=== PATIENT | male | born 1950 | race Caucasian/White ===

== ENCOUNTER 2018-01-16 05:58 | Day surgery (SDC) | payer SELFPAY ==
[2018-01-16] VITALS (8 sets, daily range): BP systolic 108–140; BP diastolic 67–85; PULSE 80–93; RESP 15–18; TEMP 36.4–36.8; O2SAT 94–98; BMI 21.4
--- NOTE | 2018-01-16 07:10 | RAD_ITS ---
STUDY: X-RAY - RIGHT ANKLE REASON FOR EXAM: Male, 67 years old. ORIF TECHNIQUE: 2 C-arm view(s) of the ankle. COMPARISON: None. FINDINGS: 2 C-arm films of the right ankle were performed after open reduction internal fixation of fractures in the distal fibula and tibia. Alignment at the fracture sites is anatomic. No hardware complication. RAD/Ankle min 3 Views IMPRESSION: Status post ORIF of distal tibia and fibular fractures. Alignment at the fracture sites is anatomic, follow-up recommended to assure osseous union Electronically Signed: Narciso Mike MD at 10:17 EDT , Service support ,
[2018-01-16] MEDS: Cefazolin 2 GM in 0.9% Normal Saline 100 ML IV (07:15)
--- NOTE | 2018-01-16 09:19 | PCM.DC.ORTHO ---
Discharge Diet: No Restrictions Discharge Activity: Use Walker, Use Crutches Weight Bearing Status: No weight bearing Keep extremity elevated above heart level: Right Leg Call your doctor if your incision/area has: Continuous Slow Oozing, Sudden Increased Bleeding, Increased Pain/ Swelling, Increased Redness, Foul Smelling Discharge Call your doctor if you observe: Fever of 101 or Higher, Coldness, Increased Pain, Numbness or Tingling, Change in Color Cleanse incision/area with: Keep Dressing Clean & Dry Allergies/Adverse Reactions: Allergies aspirin Allergy (Verified 01/15/18 12:05) Unknown Please Follow Up With: Farzad Goel, DO When: as scheduled
--- NOTE | 2018-01-16 09:21 | PCM.OPRPT ---
Report of Operation Date of Procedure: 01/16/18 Pre-Operative Diagnosis: Distal tibia fracture with intra-articular extension right, fibular shaft fracture right Post-Operative Diagnosis: Same with rupture of posterior tibialis tendon right Surgery/Procedure Performed:: Open reduction with internal fixation of distal tibia, open reduction with internal fixation of fibular shaft right. Primary repair of posterior tibialis tendon package handler: Olivier Harvey Type of Anesthesia:: General Anesthesiologist: Luís Lira Estimated Blood Loss (mL): 25 Fluids Replaced: See anesthesia report Description of Procedure: Surgical indications: Utilize a 67-year-old male who sustained a severe ankle injury last week. He has elected to undergo the above procedure. Please see history and physical Implants: Synthes one third tubular plate on the fibula and Synthes medial periarticular distal tibial plate Procedure description: Rosalba was greeted in the preoperative area. His right lower extremity was marked with surgical marker. Perioperative antibiotics were administered. Patient was then taken to the operating room Suite 1. After adequate anesthesia was obtained and airway secured well-padded tourniquet was placed on patient's right lower extremity. The leg was then prepped draped in usual sterile fashion. Surgical timeout was performed surgery was commenced. Assistance Esmarch was used to examine the limb the tourniquet was inflated to 250 mmHg. Standard lateral approach to the fibular shaft was then carried out. Incision was made with a 15 blade. Superior peroneal nerve was identified and protected throughout the procedure. Patient had a transverse type fracture of the fibular shaft. I was able to reduce this and this is held in anatomic fashion as a one third tubular plate was applied to the lateral aspect of the fibula. The distal screw was then placed bicortically followed by a compression screw proximally in order to compress the fracture site to promote some healing. Biplanar fluoroscopic imaging was used to confirm the reduction and the plate placement. Total of 6 screws were placed in this fibular plate. Once this was achieved the tibia was then approached. The medial incision was then created greater saphenous vein was identified and protected. I then dissected down to the distal tibia and subperiosteal dissection was then carried at the fracture site. Patient had incarcerated tendon within the fracture site. This was removed and was identified that this is the posterior tibialis tendon. He had completely ruptured this at the fracture site. Once as able to remove that I was unable to reduce the fracture. This is held in reduced fashion point of reduction forceps. There is slight amount of valgus at the ankle mortise which is a trial to correct. I estimate this to be approximately 3? after several times to improve this valgus alignment without success I did decide that this would be acceptable and proceed with the fixation. First screw was placed distally with a bicortical cancellus screw in order to reduce the plate to the bone followed by 4 distal locking screws. Once this was secured to the bone distally I was unable to manipulate the reduction slightly more order to achieve anatomic alignment and reduction as well as to attempt to improve the alignment. Again the alignment would not improve greater than 3? of valgus to the floor I did proceed with fixing the plate to the bone proximally with bicortical 3.5 millimeter screws. Biplanar fluoroscopic imaging was utilized throughout the procedure to ensure appropriate placement of the plate as well as the screws as well as to monitor the reduction. Final imaging was obtained. Attention was then turned to the ruptured posterior tibialis tendon. This is very close to the musculotendinous junction. I had a substantial stump distally the proximal stump was not quite as garcia as this was very close to the musculotendinous junction. Used to #2 fiber wires and performed a Krak?w type stitch both the proximal and distal portion with the #2 FiberWire and these were then approximated. I then oversewed this with #1 Vicryl on a tapered needle. Once this was complete the wounds were irrigated and closed in layers. Surgical tressa were used in the skin because of the tenuous nature of his skin. He did have a fracture blister noted posterior medial. If the patient ends up developing a symptomatic flatfoot he may require reconstructive surgery later to perform a FDL transfer to the posterior tibialis. Postoperative: Patient will maintain strict nonweightbearing for approximately 6 weeks. He may be removed out of the postop dressing at 2 weeks however he will require a cam walking boot and treat this essentially as a cast for an additional 4 weeks. Will attempt weightbearing at approximately 6 weeks he may initiate some gentle active range of motion at 4 weeks aggressive resistance exercises at 6-8 weeks Physician assistant portfolio manager was integral in all portions of this procedure. They assisted with positioning the patient, draping the extremity, holding retractors, closing the wound, and applying the dressing. This was all done under my direct supervision. The physician assistant portfolio manager was essential for a successful, efficient surgery. - Admit VTE Documentation VTE Present on Admission: Yes VTE Mechan Device Prophylaxis: SCD's, Thigh High LAN Hose VTE Pharm Prophylaxis ordered?: No Reason prophylaxis not ordered:: Adverse Reaction to Drug
--- NOTE | 2018-01-16 09:31 | OP.PCM_ITS ---
Report of Operation Date of Procedure: 01/16/18 Pre-Operative Diagnosis: Distal tibia fracture with intra-articular extension right, fibular shaft fracture right Post-Operative Diagnosis: Same with rupture of posterior tibialis tendon right Surgery/Procedure Performed:: Open reduction with internal fixation of distal tibia, open reduction with internal fixation of fibular shaft right. Primary repair of posterior tibialis tendon senior data analyst: Olivier Harvey Type of Anesthesia:: General Anesthesiologist: Luís Lira Estimated Blood Loss (mL): 25 Fluids Replaced: See anesthesia report Description of Procedure: Surgical indications: Utilize a 67-year-old male who sustained a severe ankle injury last week. He has elected to undergo the above procedure. Please see history and physical Implants: Synthes one third tubular plate on the fibula and Synthes medial periarticular distal tibial plate Procedure description: Rosalba was greeted in the preoperative area. His right lower extremity was marked with surgical marker. Perioperative antibiotics were administered. Patient was then taken to the operating room Suite 1. After adequate anesthesia was obtained and airway secured well-padded tourniquet was placed on patient's right lower extremity. The leg was then prepped draped in usual sterile fashion. Surgical timeout was performed surgery was commenced. Assistance Esmarch was used to examine the limb the tourniquet was inflated to 250 mmHg. Standard lateral approach to the fibular shaft was then carried out. Incision was made with a 15 blade. Superior peroneal nerve was identified and protected throughout the procedure. Patient had a transverse type fracture of the fibular shaft. I was able to reduce this and this is held in anatomic fashion as a one third tubular plate was applied to the lateral aspect of the fibula. The distal screw was then placed bicortically followed by a compression screw proximally in order to compress the fracture site to promote some healing. Biplanar fluoroscopic imaging was used to confirm the reduction and the plate placement. Total of 6 screws were placed in this fibular plate. Once this was achieved the tibia was then approached. The medial incision was then created greater saphenous vein was identified and protected. I then dissected down to the distal tibia and subperiosteal dissection was then carried at the fracture site. Patient had incarcerated tendon within the fracture site. This was removed and was identified that this is the posterior tibialis tendon. He had completely ruptured this at the fracture site. Once as able to remove that I was unable to reduce the fracture. This is held in reduced fashion point of reduction forceps. There is slight amount of valgus at the ankle mortise which is a trial to correct. I estimate this to be approximately 3? after several times to improve this valgus alignment without success I did decide that this would be acceptable and proceed with the fixation. First screw was placed distally with a bicortical cancellus screw in order to reduce the plate to the bone followed by 4 distal locking screws. Once this was secured to the bone distally I was unable to manipulate the reduction slightly more order to achieve anatomic alignment and reduction as well as to attempt to improve the alignment. Again the alignment would not improve greater than 3? of valgus to the floor I did proceed with fixing the plate to the bone proximally with bicortical 3.5 millimeter screws. Biplanar fluoroscopic imaging was utilized throughout the procedure to ensure appropriate placement of the plate as well as the screws as well as to monitor the reduction. Final imaging was obtained. Attention was then turned to the ruptured posterior tibialis tendon. This is very close to the musculotendinous junction. I had a substantial stump distally the proximal stump was not quite as garcia as this was very close to the musculotendinous junction. Used to #2 fiber wires and performed a Krak?w type stitch both the proximal and distal portion with the #2 FiberWire and these were then approximated. I then oversewed this with #1 Vicryl on a tapered needle. Once this was complete the wounds were irrigated and closed in layers. Surgical tressa were used in the skin because of the tenuous nature of his skin. He did have a fracture blister noted posterior medial. If the patient ends up developing a symptomatic flatfoot he may require reconstructive surgery later to perform a FDL transfer to the posterior tibialis. Postoperative: Patient will maintain strict nonweightbearing for approximately 6 weeks. He may be removed out of the postop dressing at 2 weeks however he will require a cam walking boot and treat this essentially as a cast for an additional 4 weeks. Will attempt weightbearing at approximately 6 weeks he may initiate some gentle active range of motion at 4 weeks aggressive resistance exercises at 6-8 weeks Physician bar assistant was integral in all portions of this procedure. They assisted with positioning the patient, draping the extremity, holding retractors , closing the wound, and applying the dressing. This was all done under my direct supervision. The physician bar assistant was essential for a successful, efficient surgery. - Admit VTE Documentation VTE Present on Admission: Yes VTE Mechan Device Prophylaxis: SCD's, Thigh High LAN Hose VTE Pharm Prophylaxis ordered?: No Reason prophylaxis not ordered:: Adverse Reaction to Drug
--- NOTE | 2018-01-16 10:32 | NURSING ---
morphine 4 mg iv given at 1022 per pacu orders, pt now resting comfortably.
[2018-01-16] MEDS: oxyCODONE 5 MG Tablet PO (12:42)
== END 2018-01-16 13:10 | disposition home or self-care (01) ==
LOC: SDC 06:14 → AC 06:35
PROVIDERS: Family Provider Family Medicine; PCP Family Medicine; Visit Provider Orthopaedic Surgery
PROC: (CPT 27758; principal; 2018-01-16 06:55)
DX: S82.221A Displaced transverse fracture of shaft of right tibia, initial encounter for closed fracture (principal); S82.421A Displaced transverse fracture of shaft of right fibula, initial encounter for closed fracture; S86.111A Strain of other muscle(s) and tendon(s) of posterior muscle group at lower leg level, right leg, initial encounter; W18.31XA Fall on same level due to stepping on an object, initial encounter; Y93.89 Activity, other specified; Y92.9 Unspecified place or not applicable; Y99.9 Unspecified external cause status; M19.90 Unspecified osteoarthritis, unspecified site; Z85.46 Personal history of malignant neoplasm of prostate
CPT/HCPCS: 01480; 27758; 64445; 73610; 76000; C1713; J7120; J2405

== ENCOUNTER 2019-07-24 19:00 | Emergency (ER) | payer SELFPAY ==
[2019-07-24 19:01] VITALS: BP 153/88; PULSE 93; RESP 18; TEMP 36.6; O2SAT 97; BMI 22.3
--- NOTE | 2019-07-24 19:10 | ED.VIS.GEN ---
History of Present Illness Chief Complaint: Complaint Informant: Patient Onset: Yesterday Context: Gradual Onset Timing: Continuous Current Severity: Moderate Maximum Severity: Moderate Narrative: The patient is a 68-year-old male who presents to the emergency department with acute urinary retention. The patient had surgery done yesterday at [facility]. He had a permanent stent placed in his kidney. He also had testicles removed. He states he urinated fine after the surgery. Today, he has been unable to urinate. He describes abdominal tenderness and fullness. He denies any fevers or chills. He states he is otherwise been in his normal state of health. He is not on anticoagulants. Prior similar symptoms: No Recent Illness/Hospitalization: Yes Past Medical History - Allergies and Home Meds Allergies/Adverse Reactions: Allergies aspirin Allergy (Verified 07/24/19 19:29) Unknown Primary Care Physician: Ryan Sandoval MD [Primary Care Provider] - Prior records reviewed: Yes Past Medical History: None Surgical History: - - Bilateral orchiectomy and renal stent placement Smoking Status: Never smoker Review of Systems General: Denies: Chills, Fever, Sweats Eyes: Denies: Visual changes - bilaterally, Diplopia ENT: Denies: Rhinorrhea, Sore throat Cardiovascular: Denies: Chest pain, Palpitations Respiratory: Denies: Dyspnea, Cough, Dyspnea on exertion Gastrointestinal: Denies: Abdominal pain, Nausea, Vomiting, Diarrhea, Melena, Hematochezia Genitourinary: Reports: Dysuria. Denies: Hematuria, Frequency Musculoskeletal: Denies: Back pain, Extremity Pain Skin: Denies: Rash, Wounds Neurological: Denies: Headache, Weakness, Numbness Physical Exam Vital Signs/Narrative: Vital Signs Temp Pulse Resp BP Pulse Ox 07/24/19 19:01 97.8 F 93 18 153/88 H 97 Inital Vital Signs reviewed: Yes General: Well nourished, Well developed, No Acute Distress Head: Normocephalic, Atraumatic Eyes: Perrl, EOMI ENT: Moist mucous membranes, No rhinorrhea Neck: Supple, Nontender Cardiovascular: Regular rate, Regular rhythm, No murmurs Respiratory: No distress, CTA bilaterally, Chest nontender Abdomen: Soft, Nondistended, Normal bowel sounds, Tender. Negative for: Guarding, Rebound tenderness Back: Nontender, Normal Inspection Extremities: Nontender, No edema Skin: Normal color, No rash Neurological: Alert, Oriented x3, Cranial nerves II-XII grossly intact, Normal Strength, Normal Sensation Psychological: Normal affect, Normal Mood Diagnostic/Tx/Re-eval - Medical Decision Making The patient presents with acute urinary retention. I was able to review his operative note from [facility]. He had stent placed in his right ureter due to hydronephrosis and questionable mass. There was no procedure done on the bladder or prostate itself. 18 Upper Sorbian Hagen was placed and the patient had 1200 cc of urine out. He had market improvement and is resting comfortably. At this point, I do feel that his urinary retention is likely secondary to his recent procedure. There is no gross blood. He said no evidence of infection. The patient will be discharged with a catheter in place to follow-up with his urologist as scheduled. He is comfortable with this plan of care. Impression 1. Acute urinary retention ED Disposition - Plan for ED Patient: Instructions: URINARY RETENTION, Male Referrals: Ryan Sandoval MD [Primary Care Provider] -
[2019-07-24 20:14] VITALS: PULSE 77; RESP 16
== END 2019-07-24 20:14 | disposition home or self-care (01) ==
PROVIDERS: Emergency Provider Emergency Medicine; Family Provider Family Medicine; PCP Family Medicine
DX: R33.9 Retention of urine, unspecified (principal); Z96.0 Presence of urogenital implants
CPT/HCPCS: 51702; 99283

== ENCOUNTER 2019-07-26 05:54 | Emergency (ER) | payer OTHER, SELFPAY ==
[2019-07-26 05:55] VITALS: BP 155/85; PULSE 75; RESP 18; TEMP 36.5; O2SAT 98; BMI 25.9
--- NOTE | 2019-07-26 05:56 | CT_ITS ---
STUDY: CT ABDOMEN AND PELVIS WITH CONTRAST REASON FOR EXAM: Male, 68 years old. ABD PAIN, N/V/D, RICE PLACED THIS WEEK, HX PROSTATE CANCER RADIATION DOSAGE (If Supplied By Facility): CTDIvol = ( 7.75 ) mGy, DLP = ( 631.82 ) mGycm TECHNIQUE: Transaxial images were obtained from the dome of the diaphragm to the symphysis pubis without oral contrast. Oral and amp;amp;amp;amp;amp; IV Gastrografin and amp;amp;amp;amp;amp; 100mL Isovue-300 was administered. Sagittal and coronal images were reconstructed. Individualized dose optimization techniques were used for this CT. COMPARISON: None. FINDINGS: The visualized lung bases are unremarkable. The visualized portions of the heart are within normal limits. Normal liver. There is a large stone there is dilatation of CBD at 7 mm at the neck of the gallbladder Normal spleen. Normal pancreas. Normal bilateral adrenal glands. There is moderate right hydronephrosis and mild perinephric edema. There is a pigtail catheter with the proximal end at the proximal ureter (coronal image #53 series 601). The distal end is at the bladder. There is a Rice catheter within the bladder. There is mild atrophy of the left kidney Normal visualized stomach. Normal small intestine. There is moderate distention of the cecum. There is mild amount of retained stool within the colon. There is no dilatation of the small bowel The appendix is visualized and appears normal. There is diffuse atherosclerotic calcification of the abdominal aorta, without a demonstrated aneurysm. Normal inferior vena cava. Normal retroperitoneum. Normal urinary bladder. Normal abdominal wall. There are diffuse degenerative changes of the visualized lumbar spine. There is mixed sclerotic and lytic pattern of L5 and pelvis bones. CT/Abdomen/Pelvis WITH Contrast IMPRESSION: Malpositioned right renal stent. Moderate right hydronephrosis. Cholelithiasis with dilated CBD at 7 mm. Mixed osseous pattern of the pelvis. Leading differential considerations include metastatic and Paget''s disease. Electronically Signed: Samer Salhab, MD at 8:16 EST Tel , Service support ,
--- NOTE | 2019-07-26 05:57 | ED.DCSUM_ITS ---
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 The patient had procedure done at [facility] 4 days ago. He had bilateral orchiectomy along with placement of a right indwelling renal stent for abnor malities around the ureter causing hydronephrosis. The patient was seen here 24 hours after the procedure because he had acute urinary retention. He had a Hagen placed and had significant improvement of his symptoms. He states that he still having urine out of his Hagen without issue. Tonight, rather suddenly, he had cramping abdominal pain nausea, vomiting, diarrhea. He is unsure if he had fever. He denies chest pain or dyspnea. He denies any recent sick contacts. Prior similar symptoms: No Recent Illness/Hospitalization: Yes Past Medical History - Allergies and Home Meds Allergies/Adverse Reactions: Allergies aspirin Allergy (Verified 07/26/19 05:57) Unknown Primary Care Physician: Ryan Sandoval MD [Primary Care Provider] - Prior records reviewed: Yes Past Medical History: - - Prostate Surgical History: - - Bilateral orchiectomy and renal stent placement Smoking Status: Never smoker Review of Systems General: Denies: Chills, Fever, Sweats Eyes: Denies: Visual changes - bilaterally, Diplopia ENT: Denies: Rhinorrhea, Sore throat Cardiovascular: Denies: Chest pain, Palpitations Respiratory: Denies: Dyspnea, Cough, Dyspnea on exertion Gastrointestinal: Reports: Abdominal pain, Nausea, Vomiting, Diarrhea Genitourinary: Denies: Dysuria, Hematuria, Frequency Musculoskeletal: Denies: Back pain, Extremity Pain Skin: Denies: Rash, Wounds Neurological: Denies: Headache, Weakness, Numbness Physical Exam Vital Signs/Narrative: Vital Signs Temp Pulse Resp BP Pulse Ox 07/26/19 05:55 97.7 F L 75 18 155/85 H 98 Inital Vital Signs reviewed: Yes General: Well nourished, Well developed, No Acute Distress Head: Normocephalic, Atraumatic Eyes: Perrl, EOMI ENT: Moist mucous membranes, No rhinorrhea Neck: Supple, Nontender Cardiovascular: Regular rate, Regular rhythm, No murmurs Respiratory: No distress, CTA bilaterally, Chest nontender Abdomen: Soft, Nondistended, Normal bowel sounds, Tender. Negative for: Guarding, Rebound tenderness Back: Nontender, Normal Inspection Extremities: Nontender, No edema Skin: Normal color, No rash Neurological: Alert, Oriented x3, Cranial nerves II-XII grossly intact, Normal Strength, Normal Sensation Psychological: Normal affect, Normal Mood Diagnostic/Tx/Re-eval - Medical Decision Making The patient presents with abdominal pain in his right lower quadrant associated with nausea, vomiting, diarrhea. He is also had recent surgical procedure. IV was established. The patient was given antiemetics and analgesics with some improvement. Screening labs do show leukocytosis. Plan will be for the patient to undergo CT imaging with oral and IV contrast especially given his recent procedure. He will be reevaluated by the oncoming physician and final disposition will be made pending completion of results. Impression 1. Acute abdominal pain with nausea, vomiting, diarrhea ED Disposition - Plan for ED Patient: Referrals: Ryan Sandoval MD [Primary Care Provider] -
[2019-07-26] MEDS: Morphine 4 MG/ML Syringe IV (06:03)
[2019-07-26] MEDS: 0.9% Normal Saline 1,000 ML 1000 ML IV (06:03)
[2019-07-26] MEDS: Ondansetron 4 MG/2 ML Vial IV (06:03)
[2019-07-26 06:11] LABS: Absolute Lymphocyte Count 2.26 X10^3/uL (0.83-4.51); Absolute Neutrophil Count 14.4 X10^3/uL (2.0-7.7); Basophil# 0.04 X10^3/uL; Basophil% 0.2 % (0-1); Eosinophil# 0.06 X10^3/uL; Eosinophils% 0.3 % (0-5); Hematocrit 38.8 % (40-54); Hemoglobin 13.1 g/dL (13.0-16.5); Lymphocyte # 2.26 X10^3/ul (4.0); Lymphocyte % 12.6 % (19-41); Mean Corp Hgb Conc 33.8 g/dL (32-36); Mean Corpuscular Hgb 32.9 pg (27.0-32.0); Mean Corpuscular Volume 97.5 fL (80-94); Mean Platelet Vol. 8.9 fl (6.2-12.0); Monocyte# 1.09 X10^3/uL; Monocyte% 6.1 % (0-10); NRBC Flagged by Analyzer 0 % (0-5); Neutrophil # 14.39 X10^3/uL (2.7-7.7); POSITIVE MORPHOLOGY YES; Platelet Count 252 K/mm3 (150-450); RBC Distribution Width CV 19.3 % (11.6-14.6); Red Blood Count 3.98 M/mm3 (4.6-6.2)
[2019-07-26 06:22] LABS: Differential Indicated SCAN CRITERIA MET
[2019-07-26 06:29] LABS: Color, Urine Straw (Yellow); Glucose, Dipstick Normal (Normal); Ketone-Dipstick Negative (Negative); Leukocyte Esterase-Dipstick 500 /ul (Negative); Mucous, Urine 0 SEEN /hpf (<or=2+); Nitrite-Dipstick Negative (Negative); Occult Blood-Urine 250 /ul (Negative); Protein-Dipstick 30 mg/dl (Negative); Specific Gravity, Urine 1.015 (1.002-1.030); Urine Bilirubin Dipstick Negative (Negative); Urine Clarity Cloudy (Clear); Urine Urobilinogen Normal (Normal)
[2019-07-26 06:37] LABS: Bacteria RARE /hpf (None Seen); Red Blood Cells-Urine 10-25 SEEN /hpf (0-5)
[2019-07-26 06:37] LABS: ALB/GLOB Ratio 0.8 RATIO (0.9-2.4); AST(SGOT) 16 U/L (15-37); Alanine Aminotransfer ALT/SGPT 24 U/L (16-61); Albumin, Serum 3.4 g/dL (3.2-5.0); Alkaline Phosphatase 311 U/L (45-117); Anion Gap 10 (5-15); BUN 26 mg/dL (7-18); BUN/Creat Ratio 21.1 RATIO (10-20); Calcium,Total 9.5 mg/dL (8.5-10.1); Chloride 101 mmol/L (98-107); Creatinine, Serum 1.23 mg/dL (0.70-1.30); EST Glomerular Filtration Rate 62 mL/min (>60); Est Glom Filt Rate - Afr Amer 75 mL/min (>60); Globulin 4.4 g/dL (2.2-4.2); Glucose 102 mg/dL (74-106); Potassium 3.1 mmol/L (3.5-5.1); Protein, Total 7.8 g/dL (6.4-8.2); Sodium Level 138 mmol/L (136-145)
[2019-07-26 06:38] LABS: Squamous Epithelial Cells - UA 0-5 SEEN /hpf (0-5); White Blood Cells 50-100 SEEN /hpf (0-5)
[2019-07-26 06:43] LABS: Differential Comment SCANNED
[2019-07-26 07:02] LABS: Lactic Acid 3.1 mmol/L (0.4-1.9)
[2019-07-26] MEDS: 0.9% Normal Saline 1,000 ML 999 ML IV (08:11)
[2019-07-26 08:22] VITALS: BP 104/62; PULSE 74; RESP 15; TEMP 36.6; O2SAT 95
[2019-07-26 08:38] LABS: Lipase 290 U/L (73-393)
--- NOTE | 2019-07-26 08:43 | EKG12_ITS ---
Test Reason : ABD PAIN Blood Pressure : / mmHG Vent. Rate : 070 BPM Atrial Rate : 070 BPM P-R Int : 146 ms QRS Dur : 088 ms QT Int : 428 ms P-R-T Axes : 059 066 065 degrees QTc Int : 462 ms Normal sinus rhythm Normal ECG Confirmed by MG VARGAS, MELINA ([id number]), television news video editor BRANDON BRICENO ([id number]) on 07/27/2019 10:35:13 AM Referred By: MAGDALENA Confirmed By:RC HOLLIDAY MD
[2019-07-26 09:02] VITALS: BP 116/67; PULSE 73; RESP 17; TEMP 36.4; O2SAT 96
[2019-07-26 10:03] VITALS: BP 106/71; PULSE 72; RESP 17; TEMP 36.4; O2SAT 96
[2019-07-26 10:07] LABS: Reflex Lactate? Y
[2019-07-26 10:13] VITALS: BP 107/69; PULSE 71; RESP 16; TEMP 36.4; O2SAT 96
[2019-07-26 10:46] LABS: Lactic Acid 1.8 mmol/L (0.4-1.9)
== END 2019-07-26 10:44 | disposition short-term general hospital (02) ==
PROVIDERS: Emergency Medicine; Emergency Provider Emergency Medicine; Family Provider Family Medicine; PCP Family Medicine
DX: A41.9 Sepsis, unspecified organism (principal); R82.81 Pyuria; R65.20 Severe sepsis without septic shock; T83.122A Displacement of indwelling ureteral stent, initial encounter; N13.30 Unspecified hydronephrosis; K80.20 Calculus of gallbladder without cholecystitis without obstruction; E87.6 Hypokalemia; M84.859 Other disorders of continuity of bone, unspecified pelvic region and thigh; R79.89 Other specified abnormal findings of blood chemistry
CPT/HCPCS: 36415; 74177; 80053; 81001; 83605; 83690; 85025; 87040; 87086; 93005; 96361; 96365; 96374; 96375; 99285; J7030; Q9967; A4216; J2405

== ENCOUNTER → 2019-09-24 12:46 | Outpatient (CLI) | payer SELFPAY ==
--- NOTE | 2019-09-24 12:52 | VDLE_ITS ---
Reason For Study: SWELLING/PAIN Procedure LEFT Exam performed in department. GSV is normal. A preliminary report was called and/or faxed CFV is compressible, spontaneous, phasic, to DR LAN. competent, and demonstrates normal augmentation. FV is compressible, spontaneous, phasic, competent and demonstrates normal augmentation. POP V is compressible, spontaneous, phasic, competent and demonstrates normal augmentation. T/P Trunk is compressible. PTV is compressible. LT PerV is compressible. Interpretation Summary Deep veins of the left lower extremity are patent and compressible segmentally. There is no evidence of left lower extremity deep vein thrombosis. Valvular competence appears intact within the proximal deep venous system on the left . The left great saphenous vein appears patent and compressible segmentally. Ordering Physician: Ynes Lan Referring Physician: REHAN MCGRAW Performed By: Macie Fontenot, MICHELLE, RVT
== END ==
PROVIDERS: PCP Family Medicine; Referring Provider Internal Medicine Hematology & Oncology; Visit Provider Internal Medicine Hematology & Oncology
DX: M79.89 Other specified soft tissue disorders (principal); M79.605 Pain in left leg; C61 Malignant neoplasm of prostate; C79.51 Secondary malignant neoplasm of bone
CPT/HCPCS: 93971

== ENCOUNTER 2019-12-27 08:34 | Emergency (ER) | payer OTHER, SELFPAY ==
[2019-12-27 08:37] VITALS: BP 119/71; PULSE 86; RESP 17; TEMP 36.6; O2SAT 99; BMI 24.3
--- NOTE | 2019-12-27 08:53 | SUR.HOLD ---
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
--- NOTE | 2019-12-27 08:54 | ED.RN ---
PT HAD STENT PLACED YESTERDAY FROM KIDNEY TO BLADDER. PT DID NOT CALL SURGEON I DO NOT FEEL LIKE GOING TO [place].
--- NOTE | 2019-12-27 09:06 | ED.VISSUMM ---
- ER Visit Summary Date of Service: 12/27/19 Chief Complaint: [Urinary retention] History of Present Illness: The patient is a 69 M [presents to the emergency department with inability to void urine since around 2 AM. Patient states that yesterday he had his right ureteral stent changed out by urologist at [facility]. Patient states that he had some growth in the ureter near the bladder but did not test positive for cancer. Patient states the first time he had the stent placed he had a similar issue that required Hagen catheter placement afterwards. He denies any fever. He denies dysuria. He describes some lower abdominal discomfort. Patient has history of prostate cancer.] Physical Examination: [HEENT-PERRLA, EOMI. Cranial nerves II through XII grossly intact. TMs clear. Mucous membranes moist. No adenopathy. Cardiovascular-regular rate and rhythm without murmur or ectopy Lungs-clear to auscultation, chest wall stable without crepitus or subcu emphysema Abdomen-normoactive bowel sounds, soft. Patient has some mild suprapubic fullness. No rebound, rigidity, or peritoneal signs. Extremities-intact ?4, normal range of motion, normal pulses, atraumatic] Test Results: [Urinalysis obtained showed 500 leukocyte esterase, grade 100 WBCs, 25-50 RBCs and +2 bacteria.] Emergency Department Course and Treatment: [Hagen catheter placed and patient had immediately over 700 cc of urine. Patient had good relief of symptoms with that. Patient was given Bactrim 1 p.o.] Treatment Plan: [Patient will have a urine culture sent. Patient to follow-up with his urologist within next 3 to 5 days. Patient given a prescription for Bactrim.] Disposition: [Discharged home in stable condition. Patient advised to return if worsening pain, fever, vomiting, or condition should worsen anyway.] Impression: [Urinary retention UTI] This note was generated with [employer] dictation software. It may contain incorrect words, spelling, and punctuation that were not noted in review of the chart prior to signing ED Disposition - Plan for ED Patient: Referrals: Ryan Sandoval MD [Primary Care Provider] -
[2019-12-27 09:36] LABS: Mucous, Urine 0 SEEN /hpf (<or=2+); Squamous Epithelial Cells - UA 0 SEEN /hpf (0-5)
[2019-12-27 09:56] LABS: Color, Urine Straw (Yellow); Glucose, Dipstick Normal (Normal); Ketone-Dipstick Negative (Negative); Leukocyte Esterase-Dipstick 500 /ul (Negative); Nitrite-Dipstick Negative (Negative); Occult Blood-Urine 250 /ul (Negative); Protein-Dipstick 100 mg/dl (Negative); Urine Bilirubin Dipstick Negative (Negative); Urine Clarity Cloudy (Clear); Urine Urobilinogen Normal (Normal)
[2019-12-27 10:04] LABS: Red Blood Cells-Urine 25-50 SEEN /hpf (0-5); White Blood Cells >100 SEEN /hpf (0-5)
[2019-12-27 10:05] LABS: Bacteria 2+ /hpf (None Seen)
--- NOTE | 2019-12-27 10:13 | ED.DEP ---
ED Disposition - Plan for ED Patient: Instructions: ED CYSTITIS Male Adult, ED Urinary Retention Male Prescriptions: Smz/Tmp Ds [Bactrim Ds] 1 tab PO BID #14 tab Prescription Printed Referrals: Ryan Sandoval MD [Primary Care Provider] - Additional Instructions: see your urologist in 3-5 days
[2019-12-27] MEDS: Smz/Tmp Ds Tablet 1 TABLET PO (10:25)
[2019-12-27 11:30] VITALS: BP 123/76; PULSE 89; RESP 16; O2SAT 99
== END 2019-12-27 11:32 | disposition home or self-care (01) ==
PROVIDERS: Emergency Provider Emergency Medicine; PCP Family Medicine
DX: N39.0 Urinary tract infection, site not specified (principal); Z85.46 Personal history of malignant neoplasm of prostate
CPT/HCPCS: 81001; 87077; 87086; 87088; 87186; 99283

== ENCOUNTER 2020-10-07 09:31 | Observation (INO) | payer OTHER, SELFPAY ==
[2020-10-07] VITALS (11 sets, daily range): BP systolic 94–113; BP diastolic 54–74; PULSE 68–92; RESP 12–24; TEMP 35.5–37.1; O2SAT 97–100; BMI 25.5; BMI 25.7; BMI 25.8
--- NOTE | 2020-10-07 09:44 | EKG12_ITS ---
Test Reason : CP ADMISSION Blood Pressure : / mmHG Vent. Rate : 070 BPM Atrial Rate : 070 BPM P-R Int : 144 ms QRS Dur : 088 ms QT Int : 434 ms P-R-T Axes : 046 052 054 degrees QTc Int : 468 ms Normal sinus rhythm Normal ECG Confirmed by ADELE VARGAS, HARDEEP ([id number]), digital editor RON SOMMERS ([id number]) on 10/09/2020 11:13:14 AM Referred By: MANDY Confirmed By:HARDEEP ANGULO MD
--- NOTE | 2020-10-07 09:49 | ED.DCSUM_ITS ---
History of Present Illness Chief Complaint: Palpitations Informant: Patient Onset: Hours - 3 Activity at onset: Rest Timing: Continuous - for about 2-2.5 hrs Quality: - - discomfort Location: Substernal - w/ radiation to both UE Current Severity: Gone Maximum Severity: Moderate Worsened By: Nothing Relieved By: Nothing Associated Symptoms: Nausea, Dyspnea - a little, Lightheadedness, Palpitations - racing. Negative for: Vomiting, Diaphoresis, Cough, Fever Narrative: Patient states he suddenly started feeling weak and lightheaded, nauseated, with racing palpitations and chest discomfort. It went on for a little over 2 hours or so. EMS was called, put him on some oxygen, now that he is here in the emergency department he feels better. No known history of heart disease. No recent long travel or immobilization/hospitalization/surgery. Has not had Covid and has had no contact with anyone that he knows of with Covid. No recent illness and was feeling fine prior to this starting. 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 Denies: Chills, Fever, Sweats Eyes: Denies: Visual changes - bilaterally, Diplopia ENT: Denies: Bilateral ear pain, Rhinorrhea, Sore throat Cardiovascular: Reports: Chest pain, Palpitations, Heart racing Respiratory: Reports: Dyspnea. Denies: Cough, Dyspnea on exertion Gastrointestinal: Reports: Nausea - Gone. Denies: Abdominal pain, Vomiting, Diarrhea, Melena, Hematochezia Genitourinary: Denies: Dysuria, Hematuria, Frequency Musculoskeletal: Reports: Back pain - Intermittently, none now. Denies: Swelling, Extremity Pain Skin: Denies: Rash, Wounds Neurological: Reports: Numbness - Both hands, resolved now. Denies: Headache, Weakness Physical Exam Vital Signs/Narrative: Vital Signs Temp Pulse Resp BP Pulse Ox 10/07/20 09:44 99 10/07/20 09:42 96.9 F L 79 23 H 97/70 99 10/07/20 09:32 95.9 F L 81 24 H 104/74 100 Inital Vital Signs reviewed: Yes General: Well nourished, Well developed, No Acute Distress Head: Normocephalic, Atraumatic Eyes: Perrl, EOMI ENT: Moist mucous membranes, No rhinorrhea Neck: Supple, Nontender Cardiovascular: Regular rate, Regular rhythm, No murmurs Respiratory: No distress, CTA bilaterally, Chest nontender Abdomen: Soft, Nontender, Nondistended, Normal bowel sounds. Negative for: Pulsatile mass Back: Nontender, Normal Inspection. Negative for: CVA tenderness Extremities: Nontender, No edema. Negative for: Calf Tenderness Skin: Normal color, No rash, No Trauma Neurological: Alert, Oriented x3, Cranial nerves II-XII grossly intact, Normal Strength, Normal Sensation Psychological: Normal affect, Normal Mood Diagnostic/Tx/Re-eval Impressions Chest X-Ray 10/07/20 09:50 IMPRESSION: Emphysema without pneumonia or atelectasis. Electronically Signed: Lenny Curran MD at 10:22 EST Tel , Service support , 10/07/20 09:50 Chest 1 View (Portable) [RAD] Stat Laboratory Results 10/07/20 10/07/20 10/07/20 08:52 08:52 08:52 WBC 10.8 RBC 3.83 L Hgb 12.3 L Hct 37.7 L MCV 98.4 H MCH 32.1 H MCHC 32.6 RDW Std Deviation 53.1 H RDW Coeff of Santiago 14.7 H Plt Count 402 MPV 9.7 Immature Gran % (Auto) 0.600 Neut % (Auto) 76.2 H Lymph % (Auto) 13.5 L [place] % (Auto) 5.2 Eos % (Auto) 4.0 Baso % (Auto) 0.5 Absolute Neuts (auto) 8.3 H Absolute Lymphs (auto) 1.46 Nucleated RBC % 0 APTT Cancelled Sodium 138 Potassium 4.4 Chloride 107 Carbon Dioxide 22.0 Anion Gap 9 BUN 24 H Creatinine 1.41 H Estim Creat Clear Calc 41.40 Est GFR (MDRD) Af Amer 64 Est GFR (MDRD) Non-Af 53 L BUN/Creatinine Ratio 17.0 Glucose 131 H Calcium 9.3 Troponin I 0.015 10/07/20 10:30 WBC RBC Hgb Hct MCV MCH MCHC RDW Std Deviation RDW Coeff of [place] Plt Count MPV Immature Gran % (Auto) Neut % (Auto) Lymph % (Auto) [place] % (Auto) Eos % (Auto) Baso % (Auto) Absolute Neuts (auto) Absolute Lymphs (auto) Nucleated RBC % APTT 29.0 Sodium Potassium Chloride Carbon Dioxide Anion Gap BUN Creatinine Estim Creat Clear Calc Est GFR (MDRD) Af Amer Est GFR (MDRD) Non-Af BUN/Creatinine Ratio Glucose Calcium Troponin I - Rhythm Strip Rhythm Strip: Sinus Rhythm Rate: 76 Ectopy: None - EKG Initial EKG Interpretation: Sinus Rhythm, No Acute Injury Pattern - Normal EKG Treatment: Aspirin Repeat Eval: Pain Free MICHELLE Risk: Age >/= 65 Score: 1 - Medical Decision Making Heart score is 2, 0, 2, 0, 0 equals 4. Given the patient's history and the fact that he has never had this happen before, I am concerned that he could have had unstable angina and/or a tachydysrhythmia. He had no recurrence while in emergency department, and remained chest pain-free. He cannot remember when he last had a stress test. Patient will be admitted for further evaluation and treatment. ED Disposition - Plan for ED Patient: Disposition: Acute Care Hospital [facility] Diagnosis: Chest pain, Palpitations, Near syncope Referrals: Ryan Sandoval MD [Primary Care Provider] -
--- NOTE | 2020-10-07 09:50 | RAD_ITS ---
STUDY: X-RAY CHEST REASON FOR EXAM: Male, 70 years old. chest pain TECHNIQUE: Single AP portable view of the chest. COMPARISON: None. FINDINGS: There is hyperinflation of the lungs consistent with chronic obstructive lung disease (COPD). There is no demonstrated pleural abnormality. Normal size heart. Normal mediastinum and berny. Normal visualized pulmonary arteries. Normal visualized aortic arch and descending thoracic aorta. Normal visualized thoracic spine. Normal visualized ribs, clavicles, and shoulders. There is no demonstrated abnormality of the visualized soft tissue structures of the upper abdomen. RAD/Chest 1 View (Portable) IMPRESSION: Emphysema without pneumonia or atelectasis. Electronically Signed: Lenny Curran MD at 10:22 EST Tel , Service support ,
[2020-10-07 09:58] LABS: Absolute Lymphocyte Count 1.46 X10^3/uL (0.83-4.51); Absolute Neutrophil Count 8.3 X10^3/uL (2.0-7.7); Basophil# 0.05 X10^3/uL; Basophil% 0.5 % (0-1); Eosinophil# 0.43 X10^3/uL; Hematocrit 37.7 % (40-54); Hemoglobin 12.3 g/dL (13.0-16.5); Lymphocyte # 1.46 X10^3/ul (4.0); Lymphocyte % 13.5 % (19-41); Mean Corp Hgb Conc 32.6 g/dL (32-36); Mean Corpuscular Hgb 32.1 pg (27.0-32.0); Mean Corpuscular Volume 98.4 fL (80-94); Mean Platelet Vol. 9.7 fl (6.2-12.0); Monocyte# 0.56 X10^3/uL; Monocyte% 5.2 % (0-10); NRBC Flagged by Analyzer 0 % (0-5); Neutrophil # 8.25 X10^3/uL (2.7-7.7); Neutrophil % 76.2 % (47-70); Platelet Count 402 K/mm3 (150-450); RBC Distribution Width CV 14.7 % (11.6-14.6); RBC Distribution Width SD 53.1 fl (35.1-43.9); Red Blood Count 3.83 M/mm3 (4.6-6.2); White Blood Count 10.8 K/mm3 (4.4-11.0)
[2020-10-07 10:13] LABS: Anion Gap 9 (5-15); BUN 24 mg/dL (7-18); Calcium,Total 9.3 mg/dL (8.5-10.1); Chloride 107 mmol/L (98-107); Creatinine, Serum 1.41 mg/dL (0.70-1.30); EST Glomerular Filtration Rate 53 mL/min (>60); Est Glom Filt Rate - Afr Amer 64 mL/min (>60); Glucose 131 mg/dL (74-106); Potassium 4.4 mmol/L (3.5-5.1); Sodium Level 138 mmol/L (136-145)
--- NOTE | 2020-10-07 10:16 | NURSING ---
PER LAB, BLUE TOP HEMOLIZED. WILL REPRINT LABELS
[2020-10-07] MEDS: 0.9% Normal Saline 1,000 ML 150 ML IV (10:20)
--- NOTE | 2020-10-07 11:26 | NURSING ---
DR GALVAN FOR DR SANTO
--- NOTE | 2020-10-07 12:11 | ECHOCS_ITS ---
Reason For Study: Chest Pain Procedure This was a 2D Doppler, Color Flow transthoracic echocardiogram. The study was technically difficult. Contrast injection was performed. Exam performed portable in patient room. Left Ventricle Normal LV size. Left ventricular systolic function is normal. The estimated ejection fraction is 60 %. No evidence for diastolic dysfunction. No regional wall motion abnormalities noted. Right Ventricle Normal RV size. Normal systolic function. Atria Normal left atrium. Normal right atrium. No doppler evidence for ASD. Mitral Valve There is no mitral annular calcification. Normal mitral valve. Trivial mitral valve insufficiency. Tricuspid Valve Normal tricuspid valve. Mild to moderate (1-2+) tricuspid valve insufficiency. Right ventricular systolic pressure estimated to be 28 mmHg. Aortic Valve Trisinus/trileaflet aortic valve. Mild focal aortic valve calcification. Mild aortic stenosis. Pulmonic Valve The pulmonic valve is not well visualized. Trivial pulmonic valve insufficiency. Great Vessels The aortic root is not well visualized. Pericardium/Pleural No pericardial effusion. Medication Diluted definity 2ml given slow IV push to enhance endocardial definition. MMode/2D Measurements & Calculations LVIDd: 4.5 cm IVSd: 0.88 cm LVOT diam: 2.3 cm LVIDs: 2.8 cm LVPWd: 0.85 cm RVDd: 3.5 cm FS: 37.2 % LVOT area: 4.0 cm2 ACS: 0.79 cm LAV(MOD-bp): 59.9 ml Aortic Valve Planimetry: 1.7 cm2 LA dimension: 4.0 cm LAV(MOD-bp) Indexed: 34.7 ml/m2 LAV(MOD-sp2): 55.9 ml LAV(MOD-sp4): 61.2 ml LA A4 area: 19.7 cm2 RA A4 area: 18.1 cm2 Time Measurements MV dec time: 0.21 sec Doppler Measurements & Calculations MV E max nick: 92.2 cm/sec Lat Peak E' Nick: 10.7 cm/sec Med Peak E' Nick: 9.6 cm/sec MV A max nick: 61.5 cm/sec E/E' lat: 8.6 E/E' med: 9.6 MV E/A: 1.5 MV V2 max: 97.6 cm/sec MV P1/2t max nick: 97.6 cm/sec Ao V2 max: 169.9 cm/sec MV max P.8 mmHg MV P1/2t: 82.8 msec Ao max P.6 mmHg MV V2 mean: 54.2 cm/sec MV dec slope: 345.1 cm/sec2 Ao V2 mean: 117.2 cm/sec MV mean P.4 mmHg Ao mean P.3 mmHg MV V2 VTI: 23.1 cm MVA(P1/2t): 2.7 cm2 Ao V2 VTI: 38.7 cm MVA(VTI): 3.2 cm2 SUKHWINDER(I,D): 1.9 cm2 SUKHWINDER(V,D): 1.9 cm2 LV V1 max: 80.4 cm/sec SV(LVOT): 73.9 ml PA V2 max: 64.5 cm/sec LV V1 max P.6 mmHg LV V1 mean P.5 mmHg LV V1 mean: 57.5 cm/sec LV V1 VTI: 18.4 cm TR max nick: 248.4 cm/sec TR max P.7 mmHg Interpretation Summary The study was technically difficult. Contrast injection was performed. Left ventricular systolic function is normal. The estimated ejection fraction is 60 %. Trivial mitral valve insufficiency. Mild to moderate (1-2+) tricuspid valve insufficiency. Mild aortic stenosis. Trivial pulmonic valve insufficiency. Right ventricular systolic pressure estimated to be 28 mmHg. No evidence for diastolic dysfunction. Ordering Physician: Hans Garibay Referring Physician: Ryan Sandoval Performed By: Sudhir Kuo RCS
[2020-10-07] MEDS: 0.9% Normal Saline 1,000 ML 75 ML IV (13:54)
--- NOTE | 2020-10-07 14:34 | EKG12_ITS ---
Test Reason : SOB Blood Pressure : / mmHG Vent. Rate : 076 BPM Atrial Rate : 076 BPM P-R Int : 140 ms QRS Dur : 086 ms QT Int : 408 ms P-R-T Axes : 051 057 052 degrees QTc Int : 459 ms Normal sinus rhythm Normal ECG Confirmed by HUNTER VARGAS, BERNARDO ([id number]), brands editor RON SOMMERS ([id number]) on 10/15/2020 10:16:39 AM Referred By: GAL Confirmed By:BERNARDO HARRISON MD
--- NOTE | 2020-10-07 14:38 | PCM.HP.STD ---
History of Present Illness Date of Admission: 10/07/20 Chief Complaint: Unspecified chest pain/ACS rule out Patient is a 70-year-old male who states he suddenly started feeling weak and lightheaded, nauseated, with racing palpitations and chest discomfort. Patient reports the chest pain radiated down his left arm. It went on for a little over 2 hours or so. Patient proceeded to call 911, was transported to the ED via squad. Patient has a pertinent past medical history of prostate cancer. Currently being managed on Enzalutamide for prostate cancer. Patient denies any shortness of breath, cough, fever, weight loss or vomiting. Patient states he has not had Covid or contact with anyone with the same. Past Medical History Past Medical History (Chronic Problems): Chronic Problems (Last Updated 10/07/20 @ 14:44 by Aelx CORCORAN) Prostate cancer metastatic to bone (Chronic) Medical History: Medical History (Last Updated 10/07/20 @ 14:44 by Alex CORCORAN) Prostate cancer C61 Allergies No Known Allergies Allergy (Verified 10/07/20 09:40) Home Medications: Ambulatory Orders Medication Instructions Recorded Fluoxetine [Prozac] 20 mg PO DAILY 07/24/19 Ferrous Sulfate 325 mg PO DAILY 12/27/19 Enzalutamide [Xtandi] 120 mg PO DAILY 10/07/20 Surgical History: TURP, - - Bilateral orchiectomy and renal stent placement Lives: With Family Smoking Status: Never smoker Review of Systems Constitutional: Denies: Chills, Fever, Weight Change HEENT: Denies: Head Aches, Sinus Congestion, Sinus Drainage Cardiovascular: Denies: Chest Pain, Palpitations Respiratory: Denies: Cough, Shortness of breath at rest, Sputum production Gastrointestinal: Denies: Abdominal Pain, Nausea, Vomiting Genitourinary: Denies: Dysuria Musculoskeletal: Denies: Joint Pain, Joint Tenderness Skin: Denies: Rash, Wounds Neurological: Denies: Numbness, Tingling, Focal weakness Psychiatric: Denies: Anxiety, Depression, Homicidal Ideations, Suicidal Ideations Hematologic/ Lymphatic: Denies: Easy Bruising, Easy Bleeding VTE Information - Inpt Only VTE Present on Admission: No Patient Problems: Active and Suspected Problems (Last Updated 10/07/20 @ 14:44 by Alex P Vieira PA) Chest pain (Acute) Palpitations (Acute) Near syncope (Acute) Subjective: 70-year-old male comfortably resting in bed, alert and oriented x3. No apparent distress, Objective: Clinical Impression(s) from Imaging Studies Chest X-Ray 10/07/20 09:50 IMPRESSION: Emphysema without pneumonia or atelectasis. Electronically Signed: Lenny Curran MD at 10:22 EST Tel , Service support , - Physical Exam Vitals/I&O's: Vital Signs Temp Pulse Resp BP Pulse Ox 98.4 F 77 16 94/56 L 97 10/07/20 13:00 10/07/20 13:00 10/07/20 13:00 10/07/20 13:00 10/07/20 13:00 Oxygen Delivery Method Room Air Weight: 151 lb Body Mass Index (BMI) 25.7 General: Alert, Oriented x3, Cooperative HEENT: Atraumatic, PERRLA, EOMI, Normocephalic Neck: Supple, No JVD, Negative Carotid Bruits Lungs: Clear to auscultation, Normal air movement Cardiovascular: Regular rate, No murmurs Abdomen: Bowel Sounds Present, Soft, Non Tender Extremities: No edema, Capillary Refill Less than 3 Seconds Skin: No rashes, No breakdown Musculoskeletal: No Tenderness to Palpation of Joints or Extremities Neurological: Cranial nerves II-XII grossly intact Psych/Mental Status: Normal Affect, Appropriate Laboratory Results 10/07/20 08:52: WBC 10.8, RBC 3.83 L, Hgb 12.3 L, Hct 37.7 L, MCV 98.4 H, MCH 32.1 H, MCHC 32.6, RDW Std Deviation 53.1 H, RDW Coeff of Santiago 14.7 H, Plt Count 402, MPV 9.7, Immature Gran % (Auto) 0.600, Neut % (Auto) 76.2 H, Lymph % (Auto) 13.5 L, [place] % (Auto) 5.2, Eos % (Auto) 4.0, Baso % (Auto) 0.5, Absolute Neuts (auto) 8.3 H, Absolute Lymphs (auto) 1.46, Nucleated RBC % 0 10/07/20 08:52: Sodium 138, Potassium 4.4, Chloride 107, Carbon Dioxide 22.0, Anion Gap 9, BUN 24 H, Creatinine 1.41 H, Estim Creat Clear Calc 41.40, Est GFR (MDRD) Af Amer 64, Est GFR (MDRD) Non-Af 53 L, BUN/Creatinine Ratio 17.0, Glucose 131 H, Calcium 9.3, Troponin I 0.015 10/07/20 08:52: APTT Cancelled 10/07/20 10:30: APTT 29.0 10/07/20 13:35: Troponin I 1.240 H* Current Medications Acetaminophen (Acetaminophen 325 Mg Tablet) 650 mg PO Q6H PRN PRN PRN Reason: Pain Score 1-10/Temp > 100.7 F Fluoxetine HCl (Fluoxetine 20 Mg Capsule) 20 mg PO DAILY [facility] Heparin Sodium (Porcine) (Heparin Injection (Vial) 5,000 Unit/Ml Vial) 5,000 unit SC Q12 GIOVANY Sodium Chloride () 1,000 mls @ 75 mls/hr IV .[id number] GIOVANY Last Admin: 10/07/20 13:54 Dose: 75 mls/hr Documented by: Non-Formulary Medication (Enzalutamide) 120 mg PO DAILY GIOVANY Ondansetron HCl (Ondansetron 4 Mg/2 Ml Vial) 4 mg IV Q8H PRN PRN PRN Reason: NAUSEA/VOMITING Sodium Chloride (0.9% Saline Lock 10 Ml Syringe) 10 - 40 ml IV UD PRN PRN Reason: SALINE FLUSH Assessment/Plan All Active Problems (Last Updated 10/07/20 @ 14:44 by Alex CORCORAN) Chest pain (Acute) Palpitations (Acute) Near syncope (Acute) Patient is a 70-year-old male who was admitted to the hospital with a chief complaint of weakness, lightheadedness, nausea and chest pain with radiation to the left arm. Patient was transported to the ED via squad, EKG from EMS was indeterminate. EKG in the ED revealed normal sinus rhythm. Heart score was 4 in the ED. Patient is currently pain-free, reports no other symptoms. Elevated troponins detected. Contacting cardiology for cardiac catheterization. 1) NSTEMI Assessment - Troponins elevated; 1.24 ng/dL - EKG; NSR w/ R&R - Telemetry; Unremarkable. - V/S stable Plan - Echocardiogram ordered - Contacting cardiology for cardiac catheterization VTE Prophylaxis; Heparin SC Patient seen by Alex Vieira PA-C, under the supervision of Dr. Garibay.
--- NOTE | 2020-10-07 17:42 | PCM.CONS.C ---
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 He states that he experienced chest discomfort which was chest tightness and discomfort that radiated into both upper extremities. He was somewhat nauseated but had no emesis. He does not recall any acute shortness of breath or dyspnea. He states he may have felt some palpitations and felt somewhat dizzy or lightheaded as if he may lose consciousness but did not. He presented to the hospital for further evaluation. His initial cardiac enzyme was negative, however, on repeat study his troponin I level was positive. He had an ECG that demonstrated sinus rhythm which upon repeat study demonstrated no new acute changes. He was brought into the hospital for further evaluation and care. He states at the moment he feels as if he is resting comfortably. He has denied any similar symptoms up until this day. He has denied any orthopnea or PND or worsening peripheral pitting edema. He does not recall any syncopal events in the past. He does have a history of prostate carcinoma with metastatic disease to the lymph nodes in the bone. He is being treated by [facility] hematology oncology. [] Past Medical History Allergies/Adverse Reactions: Allergies No Known Allergies Allergy (Verified 10/07/20 09:40) Home Medications: Ambulatory Orders Medication Instructions Recorded Fluoxetine [Prozac] 20 mg PO DAILY 07/24/19 Ferrous Sulfate 325 mg PO DAILY 12/27/19 Enzalutamide [Xtandi] 120 mg PO DAILY 10/07/20 Past Medical History (Chronic Problems): Chronic Problems (Last Updated 10/07/20 @ 14:44 by Alex CORCORAN) Prostate cancer metastatic to bone (Chronic) Surgical History: TURP, - - Bilateral orchiectomy and renal stent placement Lives: With Family Smoking Status: Never smoker Review of Systems - Review of Systems General: Denies: Fever, Night Sweats, Fatigue Cardiovascular: Reports: Chest Discomfort, Palpitations, Near Syncope. Denies: Shortness of Breath, Orthopnea, PND, Peripheral Edema, Lightheadedness, Dizziness, Syncope Respiratory: Denies: Cough, Sputum Production, Hemoptysis Gastrointestinal: Reports: Nausea. Denies: Hematemesis, Hematochezia, Melena Genitourinary: Denies: Dysuria, Hematuria Skin: Denies: Rash Subjectve: This is a 70-year-old white male who appears to be resting comfortably at the moment in no acute distress. Objective: Vital Signs Temp Pulse Resp BP Pulse Ox 98.4 F 87 16 94/56 L 97 10/07/20 13:00 10/07/20 15:43 10/07/20 13:00 10/07/20 13:00 10/07/20 13:00 Oxygen Delivery Method Room Air Weight: 151 lb Body Mass Index (BMI) 25.7 General: Awake, Alert, Oriented x 3, Cooperative, No Acute Distress HEENT: Atraumatic, Normocephalic, PERRL, EOMI, Sclera Non Icteric Neck: Supple, Good ROM, No JVD Lungs: Clear to auscultation Cardiovascular: Regular Rhythm, Normal S1, Normal S2 Vascular: No Carotid Bruits Abdomen: Bowel Sounds Present, Soft Extremities: No edema Neurological: No Focal Motor or Sensory Deficit Psych/Mental Status: Appropriate 10/07/20 08:52: WBC 10.8, RBC 3.83 L, Hgb 12.3 L, Hct 37.7 L, MCV 98.4 H, MCH 32.1 H, MCHC 32.6, Plt Count 402, MPV 9.7, Immature Gran % (Auto) 0.600, Neut % (Auto) 76.2 H, Lymph % (Auto) 13.5 L, Dawes % (Auto) 5.2, Eos % (Auto) 4.0, Baso % (Auto) 0.5, Absolute Neuts (auto) 8.3 H, Nucleated RBC % 0 10/07/20 08:52: Sodium 138, Potassium 4.4, Chloride 107, Carbon Dioxide 22.0, Anion Gap 9, BUN 24 H, Creatinine 1.41 H, Est GFR (MDRD) Af Amer 64, Est GFR (MDRD) Non-Af 53 L, BUN/Creatinine Ratio 17.0, Glucose 131 H, Calcium 9.3, Troponin I 0.015 10/07/20 08:52: APTT Cancelled 10/07/20 10:30: APTT 29.0 10/07/20 13:35: Troponin I 1.240 H* 10/07/20 15:35: Troponin I 2.980 H* Rhythm: Sinus rhythm EKG: This rhythm; no acute ECG changes CXR: IMPRESSION: Emphysema without pneumonia or atelectasis. Electronically Signed: Lenny Curran MD at 10:22 EST Assessment/Plan 1. Acute non-STEMI The patient appears to have experienced an acute non-STEMI. He is being followed. This includes his cardiac enzymes and his cardiac rhythm and his ECG. He has been asked to have an echocardiogram to evaluate his left ventricular wall motion and systolic function. In the interim he is continuing medical therapy with addition of aspirin, antiplatelets, anticoagulants, beta-blockers as tolerated, etc. He has been recommended for further evaluation with diagnostic cardiac catheterization. The procedure and risks of been discussed with him and he was agreeable to this approach. 2. Palpitations He states during this event he experienced palpitations. Thus far his rhythm has been sinus. He will continue to be monitored. 3. Near syncope He states he was somewhat lightheaded and felt as if he may lose consciousness but did not. He will continue his evaluation as noted. 4. Prostate carcinoma metastatic disease He does have a history of prostate carcinoma with metastatic disease to the lymph nodes in the bone. He continues to be followed by [facility] hematology oncology. Of note the patient states that he does believe he has a history of hyperlipidemia. He states he has been intolerant to lipid-lowering medications. Comment: The patient's case has been discussed and reviewed with Dr. Garibay. This note was generated using a voice recognition system and there may be incorrect words, spelling or punctuation that were not noted when reviewing the office note prior to saving. Procedure Criteria Procedure Type: Elective COVID Risk Discussion: The surgeon/proceduralist and patient have discussed in detail the risk of exposure to and/or potential harm posed by the COVID-19 virus with having a surgery/procedure at this time versus the risk of delaying the surgery/procedure. It is not possible to know either the risk of delaying the surgery or procedure or chance of getting an infection with perfect accuracy, but a joint decision was made between the patient and the surgeon/proceduralist to proceed at this time with the scheduled surgery/procedure as indicated on the consent form.
[2020-10-07] MEDS: Clopidogrel Bisulfate 300 MG Tablet PO (17:53)
[2020-10-07] MEDS: 0.9% Normal Saline 1,000 ML 100 ML IV (17:53)
[2020-10-07] MEDS: Heparin Injection (Vial) 5,000 UNIT/ML VIAL 5000 UNIT SC (21:14)
[2020-10-07] MEDS: Metoprolol Tartrate 25 MG Tablet 12.5 MG PO (21:14)
[2020-10-08] VITALS (17 sets, daily range): BP systolic 91–127; BP diastolic 52–76; PULSE 47–101; RESP 15–18; TEMP 36.4–37.1; O2SAT 94–100
[2020-10-08] MEDS: 0.9% Normal Saline 1,000 ML 100 ML IV (04:26)
--- NOTE | 2020-10-08 05:55 | EKG12_ITS ---
Test Reason : AM EKG Blood Pressure : / mmHG Vent. Rate : 070 BPM Atrial Rate : 070 BPM P-R Int : 148 ms QRS Dur : 082 ms QT Int : 448 ms P-R-T Axes : 067 067 063 degrees QTc Int : 483 ms Normal sinus rhythm Nonspecific ST abnormality Prolonged QT Abnormal ECG When compared with ECG of 07-OCT-2020 13:43, No significant change was found Confirmed by HUNTER VARGAS, BERNARDO ([id number]), legal editor RON SOMMERS ([id number]) on 10/15/2020 10:21:07 AM Referred By: MANDY Confirmed By:BERNARDO HARRISON MD
[2020-10-08] MEDS: Metoprolol Tartrate 25 MG Tablet 12.5 MG PO (06:32)
[2020-10-08] MEDS: Aspirin 81 MG TAB.CHEW PO (06:32)
[2020-10-08 06:41] LABS: Anion Gap 7 (5-15); BUN 20 mg/dL (7-18); BUN/Creat Ratio 23.7 RATIO (10-20); Calcium,Total 8.5 mg/dL (8.5-10.1); Chloride 112 mmol/L (98-107); Creatinine, Serum 0.84 mg/dL (0.70-1.30); EST Glomerular Filtration Rate 96 mL/min (>60); Est Glom Filt Rate - Afr Amer 116 mL/min (>60); Glucose 94 mg/dL (74-106); Potassium 3.9 mmol/L (3.5-5.1); Sodium Level 142 mmol/L (136-145)
--- NOTE | 2020-10-08 08:17 | CT_ITS ---
STUDY: CTA CHEST REASON FOR EXAM: Male, 70 years old. elevated troponin, r/o PE RADIATION DOSAGE (If Supplied By Facility): CTDIvol = ( 6.57 ) mGy, DLP = ( 424.51 ) mGycm TECHNIQUE: The examination was performed with the intravenous administration of IV 75mL Isovue-370. Post-processing of the angiographic images was performed, with multiplanar reformation and 3D reconstruction. Individualized dose optimization techniques were used for this CT. COMPARISON: None. FINDINGS: Normal enhancement of the main pulmonary artery and right and left pulmonary arteries. Normal enhancement of the bilateral peripheral pulmonary arteries. There is no demonstrated pulmonary embolism. Normal thoracic aorta and visualized great vessels. There is no demonstrated aortic dissection. Normal heart and pericardium. Normal mediastinum. Normal hilar regions. Normal visualized trachea and bronchi. The lungs are well expanded. Mild bilateral apical scarring. Some dependent bibasilar atelectasis. 6 mm of the spiculated noncalcified nodule right upper lobe the lungs on image 29 and follow-up CT is recommended in 6 months document stability. Normal pleura. Normal chest wall structures. Normal osseous structures. Densely calcified gallstone in the dependent portion the gallbladder. Moderate left renal atrophy likely from chronic renal artery stenosis. CT/CTA Chest W/WO Contrast IMPRESSION: [No CT evidence of pulmonary embolism. 6 mm noncalcified right upper lobe nodule and follow-up CT is recommended in 6 months document stability. Electronically Signed: Lenny Curran MD at 10:20 EST Tel , Service support ,
--- NOTE | 2020-10-08 10:07 | PN.CARD_ITS ---
Subjectve: The patient underwent cardiac catheterization earlier this day. He appeared to tolerate the procedure well with no adverse events. Objective: Vital Signs Temp Pulse Resp BP Pulse Ox 97.5 F L 56 L 15 112/63 98 10/08/20 09:58 10/08/20 09:58 10/08/20 09:58 10/08/20 09:58 10/08/20 09:58 Oxygen Delivery Method Room Air Weight: 151 lb Body Mass Index (BMI) 25.7 Intake and Output for Last 24 Hours 10/06/20 10/07/20 10/08/20 23:59 23:59 23:59 Intake Total 1298 / 1538 1240 / 1240 Balance 1298 / 1538 1240 / 1240 General: Awake, Alert, Oriented x 3, Cooperative, No Acute Distress HEENT: Atraumatic, Normocephalic, PERRL, EOMI, Sclera Non Icteric Neck: Supple, Good ROM, No JVD Lungs: Clear to auscultation Cardiovascular: Regular Rhythm, Normal S1, Normal S2 Vascular: Normal Radial Pulses Abdomen: Bowel Sounds Present, Soft Extremities: No edema Lymphatic: No Lymph Node Enlargement Neurological: No Focal Motor or Sensory Deficit Psych/Mental Status: Appropriate 10/07/20 08:52: Sodium 138, Potassium 4.4, Chloride 107, Carbon Dioxide 22.0, Anion Gap 9, BUN 24 H, Creatinine 1.41 H, Est GFR (MDRD) Af Amer 64, Est GFR (MDRD) Non-Af 53 L, BUN/Creatinine Ratio 17.0, Glucose 131 H, Calcium 9.3, Troponin I 0.015 10/07/20 10:30: APTT 29.0 10/07/20 13:35: Troponin I 1.240 H* 10/07/20 15:35: Troponin I 2.980 H* 10/08/20 06:04: Sodium 142, Potassium 3.9, Chloride 112 H, Carbon Dioxide 23.0, Anion Gap 7, BUN 20 H, Creatinine 0.84, Est GFR (MDRD) Af Amer 116, Est GFR (MDRD) Non-Af 96, BUN/Creatinine Ratio 23.7 H, Glucose 94, Calcium 8.5 Rhythm: Sinus rhythm EKG: Sinus rhythm; subtle nonspecific ST segment change ECHO: Interpretation Summary The study was technically difficult. Contrast injection was performed. Left ventricular systolic function is normal. The estimated ejection fraction is 60 %. Trivial mitral valve insufficiency. Mild to moderate (1-2+) tricuspid valve insufficiency. Mild aortic stenosis. Trivial pulmonic valve insufficiency. Right ventricular systolic pressure estimated to be 28 mmHg. No evidence for diastolic dysfunction. Cardiac Cath: Medical Necessity - Tobacco Use Smoking Status: Never smoker Assessment/Plan 1. Acute non-STEMI The patient appears to have experienced an acute non-STEMI. The patient has undergone further evaluation with diagnostic cardiac catheterization. He did not appear to have any angiographically significant appearing CAD to explain his symptoms and/or his cardiac enzyme findings. Thus this raises concern that his non-STEMI may be a type II event secondary to other etiologies. Other etiologies may include concerns of thromboembolic disease based upon his underlying diagnosis of carcinoma. Also there is a question as to whether the EMS documented any type of tacky dysrhythmia that may have occurred to lead to this type of event. At the moment he will continue medical therapy as deemed appropriate. He will also undergo chest CT scan to evaluate for any thromboembolic disease warranting further evaluation and care. 2. Palpitations He states during this event he experienced palpitations. Thus far his rhythm has been sinus. He will continue to be monitored. Based upon the information obtained by the [facility] staff it appears he was evaluated in the past at an outside hospital for an underlying SVT requiring medical therapy with IV adenosine. This does raise concern as to whether or not he had a recurrent similar type event that may have led to a type II event if there is no other etiology to explain his current event. He may need to continue medical management with rate control therapy as tolerated going forward and potentially further evaluation for any obvious cardiac dysrhythmias with ambulatory cardiac rhythm monitoring if there is no such dysrhythmia noted/documented during his hospital stay. 3. Near syncope He states he was somewhat lightheaded and felt as if he may lose consciousness but did not. He will continue his evaluation as noted. 4. Prostate carcinoma metastatic disease He does have a history of prostate carcinoma with metastatic disease to the lymph nodes in the bone. He continues to be followed by [facility] hematology oncology. Of note the patient states that he does believe he has a history of hyperlipidemia. He states he has been intolerant to lipid-lowering medications. Comment: The patient's case has been discussed and reviewed with Dr. Garibay. This note was generated using a voice recognition system and there may be incorrect words, spelling or punctuation that were not noted when reviewing the office note prior to saving.
[2020-10-08] MEDS: FLUoxetine 20 MG Capsule PO (10:37)
--- NOTE | 2020-10-08 11:02 | CL.D_ITS ---
Patient Name: ROCKY PATEL Study Date: 10/08/2020 Performing: Romaine Raines MD Ht: 64 inches 163 cm : 1950 Wt: 150.1 lbs 68 kg Age: 70 Gender: male BSA: 1.73 PROCEDURE(S) PERFORMED SR30-JVB/COR/LV CLINICAL PROFILE AND INDICATIONS Indications: ACS <= 24 hrs, Suspected CAD Heart Failure: None Stress/Imaging Stress/Image Study Performed: No Angina Classification Anginal Classification w/in 2 Weeks: CCS III CAD Presentations: Non-STEMI. CONCLUSIONS Elevated Left Ventricular End Diastolic Pressure Normal LV size, wall motion,and systolic function LVEF: by LV gram 60 % [place] Multivessel CAD (mild luminal irregularities) RECOMMENDATIONS Risk factor modification Medical therapy DESCRIPTION OF PROCEDURE The patient arrived to the procedure lab. The risks and benefits of the procedure as well as a full d escription of our services here and current unavailability of surgical backup were fully explained to the patient and/or their significant other prior to the catheterization. The Timeout was completed, verifying the correct patient and procedure. The patient's procedural site was prepped and draped in the usual fashion. Local anesthetic was given subcutaneously to right radial region with Lidocaine 2% . Using a modified Seldinger technique, arterial access was obtained via the right radial artery, a 6 Fr sheath was inserted. Left Coronary Artery selective angiography was performed in multiple views u sing a 5 Fr. 4.0 Wall catheter. Right Coronary Artery selective angiography was then performed in mu ltiple views using a 5 Fr. 4.0 Wall catheter. Left Ventriculography was performed in SHIPMAN projection using a 5 Fr. Pigtail catheter. LV to AO pullback pressures were then recorded.The arterial sheath was pulled and a TR Band was applied for hemostasis CORONARY ANGIOGRAPHY DOMINANCE: Right Dominant LEFT HEART ASSESSMENT Left Ventricular Ejection Fraction: by LV Gram 60 % Normal LV wall motion Elevated Left Ventricular End Diastolic Pressure LVEDP: 19 mmHg LEFT MAIN: Angiographically normal LEFT ANTERIOR DESCENDING ARTERY: PROX LAD: Mild calcification, Mild luminal irregularities CIRCUMFLEX ARTERY: PROX CIRC: Mild calcification, Mild luminal irregularities RIGHT CORONARY ARTERY: Mild luminal irregularities AORTIC ROOT: Angiographically normal COMPLICATIONS No Complications PROCEDURE MEDICATIONS Fentanyl 50 mcg IV Versed 1 mg IV Oxygen: 2 L/min via nasal cannula Heparin diluted in 23cc Heparinized saline. Patient given 6cc IA of this solution. 10/08/2020 07:25:3 0 Plavix 75 mg PO 10/08/2020 07:10:36 Verapamil 2.5mg, Ntg 100mcgs, 2000 units of Heparin diluted in 23cc Heparinized saline. Patient give n 6cc IA of this solution. 10/08/2020 07:25:30 IV Bolus: .9 NaCl 250 ml total 10/08/2020 07:28:58 SUMMARY OF HEMODYNAMIC DATA Time AIR REST ECG 07:07:35 AO 94/43 (60) SA 07:29:32 AO 100/57 (77) 07:34:57 LV 119/-10, 20 07:39:48 LV 123/-9, 19 07:39:54 LV 108/-3, 21 07:40:38 LV 104/-3, 19 07:40:44 LVp 112/-5, 19 07:40:50 AOp 109/56 (78) 07:40:55 Signed By Romaine Raines MD On 10/08/2020 11:01:27 Romaine Raines MD
--- NOTE | 2020-10-08 11:42 | DCINST_ITS ---
- Discharge Diagnoses Current Active Problems: Current Active and Chronic Problems (Last Updated 10/07/20 @ 14:44 by Alex CORCORAN) Prostate cancer metastatic to bone (Chronic) Chest pain (Acute) Palpitations (Acute) Near syncope (Acute) NSTEMI (non-ST elevated myocardial infarction) (Acute) You will use the following diet at home:: No restrictions Your food should be the consistency of: Regular Your liquids should be the consistency of: Regular/Thin Discharge Activity: Return to Normal Activity Weight Bearing Status: Weight bearing as tolerated Allergies/Adverse Reactions: Allergies No Known Allergies Allergy (Verified 10/07/20 09:40) Medications to take at Discharge Fluoxetine [Prozac] 20 mg PO DAILY 07/24/19 Ferrous Sulfate 325 mg PO DAILY 12/27/19 Enzalutamide [Xtandi] 120 mg PO DAILY 10/07/20 Aspirin [Aspirin, Baby] 81 mg PO DAILY@0800 tab.chew 10/08/20 Atorvastatin Calcium [Lipitor] 20 mg PO DAILY #30 tab 10/08/20 Metoprolol Tartrate [Lopressor (beta aggie)] 12.5 mg PO BID #60 tab 10/08/20 The following prescriptions were given: Atorvastatin Calcium [Lipitor] 20 mg PO DAILY #30 tab Transmission Status: Pending to [facility] Metoprolol Tartrate [Lopressor (beta aggie)] 12.5 mg PO BID #60 tab Transmission Status: Pending to [facility] Primary Care Physician: Ryan Sandoval MD [Primary Care Provider] - Test Results: Test results from this visit will be discussed in further detail at your follow- up appointment, if applicable. Please Follow Up With: Marissa Holly MD When: 2 WEEKS Please Follow Up With: Romaine Raines MD When: IN ONE MONTH
--- NOTE | 2020-10-08 12:04 | PHA.DC.MC ---
Pharmacy Service has performed discharge medication reconciliation and counseling for this patient. 1. ASPIRIN 81MG PO DAILY 2. ATORVASTATIN 20MG PO DAILY 3. METOPROLOL TARTRATE 12.5MG PO BID The patient's discharge medication list was reviewed for discrepancies and discrepancies were resolved. Home Medications Fluoxetine [Prozac] 20 mg PO DAILY 07/24/19 Ferrous Sulfate 325 mg PO DAILY 12/27/19 Enzalutamide [Xtandi] 120 mg PO DAILY 10/07/20 Aspirin [Aspirin, Baby] 81 mg PO DAILY@0800 tab.chew 10/08/20 Atorvastatin Calcium [Lipitor] 20 mg PO DAILY #30 tab 10/08/20 Metoprolol Tartrate [Lopressor (beta aggie)] 12.5 mg PO BID #60 tab 10/08/20 The patient was counseled on the following discharge medications and changes in medications for homegoing were reviewed. The Reason for Use, instructions for use, and potential side effects were reviewed for all new medications. The patient's questions regarding all of their medications were answered. The patient was able to verbally demonstrate an understanding of their discharge medications.
--- NOTE | 2020-10-08 12:33 | DS.PCM_ITS ---
Discharge Date and Diagnosis - Problem List Patient Problems: Active and Suspected Problems (Last Updated 10/07/20 @ 14:44 by Alex CORCORAN) Chest pain (Acute) Palpitations (Acute) Near syncope (Acute) NSTEMI (non-ST elevated myocardial infarction) (Acute) Date of Admission: 10/07/20 Date of Discharge: 10/08/20 - Primary Discharge Diagnosis Acute Problems: Active Problems (Last Updated 10/07/20 @ 14:44 by Alex CORCORAN) Chest pain (Acute) Palpitations (Acute) Near syncope (Acute) NSTEMI (non-ST elevated myocardial infarction) (Acute) - Secondary Discharge Diagnosis Chronic Problems: Chronic Problems (Last Updated 10/07/20 @ 14:44 by Alex CORCORAN) Prostate cancer metastatic to bone (Chronic) Hospital Course and Treatment Imaging Results: Clinical Impression(s) from Imaging Studies Chest X-Ray 10/07/20 09:50 IMPRESSION: Emphysema without pneumonia or atelectasis. Electronically Signed: Lenny Curran MD at 10:22 EST Tel , Service support , Chest CTA 10/08/20 08:17 IMPRESSION: [No CT evidence of pulmonary embolism. 6 mm noncalcified right upper lobe nodule and follow-up CT is recommended in 6 months document stability. Electronically Signed: Lenny Curran MD at 10:20 EST Tel , Service support , See below for assessment and plan from Dr. Raines's progress note 1. Acute non-STEMI The patient appears to have experienced an acute non-STEMI. The patient has undergone further evaluation with diagnostic cardiac catheterization. He did not appear to have any angiographically significant appearing CAD to explain his symptoms and/or his cardiac enzyme findings. Thus this raises concern that his non-STEMI may be a type II event secondary to other etiologies. Other etiologies may include concerns of thromboembolic disease based upon his underlying diagnosis of carcinoma. Also there is a question as to whether the EMS documented any type of tacky dysrhythmia that may have o ccurred to lead to this type of event. At the moment he will continue medical therapy as deemed appropriate. He will also undergo chest CT scan to evaluate for any thromboembolic disease warranting further evaluation and care. 2. Palpitations He states during this event he experienced palpitations. Thus far his rhythm has been sinus. He will continue to be monitored. Based upon the information obtained by the [facility] staff it appears he was evaluated in the past at an outside hospital for an underlying SVT requiring medical therapy with IV adenosine. This does raise concern as to whether or not he had a recurrent similar type event that may have led to a type II event if there is no other etiology to explain his current event. He may need to continue medical management with rate control therapy as tolerated going forward and potentially further evaluation for any obvious cardiac dysrhythmias with ambulatory cardiac rhythm monitoring if there is no such dysrhythmia noted/documented during his hospital stay. 3. Near syncope He states he was somewhat lightheaded and felt as if he may lose consciousness but did not. He will continue his evaluation as noted. 4. Prostate carcinoma metastatic disease He does have a history of prostate carcinoma with metastatic disease to the lymph nodes in the bone. He continues to be followed by [facility] hematology oncology. Of note the patient states that he does believe he has a history of hyperlipidemia. He states he has been intolerant to lipid-lowering medications. Comment: The patient's case has been discussed and reviewed with Dr. Garibay. Procedures: Cardiac catheterization Summary of Care Provided: Patient is a 70-year-old male who was admitted to the hospital with a chief complaint of weakness, lightheadedness, nausea and chest pain with radiation to the left arm. Patient was transported to the ED via squad, EKG from EMS was indeterminate. EKG in the ED revealed normal sinus rhythm. Heart score was 4 in the ED. Patient is currently pain-free, reports no other symptoms. Elevated troponins detected. Patient was seen and evaluated by Dr. Shad Dye from cardiology. Cardiac catheterization was done and was unremarkable. Medical therapy deemed appropriate per cardiology. 1) NSTEMI Assessment - Cardiac catheterization: Unremarkable - Troponins elevated; 1.24 and 2.98 ng/mL - EKG; NSR w/ R&R - Telemetry; Unremarkable. - V/S stable Plan - Patient initiated on aspirin, lipitor and lopressor at discharge - Follow-up with primary care provider within the next 2 weeks VTE Prophylaxis; Heparin SC Patient seen by Alex Vieira PA-C, under the supervision of Dr. Garibay. Patient Problems: Active and Suspected Problems (Last Updated 10/07/20 @ 14:44 by Alex CORCORAN) Chest pain (Acute) Palpitations (Acute) Near syncope (Acute) NSTEMI (non-ST elevated myocardial infarction) (Acute) Subjective: Patient is a 70 male who is resting comfortably in bed, is alert and oriented x3. Patient currently has no complaints, reports resolution of symptoms prior to admission. Objective: Clinical Impression(s) from Imaging Studies Chest X-Ray 10/07/20 09:50 IMPRESSION: Emphysema without pneumonia or atelectasis. Electronically Signed: Lenny Curran MD at 10:22 EST Tel , Service support , Chest CTA 10/08/20 08:17 IMPRESSION: [No CT evidence of pulmonary embolism. 6 mm noncalcified right upper lobe nodule and follow-up CT is recommended in 6 months document stability. Electronically Signed: Lenny Curran MD at 10:20 EST Tel , Service support , - Physical Exam Vitals/I&O's: Vital Signs Temp Pulse Resp BP Pulse Ox 97.5 F L 67 18 114/69 100 10/08/20 09:58 10/08/20 10:30 10/08/20 10:30 10/08/20 10:30 10/08/20 10:30 Oxygen Delivery Method Room Air Weight: 151 lb Body Mass Index (BMI) 25.7 Intake and Output for Last 24 Hours 10/06/20 10/07/20 10/08/20 23:59 23:59 23:59 Intake Total 1298 / 1538 1530 / 1530 Balance 1298 / 1538 1530 / 1530 General: Alert, Oriented x3, Cooperative HEENT: Atraumatic, PERRLA, EOMI, Normocephalic Neck: Supple, No JVD, Negative Carotid Bruits Lungs: Clear to auscultation, Normal air movement Cardiovascular: Regular rate Abdomen: Bowel Sounds Present, Soft, Non Tender Extremities: No edema, Capillary Refill Less than 3 Seconds Skin: No rashes, No breakdown Musculoskeletal: No Tenderness to Palpation of Joints or Extremities Neurological: Cranial nerves II-XII grossly intact Psych/Mental Status: Normal Affect, Appropriate Laboratory Results 10/07/20 13:35: Troponin I 1.240 H* 10/07/20 15:35: Troponin I 2.980 H* 10/08/20 06:04: Sodium 142, Potassium 3.9, Chloride 112 H, Carbon Dioxide 23.0, Anion Gap 7, BUN 20 H, Creatinine 0.84, Estim Creat Clear Calc 69.50, Est GFR (MDRD) Af Amer 116, Est GFR (MDRD) Non-Af 96, BUN/Creatinine Ratio 23.7 H, Glucose 94, Calcium 8.5 Current Medications Acetaminophen (Acetaminophen 325 Mg Tablet) 650 mg PO Q6H PRN PRN PRN Reason: Pain Score 1-10/Temp > 100.7 F Aspirin (Aspirin 81 Mg Tab.Chew) 81 mg PO DAILY@0800 [facility] Last Admin: 10/08/20 06:32 Dose: 81 mg Documented by: Fluoxetine HCl (Fluoxetine 20 Mg Capsule) 20 mg PO DAILY [facility] Last Admin: 10/08/20 10:37 Dose: 20 mg Documented by: Heparin Sodium (Porcine) (Heparin Injection (Vial) 5,000 Unit/Ml Vial) 5,000 unit SC Q12 [facility] Last Admin: 10/08/20 11:03 Dose: Not Given Documented by: Sodium Chloride () 1,000 mls @ 100 mls/hr IV .Q10H [facility] Last Admin: 10/08/20 04:26 Dose: 100 mls/hr Documented by: Sodium Chloride () 1,000 mls @ 15 mls/hr IV .Q48H [facility] Last Admin: 10/08/20 11:03 Dose: Not Given Documented by: Metoprolol Tartrate (Metoprolol Tartrate 25 Mg Tablet) 12.5 mg PO BID [facility] Last Admin: 10/08/20 06:32 Dose: 12.5 mg Documented by: Non-Formulary Medication (Enzalutamide) 120 mg PO DAILY [facility] Ondansetron HCl (Ondansetron 4 Mg/2 Ml Vial) 4 mg IV Q8H PRN PRN PRN Reason: NAUSEA/VOMITING Sodium Chloride (0.9% Saline Lock 10 Ml Syringe) 10 - 40 ml IV UD PRN PRN Reason: SALINE FLUSH Discharge Diet: No Restrictions Discharge Activity: Return to Normal Activity Weight Bearing Status: Weight bearing as tolerated Home Medications: Medications to take at Discharge Fluoxetine [Prozac] 20 mg PO DAILY 07/24/19 Ferrous Sulfate 325 mg PO DAILY 12/27/19 Enzalutamide [Xtandi] 120 mg PO DAILY 10/07/20 Aspirin [Aspirin, Baby] 81 mg PO DAILY@0800 tab.chew 10/08/20 Atorvastatin Calcium [Lipitor] 20 mg PO DAILY #30 tab 10/08/20 Metoprolol Tartrate [Lopressor (beta aggie)] 12.5 mg PO BID #60 tab 10/08/20 Following Prescriptions Were Given to Patient: Atorvastatin Calcium [Lipitor] 20 mg PO DAILY #30 tab Transmission Status: Received by [facility] Metoprolol Tartrate [Lopressor (beta aggie)] 12.5 mg PO BID #60 tab Transmission Status: Received by [facility] Primary Care Physician: Ryan Sandoval MD [Primary Care Provider] - Please Follow Up With: Marissa Holly MD When: 2 WEEKS Please Follow Up With: Romaine Raines MD When: IN ONE MONTH Medical Necessity - Tobacco Use Smoking Status: Never smoker Meaningful Use Info Meaningful Use Diagnoses (Choose all that apply): None applicable
== END 2020-10-08 11:49 | disposition home or self-care (01) ==
LOC: ED 11:18 → PCU 12:01
PROVIDERS: Admitting Provider Internal Medicine; Emergency Provider Emergency Medicine; PCP Family Medicine; Visit Provider Internal Medicine
DX: I21.4 Non-ST elevation (NSTEMI) myocardial infarction (principal); R55 Syncope and collapse; C79.51 Secondary malignant neoplasm of bone; C61 Malignant neoplasm of prostate; F32.9 Major depressive disorder, single episode, unspecified; E78.5 Hyperlipidemia, unspecified; I25.10 Atherosclerotic heart disease of native coronary artery without angina pectoris; I08.3 Combined rheumatic disorders of mitral, aortic and tricuspid valves; R00.2 Palpitations; R91.1 Solitary pulmonary nodule; Z79.899 Other long term (current) drug therapy
CPT/HCPCS: 36415; 71045; 71275; 80048; 84484; 85025; 85730; 93005; 93306; 93458; 96360; 96361; 96372; 99152; 99153; 99218; 99285; J7030; Q9957; Q9967; A4216; C1769; C1894; C8929; G0378

== ENCOUNTER 2021-06-03 12:58 | Emergency (ER) | payer OTHER, SELFPAY ==
[2021-06-03 12:59] VITALS: BP 153/87; PULSE 69; RESP 18; TEMP 36.1; O2SAT 99; BMI 27.1
--- NOTE | 2021-06-03 13:19 | CT_ITS ---
STUDY: CT ABDOMEN AND PELVIS WITH CONTRAST REASON FOR EXAM: Male, 70 years old. RLQ pain. History of prostate cancer. RADIATION DOSAGE (If Supplied By Facility): CTDIvol = ( 7.05 ) mGy, DLP = ( 553.32 ) mGycm TECHNIQUE: Transaxial images were obtained from the dome of the diaphragm to the symphysis pubis without oral contrast. IV 100mL Isovue-370 was administered. Sagittal and coronal images were reconstructed. Individualized dose optimization techniques were used for this CT. COMPARISON: Comparison is made with prior examination dated 07/26/2019. FINDINGS: Minimal degree of bibasilar atelectasis. Coronary artery calcification. Normal liver. There is a solitary gallstone. This measures 2.1 cm. This is in the region of the neck of the gallbladder Normal spleen. Normal pancreas. Normal bilateral adrenal glands. There is a moderate degree of right hydronephrosis and right hydroureter. A right-sided double-J stent catheter is seen with the proximal tip in the right renal pelvis and the distal tip in the right side of the bladder. 2 mm calculi is in the upper pole calyx of the left kidney. There is mild to moderate degree of atrophy of the left kidney. Normal visualized stomach. Normal small intestine. There are multiple colonic diverticula consistent with diverticulosis. The appendix is visualized and appears normal. There is diffuse atherosclerotic calcification of the abdominal aorta and its major visceral branches, without a demonstrated aneurysm. Normal inferior vena cava. Normal retroperitoneum. Diffuse bladder wall thickening although the bladder is not completely distended at this time. Normal abdominal wall. There is evidence of bony metastasis involving the L5 vertebrae as well as the pelvic bones and both acetabular regions. There is involvement of the sacrum. CT/Abdomen/Pelvis W IV Cont ONLY IMPRESSION: Solitary gallstone in the neck of the gallbladder. Right hydronephrosis with a right double-J stent catheter. Nonobstructive bilateral intrarenal calculi. Left renal atrophy. Skeletal metastasis. Electronically Signed: Zane Gordon MD at 14:40 EDT , Service support ,
[2021-06-03] MEDS: 0.9% Normal Saline 1,000 ML 999 ML IV (13:45)
[2021-06-03 13:50] LABS: Absolute Lymphocyte Count 0.83 X10^3/uL (0.83-4.51); Absolute Neutrophil Count 6.4 X10^3/uL (2.0-7.7); Basophil# 0.03 X10^3/uL; Basophil% 0.4 % (0-1); Eosinophils% 2.5 % (0-5); Hematocrit 35.3 % (40-54); Hemoglobin 11.6 g/dL (13.0-16.5); Lymphocyte # 0.83 X10^3/ul (0.83-4.51); Lymphocyte % 10.3 % (19-41); Mean Corp Hgb Conc 32.9 g/dL (32-36); Mean Corpuscular Hgb 31.6 pg (27.0-32.0); Mean Corpuscular Volume 96.2 fL (80-94); Mean Platelet Vol. 8.8 fl (6.2-12.0); Monocyte% 6.2 % (0-10); NRBC Flagged by Analyzer 0 % (0-5); Neutrophil # 6.44 X10^3/uL (2.7-7.7); Neutrophil % 80.1 % (47-70); Platelet Count 407 K/mm3 (150-450); RBC Distribution Width CV 14.1 % (11.6-14.6); RBC Distribution Width SD 50.1 fl (35.1-43.9); Red Blood Count 3.67 M/mm3 (4.6-6.2)
--- NOTE | 2021-06-03 13:50 | ED.RN ---
rn to bedside to medicaton patient. patient states he no longer has any pain or nausea at this time.
[2021-06-03 13:58] LABS: Anion Gap 8 (5-15); BUN 19 mg/dL (7-18); BUN/Creat Ratio 18.1 RATIO (10-20); Calcium,Total 9.4 mg/dL (8.5-10.1); Chloride 106 mmol/L (98-107); Creatinine, Serum 1.05 mg/dL (0.70-1.30); EST Glomerular Filtration Rate 74 mL/min (>60); Est Glom Filt Rate - Afr Amer 90 mL/min (>60); Glucose 118 mg/dL (74-106); Potassium 4.3 mmol/L (3.5-5.1); Sodium Level 135 mmol/L (136-145)
[2021-06-03 14:01] LABS: Mucous, Urine 0 SEEN /hpf (<or=2+); Squamous Epithelial Cells - UA 0 SEEN /hpf (0-5)
[2021-06-03 14:18] LABS: Color, Urine Yellow (Yellow); Glucose, Dipstick Normal (Normal); Ketone-Dipstick 50 mg/dl (Negative); Leukocyte Esterase-Dipstick 500 /ul (Negative); Nitrite-Dipstick Negative (Negative); Occult Blood-Urine 250 /ul (Negative); Protein-Dipstick 100 mg/dl (Negative); Specific Gravity, Urine 1.025 (1.002-1.030); Urine Bilirubin Dipstick Negative (Negative); Urine Clarity Cloudy (Clear); Urine Urobilinogen Normal (Normal)
[2021-06-03 14:25] LABS: Bacteria 3+ /hpf (None Seen); Red Blood Cells-Urine 5-10 SEEN /hpf (0-5); White Blood Cells 10-25 SEEN /hpf (0-5)
--- NOTE | 2021-06-03 15:40 | ED.RN ---
Addendum entered by Angelina Slade RN 06/03/21 15:42: dr leslie notified that IV was discontinued. Dr Leslie states antibiotic will be changed to oral. Original Note: rn at bedside to administer iv rocephin. rn noticed that patient's IV was puffy. RN asked patient if he is having pain, patient denies current pain. Pt states when he returned from CT and the tech intitate IV fluid bolus he had discomfort. IV removed at this time with catheter intact.
--- NOTE | 2021-06-03 15:44 | EX.ED.GUMALE ---
HPI History of Present Illness Chief Complaint: Male Pain/Injury Narrative Narrative: Patient is a 10-year-old male with past medical history of metastatic prostate cancer who has had to have his testicles and prostate removed and has had to have stents into his right kidney changed every 6 months or so. He states today he was working out in his workshop not doing any strenuous when he had sudden onset right lower abdominal/inguinal pain. He states that the pain was very sharp in nature and came on suddenly with no trauma but that is also began to slowly dissipate with any type of treatment. He states with his complex past medical history he presents for evaluation [facility] Medical History Prostate cancer Home Medications fluoxetine 20 mg PO DAILY 07/24/19 [History Last Taken Unknown] enzalutamide 120 mg PO DAILY 10/07/20 [History Last Taken Unknown] cephalexin 500 mg PO TID 7 Days #21 cap 06/03/21 [Rx Last Taken Unknown] Allergy/AdvReac Type Severity Reaction Status Date / Time No Known Allergies Allergy Verified 06/03/21 12:59 Surgical History History of left heart catheterization (LHC) (~10/07/20) Social History (Updated 03/10/18 @ 15:33 by Shlomo CORCORAN, PA) Smoking Status: Never smoker ROS ROS ED Constitutional Constitutional ED: Denies chills or fever(s) ENT ENT ED: Denies sore throat Cardiovascular Cardiovascular: Denies chest pain Respiratory/Chest Respiratory/Chest: Denies cough or dyspnea Gastrointestinal Gastrointestinal: Reports abdominal pain; Denies diarrhea, nausea or vomiting Genitourinary Genitourinary ED: Denies dysuria Musculoskeletal Musculoskeletal: Denies back pain or myalgias Integumentary Denies rash Neurologic Neurologic: Denies headache(s) Hematologic/Lymphatic Hematologic/Lymphatic: Denies easy bleeding or easy bruising EXAM Physical Exam Const Vital Signs: 06/03/21 12:59 Temperature 97.0 F L Temperature Source Oral Pulse Rate 69 Respiratory Rate 18 Blood Pressure 153/87 H Blood Pressure Mean 109 Pulse Ox 99 Oxygen Delivery Method Room Air Positive well nourished and well developed General Appearance ED: well developed Eyes PERRL and EOMs intact bilaterally Neck supple Resp normal respiratory effort and clear to auscultation bilaterally Cardio regular rate and regular rhythm GI non-distended GI Narrative: Patient has pain with palpation in the right lower quadrant/inguinal region of the abdomen without voluntary guarding or rigidity. No pulsatile mass. No obvious hernia palpated. Auscultation: normoactive bowel sounds Palpation: soft Narrative: Normal circumcised male without blood or discharge from the urethral meatus. No testicles are present consistent with his report of testicle removal from previous cancer. No surrounding secondary soft tissue changes to suggest Leena's gangrene Back/Spine Back/Spine Narrative: Mild right CVA pain Extremity normal to inspection Neuro oriented x3 and CN's II-XII intact bilaterally Sensorium / Orientation: alert Psych mental status grossly normal Skin no rashes or lesions noted Rashes: no rashes MDM MDM MDM Narrative Medical decision making narrative: Patient presented to the ER afebrile with spontaneously resolving pain. With his sudden onset of pain sharp in nature as well as mild right flank pain there is concern he has a kidney stone. However as the pain is also in the right lower quadrant he could have a atypical presentation for acute appendicitis so I elected to perform basic labs and a CT scan. His testicles have been removed previously and therefore there is no concern for torsion. Patient's labs revealed changes consistent with urinary tract infection but otherwise no acute kidney injury uroseptic changes. CT scan showed normal appendix but did document right-sided hydroureter and hydronephrosis but no obvious stone or signs of obstruction to his stent. On reevaluation he reports his pain is now gone. Therefore this time he is not uroseptic he does not have acute kidney injury his pain is spontaneously improved and therefore do not feel there is need for admission or emergent transfer and he can follow-up with his urologist to discuss need for stent replacement based on the swelling found on today's CT scan Lab Data Attestation: I reviewed the patient's lab results. Labs: Laboratory Results - last 24 hr 06/03/21 06/03/21 06/03/21 13:40 13:40 13:50 WBC 8.0 RBC 3.67 L Hgb 11.6 L Hct 35.3 L MCV 96.2 H MCH 31.6 MCHC 32.9 RDW Std Deviation 50.1 H RDW Coeff of [place] 14.1 Plt Count 407 MPV 8.8 Immature Gran % (Auto) 0.500 Neut % (Auto) 80.1 H Lymph % (Auto) 10.3 L [place] % (Auto) 6.2 Eos % (Auto) 2.5 Baso % (Auto) 0.4 Absolute Neuts (auto) 6.4 Absolute Lymphs (auto) 0.83 Nucleated RBC % 0 Sodium 135 L Potassium 4.3 Chloride 106 Carbon Dioxide 21.0 Anion Gap 8 BUN 19 H Creatinine 1.05 Estim Creat Clear Calc 55.60 Est GFR (MDRD) Af Amer 90 Est GFR (MDRD) Non-Af 74 BUN/Creatinine Ratio 18.1 Glucose 118 H Calcium 9.4 Urine Color Yellow Urine Clarity Cloudy Urine pH 7.0 Ur Specific [employer] 1.025 Urine Protein 100 H Urine Glucose (UA) Normal Urine Ketones 50 H Urine Occult Blood 250 H Urine Nitrite Negative Urine Bilirubin Negative Urine Urobilinogen Normal Ur Leukocyte Esterase 500 H Urine RBC 5-10 SEEN Urine WBC 10-25 SEEN Ur Squamous Epith Cells 0 SEEN Urine Bacteria 3+ Urine Mucus 0 SEEN Radiography Diagnostic Testing: Clinical Impression(s) from Imaging Studies Abdomen/Pelvis CT 06/03/21 13:19 IMPRESSION: Solitary gallstone in the neck of the gallbladder. Right hydronephrosis with a right double-J stent catheter. Nonobstructive bilateral intrarenal calculi. Left renal atrophy. Skeletal metastasis. Electronically Signed: Zane Gordon MD at 14:40 EDT , Service support , Discharge Plan Triage Chief Complaint: Male Pain/Injury ED Provider: Davin Leslie Dx/Rx/DC Orders Clinical Impression: Hydronephrosis, UTI (urinary tract infection) Instructions: Urinary Tract Infections in Men, Understanding Hydronephrosis Prescriptions: New cephalexin 500 mg capsule 500 mg PO TID 7 Days Qty: 21 RF: 0 No Action fluoxetine 20 MG capsule 20 mg PO DAILY RF: 0 enzalutamide 40 MG capsule 120 mg PO DAILY RF: 0 Primary Care Provider: Care Physician,No Primary Referrals: Krystian Babb [Other] - 1 Week Care Physician,No Primary [Primary Care Provider] - Disposition Disposition: Home, Self Care
[2021-06-03 16:03] VITALS: BP 139/95; PULSE 77; RESP 14; O2SAT 99
[2021-06-03] MEDS: Cephalexin 250 MG Capsule 500 MG PO (16:04)
== END 2021-06-03 16:09 | disposition home or self-care (01) ==
PROVIDERS: Emergency Provider Emergency Medicine
DX: N13.30 Unspecified hydronephrosis (principal); N39.0 Urinary tract infection, site not specified; Z85.46 Personal history of malignant neoplasm of prostate; Z90.79 Acquired absence of other genital organ(s)
CPT/HCPCS: 74177; 80048; 81001; 85025; 87086; 87088; 96360; 96361; 99284; J7030; Q9967; A4216; J2405

== ENCOUNTER 2021-07-20 09:18 | Emergency (ER) | payer OTHER, SELFPAY ==
[2021-07-20 09:19] VITALS: BP 109/83; PULSE 79; RESP 18; TEMP 36.6; O2SAT 100; BMI 26.6
--- NOTE | 2021-07-20 09:39 | EKG12_ITS ---
Test Reason : Blood Pressure : / mmHG Vent. Rate : 079 BPM Atrial Rate : 079 BPM P-R Int : 148 ms QRS Dur : 084 ms QT Int : 388 ms P-R-T Axes : 051 057 063 degrees QTc Int : 444 ms Normal sinus rhythm Normal ECG Confirmed by ADELE VARGAS, HARDEEP ([id number]), science editor RON SOMMERS ([id number]) on 07/22/2021 9:38:44 AM Referred By: GLORIA Confirmed By:HARDEEP ANGULO MD
--- NOTE | 2021-07-20 09:47 | ED.VIS.DYS ---
HPI History of Present Illness Chief Complaint: Shortness of Breath Narrative Narrative: Patient presenting for evaluation secondary to shortness of breath. Patient has a underlying history of coronary artery disease, metastatic prostate cancer. Patient reports that 5 days ago he underwent ureteral stenting up at the [facility] secondary to obstruction of his ureter due to his cancer. He reports that he has been off of his cancer treatment since about . Patient states that recently has been dealing with some shortness of breath. He states that it feels like a tightness in his chest but typically alleviates when he goes outside and get some fresh air. Patient states that that sensation did not alleviate today. He reports that intermittently it causes him some chest heaviness and a feeling as if he may pass out. Patient denies any recent fevers chills cough nausea vomiting or diarrhea. Patient states that he is doing quite well with his ureteral stent, not having a significant amount of pain or hematuria. Review of systems otherwise negative. [facility] Medical History Prostate cancer Home Medications fluoxetine 20 mg PO DAILY 07/24/19 [History Last Taken Unknown] enzalutamide 120 mg PO DAILY 10/07/20 [History Last Taken Unknown] cephalexin 500 mg PO TID 7 Days #21 cap 06/03/21 [Rx Last Taken Unknown] Allergy/AdvReac Type Severity Reaction Status Date / Time No Known Allergies Allergy Verified 07/20/21 09:21 Surgical History History of left heart catheterization (LHC) (~10/07/20) Social History Smoking Status: Never smoker ROS ROS ED Constitutional Constitutional ED: Denies chills or fever(s) ENT ENT ED: Denies rhinorrhea Cardiovascular Cardiovascular: Reports chest pain and other Details: Lightheadedness Respiratory/Chest Respiratory/Chest: Reports dyspnea Gastrointestinal Gastrointestinal: Denies abdominal pain, diarrhea, nausea or vomiting Genitourinary Genitourinary ED: Denies dysuria or hematuria Musculoskeletal Musculoskeletal: Denies back pain Integumentary Denies rash Neurologic Neurologic: Denies paresthesias or weakness Psychiatric Psychiatric: Denies depression Endocrine Endocrinology: Denies fatigue Allergic/Immunologic Allergic/Immunologic ED: Denies urticaria EXAM Physical Exam Const Vital Signs: 07/20/21 09:19 07/20/21 10:21 Temperature 97.9 F 97.9 F Temperature Source Temporal Temporal Pulse Rate 79 90 Respiratory Rate 18 18 Respiratory Effort Normal Non-Labored Respiratory Depth Normal Respiratory Pattern Normal Blood Pressure 109/83 H 109/83 H Blood Pressure Mean 91 91 Pulse Ox 100 100 Oxygen Delivery Method Room Air Positive well nourished and well developed General Appearance ED: well developed and NAD HEENT Reports moist mucous membranes Negative for trauma or tenderness Eyes EOMs intact bilaterally General Eye ED: Negative for pale conjunctiva or scleral icterus Neck no lymphadenopathy, supple and no JVD Chest Wall inspection of chest normal Resp clear to auscultation bilaterally Resp Narrative: Patient has clear lung sounds with no accessory muscle use but is tachypneic and seems to get winded with very minimal exertion Cardio regular rate, regular rhythm, no murmurs and peripheral pulses 2+ throughout Cardio Narrative: 2+ radial pulses bilaterally symmetric GI normal to inspection, nondistended, normoactive bowel sounds, non-tender and no masses Palpation: soft Back/Spine normal to inspection Extremity normal to inspection General Extremety ED: Negative for tenderness Neuro oriented x3 and no sensory deficits noted Sensorium / Orientation: alert Motor Exam: strength 5/5 throughout Psych mental status grossly normal Skin no rashes or lesions noted MDM MDM MDM Narrative Medical decision making narrative: Patient presented for evaluation secondary to shortness of breath. Patient has an underlying history of a recent urologic procedure within the last week, as well as a history of prostate cancer. He is not at low risk for pulmonary embolism, work-up was obtained. EKG was noted to be within normal limits. CBC demonstrates no leukocytosis or anemia. D-dimer was pathologically elevated at 1.7. Chemistry was unremarkable, liver panel unremarkable, high-sensitivity troponin was 6. Chest x-ray by my personal review as well as radiology is unremarkable. CT angiogram of the chest was performed which shows a 5 mm nodule in the right upper lobe which the patient was informed about, but no other evidence of acute pathology or pulmonary embolism. Patient at this point has a negative cardiac work-up, negative pulmonary work-up, has subjective dyspnea with normal oxygen saturations. I do believe the patient requires admission or further observation. He was given reassurance. Patient was instructed to follow-up primary care. Patient was discharged in stable condition. Lab Data Labs: Laboratory Results - last 24 hr 07/20/21 07/20/21 07/20/21 09:55 09:55 09:55 WBC 7.0 RBC 4.13 L Hgb 12.9 L Hct 39.5 L MCV 95.6 H MCH 31.2 MCHC 32.7 RDW Std Deviation 48.5 H RDW Coeff of Santiago 13.7 Plt Count 376 MPV 8.9 Immature Gran % (Auto) 0.400 Neut % (Auto) 73.5 H Lymph % (Auto) 14.8 L [place] % (Auto) 6.0 Eos % (Auto) 4.9 Baso % (Auto) 0.4 Absolute Neuts (auto) 5.1 Absolute Lymphs (auto) 1.03 Nucleated RBC % 0 D-Dimer Quant (PE/DVT) 1.75 H* Sodium 136 Potassium 4.2 Chloride 107 Carbon Dioxide 21.0 Anion Gap 8 BUN 17 Creatinine 1.13 Estim Creat Clear Calc 51.66 Est GFR (MDRD) Af Amer 83 Est GFR (MDRD) Non-Af 68 BUN/Creatinine Ratio 15.0 Glucose 122 H Calcium 9.1 Total Bilirubin 0.30 AST 13 L ALT 16 Alkaline Phosphatase 80 Troponin I High Sens 6 Total Protein 8.1 Albumin 2.9 L Globulin 5.2 H Albumin/Globulin Ratio 0.6 L Radiography Diagnostic Testing: Clinical Impression(s) from Imaging Studies Chest X-Ray 07/20/21 10:17 IMPRESSION: The lungs are clear. Healed right rib fractures. Electronically Signed: Zane Gordon MD at 10:45 EST , Service support , Chest CTA 07/20/21 10:22 IMPRESSION: Hyperinflation. Stable 5.1 mm slightly irregular nodule in the posterior aspect of the right upper lobe as described. A follow-up examination in one year is recommended. Electronically Signed: Zane Gordon MD at 11:23 EST , Service support , EKG Initial EKG: Attestation: I personally reviewed and interpreted this EKG as follows: (Sinus rhythm [address] segments normal T waves normal [place] and QTC intervals no evidence acute ischemia or arrhythmia) Discharge Plan Triage Chief Complaint: Shortness of Breath ED Provider: Geo Gutierrez Dx/Rx/DC Orders Clinical Impression: Shortness of breath, Incidental lung nodule, > 3mm and < 8mm Instructions: ED Dyspnea, ED Pulmonary Nodule, Solitary Prescriptions: No Action fluoxetine 20 MG capsule 20 mg PO DAILY RF: 0 enzalutamide 40 MG capsule 120 mg PO DAILY RF: 0 cephalexin 500 mg capsule 500 mg PO TID 7 Days Qty: 21 RF: 0 Primary Care Provider: Care Physician,No Primary Referrals: Kenya Billy MD [STAFF PHYSICIAN] - 1 Week Care Physician,No Primary [Primary Care Provider] - Disposition Disposition: Home, Self Care
[2021-07-20 10:00] LABS: Absolute Lymphocyte Count 1.03 X10^3/uL (0.83-4.51); Absolute Neutrophil Count 5.1 X10^3/uL (2.0-7.7); Basophil# 0.03 X10^3/uL; Basophil% 0.4 % (0-1); Eosinophil# 0.34 X10^3/uL; Eosinophils% 4.9 % (0-5); Hematocrit 39.5 % (40-54); Hemoglobin 12.9 g/dL (13.0-16.5); Lymphocyte # 1.03 X10^3/ul (0.83-4.51); Lymphocyte % 14.8 % (19-41); Mean Corp Hgb Conc 32.7 g/dL (32-36); Mean Corpuscular Hgb 31.2 pg (27.0-32.0); Mean Corpuscular Volume 95.6 fL (80-94); Mean Platelet Vol. 8.9 fl (6.2-12.0); Monocyte# 0.42 X10^3/uL; NRBC Flagged by Analyzer 0 % (0-5); Neutrophil # 5.12 X10^3/uL (2.7-7.7); Neutrophil % 73.5 % (47-70); Platelet Count 376 K/mm3 (150-450); RBC Distribution Width CV 13.7 % (11.6-14.6); RBC Distribution Width SD 48.5 fl (35.1-43.9); Red Blood Count 4.13 M/mm3 (4.6-6.2)
[2021-07-20 10:17] LABS: D-Dimer Quantitative (DVT/PE) 1.75 FEU/ug/m (0.27-0.49)
--- NOTE | 2021-07-20 10:17 | RAD_ITS ---
STUDY: X-RAY CHEST REASON FOR EXAM: Male, 70 years old. SOB TECHNIQUE: Single AP portable view of the chest. COMPARISON: Comparison is made with prior study dated 10/07/2020. FINDINGS: EKG electrodes are seen. There is mild elevation of the right hemidiaphragm. The lungs are clear. There is no demonstrated pleural abnormality. Normal size heart. Normal mediastinum and berny. Normal visualized pulmonary arteries. Normal visualized aortic arch and descending thoracic aorta. Normal visualized thoracic spine. Healed right rib fractures. Degenerative changes of both shoulder joints. There is no demonstrated abnormality of the visualized soft tissue structures of the upper abdomen. RAD/Chest 1 View (Portable) IMPRESSION: The lungs are clear. Healed right rib fractures. Electronically Signed: Zane Gordon MD at 10:45 EST , Service support ,
[2021-07-20 10:21] VITALS: BP 109/83; PULSE 90; RESP 18; TEMP 36.6; O2SAT 100; O2SAT 98
--- NOTE | 2021-07-20 10:22 | CT_ITS ---
STUDY: CTA CHEST REASON FOR EXAM: Male, 70 years old. Shortness of breath. Palpitations. RADIATION DOSAGE (If Supplied By Facility): CTDIvol = ( 5.69 ) mGy, DLP = ( 182.61 ) mGycm TECHNIQUE: The examination was performed with the intravenous administration of IV 100mL Isovue-370. Post-processing of the angiographic images was performed, with multiplanar reformation and 3D reconstruction. Individualized dose optimization techniques were used for this CT. COMPARISON: Comparison is made with prior study of 10/08/2020 and prior chest radiograph done earlier in the day.. FINDINGS: Normal enhancement of the main pulmonary artery and right and left pulmonary arteries. Normal enhancement of the bilateral peripheral pulmonary arteries. There is no demonstrated pulmonary embolism. Normal thoracic aorta and visualized great vessels. There is no demonstrated aortic dissection. There are calcifications of the coronary arteries. Normal mediastinum. Normal hilar regions. Normal visualized trachea and bronchi. Hyperinflation. Stable 5.1 mm slightly irregular nodule in the posterior aspect of the right upper lobe as seen on axial image #200. Normal pleura. Normal chest wall structures. There are degenerative changes of thoracic spine. Increased kyphosis. Healed right rib fractures. Normal visualized upper abdomen. CT/CTA Chest W/WO Contrast IMPRESSION: Hyperinflation. Stable 5.1 mm slightly irregular nodule in the posterior aspect of the right upper lobe as described. A follow-up examination in one year is recommended. Electronically Signed: Zane Gordon MD at 11:23 EST , Service support ,
[2021-07-20 10:23] LABS: ALB/GLOB Ratio 0.6 RATIO (0.9-2.4); AST(SGOT) 13 U/L (15-37); Alanine Aminotransfer ALT/SGPT 16 U/L (16-61); Albumin, Serum 2.9 g/dL (3.2-5.0); Alkaline Phosphatase 80 U/L (45-117); Anion Gap 8 (5-15); BUN 17 mg/dL (7-18); Calcium,Total 9.1 mg/dL (8.5-10.1); Chloride 107 mmol/L (98-107); Creatinine, Serum 1.13 mg/dL (0.70-1.30); EST Glomerular Filtration Rate 68 mL/min (>60); Est Glom Filt Rate - Afr Amer 83 mL/min (>60); Estimated Creatinine Clearance 51.66 ml/min; Globulin 5.2 g/dL (2.2-4.2); Glucose 122 mg/dL (74-106); Potassium 4.2 mmol/L (3.5-5.1); Protein, Total 8.1 g/dL (6.4-8.2); Sodium Level 136 mmol/L (136-145); Troponin-I HS 6 pg/mL (3.0-78.0)
[2021-07-20 12:21] VITALS: PULSE 88; RESP 17; O2SAT 99
== END 2021-07-20 12:22 | disposition home or self-care (01) ==
PROVIDERS: Emergency Provider Emergency Medicine
DX: R06.02 Shortness of breath (principal); R91.1 Solitary pulmonary nodule; I25.10 Atherosclerotic heart disease of native coronary artery without angina pectoris; C61 Malignant neoplasm of prostate; Z79.899 Other long term (current) drug therapy
CPT/HCPCS: 71045; 71275; 80053; 84484; 85025; 85379; 87426; 93005; 99284; Q9967; A4216

== ENCOUNTER 2022-05-21 08:22 | Inpatient (IN) | payer OTHER, SELFPAY ==
[2022-05-21] VITALS (20 sets, daily range): BP systolic 85–118; BP diastolic 38–70; PULSE 73–96; RESP 16–28; TEMP 36.6–37.7; O2SAT 88–95; BMI 24.0; BMI 23.8
--- NOTE | 2022-05-21 08:33 | EKG12_ITS ---
Test Reason : CP Blood Pressure : / mmHG Vent. Rate : 086 BPM Atrial Rate : 086 BPM P-R Int : 148 ms QRS Dur : 086 ms QT Int : 380 ms P-R-T Axes : 049 024 037 degrees QTc Int : 454 ms Sinus rhythm with Premature atrial complexes with Aberrant conduction Nonspecific ST abnormality Abnormal ECG Confirmed by ADELE VARGAS, HARDEEP ([id number]), design editor RON SOMMERS ([id number]) on 05/25/2022 9:33:03 AM Referred By: RAGHU Confirmed By:HARDEEP ANGULO MD
--- NOTE | 2022-05-21 08:38 | EKG12_ITS ---
Test Reason : SVT Blood Pressure : / mmHG Vent. Rate : 164 BPM Atrial Rate : 166 BPM P-R Int : 000 ms QRS Dur : 100 ms QT Int : 282 ms P-R-T Axes : 000 081 247 degrees QTc Int : [address] depression, consider subendocardial injury Nonspecific T wave abnormality Abnormal ECG When compared with ECG of 21-MAY-2022 08:33, MANUAL COMPARISON REQUIRED, DATA IS UNCONFIRMED Confirmed by HUNTER VARGAS, BERNARDO ([id number]), primer expeditor and drier RON SOMMERS ([id number]) on 05/24/2022 2:17:21 PM Referred By: MARILYN DOWNING Confirmed By:BERNAROD HARRISON MD
--- NOTE | 2022-05-21 10:27 | EDS_ITS ---
HPI History of Present Illness Chief Complaint: Chest Pain Narrative Narrative: Patient presenting with multiple complaints. He is a poor informant as well. He states that he came down with a fever on Tuesday evening overnight to Tuesday. His states they do not have a thermometer he just felt warm. He has had some intermittent nausea and vomiting as well but has held down some food and fluids. His fever has not come back. He states he does not have much of a cough to speak of. He states that maybe he has had some chest pain. He points to his right lower abdomen and right upper abdomen when he says this. He then states maybe I get some on the right side of my chest at times. He states that he does have a ureteral stent which is chronically placed from a urologist at [facility] and he is scheduled to be seen in June to have the stent changed. He does not have any urinary complaints. He does state that he had a UTI before. He also does relate that he had a headache yesterday but is now gone. Patient does report that he is having trouble getting around because he feels generally weak. He has not fallen. [facility] Medical History Prostate cancer Home Medications fluoxetine 20 mg capsule 20 mg PO DAILY mental health 07/24/19 [History Last Taken 05/20/22] Allergy/AdvReac Type Severity Reaction Status Date / Time No Known Allergies Allergy Verified 05/21/22 08:23 Surgical History History of left heart catheterization (LHC) (~10/07/20) Social History Smoking Status: Never smoker ROS ROS ED Constitutional Constitutional ED: Reports fever(s); Denies weight loss Eyes Eyes: Denies change in vision ENT ENT ED: Denies rhinorrhea or sore throat Cardiovascular Cardiovascular: Reports chest pain; Denies palpitations Respiratory/Chest Respiratory/Chest: Denies cough or dyspnea Gastrointestinal Gastrointestinal: Reports abdominal pain, nausea and vomiting Genitourinary Genitourinary ED: Denies dysuria or hematuria Musculoskeletal Musculoskeletal: Denies arthralgias Integumentary Denies abscess or Abrasions Neurologic Neurologic: Reports headache(s); Denies paresthesias or weakness Psychiatric Psychiatric: Denies anxiety or depression EXAM Physical Exam Const Vital Signs: 05/21/22 08:24 05/21/22 08:29 05/21/22 08:38 Temperature 98.6 F Temperature Source Temporal Pulse Rate 96 Respiratory Rate 17 Respiratory Effort Respiratory Pattern Blood Pressure 105/38 L Blood Pressure Mean 60 Pulse Ox 91 95 Oxygen Delivery Method Room Air Room Air Room Air 05/21/22 09:23 05/21/22 08:29 05/21/22 09:29 Temperature 98.6 F 99.5 F H Temperature Source Temporal Oral Pulse Rate 88 88 89 Respiratory Rate 28 H 28 H 25 H Respiratory Effort Respiratory Pattern Blood Pressure 108/51 L 108/51 L 106/70 Blood Pressure Mean 70 70 82 Pulse Ox 94 94 95 Oxygen Delivery Method Room Air Room Air Room Air 05/21/22 09:45 05/21/22 10:00 05/21/22 11:00 Temperature 99.5 F H 99.5 F H Temperature Source Oral Oral Pulse Rate 88 90 Respiratory Rate 22 H 22 H Respiratory Effort Normal Non-Labored Respiratory Pattern Tachypnea Blood Pressure 108/68 114/64 Blood Pressure Mean 81 80 Pulse Ox 95 95 Oxygen Delivery Method Room Air Room Air 05/21/22 11:00 05/21/22 12:00 Temperature 99.5 F H Temperature Source Oral Pulse Rate 92 90 Respiratory Rate 20 H 22 H Respiratory Effort Respiratory Pattern Blood Pressure 118/58 L 118/58 L Blood Pressure Mean 78 78 Pulse Ox 95 95 Oxygen Delivery Method Room Air Positive well nourished General Appearance ED: NAD HEENT Reports dry mucous membranes Negative for trauma Mouth ED: Yes dry mucous membranes Mouth: dry mucous membranes Eyes PERRL and EOMs intact bilaterally General Eye ED: Negative for pale conjunctiva or scleral icterus Resp normal respiratory effort and clear to auscultation bilaterally Cardio regular rate and regular rhythm GI Palpation: tender RLQ Back/Spine no CVA tenderness Neuro oriented x3 and CN's II-XII intact bilaterally Sensorium / Orientation: alert Motor Exam: strength 5/5 throughout Skin no rashes or lesions noted MDM MDM MDM Narrative Medical decision making narrative: Patient seen and evaluated for multiple complaints. Initially he stated he had a fever a couple of days ago which is now resolved and now he has episodic nausea and vomiting. He also had a headache which resolved as well. When asked about his chest pain he points to his lower abdomen and states that it radiates up into his right side of his chest at times. He states he is not coughing and not short of breath. He does not have any current chest pain. When I asked him how severe his pain was he stated it was an 8 of 10 and then left for about 5 seconds. I did medicate him with morphine and Zofran. Given a liter of IV fluids. I will check lab work as well. EKG on my interpretation shows sinus rhythm at 86 bpm without sign of ischemic change or dysrhythmia. Chest x-ray on my interpretation shows a right upper lobe pneumonia. Radiologist interprets this and agree. CBC shows a leukocytosis of 26.8. Hemoglobin 10.2 and on 04/07/2022 it was 10.4 so there is no significant change. Platelets 400. Creatinine slightly elevated at 1.47 on 04/07/2022 his creatinine was normal at 0.88. High-sensitivity troponin is 6. BNP within normal limits. D-dimer was elevated at 2.70. Patient did require another dose of morphine for pain. I am awaiting his urinalysis and this is just been sent. CTA chest/abdomen/pelvis did return which did not show evidence of PE or dissection. It does show right upper lobe pneumonia. The patient does not feel strong enough to go home and he has an elevated white blood cell count as well as right upper lobe pneumonia. In addition to this it appears he has a UTI. I will start Rocephin and azithromycin and speak with hospitalist for admission. Impression: 1. Right-sided chest pain 2. Abdominal pain 3. UTI 4. Pneumonia right upper lobe 5. Leukocytosis 6. Generalized weakness Lab Data Attestation: I reviewed the patient's lab results. Labs: Laboratory Results - last 24 hr 05/21/22 05/21/22 05/21/22 10:40 10:40 10:40 WBC 26.8 H RBC 3.57 L Hgb 10.2 L Hct 31.7 L MCV 88.8 MCH 28.6 MCHC 32.2 RDW Std Deviation 53.1 H RDW Coeff of Santiago 16.1 H Plt Count 400 MPV 8.9 Neut % (Auto) Not Reportable Absolute Neuts (auto) 25.5 H Absolute Lymphs (auto) 1.07 Total Counted 100 Neutrophils % (Manual) 91 H Band Neutrophils % 4 Lymphocytes % (Manual) 4 L Monocytes % (Manual) 1 Metamyelocytes % 4 H Diff Path Review May foll Platelet Estimate ADEQUATE Target Cells RARE D-Dimer Quant (PE/DVT) 2.70 H* Sodium 132 L Potassium 3.7 Chloride 100 Carbon Dioxide 22.0 Anion Gap 10 BUN 27 H Creatinine 1.47 H Estim Creat Clear Calc 39.15 Est GFR (MDRD) Af Amer 61 Est GFR (MDRD) Non-Af 50 L BUN/Creatinine Ratio 18.4 Glucose 127 H Calcium 9.2 Troponin I High Sens 6 B-Natriuretic Peptide Urine Color Urine Clarity Urine pH Ur Specific [place] Urine Protein Urine Glucose (UA) Urine Ketones Urine Occult Blood Urine Nitrite Urine Bilirubin Urine Urobilinogen Ur Leukocyte Esterase 05/21/22 05/21/22 05/21/22 10:40 12:55 13:30 WBC RBC Hgb Hct MCV MCH MCHC RDW Std Deviation RDW Coeff of [place] Plt Count MPV Neut % (Auto) Absolute Neuts (auto) Absolute Lymphs (auto) Total Counted Neutrophils % (Manual) Band Neutrophils % Lymphocytes % (Manual) Monocytes % (Manual) Metamyelocytes % Diff Path Review Platelet Estimate Target Cells D-Dimer Quant (PE/DVT) Sodium Potassium Chloride Carbon Dioxide Anion Gap BUN Creatinine Estim Creat Clear Calc Est GFR (MDRD) Af Amer Est GFR (MDRD) Non-Af BUN/Creatinine Ratio Glucose Calcium Troponin I High Sens 5 B-Natriuretic Peptide 84.8 Urine Color Yellow Urine Clarity Cloudy Urine pH 9.0 Ur Specific [place] 1.015 Urine Protein 100 H Urine Glucose (UA) Normal Urine Ketones 5 H Urine Occult Blood 250 H Urine Nitrite Positive H Urine Bilirubin Negative Urine Urobilinogen Normal Ur Leukocyte Esterase 500 H Radiography Diagnostic Testing: Clinical Impression(s) from Imaging Studies Chest X-Ray 05/21/22 10:57 IMPRESSION: Right upper lobe pneumonia without effusion. Follow-up recommended to assure resolution Electronically Signed: Narciso Mike MD at 11:08 EDT , Chest/Abdomen/Pelvis CTA 05/21/22 11:17 IMPRESSION: No embolism seen. No aneurysm or dissection. Atherosclerosis. Right upper lobe pneumonia. Right hydronephrosis with stent in position. Sclerotic osseous abnormalities with metastatic disease versus Paget''s disease. Electronically Signed: Xavier Glass MD at 13:06 EDT , Discharge Plan Triage Chief Complaint: Chest Pain ED Provider: Mitch Farias Dx/Rx/DC Orders Prescriptions: No Action fluoxetine 20 MG capsule 20 mg PO DAILY Primary Care Provider: Care Physician,No Primary Referrals: Care Physician,No Primary [Primary Care Provider] -
[2022-05-21] MEDS: 0.9% Normal Saline 1,000 ML 999 ML IV (10:40)
[2022-05-21] MEDS: Ondansetron 4 MG/2 ML Vial IV (10:41)
[2022-05-21] MEDS: Morphine 4 MG/ML Syringe IV ×2 (10:41→12:18)
[2022-05-21 10:51] LABS: Hematocrit 31.7 % (40-54); Hemoglobin 10.2 g/dL (13.0-16.5); Mean Corp Hgb Conc 32.2 g/dL (32-36); Mean Corpuscular Hgb 28.6 pg (27.0-32.0); Mean Corpuscular Volume 88.8 fL (80-94); Mean Platelet Vol. 8.9 fl (6.2-12.0); POSITIVE DIFFERENTIAL YES; POSITIVE MORPHOLOGY YES; Platelet Count 400 K/mm3 (150-450); RBC Distribution Width CV 16.1 % (11.6-14.6); RBC Distribution Width SD 53.1 fl (35.1-43.9); Red Blood Count 3.57 M/mm3 (4.6-6.2); White Blood Count 26.8 K/mm3 (4.4-11.0)
--- NOTE | 2022-05-21 10:57 | RAD_ITS ---
STUDY: X-RAY CHEST REASON FOR EXAM: Male, 71 years old. Chest pain and fever TECHNIQUE: Single AP portable view of the chest. COMPARISON: 07/20/2021 FINDINGS: EKG leads overlie the chest Lungs are expanded, left lung is clear, there is a right upper lobe infiltrate with air bronchograms but no demonstrated effusion. Follow-up recommended to assure complete resolution. Right upper lobe infiltrates can be due to aspiration. Normal size heart. Normal mediastinum and berny. Normal visualized pulmonary arteries. Normal visualized aortic arch and descending thoracic aorta. There are diffuse degenerative changes of the visualized thoracic spine. There is degenerative osteoarthritis of the bilateral shoulders. There is no demonstrated abnormality of the visualized soft tissue structures of the upper abdomen. RAD/Chest 1 View (Portable) IMPRESSION: Right upper lobe pneumonia without effusion. Follow-up recommended to assure resolution Electronically Signed: Narciso Mike MD at 11:08 EDT ,
[2022-05-21 11:01] LABS: Differential Indicated MANUAL DIFF
[2022-05-21 11:07] LABS: Anion Gap 10 (5-15); BUN 27 mg/dL (7-18); BUN/Creat Ratio 18.4 RATIO (10-20); Calcium,Total 9.2 mg/dL (8.5-10.1); Chloride 100 mmol/L (98-107); Creatinine, Serum 1.47 mg/dL (0.70-1.30); EST Glomerular Filtration Rate 50 mL/min (>60); Est Glom Filt Rate - Afr Amer 61 mL/min (>60); Estimated Creatinine Clearance 39.15 ml/min; Glucose 127 mg/dL (74-106); Potassium 3.7 mmol/L (3.5-5.1); Sodium Level 132 mmol/L (136-145); Troponin-I HS (w/2H Reflex) 6 pg/mL (3.0-78.0)
[2022-05-21 11:16] LABS: BNP,B-Type NATRIURETIC PEPTIDE 84.8 pg/mL (0-100); Lymphocyte 4 % (19-41); Monocyte 1 % (0-10); Neutrophil-Band 4 % (0-5); Neutrophil-Segmented 91 % (47-70); Total Cells Counted 100 (MANUAL DIFF)
--- NOTE | 2022-05-21 11:16 | CM.ED ---
Addendum entered by Rebeca Matthews 05/21/22 11:47: EMILIA called and spoke to Minda regarding patient. She will come and see patient. Rebeca JOHNSON Original Note: EMILIA Note SW met with patient and his . Patient said that his doctor in [place] retired and thus has no MD. EMILIA provided patient with list of [facility]. No other issues or needs reported. EMILIA remains available if needs arise. EMILIA called and left voice mail for Elliott Diego inquiring about if she could see patient. Rebeca JOHNSON
--- NOTE | 2022-05-21 11:17 | CT_ITS ---
STUDY: CTA CHEST AND CTA ABDOMEN/PELVIS WITH CONTRAST REASON FOR EXAM: Male, 71 years old. Chest and abdominal pain RADIATION DOSAGE (If Supplied By Facility): CTDIvol = ( 9.24 ) mGy, DLP = ( 843.67 ) mGycm TECHNIQUE: The examination was performed with the intravenous administration of IV 100mL Isovue-370. Post-processing of the angiographic images was performed, with multiplanar reformation and 3D reconstruction. Individualized dose optimization techniques were used for this CT. COMPARISON: July 20, 2021 and June 03, 2021 FINDINGS: CTA Chest Normal enhancement of the main pulmonary artery and right and left pulmonary arteries. Normal enhancement of the bilateral peripheral pulmonary arteries. There is no demonstrated pulmonary embolism. There is atherosclerotic calcification of the aortic arch with tortuosity. There is no demonstrated aortic dissection. There are calcifications of the coronary arteries. Normal mediastinum. Normal hilar regions. Normal visualized trachea and bronchi. The lungs are well expanded. There is dense right upper lobe airspace consolidation. There is lower lobe atelectasis. There is small right pleural effusion. Normal chest wall structures. There are degenerative changes of thoracic spine. Degenerative changes of the shoulders. There is sclerosis of right anterior rib Normal visualized upper abdomen. CT Abdomen T Pelvis There is no atelectasis. There is small right pleural effusion. The visualized portions of the heart are within normal limits. Normal liver. There is a solitary gallstone. Normal spleen. Normal pancreas. Normal bilateral adrenal glands. There is moderate right hydronephrosis. There is stent extending from the renal pelvis to urinary bladder. Normal left kidney. Normal visualized stomach. Normal small intestine. Normal colon. There is non-visualization of the appendix. There is diffuse atherosclerotic calcification of the abdominal aorta, without a demonstrated aneurysm. Normal inferior vena cava. Normal retroperitoneum. Normal urinary bladder. There is no free fluid in the abdomen or pelvis. Normal abdominal wall. There heterogeneous sclerotic regions throughout the osseous structures of the pelvis and L5. CT/CTA Chst, Abd, Pel W and/or WO IMPRESSION: No embolism seen. No aneurysm or dissection. Atherosclerosis. Right upper lobe pneumonia. Right hydronephrosis with stent in position. Sclerotic osseous abnormalities with metastatic disease versus Paget''s disease. Electronically Signed: Xavier Glass MD at 13:06 EDT ,
[2022-05-21 11:19] LABS: Platelet Estimate ADEQUATE (ADEQ); Target Cells RARE
[2022-05-21 11:21] LABS: Metamyelocyte 4 % (0-1)
[2022-05-21 11:23] LABS: Absolute Lymphocyte Count 1.07 X10^3/uL (0.83-4.51); Absolute Neutrophil Count 25.5 X10^3/uL (2.0-7.7); Lymphocyte # 1.07 X10^3/ul (0.83-4.51); Neutrophil # 25.46 X10^3/uL (2.7-7.7)
[2022-05-21 12:44] LABS: Reflex Troponin-HS? (from REC) Y
[2022-05-21 13:20] LABS: Troponin-I HS 5 pg/mL (3.0-78.0)
[2022-05-21 13:36] LABS: Mucous, Urine 0 SEEN /hpf (<or=2+)
[2022-05-21 13:43] LABS: Color, Urine Yellow (Yellow); Glucose, Dipstick Normal (Normal); Ketone-Dipstick 5 mg/dl (Negative); Leukocyte Esterase-Dipstick 500 /ul (Negative); Nitrite-Dipstick Positive (Negative); Occult Blood-Urine 250 /ul (Negative); Protein-Dipstick 100 mg/dl (Negative); Specific Gravity, Urine 1.015 (1.002-1.030); Urine Bilirubin Dipstick Negative (Negative); Urine Clarity Cloudy (Clear); Urine Urobilinogen Normal (Normal)
--- NOTE | 2022-05-21 13:52 | PCM.HP.STD ---
HPI - General General Date of Admission: 05/21/22 Date of Service: 05/21/22 Chief Complaint: Shortness of breath even on mild exertion for 2 to 3 days, right-sided chest pain and fever HPI Narrative ROCKY PATEL, is a 71 M who came to ED with his with fever, right-sided chest pain and shortness of breath. The patient is not a good historian and does not give history in chronological symptomatic manner. He had a fever started 3 days ago on Tuesday evening and Tuesday. His did not measure temperature but she felt warm. Mild occasional cough today. Patient is chronically short of breath but got worse on mild exertion for last 2 to 3 days. Patient has right-sided chest pain worse on coughing. Mild headache. Patient has chronic right-sided abdominal pain probably due to ureteric stent. Patient has history of prostate cancer since 2017, being managed by [facility] neurologist Dr. Tinoco who exchange his stent every 3 to 4 months, schedule next in June 2021. Patient has intermittent burning micturition but denies for last 2 to 3 days. No acute change in urinary tract symptoms including frequency urgency, wakes up 1-2 times at night. History of recurrent UTI in the past. Patient denies any loss of weight recently but his said actually gained weight. In ED, sinus rhythm with PAC at 86 bpm. QTc normal. Chest x-ray individually reviewed and shows right upper lobe pneumonia. Patient also had CTA chest abdomen pelvis which did not show evidence of PE or dissection but right upper lobe consolidation, small right pleural effusion, moderate right hydronephrosis and ureteric stent extending from renal pelvis to bladder. Patient also has diffuse sclerotic changes of pelvis L5 thoracic spine and shoulder. Suspicion of metastatic disease or Paget's disease. Lab work reviewed and discussed in detail in assessment plan [facility] Medical History Prostate cancer Home Medications fluoxetine 20 mg capsule 20 mg PO DAILY mental health 07/24/19 [History Last Taken 05/20/22] Allergy/AdvReac Type Severity Reaction Status Date / Time No Known Allergies Allergy Verified 05/21/22 08:23 Surgical History History of left heart catheterization (LHC) (~10/07/20) Social History Smoking Status: Never smoker ROS ROS Narrative Constitutional: Reports fatigue and weakness. Fever HEENT: Mild headache. Reports systems reviewed and no addt'l complaints, except as documented Respiratory/Chest: As described in HPI Gastrointestinal: Denies coffee ground emesis, hematemesis or vomiting Genitourinary: As described in HPI Musculoskeletal: Mild joint pain and limited range of motion Neurologic: Denies seizure-like activity. No focal stroke symptoms. skin: No ulcer. No rash Endocrinology: Reports systems reviewed and no addt'l complaints, except as documented Hematologic/Lymphatic: Reports systems reviewed and no addt'l complaints, except as documented Rest 14 ROS are negative except as mentioned in HPI Vital Signs Vital Signs Vital Signs: 05/21/22 08:24 05/21/22 08:29 05/21/22 08:38 Temperature 98.6 F Temperature Source Temporal Pulse Rate 96 Respiratory Rate 17 Respiratory Effort Respiratory Pattern Blood Pressure 105/38 L Blood Pressure Mean 60 Pulse Ox 91 95 Oxygen Delivery Method Room Air Room Air Room Air 05/21/22 09:23 05/21/22 08:29 05/21/22 09:29 Temperature 98.6 F 99.5 F H Temperature Source Temporal Oral Pulse Rate 88 88 89 Respiratory Rate 28 H 28 H 25 H Respiratory Effort Respiratory Pattern Blood Pressure 108/51 L 108/51 L 106/70 Blood Pressure Mean 70 70 82 Pulse Ox 94 94 95 Oxygen Delivery Method Room Air Room Air Room Air 05/21/22 09:45 05/21/22 10:00 05/21/22 11:00 Temperature 99.5 F H 99.5 F H Temperature Source Oral Oral Pulse Rate 88 90 Respiratory Rate 22 H 22 H Respiratory Effort Normal Non-Labored Respiratory Pattern Tachypnea Blood Pressure 108/68 114/64 Blood Pressure Mean 81 80 Pulse Ox 95 95 Oxygen Delivery Method Room Air Room Air 05/21/22 11:00 05/21/22 12:00 Temperature 99.5 F H Temperature Source Oral Pulse Rate 92 90 Respiratory Rate 20 H 22 H Respiratory Effort Respiratory Pattern Blood Pressure 118/58 L 118/58 L Blood Pressure Mean 78 78 Pulse Ox 95 95 Oxygen Delivery Method Room Air Weight Weight: 140 lb Body Mass Index (BMI) 24.0 Physical Exam Narrative Physical exam General: Alert, Oriented x3, Cooperative HEENT: No tenderness over head and neck region. Atraumatic, PERRLA, EOMI, Normocephalic Oral: Oral mucosa dry. No Gingival or Mucosal Lesions/ Ulcerations Neck: Supple, No JVD, Negative Carotid Bruits Lungs: Air entry diminished in bilateral lung bases. No crepitation/rhonchi/wheezing Cardiovascular: Regular rate, Regular Rhythm, Normal S1, Normal S2, No murmurs Abdomen: Bowel Sounds Present, Soft, Non Tender, Non-Distended : No renal angle tenderness. No suprapubic tenderness. Extremities: No edema, Capillary Refill Less than 3 Seconds Skin: No rashes, No breakdown Musculoskeletal: No Tenderness to Palpation of Joints or Extremities. Muscle strength 4/5 at major joints of lower extremities Neurological: Cranial nerves II-XII grossly intact, DTR 2+/4. No focal weakness/neurological deficit Psych/Mental Status: Flat affect. Results Lab / Micro Data Result Diagrams: 05/21/22 10:40 05/21/22 10:40 Labs: Laboratory Results - last 24 hr 05/21/22 10:40: WBC 26.8 H, RBC 3.57 L, Hgb 10.2 L, Hct 31.7 L, MCV 88.8, MCH 28.6, MCHC 32.2, RDW Std Deviation 53.1 H, RDW Coeff of [place] 16.1 H, Plt Count 400, MPV 8.9, Neut % (Auto) Not Reportable, Absolute Neuts (auto) 25.5 H, Absolute Lymphs (auto) 1.07, Total Counted 100, Neutrophils % (Manual) 91 H, Band Neutrophils % 4, Lymphocytes % (Manual) 4 L, Monocytes % (Manual) 1, Metamyelocytes % 4 H, Diff Path Review November, Platelet Estimate ADEQUATE, Target Cells RARE 05/21/22 10:40: Sodium 132 L, Potassium 3.7, Chloride 100, Carbon Dioxide 22.0, Anion Gap 10, BUN 27 H, Creatinine 1.47 H, Estim Creat Clear Calc 39.15, Est GFR (MDRD) Af Amer 61, Est GFR (MDRD) Non-Af 50 L, BUN/Creatinine Ratio 18.4, Glucose 127 H, Calcium 9.2, Troponin I High Sens 6 05/21/22 10:40: D-Dimer Quant (PE/DVT) 2.70 H* 05/21/22 10:40: B-Natriuretic Peptide 84.8 05/21/22 12:55: Troponin I High Sens 5 05/21/22 13:30: Urine Color Yellow, Urine Clarity Cloudy, Urine pH 9.0, Ur Specific [place] 1.015, Urine Protein 100 H, Urine Glucose (UA) Normal, Urine Ketones 5 H, Urine Occult Blood 250 H, Urine Nitrite Positive H, Urine Bilirubin Negative, Urine Urobilinogen Normal, Ur Leukocyte Esterase 500 H Micro: Microbiology 05/21/22 09:54 Nasal Secretion SARS-CoV-2 Antigen (Rapid) - Final Radiology Impression Chest X-Ray 05/21/22 10:57 IMPRESSION: Right upper lobe pneumonia without effusion. Follow-up recommended to assure resolution Electronically Signed: Narciso Mike MD at 11:08 EDT , Chest/Abdomen/Pelvis CTA 05/21/22 11:17 IMPRESSION: No embolism seen. No aneurysm or dissection. Atherosclerosis. Right upper lobe pneumonia. Right hydronephrosis with stent in position. Sclerotic osseous abnormalities with metastatic disease versus Paget''s disease. Electronically Signed: Xavier Glass MD at 13:06 EDT , Assessment & Plan Assessment/Plan (1) Right upper lobe pneumonia: PLAN: Plan This is 71-year-old gentleman is being admitted for right upper lobe pneumonia 1. Right upper lobe pneumonia, lobar consolidation: Patient has leukocytosis 26,000 with neutrophil 91%, lymphocyte 4%, metamyelocytes 4% bands 4%. Platelet count 400,000. Lactic acid normal. Total bilirubin, PT/INR and PTT normal. Patient is being admitted in PCU for monitoring. Patient complain of right-sided chest pain. 2 serial troponins are negative. ACS ruled out. On IV ceftriaxone and Zithromax. IV fluid normal saline 1 L bolus given in ED, continue 125 mill per hour. Patient is mildly tachypneic, saturating 92% on room air. BiPAP as needed ordered for hypoxia/respiratory distress. Lactate ordered. Patient blood pressure within normal range, getting low normal. Sepsis work-up ordered. Pneumonia work-up ordered including influenza rapid antigen, sputum culture and blood cultures are ordered. Rapid antigen negative. 2. Prostate cancer with history of right hydronephrosis status post ureteric stent possible metastatic disease to lymph nodes and bone: Patient follows in [facility] urologist, DR Tinoco. CT abdomen shows right hydronephrosis with a stent. Patient lumbar spine and thoracic spine also shows sclerotic changes with concern for possible metastatic disease or patient states. Follow-up with neurologist/oncologist. 3. History of nonischemic: Patient was last admitted in September 2020 for non-STEMI. At that time cardiac cath did not show angiographically significant coronary artery disease. Seems type II event. Patient has sinus rhythm with supraventricular complexes. Probably history of SVT. 4. Acute kidney injury: Patient BUN/creatinine is high at 27/1.47. Last BUN/creatinine 17/1.13 from July 2021. Serum magnesium normal. Phosphorus low 2.0. Phosphorus is getting replaced. Recheck phosphorus tomorrow AM. UA shows positive nitrite, LE 500, protein 100, microscopic analysis pending. Patient is on IV ceftriaxone. Urine culture ordered. VT prophylaxis, high risk: Lovenox 40 mg subcu daily. Living will/advanced directive/end of life care: Patient does not have living will or advanced directive. His is next of kin. After discussion of benefits/risks procedures involved with full code, DNR CC arrest and DNR CC with patient and his near the bedside, they are not decided not want to pursue full code until further definitive decision is made. At present, patient and his want artificial life support including intubation, tube feed, ventilator and/chest compression, central venous catheter, vasopressor and DC shock if needed Total time spent in [id number] encounter in discussion of advanced directive 16 minutes. Microbiology Past 72 Hours 05/21/22 13:30 Urine, Clean Catch Legionella Antigen - Final 05/21/22 13:30 Urine, Clean Catch Streptococcus pneumoniae Antigen (M - Final 05/21/22 15:50 Mucosa - Nose Influenza Types A,B Direct FA (DENAE) - Final 05/21/22 09:54 Nasal Secretion SARS-CoV-2 Antigen (Rapid) - Final Laboratory Results 05/21/22 10:40: WBC 26.8 H, RBC 3.57 L, Hgb 10.2 L, Hct 31.7 L, MCV 88.8, MCH 28.6, MCHC 32.2, RDW Std Deviation 53.1 H, RDW Coeff of [place] 16.1 H, Plt Count 400, MPV 8.9, Neut % (Auto) Not Reportable, Absolute Neuts (auto) 25.5 H, Absolute Lymphs (auto) 1.07, Total Counted 100, Neutrophils % (Manual) 91 H, Band Neutrophils % 4, Lymphocytes % (Manual) 4 L, Monocytes % (Manual) 1, Metamyelocytes % 4 H, Diff Path Review November, Platelet Estimate ADEQUATE, Target Cells RARE 05/21/22 10:40: Sodium 132 L, Potassium 3.7, Chloride 100, Carbon Dioxide 22.0, Anion Gap 10, BUN 27 H, Creatinine 1.47 H, Estim Creat Clear Calc 39.15, Est GFR (MDRD) Af Amer 61, Est GFR (MDRD) Non-Af 50 L, BUN/Creatinine Ratio 18.4, Glucose 127 H, Calcium 9.2, Troponin I High Sens 6 05/21/22 10:40: D-Dimer Quant (PE/DVT) 2.70 H* 05/21/22 10:40: B-Natriuretic Peptide 84.8 05/21/22 10:40: Phosphorus 2.0 L, Magnesium 2.4 05/21/22 12:55: Troponin I High Sens 5 05/21/22 13:30: Urine Color Yellow, Urine Clarity Cloudy, Urine pH 9.0, Ur Specific [place] 1.015, Urine Protein 100 H, Urine Glucose (UA) Normal, Urine Ketones 5 H, Urine Occult Blood 250 H, Urine Nitrite Positive H, Urine Bilirubin Negative, Urine Urobilinogen Normal, Ur Leukocyte Esterase 500 H, Urine RBC 25-50 SEEN, Urine WBC 25-50 SEEN, Ur Squamous Epith Cells 0-5 SEEN, Triple Phos Crystals 1+, Urine Bacteria 2+, Urine Mucus 0 SEEN 05/21/22 15:20: Lactic Acid 1.4 05/21/22 15:20: PT 16.1 H, INR 1.3, APTT 35.9 05/21/22 15:20: Total Bilirubin 0.60, Direct Bilirubin 0.21, AST 13 L, ALT 19, Alkaline Phosphatase 73, Lactate Dehydrogenase 104, Total Protein 7.2, Albumin 2.2 L, Globulin 5.0 H 05/21/22 15:20: MRSA (PCR) Negative Clinical Impression(s) from Imaging Studies Chest X-Ray 05/21/22 10:57 IMPRESSION: Right upper lobe pneumonia without effusion. Follow-up recommended to assure resolution Chest/Abdomen/Pelvis CTA 05/21/22 11:17 IMPRESSION: No embolism seen. No aneurysm or dissection. Atherosclerosis. Right upper lobe pneumonia. Right hydronephrosis with stent in position. Sclerotic osseous abnormalities with metastatic disease versus Paget''s disease. Sepsis Attestation Sepsis Alert: Yes Sepsis Attestation: Sepsis Ruled Out Date exam was performed: 05/21/22 Time exam was performed: : Supportive Findings: Patient does not have sepsis as blood pressure is in normal range. No hypotension. Lactic acid normal range. Patient does not have evidence of sepsis related organ dysfunction Charges/Coding Visit Charges Inpatient E&M: 36840 Init Hosp L3 Procedures Hospitalists Procedures: 15402 Advncd Care Plan 30 Min
[2022-05-21] MEDS: Ceftriaxone 1 GM/50 ML BAG IV (14:04)
[2022-05-21 14:25] LABS: Magnesium 2.4 mg/dL (1.6-2.6)
[2022-05-21 14:55] LABS: Bacteria 2+ /hpf (None Seen); Red Blood Cells-Urine 25-50 SEEN /hpf (0-5); Squamous Epithelial Cells - UA 0-5 SEEN /hpf (0-5); Triple Phosphate Crystals Ur 1+ /hpf (<or=1+); White Blood Cells 25-50 SEEN /hpf (0-5)
[2022-05-21] MEDS: 0.9% Normal Saline 1,000 ML 125 ML IV ×2 (15:32→21:03)
[2022-05-21 15:51] LABS: Partial Thromboplast Time 35.9 Seconds (24.1-36.2)
[2022-05-21 15:54] LABS: AST(SGOT) 13 U/L (15-37); Alanine Aminotransfer ALT/SGPT 19 U/L (16-61); Albumin, Serum 2.2 g/dL (3.2-5.0); Alkaline Phosphatase 73 U/L (45-117); Bilirubin, Direct 0.21 mg/dL (0.00-0.30); LDH 104 U/L (87-241); Protein, Total 7.2 g/dL (6.4-8.2)
[2022-05-21 16:00] LABS: International Normalized Ratio 1.3; Prothrombin Time (Protime)PT. 16.1 SECONDS (11.7-14.9)
[2022-05-21 16:14] LABS: Lactic Acid 1.4 mmol/L (0.4-1.9)
[2022-05-21] MEDS: guaiFENesin 1,200 MG Tablet 1200 MG PO ×2 (16:33→20:26)
[2022-05-21] MEDS: Enoxaparin 40 MG/0.4 ML Syringe SC (16:33)
[2022-05-21] MEDS: Ensure Plus High Protein 120 ML LIQUID PO ×2 (16:34→20:26)
[2022-05-21 18:28] LABS: M R Staph aureus DNA By PCR Negative (Negative); Probe Check PASS; Specimen Processing Control PASS
[2022-05-21] MEDS: Acetaminophen 325 MG Tablet 650 MG PO (20:26)
[2022-05-22] VITALS (58 sets, daily range): BP systolic 76–134; BP diastolic 34–73; PULSE 25–164; RESP 16–30; TEMP 35.9–37.2; O2SAT 93–100
--- NOTE | 2022-05-22 00:45 | PCM.PN.BLA ---
Sepsis Attestation Sepsis Alert: Yes Sepsis Attestation: Agree w/Sepsis Date exam was performed: 05/22/22 Time exam was performed: 01:05 Possible Source of Sepsis: Pulmonary Sepsis Organ Dysfunction Criteria Present: SBP < 90 mmHg or MAP < 65 mmHg Fluid Resuscitation Fluid resuscitation indicated?: Yes Fluid Resuscitation ordered: 30 ml/kg fluid bolus ordered Sepsis Note Date exam was performed: 05/22/22 Time exam was performed: 01:05 Response to fluids: Non Fluid responsive hypotension and Vasopressors started
--- NOTE | 2022-05-22 01:16 | NURSING ---
Pt wants family to be notified during day time about icu transfer.
[2022-05-22] MEDS: 0.9% Saline Lock 10 ML Syringe IV ×2 (02:15→07:46)
--- NOTE | 2022-05-22 02:38 | PCM.RX.CS ---
Consult Pharmacy has been consulted to manage selected antiobiotic: Vancomycin Type of Consult: New start Suspected Infection: Pneumonia Labs: Sodium 132 mmol/L (136-145) L 05/21/22 10:40 Potassium 3.7 mmol/L (3.5-5.1) 05/21/22 10:40 Chloride 100 mmol/L (98-107) 05/21/22 10:40 Carbon Dioxide 22.0 mmol/L (21.0-32.0) 05/21/22 10:40 Anion Gap 10 (5-15) 05/21/22 10:40 BUN 27 mg/dL (7-18) H 05/21/22 10:40 Creatinine 1.47 mg/dL (0.70-1.30) H 05/21/22 10:40 Est GFR (MDRD) Af Amer 61 mL/min (>60) 05/21/22 10:40 Est GFR (MDRD) Non-Af 50 mL/min (>60) L 05/21/22 10:40 BUN/Creatinine Ratio 18.4 RATIO (10-20) 05/21/22 10:40 Glucose 127 mg/dL (74-106) H 05/21/22 10:40 Microbiology: Microbiology 05/21/22 13:30 Urine, Clean Catch Legionella Antigen - Final 05/21/22 13:30 Urine, Clean Catch Streptococcus pneumoniae Antigen (M - Final 05/21/22 15:50 Mucosa - Nose Influenza Types A,B Direct FA (DENAE) - Final 05/21/22 09:54 Nasal Secretion SARS-CoV-2 Antigen (Rapid) - Final Goal Trough: 15-20 mcg/mL Pharmacy Plan for Drug Dosing: Pharmacy Service will continue to monitor and adjust dosing as required. Medications Vancomycin HCl 1,500 mg/ (Sodium Chloride) 530 mls @ 250 mls/hr IV X1 ONE Stop: 05/22/22 03:17 Last Admin: 05/22/22 01:53 Dose: 250 mls/hr Vancomycin HCl () 500 mg in 100 mls @ 100 mls/hr IV Q12H GIOVANY Follow-Up Labs: Trough Vancomycin Labs to be done on [date and time ordered]: 05/23 @ 1330
[2022-05-22 04:45] LABS: Absolute Lymphocyte Count 1.46 X10^3/uL (0.83-4.51); Basophil# 0.06 X10^3/uL; Basophil% 0.2 % (0-1); Differential Indicated SCAN CRITERIA MET; Eosinophil# 0.05 X10^3/uL; Eosinophils% 0.2 % (0-5); Hematocrit 27.9 % (40-54); Hemoglobin 8.7 g/dL (13.0-16.5); Lymphocyte # 1.46 X10^3/ul (0.83-4.51); Lymphocyte % 5.9 % (19-41); Mean Corp Hgb Conc 31.2 g/dL (32-36); Mean Corpuscular Hgb 28.5 pg (27.0-32.0); Mean Corpuscular Volume 91.5 fL (80-94); Mean Platelet Vol. 8.8 fl (6.2-12.0); Monocyte# 1.01 X10^3/uL; Monocyte% 4.1 % (0-10); NRBC Flagged by Analyzer 0 % (0-5); Neutrophil % 88.8 % (47-70); POSITIVE DIFFERENTIAL YES; Platelet Count 381 K/mm3 (150-450); RBC Distribution Width CV 16.5 % (11.6-14.6); RBC Distribution Width SD 55.7 fl (35.1-43.9); Red Blood Count 3.05 M/mm3 (4.6-6.2); White Blood Count 24.8 K/mm3 (4.4-11.0)
[2022-05-22 05:07] LABS: Phosphorus 2.7 mg/dL (2.5-4.9)
[2022-05-22 05:16] LABS: Anisocytosis 1+
[2022-05-22 05:28] LABS: Anion Gap 9 (5-15); BUN 21 mg/dL (7-18); BUN/Creat Ratio 20.4 RATIO (10-20); Calcium,Total 7.9 mg/dL (8.5-10.1); Chloride 116 mmol/L (98-107); Creatinine, Serum 1.03 mg/dL (0.70-1.30); EST Glomerular Filtration Rate 76 mL/min (>60); Est Glom Filt Rate - Afr Amer 92 mL/min (>60); Estimated Creatinine Clearance 55.88 ml/min; Glucose 132 mg/dL (74-106); Potassium 3.8 mmol/L (3.5-5.1); Sodium Level 144 mmol/L (136-145)
[2022-05-22] MEDS: Adenosine 6 MG/2 ML Syringe IV (07:10)
--- NOTE | 2022-05-22 07:11 | NURSING ---
0700- Patient's monitor started alarming and I went into room to assess patient. Monitor showed patient was in SVT sustaining 160s. Vagal maneuvers were performed and unsuccessful. EKG was obtained and showed SVT. 0705- patient still in SVT sustaining 160s. Dr. Fuentes was called to bedside to assess. 0710- Dr. Fuentes is at bedside and orders Adenosine 6mg IVP. Adenosine is administered. Patient tolerated well and is now in NSR with HR in the 70s. All other vital signs are WNL.
--- NOTE | 2022-05-22 07:27 | CON.PCM.CC_ITS ---
Assessment & Plan Assessment/Plan (1) Right upper lobe pneumonia: (2) Septic shock: PLAN: Plan RECOMMENDATIONS: 1. Continue Levophed to maintain a mean arterial pressure at or above 65 mmHg. 2. Continue empiric broad-spectrum antimicrobials. 3. Obtain urology consultation. 4. Continue appropriate DVT prophylaxis. 5. Wean supplemental oxygen to maintain saturations at or above 90%. 6. Encourage incentive spirometer use and mobilize patient as tolerated. IMPRESSIONS: 1. Septic shock The patient presented to the hospital with sepsis due to probable aspiration pneumonia complicated cystitis with acute sepsis related organ dysfunction as evidenced by fluid refractory hypotension, requiring the initiation of vasopressor support. Plan to continue empiric broad-spectrum antimicrobials, pending finalized culture results. Continue Levophed to maintain a mean arterial pressure at or above 65 mmHg. Given the hydronephrosis noted on CT imaging, will place consultation to urology. 2. Acute kidney injury Likely prerenal in etiology and related to #1. Anticipate improvement in renal function with stabilization of hemodynamics. Continue supportive care as noted above. No current indication for renal replacement therapy. 3. History of prostate CA The patient apparently has frequent stent exchanges through his primary urologist at [facility]. Given the hydronephrosis noted on CT imaging at presentation along with his diagnosis of septic shock, will obtain urology consultation today. TIME: 34 minutes of critical care time, independent of procedures, was spent addressing the patient's septic shock, upper lobe pneumonia, complicated c ystitis, acute kidney injury, review of all data and collaboration with the care team. HPI Consult Data Date of Consult: 05/23/22 HPI Narrative Reason for Consultation: Septic shock HPI Narrative: The patient is a 71-year-old male, with a history as outlined below, who presented to the emergency department on May 21 with shortness of breath, malaise, fatigue, chest discomfort and fever. The patient has a history of pr ostate cancer which is managed by urology at [facility]. The patient apparently undergoes routine stent replacement every 3 to 4 months. He is apparently scheduled to undergo stent replacement in June. The patient has also been experiencing intermittent nausea and vomiting over the days leading up to his hospitalization. On presentation to the emergency department, the patient was noted to have a low-grade fever with tenuous hemodynamics. He was also documented to be tachypneic, but maintaining appropriate oxygen saturations on room air. Initial laboratory evaluation revealed an elevated white blood cell count to 27,000. Coagulation profile demonstrated a D-dimer of 2.7. Chemistry profile was notable for a sodium of 132 and creatinine of 1.47. Lactate was within normal limits at 1.4. Urine analysis was positive for nitrites, leukocyte esterase and 2+ urine bacteria. A CT chest/abdomen/pelvis was obtained which demonstrated no evidence of pulmonary embolism. Right upper lobe airspace disease was noted. Moderate right hydronephrosis was noted. The patient initially received some supplemental IV fluid hydration and was started on empiric antimicrobials. Although the patient was initially admitted to the progressive care unit, he subsequently developed fluid refractory hypotension, which ultimately required the initiation of vasopressor support. The patient was then transferred to the medical intensive care unit for further management. Following my initial evaluation of the patient this morning, I was notified by the nursing staff that the patient had developed SVT with heart rates in the 160s and 170's. I reevaluated the patient at the bedside. 6 mg of adenosine was provided. This led to resolution of the patient's SVT. [facility] Medical History Prostate cancer Home Medications fluoxetine 20 mg capsule 20 mg PO DAILY mental health 07/24/19 [History Last Taken 05/20/22] Allergy/AdvReac Type Severity Reaction Status Date / Time No Known Allergies Allergy Verified 05/21/22 08:23 Surgical History History of left heart catheterization (LHC) (~10/07/20) Social History Smoking Status: Never smoker ROS ROS Narrative 10 systems reviewed with pertinent positives as noted in the HPI above. Physical Exam Const alert General Appearance: cooperative and ill appearing HEENT normocephalic and head/scalp atraumatic Eyes PERRL, EOMs intact bilaterally and conjunctivae normal Neck supple General: trachea midline Chest inspection of chest normal Resp Auscultation: diminished lung sounds; Negative for rales, rhonchi or wheezes Cardio S1 normal heart sound and S2 normal heart sound Rate: tachycardic GI normal to inspection, nondistended, normoactive bowel sounds Extremity Extremity Narrative: Left hand is swollen. No discernible lower extremity edema. General Extremity: Negative for clubbing Skin no rashes or lesions noted Neuro CN's II-XII intact bilaterally and no focal motor deficits Psych Mood & Affect: flat affect Lab / Micro Data Result Diagrams: 05/23/22 05:35 05/22/22 04:25 Labs: Laboratory Results - last 24 hr 05/21/22 10:40: WBC 26.8 H, RBC 3.57 L, Hgb 10.2 L, Hct 31.7 L, MCV 88.8, MCH 28.6, MCHC 32.2, RDW Std Deviation 53.1 H, RDW Coeff of [place] 16.1 H, Plt Count 400, MPV 8.9, Neut % (Auto) Not Reportable, Absolute Neuts (auto) 25.5 H, Absolute Lymphs (auto) 1.07, Total Counted 100, Neutrophils % (Manual) 91 H, Band Neutrophils % 4, Lymphocytes % (Manual) 4 L, Monocytes % (Manual) 1, Metamyelocytes % 4 H, Diff Path Review May foll, Platelet Estimate ADEQUATE, Target Cells RARE 05/21/22 10:40: Sodium 132 L, Potassium 3.7, Chloride 100, Carbon Dioxide 22.0, Anion Gap 10, BUN 27 H, Creatinine 1.47 H, Estim Creat Clear Calc 39.15, Est GFR (MDRD) Af Amer 61, Est GFR (MDRD) Non-Af 50 L, BUN/Creatinine Ratio 18.4, Glucose 127 H, Calcium 9.2, Troponin I High Sens 6 05/21/22 10:40: D-Dimer Quant (PE/DVT) 2.70 H* 05/21/22 10:40: B-Natriuretic Peptide 84.8 05/21/22 10:40: Phosphorus 2.0 L, Magnesium 2.4 05/21/22 12:55: Troponin I High Sens 5 05/21/22 13:30: Urine Color Yellow, Urine Clarity Cloudy, Urine pH 9.0, Ur Specific [place] 1.015, Urine Protein 100 H, Urine Glucose (UA) Normal, Urine Ketones 5 H, Urine Occult Blood 250 H, Urine Nitrite Positive H, Urine Bilirubin Negative, Urine Urobilinogen Normal, Ur Leukocyte Esterase 500 H, Urine RBC 25- 50 SEEN, Urine WBC 25-50 SEEN, Ur Squamous Epith Cells 0-5 SEEN, Triple Phos Crystals 1+, Urine Bacteria 2+, Urine Mucus 0 SEEN 05/21/22 15:20: Lactic Acid 1.4 05/21/22 15:20: PT 16.1 H, INR 1.3, APTT 35.9 05/21/22 15:20: Total Bilirubin 0.60, Direct Bilirubin 0.21, AST 13 L, ALT 19, Alkaline Phosphatase 73, Lactate Dehydrogenase 104, Total Protein 7.2, Albumin 2.2 L, Globulin 5.0 H 05/21/22 15:20: MRSA (PCR) Negative 05/22/22 04:25: WBC 24.8 H, RBC 3.05 L, Hgb 8.7 L, Hct 27.9 L, MCV 91.5, MCH 28.5, MCHC 31.2 L, RDW Std Deviation 55.7 H, RDW Coeff of [place] 16.5 H, Plt Count 381, MPV 8.8, Immature Gran % (Auto) 0.800, Neut % (Auto) 88.8 H, Lymph % (Auto) 5.9 L, [place] % (Auto) 4.1, Eos % (Auto) 0.2, Baso % (Auto) 0.2, Absolute Neuts ( auto) 22.0 H, Absolute Lymphs (auto) 1.46, Nucleated RBC % 0, Anisocytosis 1+ 05/22/22 04:25: Sodium 144, Potassium 3.8, Chloride 116 H, Carbon Dioxide 19.0 L , Anion Gap 9, BUN 21 H, Creatinine 1.03, Estim Creat Clear Calc 55.88, Est GFR (MDRD) Af Amer 92, Est GFR (MDRD) Non-Af 76, BUN/Creatinine Ratio 20.4 H, Glucose 132 H, Calcium 7.9 L 05/22/22 04:25: Phosphorus 2.7 Micro: Microbiology 05/21/22 13:30 Urine, Clean Catch Legionella Antigen - Final 05/21/22 13:30 Urine, Clean Catch Streptococcus pneumoniae Antigen (M - Final 05/21/22 15:50 Mucosa - Nose Influenza Types A,B Direct FA (DENAE) - Final 05/21/22 09:54 Nasal Secretion SARS-CoV-2 Antigen (Rapid) - Final Radiology Impression Chest X-Ray 05/21/22 10:57 IMPRESSION: Right upper lobe pneumonia without effusion. Follow-up recommended to assure resolution Electronically Signed: Narciso Mike MD at 11:08 EDT , Chest/Abdomen/Pelvis CTA 05/21/22 11:17 IMPRESSION: No embolism seen. No aneurysm or dissection. Atherosclerosis. Right upper lobe pneumonia. Right hydronephrosis with stent in position. Sclerotic osseous abnormalities with metastatic disease versus Paget''s disease. Electronically Signed: Xavier Glass MD at 13:06 EDT , Charges/Coding Procedures Hospitalists Procedures: 46306 Critial Care 1st Hr
[2022-05-22] MEDS: Ensure Plus High Protein 120 ML LIQUID PO ×4 (09:46→21:01)
[2022-05-22] MEDS: guaiFENesin 1,200 MG Tablet 1200 MG PO ×2 (09:47→21:01)
[2022-05-22] MEDS: Enoxaparin 40 MG/0.4 ML Syringe SC (09:47)
--- NOTE | 2022-05-22 10:31 | PCM.CONS.U ---
HPI Consult Data Date of Consult: 05/22/22 HPI Narrative Reason for Consultation: Right hydro nephrosis chronic stent HPI Narrative: ROCKY PATEL, is a 71 M who presents to [facility] with pneumonia he has sepsis from pneumonia, his blood pressure has been low, he is clinically stable resting in a chair in the ICU, does not look toxic but blood pressures have been low. He does have a history of prostate cancer and follows with urologist up in [place] and has a chronic right stent that is changed about every 6 months. I reviewed the CAT scan stents in good position he does have some hydronephrosis which is chronic. He states that he is due to have the stent changed. He has an appointment with his urologist coming up soon. At this point there is no urgency to change his stent and also the fact that his blood pressure is fairly low I do not think there will be safe to take with surgery for elective stent changes not necessary at this point. Given questions concerns please let me know otherwise call me with questions. ON LICENSE OF [facility] Medical History Prostate cancer Home Medications fluoxetine 20 mg capsule 20 mg PO DAILY mental health 07/24/19 [History Last Taken 05/20/22] Allergy/AdvReac Type Severity Reaction Status Date / Time No Known Allergies Allergy Verified 05/21/22 08:23 Surgical History History of left heart catheterization (LHC) (~10/07/20) Social History Smoking Status: Never smoker Lab / Micro Data Result Diagrams: 05/22/22 04:25 05/22/22 04:25 Labs: Laboratory Results - last 24 hr 05/21/22 10:40: WBC 26.8 H, RBC 3.57 L, Hgb 10.2 L, Hct 31.7 L, MCV 88.8, MCH 28.6, MCHC 32.2, RDW Std Deviation 53.1 H, RDW Coeff of Santiago 16.1 H, Plt Count 400, MPV 8.9, Neut % (Auto) Not Reportable, Absolute Neuts (auto) 25.5 H, Absolute Lymphs (auto) 1.07, Total Counted 100, Neutrophils % (Manual) 91 H, Band Neutrophils % 4, Lymphocytes % (Manual) 4 L, Monocytes % (Manual) 1, Metamyelocytes % 4 H, Diff Path Review May foll, Platelet Estimate ADEQUATE, Target Cells RARE 05/21/22 10:40: Sodium 132 L, Potassium 3.7, Chloride 100, Carbon Dioxide 22.0, Anion Gap 10, BUN 27 H, Creatinine 1.47 H, Estim Creat Clear Calc 39.15, Est GFR (MDRD) Af Amer 61, Est GFR (MDRD) Non-Af 50 L, BUN/Creatinine Ratio 18.4, Glucose 127 H, Calcium 9.2, Troponin I High Sens 6 05/21/22 10:40: D-Dimer Quant (PE/DVT) 2.70 H* 05/21/22 10:40: B-Natriuretic Peptide 84.8 05/21/22 10:40: Phosphorus 2.0 L, Magnesium 2.4 05/21/22 12:55: Troponin I High Sens 5 05/21/22 13:30: Urine Color Yellow, Urine Clarity Cloudy, Urine pH 9.0, Ur Specific [place] 1.015, Urine Protein 100 H, Urine Glucose (UA) Normal, Urine Ketones 5 H, Urine Occult Blood 250 H, Urine Nitrite Positive H, Urine Bilirubin Negative, Urine Urobilinogen Normal, Ur Leukocyte Esterase 500 H, Urine RBC 25-50 SEEN, Urine WBC 25-50 SEEN, Ur Squamous Epith Cells 0-5 SEEN, Triple Phos Crystals 1+, Urine Bacteria 2+, Urine Mucus 0 SEEN 05/21/22 15:20: Lactic Acid 1.4 05/21/22 15:20: PT 16.1 H, INR 1.3, APTT 35.9 05/21/22 15:20: Total Bilirubin 0.60, Direct Bilirubin 0.21, AST 13 L, ALT 19, Alkaline Phosphatase 73, Lactate Dehydrogenase 104, Total Protein 7.2, Albumin 2.2 L, Globulin 5.0 H 05/21/22 15:20: MRSA (PCR) Negative 05/22/22 04:25: WBC 24.8 H, RBC 3.05 L, Hgb 8.7 L, Hct 27.9 L, MCV 91.5, MCH 28.5, MCHC 31.2 L, RDW Std Deviation 55.7 H, RDW Coeff of Santiago 16.5 H, Plt Count 381, MPV 8.8, Immature Gran % (Auto) 0.800, Neut % (Auto) 88.8 H, Lymph % (Auto) 5.9 L, [place] % (Auto) 4.1, Eos % (Auto) 0.2, Baso % (Auto) 0.2, Absolute Neuts (auto) 22.0 H, Absolute Lymphs (auto) 1.46, Nucleated RBC % 0, Anisocytosis 1+ 05/22/22 04:25: Sodium 144, Potassium 3.8, Chloride 116 H, Carbon Dioxide 19.0 L, Anion Gap 9, BUN 21 H, Creatinine 1.03, Estim Creat Clear Calc 55.88, Est GFR (MDRD) Af Amer 92, Est GFR (MDRD) Non-Af 76, BUN/Creatinine Ratio 20.4 H, Glucose 132 H, Calcium 7.9 L 05/22/22 04:25: Phosphorus 2.7 Micro: Microbiology 05/21/22 13:30 Urine, Clean Catch Urine Culture - Preliminary Culture exhibits no growth. 05/21/22 13:30 Urine, Clean Catch Legionella Antigen - Final 05/21/22 13:30 Urine, Clean Catch Streptococcus pneumoniae Antigen (M - Final 05/21/22 15:50 Mucosa - Nose Influenza Types A,B Direct FA (DNEAE) - Final 05/21/22 09:54 Nasal Secretion SARS-CoV-2 Antigen (Rapid) - Final Radiology Impression Chest X-Ray 05/21/22 10:57 IMPRESSION: Right upper lobe pneumonia without effusion. Follow-up recommended to assure resolution Electronically Signed: Narciso Mike MD at 11:08 EDT , Chest/Abdomen/Pelvis CTA 05/21/22 11:17 IMPRESSION: No embolism seen. No aneurysm or dissection. Atherosclerosis. Right upper lobe pneumonia. Right hydronephrosis with stent in position. Sclerotic osseous abnormalities with metastatic disease versus Paget''s disease. Electronically Signed: Xavier Glass MD at 13:06 EDT ,
--- NOTE | 2022-05-22 12:00 | CASEMGMT ---
GAEL CALIXTO assessment: Face to Face with patient for initial transition planning/care coordination assessment. GAEL CALIXTO introduced self and role at [facility], pt voices understanding and consents to assessment. Pt is sitting up in chair in no distress on room air. Pt is A/Ox4 and answers questions appropriately. Pt's /daughter are at bedside during assessment. Care providers, pharmacy,?and demographics verified. ? Presentation: Pt c/o right chest pain, SOB, and weakness x3 days Admitting dx: RUL pna PCP: Pt provided PCP list in ED Specialists: michaela Ellison; JOSETTE Babb Preferred Pharmacy: [facility] Insurance: AA Prescription Benefit:?Self pay Living Will/HPOA: Pt does not have LW/HPOA and declines AD info. LNOK: Tawnya Ibrahim, Living Arrangements: Pt lives with on main level of 2 story home and states no concerns at home. Pt is mostly independent with ADL's but helps, if needed. Transportation: states they sometimes have trouble finding transportation. DME/HHC: Pt has a cane at home and states no need for any further DME. Pt states no hx of HHC or SNF. Pt states no concerns with going home at time of discharge. Pt states works still when he is able. Pt does not smoke cigarettes or drink ETOH. Pt voices no further concerns/needs. CM to follow for any further discharge planning/needs. Advised pt/family to ask for CM if any further questions/concerns/needs arise, voices understanding. Pt goal: Home ? Plan[place] GAEL CALIXTO
[2022-05-22] MEDS: Vancomycin IV 500 MG/100 ML BAG 100 MG IV (13:03)
--- NOTE | 2022-05-22 13:31 | PN.HOSP_ITS ---
Subjective Subjective Patient states he is feeling better and asks if he can go home. He remains on Levophed at 4 mcg/min. Max dose was 10 so he has been weaned and improving. Is now on room air. Objective Data Objective Data Vital Signs: Vital Signs Temp Pulse Resp BP Pulse Ox O2 Del Method O2 Flow Rate 97.9 F 69 18 111/73 98 Room Air 2 05/22/22 12:00 05/22/22 13:00 05/22/22 13:00 05/22/22 13:00 05/22/22 13:00 05/22/22 13:00 05/22/22 07:15 Oxygen Flow Rate (L/min) 2 Oxygen Delivery Method Room Air Weight: 63.9 kg Body Mass Index (BMI) 23.8 Intake & Output: Intake and Output for Last 24 Hours 05/20/22 05/21/22 05/22/22 23:59 23:59 23:59 Intake Total 2234.58 / 2234.58 3093.50 / 3093.50 Output Total 500 / 500 1375 / 1375 Balance 1734.58 / 1734.58 1718.50 / 1718.50 Lab / Micro Data Result Diagrams: 05/22/22 04:25 05/22/22 04:25 Labs: Laboratory Results - last 24 hr 05/21/22 10:40: Phosphorus 2.0 L, Magnesium 2.4 05/21/22 13:30: Urine Color Yellow, Urine Clarity Cloudy, Urine pH 9.0, Ur Specific [place] 1.015, Urine Protein 100 H, Urine Glucose (UA) Normal, Urine Ketones 5 H, Urine Occult Blood 250 H, Urine Nitrite Positive H, Urine Bilirubin Negative, Urine Urobilinogen Normal, Ur Leukocyte Esterase 500 H, Urine RBC 25- 50 SEEN, Urine WBC 25-50 SEEN, Ur Squamous Epith Cells 0-5 SEEN, Triple Phos Crystals 1+, Urine Bacteria 2+, Urine Mucus 0 SEEN 05/21/22 15:20: Lactic Acid 1.4 05/21/22 15:20: PT 16.1 H, INR 1.3, APTT 35.9 05/21/22 15:20: Total Bilirubin 0.60, Direct Bilirubin 0.21, AST 13 L, ALT 19, Alkaline Phosphatase 73, Lactate Dehydrogenase 104, Total Protein 7.2, Albumin 2.2 L, Globulin 5.0 H 05/21/22 15:20: MRSA (PCR) Negative 05/22/22 04:25: WBC 24.8 H, RBC 3.05 L, Hgb 8.7 L, Hct 27.9 L, MCV 91.5, MCH 28.5, MCHC 31.2 L, RDW Std Deviation 55.7 H, RDW Coeff of Santiago 16.5 H, Plt Count 381, MPV 8.8, Immature Gran % (Auto) 0.800, Neut % (Auto) 88.8 H, Lymph % (Auto) 5.9 L, [place] % (Auto) 4.1, Eos % (Auto) 0.2, Baso % (Auto) 0.2, Absolute Neuts (auto) 22.0 H, Absolute Lymphs (auto) 1.46, Nucleated RBC % 0, Anisocytosis 1+ 05/22/22 04:25: Sodium 144, Potassium 3.8, Chloride 116 H, Carbon Dioxide 19.0 L , Anion Gap 9, BUN 21 H, Creatinine 1.03, Estim Creat Clear Calc 55.88, Est GFR (MDRD) Af Amer 92, Est GFR (MDRD) Non-Af 76, BUN/Creatinine Ratio 20.4 H, Glucose 132 H, Calcium 7.9 L 05/22/22 04:25: Phosphorus 2.7 Micro: Microbiology 05/21/22 13:30 Urine, Clean Catch Urine Culture - Preliminary Culture exhibits no growth. 05/21/22 13:30 Urine, Clean Catch Legionella Antigen - Final 05/21/22 13:30 Urine, Clean Catch Streptococcus pneumoniae Antigen (M - Final 05/21/22 15:50 Mucosa - Nose Influenza Types A,B Direct FA (DENAE) - Final 05/21/22 09:54 Nasal Secretion SARS-CoV-2 Antigen (Rapid) - Final Physical Exam Const alert, oriented x3 and well nourished Constitutional Narrative: Older [place] white male sitting up in bed, talking on the phone with his , appears comfortable and nontoxic HEENT head/scalp atraumatic, moist oral mucous membranes and oropharynx normal HEENT Narrative: Dentition is poor, Mallampati is 2, no thrush Head and Scalp: normocephalic Resp normal respiratory effort, no retractions and no use of accessory muscles Resp Narrative: Diminished breath sounds right upper lobe with few crackles Auscultation: crackles; Negative for rhonchi or wheezes Cardio regular rate, regular rhythm, S1 normal heart sound, S2 normal heart sound, no murmurs, no rub, no gallops and no clicks GI normal to inspection, nondistended, normoactive bowel sounds, soft to palpation and non-tender Extremity no clubbing, cyanosis or edema Extremity Narrative: 2+ pedal pulses Neuro oriented x3, moves all extremities and no focal motor deficits Speech: speech normal Psych affect normal Psych Narrative: Very pleasant and appropriately interactive Assessment & Plan Assessment/Plan (1) Septic shock: (2) Right upper lobe pneumonia: (3) Prostate cancer metastatic to bone: (4) JACKIE (acute kidney injury): (5) Hydronephrosis: (6) Leukocytosis: (7) Anemia: PLAN: Plan Septic shock secondary to suspected aspiration pneumonia -Patient had to be transferred to ICU overnight and placed on Levophed -Remains on Levophed however weaned from 10 mcg/min to 4 mcg/min -Continue to wean as able -Maintain patient on broad-spectrum antibiotics -COVID and flu are negative -Strep pneumo and Legionella antigens are negative -Urine culture is negative -Blood and sputum cultures are pending -unfortunately sputum culture has not yet been able to be collected -CTA of the chest shows a large right upper lobe infiltrate Hydronephrosis -Patient was evaluated by urology -Per documentation CT scan demonstrates good position of stents -It is that most of his hydronephrosis is chronic -No urgent urological intervention required -Urology recommends outpatient follow-up with his baseline urologist after discharge JACKIE -Resolving -Likely related to sepsis and hypotension -Continue to monitor -Avoid nephrotoxins Leukocytosis -Secondary to the above -Slowly trending down -Continue to monitor -Maintain broad-spectrum antibiotics Anemia -Was normal on admission however dropped with IV fluids -Suspect somewhat dilutional however baseline is not all that well-known -Continue to monitor -No signs of acute bleeding Metastatic prostate cancer -Diagnosed in 2018 -Follows at [facility] -Known mets to bone -Recommend outpatient follow-up after discharge Depression -Continue home fluoxetine DVT prophylaxis -Continue enoxaparin 40 mg daily CODE STATUS -Full code Charges/Coding Visit Charges Inpatient E&M: 07503 Subs Hosp L2
[2022-05-23] VITALS (52 sets, daily range): BP systolic 70–123; BP diastolic 40–67; PULSE 59–89; RESP 13–29; TEMP 36.2–36.7; O2SAT 91–100
[2022-05-23] MEDS: Vancomycin IV 500 MG/100 ML BAG 100 MG IV (02:04)
[2022-05-23] MEDS: 0.9% Saline Lock 10 ML Syringe IV ×2 (05:38→08:02)
[2022-05-23 05:47] LABS: Absolute Lymphocyte Count 0.92 X10^3/uL (0.83-4.51); Absolute Neutrophil Count 7.5 X10^3/uL (2.0-7.7); Basophil# 0.02 X10^3/uL; Basophil% 0.2 % (0-1); Eosinophils% 2.2 % (0-5); Hematocrit 26.1 % (40-54); Hemoglobin 8.4 g/dL (13.0-16.5); Lymphocyte # 0.92 X10^3/ul (0.83-4.51); Lymphocyte % 9.9 % (19-41); Mean Corp Hgb Conc 32.2 g/dL (32-36); Mean Corpuscular Hgb 29.1 pg (27.0-32.0); Mean Corpuscular Volume 90.3 fL (80-94); Mean Platelet Vol. 8.7 fl (6.2-12.0); Monocyte# 0.59 X10^3/uL; Monocyte% 6.4 % (0-10); NRBC Flagged by Analyzer 0 % (0-5); Neutrophil # 7.45 X10^3/uL (2.7-7.7); Neutrophil % 80.4 % (47-70); Platelet Count 356 K/mm3 (150-450); RBC Distribution Width CV 16.6 % (11.6-14.6); Red Blood Count 2.89 M/mm3 (4.6-6.2); White Blood Count 9.3 K/mm3 (4.4-11.0)
--- NOTE | 2022-05-23 05:49 | PCM.PN.INT ---
Assessment & Plan Assessment/Plan (1) Right upper lobe pneumonia: (2) Septic shock: PLAN: Plan RECOMMENDATIONS: 1. Continue Levophed to maintain a mean arterial pressure at or above 65 mmHg. 2. Start scheduled midodrine as ordered. 3. Continue empiric broad-spectrum antimicrobials. 4. Continue appropriate DVT prophylaxis. 5. Encourage incentive spirometer use and mobilize patient as tolerated. IMPRESSIONS: 1. Septic shock The patient presented to the hospital with sepsis due to probable aspiration pneumonia with acute sepsis related organ dysfunction as evidenced by fluid refractory hypotension, requiring the initiation of vasopressor support. Plan to continue empiric broad-spectrum antimicrobials, pending finalized culture results. Continue Levophed to maintain a mean arterial pressure at or above 65 mmHg. Given the hydronephrosis noted on CT imaging, urology evaluated the patient and did not feel that he required any intervention at this time. Will plan to start scheduled midodrine today to assist in weaning from vasopressor support. 2. Acute kidney injury Resolved. Likely prerenal in etiology and related to #1. Continue supportive care as noted above. No current indication for renal replacement therapy. 3. History of prostate CA The patient apparently has frequent stent exchanges through his primary urologist at [facility]. Given the hydronephrosis noted on CT imaging at presentation along with his diagnosis of septic shock, urology was consulted to evaluate the patient. No intervention is required at this time from their perspective. TIME: 31 minutes of critical care time, independent of procedures, was spent addressing the patient's septic shock, upper lobe pneumonia, acute kidney injury, review of all data and collaboration with the care team. Subjective Subjective The patient was seen and examined at the bedside this morning. Events from the last 24 hours have been reviewed. The patient is currently afebrile and maintaining appropriate oxygen saturations on room air. He remains on low-dose Levophed at 1 mcg/min to maintain hemodynamic stability. The patient is documented to be overall net +3.7 L for the hospitalization. The patient's leukocytosis has improved. Objective Data Objective Data The patient's most recent lab work, culture data and imaging studies have all been personally reviewed. Blood, urine and sputum cultures are pending. Vital Signs: Vital Signs Temp Pulse Resp BP Pulse Ox O2 Del Method O2 Flow Rate 98 F 66 22 H 95/57 L 94 Room Air 2 05/23/22 03:00 05/23/22 03:33 05/23/22 03:00 05/23/22 03:00 05/23/22 03:00 05/23/22 03:35 05/22/22 07:15 Oxygen Flow Rate (L/min) 2 Oxygen Delivery Method Room Air Weight: 140 lb 3.424 oz Body Mass Index (BMI) 23.8 Intake & Output: Intake and Output for Last 24 Hours 05/21/22 05/22/22 05/23/22 23:59 23:59 23:59 Intake Total 2234.58 / 2234.58 3881.60 / 3885.40 163.32 / 163.32 Output Total 500 / 500 2075 / 2075 Balance 1734.58 / 1734.58 1806.60 / 1810.40 163.32 / 163.32 Lab / Micro Data Attestation: I reviewed the patient's lab results. Result Diagrams: 05/23/22 05:35 05/23/22 05:35 Labs: Laboratory Results - last 24 hr 05/23/22 05:35: WBC 9.3, RBC 2.89 L, Hgb 8.4 L, Hct 26.1 L, MCV 90.3, MCH 29.1, MCHC 32.2, RDW Std Deviation 55.0 H, RDW Coeff of Santiago 16.6 H, Plt Count 356, MPV 8.7, Immature Gran % (Auto) 0.900, Neut % (Auto) 80.4 H, Lymph % (Auto) 9.9 L, [place] % (Auto) 6.4, Eos % (Auto) 2.2, Baso % (Auto) 0.2, Absolute Neuts (auto) 7.5, Absolute Lymphs (auto) 0.92, Nucleated RBC % 0 Micro: Microbiology 05/21/22 13:30 Urine, Clean Catch Urine Culture - Preliminary Culture exhibits no growth. 05/21/22 13:30 Urine, Clean Catch Legionella Antigen - Final 05/21/22 13:30 Urine, Clean Catch Streptococcus pneumoniae Antigen (M - Final 05/21/22 15:50 Mucosa - Nose Influenza Types A,B Direct FA (DENAE) - Final 05/21/22 09:54 Nasal Secretion SARS-CoV-2 Antigen (Rapid) - Final Physical Exam Const alert and no apparent distress General Appearance: cooperative and ill appearing HEENT normocephalic and head/scalp atraumatic Eyes PERRL, EOMs intact bilaterally and conjunctivae normal Neck supple General: trachea midline Chest inspection of chest normal Resp Auscultation: diminished lung sounds; Negative for rales, rhonchi or wheezes Cardio regular rate, regular rhythm, S1 normal heart sound and S2 normal heart sound GI normal to inspection, nondistended, normoactive bowel sounds Extremity Extremity Narrative: Left hand is swollen. No discernible lower extremity edema. General Extremity: Negative for clubbing Skin no rashes or lesions noted Neuro CN's II-XII intact bilaterally and no focal motor deficits Psych cooperative and affect normal Charges/Coding Procedures Hospitalists Procedures: 56297 Critial Care 1st Hr
[2022-05-23 06:03] LABS: Anion Gap 7 (5-15); BUN 16 mg/dL (7-18); BUN/Creat Ratio 17.1 RATIO (10-20); Calcium,Total 8.4 mg/dL (8.5-10.1); Chloride 114 mmol/L (98-107); Creatinine, Serum 0.94 mg/dL (0.70-1.30); EST Glomerular Filtration Rate 85 mL/min (>60); Est Glom Filt Rate - Afr Amer 102 mL/min (>60); Estimated Creatinine Clearance 61.23 ml/min; Glucose 103 mg/dL (74-106); Potassium 3.5 mmol/L (3.5-5.1); Sodium Level 141 mmol/L (136-145)
[2022-05-23] MEDS: Potassium Chloride Oral Tablet 20 MEQ PO (08:02)
[2022-05-23] MEDS: Midodrine HCl 5 MG Tablet 10 MG PO ×3 (08:02→16:55)
[2022-05-23] MEDS: Enoxaparin 40 MG/0.4 ML Syringe SC (09:43)
[2022-05-23] MEDS: guaiFENesin 1,200 MG Tablet 1200 MG PO ×2 (09:44→21:24)
[2022-05-23] MEDS: Ensure Plus High Protein 120 ML LIQUID PO ×4 (09:44→21:24)
--- NOTE | 2022-05-23 11:37 | PCM.PN.HOSP ---
Subjective Subjective Patient states he is feeling okay and ready to go home. Still remains on Levophed at 1 nurys. We did attempt to turn it off however he became hypotensive again. Midodrine initiated. No issues overnight. Patient remains on room air. Objective Data Objective Data Vital Signs: Vital Signs Temp Pulse Resp BP Pulse Ox O2 Del Method O2 Flow Rate 97.6 F L 73 21 H 88/55 L 100 Room Air 2 05/23/22 10:00 05/23/22 11:07 05/23/22 11:00 05/23/22 11:15 05/23/22 11:00 05/23/22 11:00 05/22/22 07:15 Oxygen Flow Rate (L/min) 2 Oxygen Delivery Method Room Air Weight: 63.6 kg Body Mass Index (BMI) 23.8 Intake & Output: Intake and Output for Last 24 Hours 05/21/22 05/22/22 05/23/22 23:59 23:59 23:59 Intake Total 2234.58 / 2234.58 3881.60 / 3885.40 601.65 / 601.65 Output Total 500 / 500 2075 / 2075 450 / 450 Balance 1734.58 / 1734.58 1806.60 / 1810.40 151.65 / 151.65 Lab / Micro Data Result Diagrams: 05/23/22 05:35 05/23/22 05:35 Labs: Laboratory Results - last 24 hr 05/23/22 05:35: WBC 9.3, RBC 2.89 L, Hgb 8.4 L, Hct 26.1 L, MCV 90.3, MCH 29.1, MCHC 32.2, RDW Std Deviation 55.0 H, RDW Coeff of [place] 16.6 H, Plt Count 356, MPV 8.7, Immature Gran % (Auto) 0.900, Neut % (Auto) 80.4 H, Lymph % (Auto) 9.9 L, [place] % (Auto) 6.4, Eos % (Auto) 2.2, Baso % (Auto) 0.2, Absolute Neuts (auto) 7.5, Absolute Lymphs (auto) 0.92, Nucleated RBC % 0 05/23/22 05:35: Sodium 141, Potassium 3.5, Chloride 114 H, Carbon Dioxide 20.0 L, Anion Gap 7, BUN 16, Creatinine 0.94, Estim Creat Clear Calc 61.23, Est GFR (MDRD) Af Amer 102, Est GFR (MDRD) Non-Af 85, BUN/Creatinine Ratio 17.1, Glucose 103, Calcium 8.4 L 05/23/22 08:00: Cortisol 18.30 Micro: Microbiology 05/21/22 15:20 Blood Culture (Wb) - Anticubital Left Blood Culture - Preliminary No growth in 48 hours. 05/22/22 14:30 Sputum, Expectorated/Coughed Respiratory Culture - Preliminary Appears to be normal respiratory toi. Further studies to follow. 05/21/22 13:30 Urine, Clean Catch Urine Culture - Preliminary Gram positive clarence 05/21/22 13:30 Urine, Clean Catch Legionella Antigen - Final 05/21/22 13:30 Urine, Clean Catch Streptococcus pneumoniae Antigen (M - Final 05/21/22 15:50 Mucosa - Nose Influenza Types A,B Direct FA (NURYS) - Final 05/21/22 09:54 Nasal Secretion SARS-CoV-2 Antigen (Rapid) - Final Physical Exam Const alert, oriented x3, no apparent distress and well nourished Constitutional Narrative: Older [place] white male sitting up in bed, appears comfortable, nursing at bedside, nontoxic HEENT head/scalp atraumatic, moist oral mucous membranes and oropharynx normal HEENT Narrative: Dentition is poor, Mallampati is 2, no thrush Head and Scalp: normocephalic Resp normal respiratory effort, no retractions and no use of accessory muscles Resp Narrative: Diminished breath sounds right upper lobe with few crackles--> improved however with less crackling than yesterday Auscultation: crackles; Negative for rhonchi or wheezes Cardio regular rate, regular rhythm, S1 normal heart sound, S2 normal heart sound, no murmurs, no rub, no gallops and no clicks GI normal to inspection, nondistended, normoactive bowel sounds, soft to palpation and non-tender Extremity no clubbing, cyanosis or edema Extremity Narrative: 2+ pedal pulses Neuro oriented x3, moves all extremities and no focal motor deficits Speech: speech normal Psych affect normal Psych Narrative: Very pleasant and appropriately interactive Assessment & Plan Assessment/Plan (1) Septic shock: (2) Right upper lobe pneumonia: (3) Prostate cancer metastatic to bone: (4) JACKIE (acute kidney injury): (5) Hydronephrosis: (6) Leukocytosis: (7) Anemia: PLAN: Plan Septic shock secondary to suspected aspiration pneumonia -Patient had to be transferred to ICU overnight and placed on Levophed -Remains on Levophed however weaned from 10 mcg/min to 1 mcg/min -Continue to wean as able -Midodrine added -Maintain patient on broad-spectrum antibiotics -COVID and flu are negative -Strep pneumo and Legionella antigens are negative -Urine culture is negative -Blood cultures negative at 48 hours -Sputum culture is consistent with normal respiratory toi -Will discontinue vancomycin in switch Zosyn to Unasyn for aspiration coverage day 2 of 7 for antibiotics -CTA of the chest shows a large right upper lobe infiltrate -Encourage I-S/add Acapella Hydronephrosis -Patient was evaluated by urology on 05/22/2022 -Per documentation CT scan demonstrates good position of stents -It is that most of his hydronephrosis is chronic -No urgent urological intervention required -Urology recommends outpatient follow-up with his baseline urologist after discharge JACKIE -Resolved -A.m. serum creatinine is 0.94 Leukocytosis -Resolved -White count from 26.8-20 4.8-9.3 Anemia -Was normal on admission however dropped with IV fluids -Stable at 8.4 -Normocytic -Would recommend outpatient follow-up for baseline CBC after his acute issues have resolved -Continue to monitor -No signs of acute bleeding Metastatic prostate cancer -Diagnosed in 2018 -Follows at [facility] -Known mets to bone -Recommend outpatient follow-up after discharge Depression -Continue home fluoxetine DVT prophylaxis -Continue enoxaparin 40 mg daily CODE STATUS -Full code Charges/Coding Visit Charges Inpatient E&M: 91580 Subs Hosp L2
[2022-05-24] VITALS (18 sets, daily range): BP systolic 86–130; BP diastolic 50–67; PULSE 63–87; RESP 13–30; TEMP 36.4–37.2; O2SAT 90–99
[2022-05-24 04:25] LABS: Anion Gap 8 (5-15); BUN 19 mg/dL (7-18); BUN/Creat Ratio 20.5 RATIO (10-20); Calcium,Total 8.5 mg/dL (8.5-10.1); Chloride 111 mmol/L (98-107); Creatinine, Serum 0.93 mg/dL (0.70-1.30); EST Glomerular Filtration Rate 85 mL/min (>60); Est Glom Filt Rate - Afr Amer 103 mL/min (>60); Estimated Creatinine Clearance 61.89 ml/min; Glucose 104 mg/dL (74-106); Sodium Level 139 mmol/L (136-145)
--- NOTE | 2022-05-24 09:50 | PCM.PN.INT ---
Assessment & Plan Assessment/Plan (1) Right upper lobe pneumonia: (2) Septic shock: PLAN: Plan RECOMMENDATIONS: 1. Ok to resume fluoxetine 2. Continue midodrine as ordered. 3. Complete 5 days of abx 4. Continue appropriate DVT prophylaxis. 5. Encourage incentive spirometer use and mobilize patient as tolerated. 6. Ok to leave the ICU later today IMPRESSIONS: 1. Septic shock The patient presented to the hospital with sepsis due to probable aspiration pneumonia with acute sepsis related organ dysfunction as evidenced by fluid refractory hypotension, requiring the initiation of vasopressor support. Patient has responded well to midodrine therapy. Given the hydronephrosis noted on CT imaging, urology evaluated the patient and did not feel that he required any intervention at this time. This will need to be addressed as an outpatient. Continue midodrine. Likely okay to wean over the next week 2. Acute kidney injury Resolved. Likely prerenal in etiology and related to #1. Continue supportive care as noted above. No current indication for renal replacement therapy. 3. History of prostate CA The patient apparently has frequent stent exchanges through his primary urologist at [facility]. Given the hydronephrosis noted on CT imaging at presentation along with his diagnosis of septic shock, urology was consulted to evaluate the patient. No intervention is required at this time from their perspective. Likely chronic hydronephrosis. Subjective Subjective Patient did well overnight. No acute issues have been reported. Patient was placed on midodrine yesterday and had no hypotension overnight. Patient has been tolerating room air. Patient subjectively feels improved compared to yesterday. Patient was able to get to the chair without complications. Objective Data Objective Data Vital Signs: Vital Signs Temp Pulse Resp BP Pulse Ox O2 Del Method O2 Flow Rate 36.7 C 82 24 H 108/62 91 Room Air 2 05/24/22 05:00 05/24/22 07:00 05/24/22 07:00 05/24/22 07:00 05/24/22 07:30 05/24/22 08:00 05/22/22 07:15 Oxygen Flow Rate (L/min) 2 Oxygen Delivery Method Room Air Weight: 66.5 kg Body Mass Index (BMI) 23.8 Intake & Output: Intake and Output for Last 24 Hours 05/22/22 05/23/22 05/24/22 23:59 23:59 23:59 Intake Total 3881.60 / 3885.40 1228.78 / 1228.78 Output Total 2075 / 2075 1500 / 1500 225 / 225 Balance 1806.60 / 1810.40 -271.22 / -271.22 -225 / -225 Lab / Micro Data Attestation: I reviewed the patient's lab results. Result Diagrams: 05/23/22 05:35 05/24/22 03:55 Labs: Laboratory Results - last 24 hr 05/24/22 03:55: Sodium 139, Potassium 4.0, Chloride 111 H, Carbon Dioxide 20.0 L, Anion Gap 8, BUN 19 H, Creatinine 0.93, Estim Creat Clear Calc 61.89, Est GFR (MDRD) Af Amer 103, Est GFR (MDRD) Non-Af 85, BUN/Creatinine Ratio 20.5 H, Glucose 104, Calcium 8.5 Micro: Microbiology 05/22/22 14:30 Sputum, Expectorated/Coughed Gram Stain - Final 05/22/22 14:30 Sputum, Expectorated/Coughed Respiratory Culture - Preliminary Appears to be normal respiratory toi. Further studies to follow. 05/21/22 15:20 Blood Culture (Wb) - Anticubital Left Blood Culture - Preliminary No growth in 48 hours. 05/21/22 13:30 Urine, Clean Catch Urine Culture - Preliminary Gram positive clarence 05/21/22 13:30 Urine, Clean Catch Legionella Antigen - Final 05/21/22 13:30 Urine, Clean Catch Streptococcus pneumoniae Antigen (M - Final 05/21/22 15:50 Mucosa - Nose Influenza Types A,B Direct FA (DENAE) - Final 05/21/22 09:54 Nasal Secretion SARS-CoV-2 Antigen (Rapid) - Final Physical Exam Const alert and no apparent distress General Appearance: cooperative HEENT normocephalic and head/scalp atraumatic Eyes PERRL, EOMs intact bilaterally and conjunctivae normal Neck supple General: trachea midline Chest inspection of chest normal Resp Auscultation: diminished lung sounds; Negative for rales, rhonchi or wheezes Cardio regular rate, regular rhythm, S1 normal heart sound and S2 normal heart sound GI normal to inspection, nondistended, normoactive bowel sounds Extremity Extremity Narrative: Left hand is swollen. No discernible lower extremity edema. General Extremity: Negative for clubbing Skin no rashes or lesions noted Neuro CN's II-XII intact bilaterally and no focal motor deficits Psych cooperative and affect normal Charges/Coding Visit Charges Inpatient E&M: 52992 Subs Hosp L2
[2022-05-24] MEDS: Enoxaparin 40 MG/0.4 ML Syringe SC (10:06)
[2022-05-24] MEDS: Midodrine HCl 5 MG Tablet 10 MG PO ×3 (10:06→17:59)
[2022-05-24] MEDS: FLUoxetine 20 MG Capsule PO (10:06)
[2022-05-24] MEDS: guaiFENesin 1,200 MG Tablet 1200 MG PO ×2 (10:06→21:51)
[2022-05-24] MEDS: Ensure Plus High Protein 120 ML LIQUID PO ×4 (10:11→21:51)
--- NOTE | 2022-05-24 11:10 | PCM.PN.HOSP ---
Subjective Subjective No issues overnight. Has been off Levophed since yesterday approximately at 3 PM. Patient still on room air. Anxious to go home when stable. Doing well with physical therapy and they did not pick him up because he is doing so well. Anticipate discharge in the next 24 hours as long as blood pressures remained stable off pressors. Objective Data Objective Data Vital Signs: Vital Signs Temp Pulse Resp BP Pulse Ox O2 Del Method O2 Flow Rate 97.8 F 80 17 86/57 L 96 Room Air 2 05/24/22 08:00 05/24/22 10:00 05/24/22 10:00 05/24/22 10:00 05/24/22 10:00 05/24/22 10:00 05/22/22 07:15 Oxygen Flow Rate (L/min) 2 Oxygen Delivery Method Room Air Weight: 66.5 kg Body Mass Index (BMI) 23.8 Intake & Output: Intake and Output for Last 24 Hours 05/22/22 05/23/22 05/24/22 23:59 23:59 23:59 Intake Total 3881.60 / 3885.40 1228.78 / 1228.78 0 / 0 Output Total 2075 / 2075 1500 / 1500 225 / 225 Balance 1806.60 / 1810.40 -271.22 / -271.22 -225 / -225 Lab / Micro Data Result Diagrams: 05/23/22 05:35 05/24/22 03:55 Labs: Laboratory Results - last 24 hr 05/24/22 03:55: Sodium 139, Potassium 4.0, Chloride 111 H, Carbon Dioxide 20.0 L, Anion Gap 8, BUN 19 H, Creatinine 0.93, Estim Creat Clear Calc 61.89, Est GFR (MDRD) Af Amer 103, Est GFR (MDRD) Non-Af 85, BUN/Creatinine Ratio 20.5 H, Glucose 104, Calcium 8.5 Micro: Microbiology 05/21/22 13:30 Urine, Clean Catch Urine Culture - Final Corynebacterium urealyticum 05/22/22 14:30 Sputum, Expectorated/Coughed Gram Stain - Final 05/22/22 14:30 Sputum, Expectorated/Coughed Respiratory Culture - Preliminary Appears to be normal respiratory toi. Further studies to follow. 05/21/22 15:20 Blood Culture (Wb) - Anticubital Left Blood Culture - Preliminary No growth in 48 hours. 05/21/22 13:30 Urine, Clean Catch Legionella Antigen - Final 05/21/22 13:30 Urine, Clean Catch Streptococcus pneumoniae Antigen (M - Final 05/21/22 15:50 Mucosa - Nose Influenza Types A,B Direct FA (DENAE) - Final 05/21/22 09:54 Nasal Secretion SARS-CoV-2 Antigen (Rapid) - Final Physical Exam Const alert, oriented x3, no apparent distress and well nourished Constitutional Narrative: Older Protestant white male sitting up in a chair at the bedside, appears comfortable, nursing at bedside, nontoxic HEENT head/scalp atraumatic, moist oral mucous membranes and oropharynx normal HEENT Narrative: Dentures in place, Mallampati 2, no thrush Resp normal respiratory effort, no retractions and no use of accessory muscles Resp Narrative: Diminished right upper lobe crackles have since resolved Auscultation: Negative for crackles, rhonchi or wheezes Cardio regular rate, regular rhythm, S1 normal heart sound, S2 normal heart sound, no murmurs, no rub, no gallops and no clicks GI normal to inspection, nondistended, normoactive bowel sounds, soft to palpation and non-tender Extremity no clubbing, cyanosis or edema Extremity Narrative: 2+ pedal pulses Neuro oriented x3, moves all extremities and no focal motor deficits Speech: speech normal Psych affect normal Psych Narrative: Very pleasant and appropriately interactive Assessment & Plan Assessment/Plan (1) Septic shock: (2) Right upper lobe pneumonia: (3) Prostate cancer metastatic to bone: (4) JACKIE (acute kidney injury): (5) Hydronephrosis: (6) Leukocytosis: (7) Anemia: PLAN: Plan Septic shock secondary to suspected aspiration pneumonia -Shock resolved -Has been weaned off Levophed -Continue midodrine -Maintain patient on broad-spectrum antibiotics -COVID and flu are negative -Strep pneumo and Legionella antigens are negative -Urine culture did not result with corynebacterium urolyticum at less than 100,000 colony counts -Blood cultures negative at 48 hours -Sputum culture is consistent with normal respiratory toi -Continue Unasyn aspiration coverage and to cover his urine with his history of stents day 3 extended of 10 for antibiotics -Antibiotic course extended secondary to urine and stents/hydronephrosis -CTA of the chest shows a large right upper lobe infiltrate -Encourage I-S/add Acapella Hydronephrosis -Patient was evaluated by urology on 05/22/2022 -Per documentation CT scan demonstrates good position of stents -It is that most of his hydronephrosis is chronic -No urgent urological intervention required -Urology recommends outpatient follow-up with his baseline urologist after discharge -Urine is growing corynebacterium urolyticum, on with colony counts less than 100,000 -With his history of stents and hydronephrosis I will probably go ahead and put him on extended course of antibiotics at discharge to cover both this and his aspiration pneumonia and have him follow-up with urology as scheduled Anemia -Not obtained today we will repeat in a.m. -Normocytic -Would recommend outpatient follow-up for baseline CBC after his acute issues have resolved -Continue to monitor -No signs of acute bleeding Metastatic prostate cancer -Diagnosed in 2018 -Follows at [facility] -Known mets to bone -Recommend outpatient follow-up after discharge Depression -Continue home fluoxetine DVT prophylaxis -Continue enoxaparin 40 mg daily CODE STATUS -Full code Charges/Coding Visit Charges Inpatient E&M: 82439 Subs Hosp L2
[2022-05-24 11:36] LABS: Pathologist Review Reviewed
[2022-05-24] MEDS: 0.9% Saline Lock 10 ML Syringe IV (21:51)
[2022-05-25 02:20] VITALS: BP 99/53; PULSE 75; RESP 18; TEMP 37.1; O2SAT 94
[2022-05-25 06:35] LABS: Absolute Lymphocyte Count 1.22 X10^3/uL (0.83-4.51); Absolute Neutrophil Count 5.3 X10^3/uL (2.0-7.7); Basophil# 0.03 X10^3/uL; Basophil% 0.4 % (0-1); Eosinophil# 0.23 X10^3/uL; Hematocrit 25.8 % (40-54); Hemoglobin 8.4 g/dL (13.0-16.5); Lymphocyte # 1.22 X10^3/ul (0.83-4.51); Mean Corp Hgb Conc 32.6 g/dL (32-36); Mean Corpuscular Hgb 29.8 pg (27.0-32.0); Mean Corpuscular Volume 91.5 fL (80-94); Mean Platelet Vol. 10.1 fl (6.2-12.0); Monocyte# 0.77 X10^3/uL; Monocyte% 10.1 % (0-10); NRBC Flagged by Analyzer 0 % (0-5); Neutrophil # 5.25 X10^3/uL (2.7-7.7); Neutrophil % 68.8 % (47-70); POSITIVE COUNT YES; Platelet Count 272 K/mm3 (150-450); RBC Distribution Width CV 16.6 % (11.6-14.6); RBC Distribution Width SD 55.4 fl (35.1-43.9); Red Blood Count 2.82 M/mm3 (4.6-6.2); White Blood Count 7.6 K/mm3 (4.4-11.0)
[2022-05-25 06:40] LABS: Differential Indicated SCAN CRITERIA MET
[2022-05-25 06:49] LABS: Anion Gap 8 (5-15); BUN 16 mg/dL (7-18); BUN/Creat Ratio 19.3 RATIO (10-20); Calcium,Total 8.5 mg/dL (8.5-10.1); Chloride 114 mmol/L (98-107); Creatinine, Serum 0.83 mg/dL (0.70-1.30); EST Glomerular Filtration Rate 97 mL/min (>60); Est Glom Filt Rate - Afr Amer 117 mL/min (>60); Estimated Creatinine Clearance 69.34 ml/min; Glucose 92 mg/dL (74-106); Potassium 3.9 mmol/L (3.5-5.1); Sodium Level 138 mmol/L (136-145)
[2022-05-25 07:02] LABS: Anisocytosis 1+
[2022-05-25 07:35] VITALS: O2SAT 93
--- NOTE | 2022-05-25 08:58 | PCM.PN.INT ---
Assessment & Plan Assessment/Plan (1) Right upper lobe pneumonia: (2) Septic shock: PLAN: Plan RECOMMENDATIONS: 1. Ok to resume fluoxetine 2. Consider transition to midodrine twice daily if no orthostatic symptoms 3. Complete course of antibiotics 4. Continue appropriate DVT prophylaxis. 5. Encourage incentive spirometer use and mobilize patient as tolerated. 6. Okay to discharge from pulmonary perspective. Follow-up with nurse practitioner in 2 weeks 7. Will need a chest x-ray in 6 to 8 weeks to document resolution IMPRESSIONS: 1. Septic shock The patient presented to the hospital with sepsis due to probable aspiration pneumonia with acute sepsis related organ dysfunction as evidenced by fluid refractory hypotension, requiring the initiation of vasopressor support. Patient has responded well to midodrine therapy. Likely okay to transition to twice daily if patient is not having orthostatic symptoms. Given the hydronephrosis noted on CT imaging, urology evaluated the patient and did not feel that he required any intervention at this time. Midodrine will need to be weaned over the next week 2. Acute kidney injury Resolved. Likely prerenal in etiology and related to #1. Continue supportive care as noted above. No current indication for renal replacement therapy. 3. History of prostate CA The patient apparently has frequent stent exchanges through his primary urologist at [facility]. Given the hydronephrosis noted on CT imaging at presentation along with his diagnosis of septic shock, urology was consulted to evaluate the patient. No intervention is required at this time from their perspective. Likely chronic hydronephrosis. Subjective Subjective Patient transferred out of the intensive care unit yesterday. Patient states that he is feeling subjectively much improved compared to yesterday. Patient has been able to ambulate to the bathroom and around the room with little to no difficulty. Patient does report some shortness of breath with significant movement. Objective Data Objective Data Vital Signs: Vital Signs Temp Pulse Resp BP Pulse Ox O2 Del Method O2 Flow Rate 37.1 C 75 18 99/53 L 94 Room Air 2 05/25/22 02:20 05/25/22 02:20 05/25/22 02:20 05/25/22 02:20 05/25/22 02:20 05/25/22 07:40 05/22/22 07:15 Oxygen Flow Rate (L/min) 2 Oxygen Delivery Method Room Air Weight: 63.1 kg Body Mass Index (BMI) 23.8 Intake & Output: Intake and Output for Last 24 Hours 05/23/22 05/24/22 05/25/22 23:59 23:59 23:59 Intake Total 1228.78 / 1228.78 1079 / 1079 112 / 112 Output Total 1500 / 1500 225 / 225 Balance -271.22 / -271.22 854 / 854 112 / 112 Lab / Micro Data Attestation: I reviewed the patient's lab results. Result Diagrams: 05/25/22 05:09 05/25/22 05:09 Labs: Laboratory Results - last 24 hr 05/21/22 10:40: Diff Path Review Reviewed 05/25/22 05:09: WBC 7.6, RBC 2.82 L, Hgb 8.4 L, Hct 25.8 L, MCV 91.5, MCH 29.8, MCHC 32.6, RDW Std Deviation 55.4 H, RDW Coeff of Santiago 16.6 H, Plt Count 272, MPV 10.1, Immature Gran % (Auto) 1.700 H, Neut % (Auto) 68.8, Lymph % (Auto) 16.0 L, Morrison % (Auto) 10.1 H, Eos % (Auto) 3.0, Baso % (Auto) 0.4, Absolute Neuts (auto) 5.3, Absolute Lymphs (auto) 1.22, Nucleated RBC % 0, Anisocytosis 1+ 05/25/22 05:09: Sodium 138, Potassium 3.9, Chloride 114 H, Carbon Dioxide 16.0 L, Anion Gap 8, BUN 16, Creatinine 0.83, Estim Creat Clear Calc 69.34, Est GFR (MDRD) Af Amer 117, Est GFR (MDRD) Non-Af 97, BUN/Creatinine Ratio 19.3, Glucose 92, Calcium 8.5 Micro: Microbiology 05/22/22 14:30 Sputum, Expectorated/Coughed Gram Stain - Final 05/22/22 14:30 Sputum, Expectorated/Coughed Respiratory Culture - Final 05/21/22 13:30 Urine, Clean Catch Urine Culture - Final Corynebacterium urealyticum 05/21/22 15:20 Blood Culture (Wb) - Anticubital Left Blood Culture - Preliminary No growth in 48 hours. 05/21/22 13:30 Urine, Clean Catch Legionella Antigen - Final 05/21/22 13:30 Urine, Clean Catch Streptococcus pneumoniae Antigen (M - Final 05/21/22 15:50 Mucosa - Nose Influenza Types A,B Direct FA (DENAE) - Final 05/21/22 09:54 Nasal Secretion SARS-CoV-2 Antigen (Rapid) - Final Physical Exam Const alert and no apparent distress General Appearance: cooperative HEENT normocephalic and head/scalp atraumatic Eyes PERRL, EOMs intact bilaterally and conjunctivae normal Neck supple General: trachea midline Chest inspection of chest normal Resp Auscultation: diminished lung sounds; Negative for rales, rhonchi or wheezes Cardio regular rate, regular rhythm, S1 normal heart sound and S2 normal heart sound Rate: tachycardic GI normal to inspection, nondistended, normoactive bowel sounds Extremity Extremity Narrative: Left hand is swollen. No discernible lower extremity edema. General Extremity: Negative for clubbing Skin no rashes or lesions noted Neuro CN's II-XII intact bilaterally and no focal motor deficits Psych cooperative and affect normal Mood & Affect: flat affect Charges/Coding Visit Charges Inpatient E&M: 80012 Subs Hosp L2
[2022-05-25 09:05] VITALS: BP 91/57; PULSE 80; RESP 18; TEMP 36.5; O2SAT 92
[2022-05-25] MEDS: Midodrine HCl 5 MG Tablet 10 MG PO (09:05)
[2022-05-25] MEDS: guaiFENesin 1,200 MG Tablet 1200 MG PO (09:05)
[2022-05-25] MEDS: FLUoxetine 20 MG Capsule PO (09:05)
[2022-05-25 09:50] VITALS: O2SAT 92; O2SAT 94
[2022-05-25] MEDS: Enoxaparin 40 MG/0.4 ML Syringe SC (09:54)
[2022-05-25] MEDS: Ensure Plus High Protein 120 ML LIQUID PO (09:54)
--- NOTE | 2022-05-25 10:42 | DS.PCM_ITS ---
Providers Date of Admission: 05/21/22 Date of Discharge: 05/25/22 Primary Care Physician: Jeanette Primary Care Phys Consultations 05/22/22 06:29 Consult: General Utility Maintenance Repairer / Pulmonary Medicine Routine Consulting Provider: [facility] Reason for Consult: Hypotension EMERGENT Consult: No Notified: Yes Date Notified: 05/22/22 Time Notified: 06:29 Method of Notification: Verbal 05/22/22 07:32 Consult: Urology Routine Consulting Provider: Khalif Shea Reason for Consult: Hydronephrosis, Septic Shock EMERGENT Consult: No Notified: Yes Date Notified: 05/22/22 Time Notified: 09:14 Method of Notification: Verbal Comments:: paged through the knife operator Reason For Visit: RUL PNEUMONIA Diagnosis Discharge Diagnosis (1) Right upper lobe pneumonia: Status: Acute Code(s): J18.9 - Pneumonia, unspecified organism (2) Septic shock: Status: Acute Code(s): A41.9 - Sepsis, unspecified organism; R65.21 - Severe sepsis with septic shock Medications at Discharge Home Medications fluoxetine 20 mg capsule 20 mg PO DAILY mental health 07/24/19 amoxicillin 875 mg-potassium clavulanate 125 mg tablet 1 tab PO BID #14 tabs 05/25/22 midodrine 5 mg tablet 10 mg PO TIDCM #42 tabs 05/25/22 Hospital Course Operations None Procedures - (CTA chest abdomen and pelvis) Summary of Care Provided Minutes Spent on Discharge: 38 Hospital Course: Mr. Ibrahim is a 71-year-old white [place] male who presented to the emergency department at [facility] on 05/21/2022 with shortness of breath, right-sided chest pain, and fever. The patient reported that he started having a fever approximately 3 days prior to presentation. On the day of admission he complained of occasional cough. The patient reported that he was chronically short of breath however it got worse with mild exertion over the last 2 to 3 days prior to presentation. He complained of right-sided chest pain that was worse with coughing and a mild headache. He had a known history of metastatic prostate cancer that has caused hydronephrosis and follows with [facility] (Dr. Tinoco) who exchanges his stent every 3 to 4 months and he is scheduled in June 2022 to follow-up. In the emergency department upon presentation his temperature was 98.6, heart rate 96, blood pressure 105/38, pulse of 96 and he was satting 91% on room air. His CBC showed a white count of 26.8 mild anemia with a hemoglobin of 10.2 and his platelets were normal. He had a left shift. His chemistry panel was unremarkable. A CTA of his chest was done given his history of cancer and his chest pain which demonstrated no pulmonary embolism aneurysm or dissection, showed atherosclerosis as well as a right upper lobe c onsolidation consistent with pneumonia, right hydronephrosis with stent in position and sclerotic osseous abnormalities with metastatic disease likely versus Paget's disease. He was placed on antibiotics and admitted to the medical floor. Unfortunately he developed hypotension and required transfer to the ICU through the night. He was nonresponsive to fluids after 30 mL/kg body weight fluids were dosed and he was placed on vasopressors. He required Levophed for approximately 36 hours and was able to wean after he was placed on midodrine. It appears that he chronically has low normal blood pressures which were back to his baseline with the midodrine prior at the time of discharge. Presentation his COVID-19 was negative. He was evaluated by urology with his hydronephrosis and they felt there was no urological need for intervention at this time and that he follow-up with his outpatient urologist after discharge. His urine culture resulted positive for corynebacterium urealyticum however, the counts were 50-80,000. Strep pneumo and Legionella antigens are negative, blood cultures were negative, influenza a and B were negative and his respiratory Gram stain and culture showed only mixed normal respiratory toi. With this being a suspected aspiration pneumonia, speech therapy was consulted and did clear him for regular diet with thin liquids however they did recommend small sips and small bites with no straws and sitting upright while eating. The patient did improve with regards to his speech therapy performance during his hospital course. He was also seen by physical and Occupational Therapy and was not picked up by either service as he did quite well. His antibiotics were narrowed to Unasyn upon culture results and he was able to be transferred out of the ICU on 05/24/2022. He remained stable and on room air on the medical floor. We were able to discharge him home in stable condition on 05/05/2022. He is to continue oral antibiotics with Augmentin to complete another 7 days. The timeframe was increased from 7 days to 10 days with his urine specimen and stent history. He is to follow-up with pulmonary medicine nurse practitioner within the next 2 weeks and with primary care physician in the next 1 to 2 weeks. It was recommended that he follow-up with his [facility] physicians for urology and oncology as previously scheduled. Discharge diagnoses: Septic shock Aspiration pneumonia Hydronephrosis-chronic JACKIE-resolved Anemia Metastatic prostate cancer Depression Weight / BMI Weight Weight: 63.1 kg Body Mass Index (BMI) 23.8 ABG / Lab / Microbiology Data Result Diagrams: 05/25/22 05:09 05/25/22 05:09 Laboratory: Laboratory Results - last 24 hr 05/21/22 10:40: Diff Path Review Reviewed 05/25/22 05:09: WBC 7.6, RBC 2.82 L, Hgb 8.4 L, Hct 25.8 L, MCV 91.5, MCH 29.8, MCHC 32.6, RDW Std Deviation 55.4 H, RDW Coeff of Santiago 16.6 H, Plt Count 272, MPV 10.1, Immature Gran % (Auto) 1.700 H, Neut % (Auto) 68.8, Lymph % (Auto) 16.0 L, [place] % (Auto) 10.1 H, Eos % (Auto) 3.0, Baso % (Auto) 0.4, Absolute Neuts (auto) 5.3, Absolute Lymphs (auto) 1.22, Nucleated RBC % 0, Anisocytosis 1+ 05/25/22 05:09: Sodium 138, Potassium 3.9, Chloride 114 H, Carbon Dioxide 16.0 L , Anion Gap 8, BUN 16, Creatinine 0.83, Estim Creat Clear Calc 69.34, Est GFR (MDRD) Af Amer 117, Est GFR (MDRD) Non-Af 97, BUN/Creatinine Ratio 19.3, Glucose 92, Calcium 8.5 Microbiology: Microbiology 05/22/22 14:30 Sputum, Expectorated/Coughed Gram Stain - Final 05/22/22 14:30 Sputum, Expectorated/Coughed Respiratory Culture - Final 05/21/22 13:30 Urine, Clean Catch Urine Culture - Final Corynebacterium urealyticum 05/21/22 15:20 Blood Culture (Wb) - Anticubital Left Blood Culture - Preliminary No growth in 48 hours. 05/21/22 13:30 Urine, Clean Catch Legionella Antigen - Final 05/21/22 13:30 Urine, Clean Catch Streptococcus pneumoniae Antigen (M - Final 05/21/22 15:50 Mucosa - Nose Influenza Types A,B Direct FA (DENAE) - Final 05/21/22 09:54 Nasal Secretion SARS-CoV-2 Antigen (Rapid) - Final D/C Instructions Discharge Diet: No restrictions Discharge Activity: Return to Normal Activity Meaningful Use Info Meaningful Use Diagnoses (Choose all that apply): None applicable Discharge Plan Admission Admit Date/Time: 05/21/22 13:50 Primary Reason for Your Visit: Shortness of breath Attending Provider: Bouchra Apodaca Primary Care Provider: Care Physician,Jeanette Primary Consulting Providers: Vincent Jones ; Chong Kerr ; Jesus Fuentes ; Paulie Meneses ; Ryley Mayberry ; Romina Prabhakar NP ; Khalif Shea Instructions Additional Instructions / Restrictions: 1. Please find a primary care physician and follow-up with them within the next week Discharge Orders/Prescriptions Prescriptions: New amoxicillin-pot clavulanate 875-125 mg tablet 1 tab PO BID Qty: 14 0RF midodrine 5 mg Tablet 10 mg PO TIDCM Qty: 42 0RF Continued fluoxetine 20 MG capsule 20 mg PO DAILY Referrals / Follow Up: Care Physician,No Primary [Primary Care Provider] - Romina Prabhakar NP, POSTAL SUPERVISOR-C [Med Staff - Adv Practice Prof] - Within 2 Weeks Disposition Disposition (needs filled in before D/C Order can be placed): Home, Self Care Charges/Coding Visit Charges Inpatient E&M: 67153 Disch Hosp
--- NOTE | 2022-05-25 10:59 | CASEMGMT ---
This RN CM to room to discuss d/c plan with pt/. Pt states no concerns with going home at time of discharge. Pt states 'they are working on getting the hospital van to take us home.' Pt/ voice no further questions/concerns/needs. Anisha, PCU community youth secretary, aware of van transport. SStaten GAEL CM
== END 2022-05-25 12:52 | disposition home or self-care (01) | DRG 177 ==
LOC: ED 12:59 → PCU 14:29 → ICU 05-22 03:33 → PCU 05-24 15:51
PROVIDERS: Admitting Provider Internal Medicine; Emergency Provider Student in an Organized Health Care Education/Training Program; Visit Provider Internal Medicine
DX: J69.0 Pneumonitis due to inhalation of food and vomit (principal); A41.9 Sepsis, unspecified organism; R65.21 Severe sepsis with septic shock; C79.51 Secondary malignant neoplasm of bone; C77.9 Secondary and unspecified malignant neoplasm of lymph node, unspecified; I47.1 Supraventricular tachycardia; N17.9 Acute kidney failure, unspecified; N13.6 Pyonephrosis; E83.39 Other disorders of phosphorus metabolism; I25.2 Old myocardial infarction; F32.A Depression, unspecified; Z20.822 Contact with and (suspected) exposure to COVID-19; Z85.46 Personal history of malignant neoplasm of prostate
CPT/HCPCS: 36415; 71045; 71275; 74174; 80048; 80076; 81001; 82533; 83605; 83615; 83735; 83880; 84100; 84484; 85025; 85379; 85610; 85730; 87040; 87070; 87077; 87086; 87088; 87205; 87449; 87641; 87804; 87811; 92507; 92526; 92610; 93005; 94667; 94668; 97161; 97166; 97802; 97803; 99285; J7030; J7040; J7050; Q9967; A4216; J0153; J0295; J2405

== ENCOUNTER → 2022-09-30 | Outpatient (CLI) | payer SELFPAY ==
--- NOTE | 2022-09-30 13:35 | RAD_ITS ---
INDICATION: chest pain EXAMINATION/TECHNIQUE: X-RAY - XR Chest 2 Views COMPARISON: July 20, 2021. FINDINGS: LINES/DEVICES: None. LUNGS: There is a right pleural effusion with basilar atelectasis. No pneumothorax. MEDIASTINUM AND CARDIOVASCULAR STRUCTURES: Cardiac silhouette not enlarged. Central airways and mediastinal contour are unremarkable. BONES AND SOFT TISSUES: Degenerative vertebral changes. RAD/Chest PA and Lateral IMPRESSION: Right pleural effusion with basilar atelectasis. Electronically Signed: Alexi Zhao DO at 23:58 EST Reading Location ID and State: [facility] / [place] Tel [phone], Service support ,
== END | disposition home or self-care (01) ==
PROVIDERS: PCP Nurse Practitioner Family; Visit Provider Nurse Practitioner Acute Care
DX: R07.9 Chest pain, unspecified (principal)
CPT/HCPCS: 71046

== ENCOUNTER 2023-09-27 18:04 | Emergency (ER) | payer OTHER, SELFPAY ==
[2023-09-27 18:05] VITALS: BP 99/71; PULSE 84; RESP 16; TEMP 36.8; O2SAT 95; BMI 25.7
--- NOTE | 2023-09-27 18:35 | CT_ITS ---
STUDY: CT ABDOMEN AND PELVIS WITHOUT CONTRAST REASON FOR EXAM: Male, 73 years old. flank pain RADIATION DOSAGE (If Supplied By Facility): CTDIvol = ( 6.16 ) mGy, DLP = ( 320.18 ) mGycm TECHNIQUE: Transaxial images were obtained from the dome of the diaphragm to the symphysis pubis without oral contrast, and without intravenous contrast. Sagittal and coronal images were reconstructed. Individualized dose optimization techniques were used for this CT. COMPARISON: None. FINDINGS: The visualized lung bases demonstrate basilar atelectasis. The visualized portions of the heart are within normal limits. Normal liver. Cholelithiasis. No significant dilatation of the extrahepatic biliary system. Normal spleen. Normal pancreas. There is an ill-defined area of mesenteric soft tissue density estimated at 4.8 x 1.3 cm, image 83 series 2. Normal bilateral adrenal glands. Hydronephrosis of the right kidney with lower pole 11 mm stone. There is a right ureteral stent in place. Small atrophic left kidney. Normal visualized stomach. Normal small intestine. Normal colon. The appendix is visualized and appears normal. Normal abdominal aorta. Normal inferior vena cava. Normal retroperitoneum. Normal urinary bladder. Normal abdominal wall. Bony metastasis. CT/Abdomen/Pelvis without Cont IMPRESSION: Hydronephrosis of the right kidney with lower pole stone. There is a right ureteral stent in place. Small atrophic left kidney. Cholelithiasis. There is a mesenteric soft tissue density requiring further evaluation. Bony metastasis. Electronically Signed: Alexi Zhao DO at 20:13 EST Reading Location ID and State: [facility] / [place] Tel [phone], Service support ,
--- NOTE | 2023-09-27 18:42 | EX.ED.DYSGE1 ---
HPI History of Present Illness Chief Complaint: Complaint Detail of Chief Complaint: Flank pain, hematuria, dysuria Informant: patient Onset/Context/Timing Onset: Weeks Narrative Narrative: Patient presents with approximately a week of dysuria and frequency. He was diagnosed with a UTI on Tuesday by Hans Ibrahim. He is currently on Augmentin. Patient states his symptoms or not improving. He has right flank pain and is noticing blood in his urine. He has had some chills but no measured fever. He had vomiting 2 days ago. [facility] Medical History Anxiety Arthritis Complication of urinary stent Gall stones GERD (gastroesophageal reflux disease) History of blood transfusion Hypotension Kidney stone Prostate cancer Prostate cancer metastatic to bone Home Medications fluoxetine 20 mg capsule 20 mg PO DAILY mental health #30 caps 03/21/23 [Rx Last Taken Unknown] amoxicillin 875 mg-potassium clavulanate 125 mg tablet 1 tab PO Q12H 09/27/23 [History Last Taken Unknown] metoprolol succinate 25 mg tablet,extended release 24 hr 12.5 mg PO DAILY 09/27/23 [History Last Taken Unknown] sulfamethoxazole 800 mg-trimethoprim 160 mg tablet (Bactrim DS) 1 tab PO BID #20 tabs 09/27/23 [Rx Last Taken Unknown] Allergy/AdvReac Type Severity Reaction Status Date / Time No Known Allergies Allergy Verified 09/27/23 18:07 Family History Grandfather Diabetes Heart disease Myocardial infarction Surgical History History of left heart catheterization (LHC) (~10/07/20) History of prostate surgery Social History household members: family housing: house Smoking Status: Never smoker alcohol intake: never substance use type: does not use frequency: daily ROS ROS ED Constitutional Constitutional ED: Reports chills; Denies fever(s) Eyes Eyes: Denies change in vision or discharge from eye(s) ENT ENT ED: Denies discharge from eye(s), rhinorrhea or sore throat Cardiovascular Cardiovascular: Denies chest pain or palpitations Respiratory/Chest Respiratory/Chest: Denies cough or dyspnea Gastrointestinal Gastrointestinal: Reports abdominal pain, nausea and vomiting; Denies diarrhea Genitourinary Genitourinary ED: Reports dysuria and hematuria Musculoskeletal Musculoskeletal: Reports back pain; Denies extremity pain Integumentary Denies Abrasions or rash Neurologic Neurologic: Denies headache(s) or weakness Psychiatric Psychiatric: Denies anxiety or depression Allergic/Immunologic Allergic/Immunologic ED: Denies lip swelling or urticaria EXAM Physical Exam Const Vital Signs: 09/27/23 18:05 09/27/23 20:43 09/27/23 22:00 Temperature 98.2 F Temperature Source Temporal Pulse Rate 84 72 Respiratory Rate 16 14 Blood Pressure 99/71 99/57 L Blood Pressure Mean 80 71 Pulse Ox 95 96 Oxygen Delivery Method Room Air Positive well nourished and well developed General Appearance ED: well developed HEENT Reports moist mucous membranes Eyes EOMs intact bilaterally Chest Wall inspection of chest normal and palpation of chest normal Resp normal respiratory effort and clear to auscultation bilaterally Cardio regular rate and regular rhythm GI GI Narrative: Abdomen soft with mild suprapubic tenderness. No guarding or rebound. Extremity normal to inspection Neuro oriented x3 and no sensory deficits noted Motor Exam: strength 5/5 throughout Psych mental status grossly normal Skin no rashes or lesions noted MDM MDM MDM Narrative Medical decision making narrative: IV line will be established. Labwork obtained to evaluate for leukocytosis, anemia, and electrolyte derangement. Urinalysis obtained to evaluate for infection/hematuria. CT flank obtained to evaluate for potential obstruction or kidney stone. Patient given IV fluids. He declines anything for pain at this time. History & Record Review Discussion w/independent historian: Patient and Family Lab Data Attestation: I reviewed the patient's lab results. Labs: Laboratory Results - last 24 hr 09/27/23 09/27/23 09/27/23 18:41 18:45 21:36 WBC 9.1 RBC 3.43 L Hgb 8.6 L Hct 28.3 L MCV 82.5 MCH 25.1 L MCHC 30.4 L RDW Std Deviation 54.3 H RDW Coeff of [place] 18.2 H Plt Count 397 MPV 8.5 Immature Gran % (Auto) 0.300 Neut % (Auto) 80.1 H Lymph % (Auto) 9.5 L [place] % (Auto) 5.8 Eos % (Auto) 3.9 Baso % (Auto) 0.4 Absolute Neuts (auto) 7.3 Absolute Lymphs (auto) 0.86 Nucleated RBC % 0 Sodium 138 Potassium 4.6 Chloride 110 H Carbon Dioxide 24.0 Anion Gap 4 L BUN 35 H Creatinine 1.56 H Estim Creat Clear Calc 35.84 Est GFR (MDRD) Af Amer 57 L Est GFR (MDRD) Non-Af 47 L BUN/Creatinine Ratio 22.4 H Glucose 155 H Lactic Acid 0.5 Calcium 9.3 Urine Color Brown Urine Clarity Cloudy Urine pH 9.0 Ur Specific [place] 1.015 Urine Protein 500 H Urine Glucose (UA) Normal Urine Ketones 5 H Urine Occult Blood 250 H Urine Nitrite Negative Urine Bilirubin Negative Urine Urobilinogen Normal Ur Leukocyte Esterase 500 H Urine RBC > 100 SEEN Urine WBC 5-10 SEEN Ur Squamous Epith Cells 0 SEEN Urine Bacteria 1+ Urine Mucus 0 SEEN Radiography Diagnostic Testing: Clinical Impression(s) from Imaging Studies Abdomen/Pelvis CT 09/27/23 18:35 IMPRESSION: Hydronephrosis of the right kidney with lower pole stone. There is a right ureteral stent in place. Small atrophic left kidney. Cholelithiasis. There is a mesenteric soft tissue density requiring further evaluation. Bony metastasis. Electronically Signed: Alexi Zhao DO at 20:13 EST Reading Location ID and State: [facility] / [place] Tel [phone], Service support , Treatment and Re-Evaluation :: CBC was white count 9.1 with 80% neutrophils. Hemoglobin is 8.6. This hemoglobin value was consistent with his prior values in the last year and a half. Chemistry studies reveal a BUN of 35 and a creatinine 1.56. Prior creatinine was 0.86 in May 2022. Urinalysis reveals greater than 100 red cells with 5-10 white cells and 1+ bacteria. He has been on Augmentin for a few days. Urine culture is sent. CT scan of the flank reveals hydronephrosis of the right kidney with a lower pole stone. There is right ureteral stent in place. Small atrophic left kidney. Bony metastasis is noted. Patient does have a known history of prostate cancer with bony mets. There is also a mesenteric soft tissue density that will require further evaluation. When I reviewed the patient's prior CT scan 2 days, hydronephrosis is stable. Patient's blood pressure was running in the high 90s systolic. He was given IV fluids and lactic acid is added. Lactic acid is normal at 0.5. At this time patient would prefer to go home. I advised him normally if he fails outpatient treatment with antibiotics and will admit for IV antibiotics, however I am not sure that he was on appropriate coverage. He would prefer to go home with different antibiotics and closely monitor his symptoms. I will switch him to Bactrim DS and cover him for 10 days for potential pyelonephritis. He follows with a urologist at the [facility]. I recommended he follow-up with him soon. Patient was advised that if he is not improving in the next 1 to 2 days he needs to return for IV antibiotics. He voices understanding and agreement. Discharge Plan Triage Chief Complaint: Complaint ED Provider: Paola Jacobsen Dx/Rx/DC Orders Clinical Impression: Pyelonephritis Instructions: ED Pyelonephritis, Male (Adult) Prescriptions: New sulfamethoxazole-trimethoprim [Bactrim DS] 800-160 mg tablet 1 tab PO BID Qty: 20 0RF No Action amoxicillin-pot clavulanate 875-125 mg tablet 1 tab PO Q12H Patient Comments: TAKE 1 TABLET BY MOUTH 2CTIMES A DAY metoprolol succinate 25 mg tablet extended release 24 hr 12.5 mg PO DAILY Patient Comments: TAKE ONE TABLET BY MOUTH EVERY DAY fluoxetine 20 mg capsule 20 mg PO DAILY Qty: 30 0RF Primary Care Provider: Hans Ibrahim NP Referrals: Hans Ibrahim NP, [facility] [Primary Care Provider] - 1 Week Disposition Disposition: Home, Self Care Discharge Date/Time: 09/27/23 23:16
[2023-09-27 18:54] LABS: Absolute Lymphocyte Count 0.86 X10^3/uL (0.83-4.51); Absolute Neutrophil Count 7.3 X10^3/uL (2.0-7.7); Basophil# 0.04 X10^3/uL; Basophil% 0.4 % (0-1); Eosinophil# 0.35 X10^3/uL; Eosinophils% 3.9 % (0-5); Hematocrit 28.3 % (40-54); Hemoglobin 8.6 g/dL (13.0-16.5); Lymphocyte # 0.86 X10^3/ul (0.83-4.51); Lymphocyte % 9.5 % (19-41); Mean Corp Hgb Conc 30.4 g/dL (32-36); Mean Corpuscular Hgb 25.1 pg (27.0-32.0); Mean Corpuscular Volume 82.5 fL (80-94); Mean Platelet Vol. 8.5 fl (6.2-12.0); Monocyte# 0.53 X10^3/uL; Monocyte% 5.8 % (0-10); NRBC Flagged by Analyzer 0 % (0-5); Neutrophil # 7.28 X10^3/uL (2.7-7.7); Neutrophil % 80.1 % (47-70); Platelet Count 397 K/mm3 (150-450); RBC Distribution Width CV 18.2 % (11.6-14.6); RBC Distribution Width SD 54.3 fl (35.1-43.9); Red Blood Count 3.43 M/mm3 (4.6-6.2); White Blood Count 9.1 K/mm3 (4.4-11.0)
[2023-09-27] MEDS: 0.9% Normal Saline (1000mL) 1,000 ML 150 ML IV (18:54)
[2023-09-27 18:55] LABS: Mucous, Urine 0 SEEN /hpf (<or=2+); Squamous Epithelial Cells - UA 0 SEEN /hpf (0-5)
[2023-09-27 19:00] LABS: Color, Urine Brown (Yellow); Glucose, Dipstick Normal (Normal); Ketone-Dipstick 5 mg/dl (Negative); Leukocyte Esterase-Dipstick 500 /ul (Negative); Nitrite-Dipstick Negative (Negative); Occult Blood-Urine 250 /ul (Negative); Protein-Dipstick 500 mg/dl (Negative); Specific Gravity, Urine 1.015 (1.002-1.030); Urine Bilirubin Dipstick Negative (Negative); Urine Clarity Cloudy (Clear); Urine Urobilinogen Normal (Normal)
[2023-09-27 19:07] LABS: Anion Gap 4 (5-15); BUN 35 mg/dL (7-18); BUN/Creat Ratio 22.4 RATIO (10-20); Calcium,Total 9.3 mg/dL (8.5-10.1); Chloride 110 mmol/L (98-107); Creatinine, Serum 1.56 mg/dL (0.70-1.30); EST Glomerular Filtration Rate 47 mL/min (>60); Est Glom Filt Rate - Afr Amer 57 mL/min (>60); Estimated Creatinine Clearance 35.84 ml/min; Glucose 155 mg/dL (74-106); Potassium 4.6 mmol/L (3.5-5.1); Sodium Level 138 mmol/L (136-145)
[2023-09-27 19:09] LABS: Red Blood Cells-Urine > 100 SEEN /hpf (0-5)
[2023-09-27 19:10] LABS: Bacteria 1+ /hpf (None Seen); White Blood Cells 5-10 SEEN /hpf (0-5)
[2023-09-27 20:43] VITALS: BP 99/57
[2023-09-27] MEDS: 0.9% Normal Saline (1000mL) 1,000 ML 999 ML IV (21:51)
[2023-09-27] MEDS: Ceftriaxone 1 GM/50 ML BAG IV (21:51)
[2023-09-27 22:00] VITALS: PULSE 72; RESP 14; O2SAT 96
[2023-09-27 22:08] LABS: Lactic Acid 0.5 mmol/L (0.4-1.9)
[2023-09-27 23:14] VITALS: BP 109/74; PULSE 78; RESP 16; TEMP 36.8; O2SAT 98
== END 2023-09-27 23:16 | disposition home or self-care (01) ==
PROVIDERS: Emergency Provider Emergency Medicine; PCP Nurse Practitioner Family; Visit Provider Emergency Medicine
DX: N12 Tubulo-interstitial nephritis, not specified as acute or chronic (principal); F41.9 Anxiety disorder, unspecified; Z85.46 Personal history of malignant neoplasm of prostate; Z79.899 Other long term (current) drug therapy
CPT/HCPCS: 96375; 74176; 80048; 81001; 83605; 85025; 87086; 87088; 96361; 96374; 99283; J7030; A4216

== ENCOUNTER 2023-10-12 16:58 | Emergency (ER) | payer OTHER, SELFPAY ==
[2023-10-12 16:59] VITALS: BP 108/74; PULSE 70; RESP 14; TEMP 36.1; O2SAT 96; BMI 26.1
--- NOTE | 2023-10-12 17:12 | CT_ITS ---
STUDY: CT ABDOMEN AND PELVIS WITHOUT CONTRAST REASON FOR EXAM: Male, 73 years old. Kidney Stone RADIATION DOSAGE (If Supplied By Facility): CTDIvol = ( 6.62 ) mGy, DLP = ( 332.67 ) mGycm TECHNIQUE: Transaxial images were obtained from the dome of the diaphragm to the symphysis pubis without oral contrast, and without intravenous contrast. Sagittal and coronal images were reconstructed. Individualized dose optimization techniques were used for this CT. COMPARISON: September 27, 2023 and May 21, 2022 FINDINGS: There are chronic interstitial fibrotic changes of the lung bases. There are coronary artery calcifications. Normal liver. There is a solitary gallstone. Normal spleen. Normal pancreas. Normal bilateral adrenal glands. Moderate hydronephrosis of the right kidney. There is stent extending from the right renal pelvis to the urinary bladder. There are calcifications surrounding the proximal and distal aspects of the stent. There is moderate atrophy of the left kidney. Normal visualized stomach. Normal small intestine. Normal colon. There is non-visualization of the appendix. There is stable soft tissue density along the mesentery in the left mid abdomen There is diffuse atherosclerotic calcification of the abdominal aorta and branches, without a demonstrated aneurysm. Normal inferior vena cava. Normal retroperitoneum. Distal aspect of stent in the urinary bladder. There is no free fluid in the abdomen or pelvis. Normal abdominal wall. There are extensive heterogeneous mixed lucent and sclerotic regions of the bones of the pelvis and L5 with probable pagetoid change versus metastatic disease. CT/Abdomen/Pelvis without Cont IMPRESSION: Right urinary stent in position. There are calcifications at the proximal and distal aspects of the stent. Moderate right hydronephrosis. Moderate atrophy of the left kidney. Gallstone. No biliary dilatation. 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 Stable soft tissue density mass along the mesentery. Consider MRI or PET scan for further imaging evaluation. Electronically Signed: Xavier Glass MD at 18:38 EDT ,
--- NOTE | 2023-10-12 17:13 | EX.ED.DYSGE1 ---
HPI History of Present Illness Chief Complaint: Flank Pain Narrative Narrative: 73-year-old [employer] male past medical history of anxiety presents with right flank pain that began a week ago. Of note, he states he was seen in the emergency department 3 to 4 weeks ago and was diagnosed with a urinary tract infection. He finished the antibiotics and states that his pain had gone away, but returned within the last week. He describes right flank pain radiating towards the front. No fevers or chills, no nausea or vomiting. He now states he thinks he has blood in his urine and dysuria when he urinates. No problems with bowel movements. No exacerbating or alleviating factors with the exception of taking a pain pill which temporarily relieved his symptoms when he takes it. [facility] Medical History Anxiety Arthritis Complication of urinary stent Gall stones GERD (gastroesophageal reflux disease) History of blood transfusion Hypotension Kidney stone Prostate cancer Prostate cancer metastatic to bone Home Medications fluoxetine 20 mg capsule 20 mg PO DAILY mental health #30 caps 03/21/23 [Rx Last Taken Unknown] amoxicillin 875 mg-potassium clavulanate 125 mg tablet 1 tab PO Q12H 09/27/23 [History Last Taken Unknown] metoprolol succinate 25 mg tablet,extended release 24 hr 12.5 mg PO DAILY 09/27/23 [History Last Taken Unknown] sulfamethoxazole 800 mg-trimethoprim 160 mg tablet (Bactrim DS) 1 tab PO BID #20 tabs 09/27/23 [Rx Last Taken Unknown] cephalexin 500 mg capsule 500 mg PO TID #30 caps 10/12/23 [Rx Last Taken Unknown] Allergy/AdvReac Type Severity Reaction Status Date / Time No Known Allergies Allergy Verified 10/12/23 17:00 Family History Grandfather Diabetes Heart disease Myocardial infarction Surgical History History of left heart catheterization (LHC) (~10/07/20) History of prostate surgery Social History household members: family housing: house Smoking Status: Never smoker alcohol intake: never substance use type: does not use frequency: daily ROS ROS ED ROS Narrative Constitutional: No fever, no chills. HEENT: No sore throat. No neck pain. No loss of vision. No rhinorrhea. Cardiovascular: No chest pain. No palpitations. No pedal edema. Respiratory: No cough, no shortness of breath. Abdominal: No abdominal pain. No nausea. No vomiting. Genitourinary: Positive dysuria, positive hematuria. Positive right flank pain radiating towards front. Musculoskeletal: No myalgias. No arthralgias. Neurologic: No headaches. No dizziness. No lightheadedness. Skin: No rash. No change in color. Psychiatric: No depression. No anxiety. EXAM Physical Exam Narrative Exam Narrative: Afebrile. Vital signs noted. HEENT: Normocephalic. Atraumatic. PERRL, EOMI. Neck soft and supple. No point tenderness or step off. Cardiovascular: Regular rate and rhythm. No murmurs, rubs, or gallops appreciated. Respiratory: No tachypnea. Lungs clear to auscultation bilaterally. Gastrointestinal: Abdomen soft, nontender, with normoactive bowel sounds. No rebound or guarding. No CVA tenderness to percussion. Neurological: Awake. Alert. Nonfocal, nonlateralizing. Skin: No rash. Normal color. No pallor. Musculoskeletal: No pedal edema. Full range of motion extremities. Const Vital Signs: 10/12/23 16:59 10/12/23 18:59 10/12/23 20:09 Temperature 97.0 F L Temperature Source Temporal Pulse Rate 70 Respiratory Rate 14 17 18 Blood Pressure 108/74 Blood Pressure Mean 85 Pulse Ox 96 97 Oxygen Delivery Method Room Air Room Air 10/12/23 20:09 Temperature 97.8 F Temperature Source Pulse Rate 72 Respiratory Rate 18 Blood Pressure 118/71 Blood Pressure Mean 86 Pulse Ox 94 Oxygen Delivery Method MDM MDM MDM Narrative Medical decision making narrative: In the differential diagnosis is pyelonephritis versus ureterolithiasis. I reviewed his prior records and he has a diagnosis of hydro nephrosis from the past. He will be administered IV fluids at 250 mL/h, and kidney stone workup was pursued including CT imaging. Urinalysis will be obtained and reviewed along with CBC and BMP to check his creatinine. I reviewed his laboratory work and he has normal white count of 8.8, hemoglobin stable at 7.9, platelet count normal at 385. Electrolyte panel shows chloride elevated at 110 with CO2 of 20, BUN of 35 and creatinine 1.39 but he has had elevated creatinine in the past. Of significant UA shows negative nitrites but greater than 100 RBCs with 10-25 WBCs. This was sent for culture. I did give him a dose of Keflex here and wrote him prescription for 500 mg 3 times a day for the next 10 days. I reviewed the CT imaging and there is a ureteral stent in place on the right. Patient did not tell me about this previously, but states that it was placed because he had a mass at the end. Radiologist also comments in the report that there is calcification at both ends of the ureteral stent. Patient states it was last changed in July and was supposed to be changed 3 months from then, but was told that he should come to the emergency department by his urologist at [facility] today if he was having hematuria. At this point in time, I do not feel that he is meeting any SIRS or sepsis criteria as he is afebrile, not tachycardic, and not hypotensive. In review of his previous urology consultation as an inpatient, while he has seen Dr. Shea, his stent was not changed at this time and I do not feel that there is an emergent need for transfer either. I feel he be discharged to follow-up with his urologist as an outpatient. Return instructions to the emergency department were reviewed. Disposition is discharged home in stable condition. History & Record Review Discussion w/independent historian: Patient Additional record(s) reviewed:: Prior ED visit Lab Data Attestation: I reviewed the patient's lab results. Labs: Laboratory Results - last 24 hr 10/12/23 10/12/23 17:25 17:55 WBC 8.8 RBC 3.09 L Hgb 7.9 L Hct 26.1 L MCV 84.5 MCH 25.6 L MCHC 30.3 L RDW Std Deviation 56.6 H RDW Coeff of [place] 18.8 H Plt Count 385 MPV 8.6 Immature Gran % (Auto) 0.300 Neut % (Auto) 75.2 H Lymph % (Auto) 11.5 L [place] % (Auto) 8.1 Eos % (Auto) 4.7 Baso % (Auto) 0.2 Absolute Neuts (auto) 6.6 Absolute Lymphs (auto) 1.01 Nucleated RBC % 0 Sodium 136 Potassium 4.8 Chloride 110 H Carbon Dioxide 20.0 L Anion Gap 6 BUN 35 H Creatinine 1.39 H Estim Creat Clear Calc 40.22 Est GFR (MDRD) Af Amer 65 Est GFR (MDRD) Non-Af 53 L BUN/Creatinine Ratio 25.2 H Glucose 110 H Calcium 9.0 Urine Color Red Urine Clarity Cloudy Urine pH 8.0 Ur Specific [place] 1.010 Urine Protein 100 H Urine Glucose (UA) Normal Urine Ketones 5 H Urine Occult Blood 250 H Urine Nitrite Negative Urine Bilirubin Negative Urine Urobilinogen Normal Ur Leukocyte Esterase 500 H Urine RBC > 100 SEEN Urine WBC 10-25 SEEN Ur Squamous Epith Cells 0 SEEN Urine Bacteria 0 SEEN Urine Mucus 0 SEEN Radiography Diagnostic Testing: Clinical Impression(s) from Imaging Studies Abdomen/Pelvis CT 10/12/23 17:12 IMPRESSION: Right urinary stent in position. There are calcifications at the proximal and distal aspects of the stent. Moderate right hydronephrosis. Moderate atrophy of the left kidney. Gallstone. No biliary dilatation. 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 Stable soft tissue density mass along the mesentery. Consider MRI or PET scan for further imaging evaluation. Electronically Signed: Xavier Glass MD at 18:38 EDT , Discharge Plan Triage Chief Complaint: Flank Pain ED Provider: Kiel Santo Dx/Rx/DC Orders Clinical Impression: Hematuria, Chronic UTI Instructions: ED Hematuria Prescriptions: New cephalexin 500 mg capsule 500 mg PO TID Qty: 30 0RF No Action amoxicillin-pot clavulanate 875-125 mg tablet 1 tab PO Q12H Patient Comments: TAKE 1 TABLET BY MOUTH 2CTIMES A DAY metoprolol succinate 25 mg tablet extended release 24 hr 12.5 mg PO DAILY Patient Comments: TAKE ONE TABLET BY MOUTH EVERY DAY sulfamethoxazole-trimethoprim [Bactrim DS] 800-160 mg tablet 1 tab PO BID Qty: 20 0RF fluoxetine 20 mg capsule 20 mg PO DAILY Qty: 30 0RF Primary Care Provider: Hans Ibrahim Referrals: Hans Ibrahim, [employer] [Primary Care Provider] - Activity Restrictions/Additional Instructions: Call your urologist tomorrow as you may need a stent change this week. Return with increased pain, fever, new or worsening symptoms. Disposition Disposition: Home, Self Care Discharge Date/Time: 10/12/23 20:09
[2023-10-12 17:30] LABS: Bacteria 0 SEEN /hpf (None Seen); Mucous, Urine 0 SEEN /hpf (<or=2+); Squamous Epithelial Cells - UA 0 SEEN /hpf (0-5)
[2023-10-12 17:31] LABS: Color, Urine Red (Yellow); Glucose, Dipstick Normal (Normal); Ketone-Dipstick 5 mg/dl (Negative); Leukocyte Esterase-Dipstick 500 /ul (Negative); Nitrite-Dipstick Negative (Negative); Occult Blood-Urine 250 /ul (Negative); Protein-Dipstick 100 mg/dl (Negative); Urine Bilirubin Dipstick Negative (Negative); Urine Clarity Cloudy (Clear); Urine Urobilinogen Normal (Normal)
[2023-10-12 17:41] LABS: Red Blood Cells-Urine > 100 SEEN /hpf (0-5); White Blood Cells 10-25 SEEN /hpf (0-5)
[2023-10-12 18:04] LABS: Absolute Lymphocyte Count 1.01 X10^3/uL (0.83-4.51); Absolute Neutrophil Count 6.6 X10^3/uL (2.0-7.7); Basophil# 0.02 X10^3/uL; Basophil% 0.2 % (0-1); Eosinophil# 0.41 X10^3/uL; Eosinophils% 4.7 % (0-5); Hematocrit 26.1 % (40-54); Hemoglobin 7.9 g/dL (13.0-16.5); Lymphocyte # 1.01 X10^3/ul (0.83-4.51); Lymphocyte % 11.5 % (19-41); Mean Corp Hgb Conc 30.3 g/dL (32-36); Mean Corpuscular Hgb 25.6 pg (27.0-32.0); Mean Corpuscular Volume 84.5 fL (80-94); Mean Platelet Vol. 8.6 fl (6.2-12.0); Monocyte# 0.71 X10^3/uL; Monocyte% 8.1 % (0-10); NRBC Flagged by Analyzer 0 % (0-5); Neutrophil # 6.59 X10^3/uL (2.7-7.7); Neutrophil % 75.2 % (47-70); Platelet Count 385 K/mm3 (150-450); RBC Distribution Width CV 18.8 % (11.6-14.6); RBC Distribution Width SD 56.6 fl (35.1-43.9); Red Blood Count 3.09 M/mm3 (4.6-6.2); White Blood Count 8.8 K/mm3 (4.4-11.0)
[2023-10-12 18:18] LABS: Anion Gap 6 (5-15); BUN 35 mg/dL (7-18); BUN/Creat Ratio 25.2 RATIO (10-20); Chloride 110 mmol/L (98-107); Creatinine, Serum 1.39 mg/dL (0.70-1.30); EST Glomerular Filtration Rate 53 mL/min (>60); Est Glom Filt Rate - Afr Amer 65 mL/min (>60); Estimated Creatinine Clearance 40.22 ml/min; Glucose 110 mg/dL (74-106); Potassium 4.8 mmol/L (3.5-5.1); Sodium Level 136 mmol/L (136-145)
[2023-10-12] MEDS: 0.9% Normal Saline (1000mL) 1,000 ML 250 ML IV (18:25)
[2023-10-12 18:59] VITALS: RESP 17; O2SAT 97
[2023-10-12] MEDS: Cephalexin 250 MG Capsule 500 MG PO (20:01)
[2023-10-12 20:09] VITALS: BP 118/71; PULSE 72; RESP 18; TEMP 36.6; O2SAT 94
--- OUTSIDE RECORDS SUMMARY | 2023-10-12 22:58 | XMS RPT_ITS | CCD ---
Author Name Unknown Address [address] [place] [address] Organization [facility] Care Team Providers Care Follow Up Clerk Name Role Phone [facility] Unavailable U navailable [facility] Unavailable U navailable Ryan Sandoval Primary Care Provider Mouna Randolph RN Unavailable Unavailable Ryan Sandoval Primary Care Provider Glenn Ibrahim Primary Care Provider Mouna Randolph RN Unavailable Unavailable Glenn Ibrahim Primary Care Provider Rena Lan MD Unavailable Rena Lan MD Unavailable Wolfgang Toscano MD Unavailable Mouna Randolph RN Unavailable Unavailable Glenn Ibrahim MD Primary Care Provider BLACK TOMPKINS Admitting Unavailable GLENN IBRAHIM PRE OWNED SALES MANAGER%C Referring Unavailable GLENN IBRAHIM PRE OWNED SALES MANAGER%C Consulting Unavailable BLACK TOMPKINS Attending Unavailable BLACK TOMPKINS Primary Care Unavailable PROVIDER, UNKNOWN Consulting Unavailable Agustín MAYO, Mouna Unavailable Unavailable Rena Lan MD Unavailable Wolfgang Toscano MD Unavailable Wolfgang Toscano MD Unavailable RENA LAN Referring Unavailable DUSTIN ALCOCER Referring Unavailable DUSTIN ALCOCER Attending Unavailable JUAN MCCANN Referring Unavailable RENA LAN Referring Unavailable RENA LAN Referring Unavailable JENISE BOLTON Referring Unavailable JENISE BOLTON Referring Unavailable RENA LAN Referring Unavailable JENISE BOLTON Attending Unavailable WOLFGANG TOSCANO Attending Unavailable RENA LAN Referring Unavailable JENISE BOLTON Referring Unavailable JENISE BOLTON Referring Unavailable CARLYN, DUSTIN Admitting Unavailable CARLYN, DUSTIN Attending Unavailable CARLYN, DUSTIN Admitting Unavailable CARLYN, DUSTIN Attending Unavailable ZAMPINI, SINA Admitting Unavailable ZADANE, SINA Attending Unavailable EVERTON, WOLFGANG Attending Unavailable RENA LAN Referring Unavailable MYNOR MENDEZ Attending Unavailable CARLYN, DUSTIN Referring Unavailable ZADANE, SINA Attending Unavailable RENA LAN Referring Unavailable Medications Current Medications Medication Drug Class(es) Dates Sig (Normalized) Sig (Original) sulfamethoxazole 800 mg / trimethoprim 160 mg oral tablet (7 sources) Dihydrofolate Reductase Inhibitor Antibacterial, Sulfonamide Antimicrobial Start: 07-07-2023 End: 07-12-2023 take 1 tablet by mouth twice daily sulfamethoxazol e-trimethoprim (BACTRIM DS) 800-160 mg per tablet Take 1 tablet by mouth two times a day for 5 days. 10 tablet 0 07/07/2023 07/12/2023 Active Completed/Discontinued Medications Medication Drug Class(es) Dates Sig (Normalized) Sig (Original) bicalutamide 50 mg oral tablet (4 sources) Androgen Receptor Inhibitor Start: 07-24-2019 End: 04-07-2022 bicalutamide (CASODEX) 50 mg tablet 50 mg once daily. 0 07/24/2019 04/07/2022 Discontinued Problems Active Problems Problem Classification Problem Date Documented Da te Episodic/Chronic Abdominal pain (2 sources) Right flank pain; Translations: [Unspecified abdominal pain] Onset: 07-07-2023 07-07-2023 Episodic Cancer of prostate (20 sources) Prostate cancer metastatic to bone; Translations: [Malignant neoplasm of prostate] Onset: 05-26-2019 07-29-2019 Chronic Genitourinary symptoms and ill-defined conditions (4 sources) Retained ureteric stent; Translations: [Presence of urogenital implants] Onset: 04-07-2023 04-07-2023 Chronic Lymphadenitis (1 source) Axillary lymphadenopathy; Translations: [Localized enlarged lymph nodes] 03-31-2023 Episodic Nutritional deficiencies (20 sources) Deficiency of macronutrients; Translations: [Unspecified severe protein-calorie malnutrition] Onset: 05-28-2019 05-30-2019 Chronic Other diseases of kidney and ureters (6 sources) Hydronephrosis; Translations: [Other hydronephrosis] Episodic Other diseases of kidney and ureters (1 source) Other hydronephrosis; Translations: [Other hydronephrosis] Onset: 07-07-2023 Episodic Other screening for suspected conditions (not mental disorders or infectious disease) (3 sources) Patient encounter status; Translations: [Encounter for screening for other disorder] Episodic Secondary malignancies (20 sources) Secondary malignant neoplasm of bone; Translations: [Secondary malignant neoplasm of bone] Onset: 08-08-2019 08-08-2019 Chronic Secondary malignancies (3 sources) Secondary malignant neoplasm of bone; Translations: [Malignant neoplasm 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)] Onset: 07-29-2019 Chronic Unclassified (1 source) Onset: 06-28-2017 Past or Other Problems Problem Classification Problem Date Documented Da te Episodic/Chronic Calculus of urinary tract (6 sources) Calculus of lower urinary tract; Translations: [Other lower urinary tract calculus] Onset: 03-21-2023 03-04-2023 Episodic Deficiency and other anemia (20 sources) Anemia; Translations: [Anemia, unspecified] Onset: 05-30-2019 05-30-2019 Episodic Disorders of teeth and jaw (20 sources) History of tooth extraction; Translations: [Partial loss of teeth, unspecified cause, unspecified class] Onset: 07-26-2019 07-26-2019 Episodic Screening and history of mental health and substance abuse codes (20 sources) H/O: depression; Translations: [Personal history of other mental and behavioral disorders] Onset: 07-26-2019 07-29-2019 Episodic Urinary tract infections (20 sources) Urinary tract infectious disease; Translations: [Urinary tract infection, site not specified] Onset: 07-26-2019 07-29-2019 Episodic Results Test Name Value Interpretation Reference Range Facil ity Vital Signs Date Time Vital Sign Value Performing Clinician Anitha thompson 03-31-2023 09:52-0400 Body temperature 98.49 [degF] Wolfgang Toscano MD Work Phone: [facility] 03-31-2023 09:52-0400 Body weight 65.55 kg Wolfgang Toscano MD Work Phone: [facility] 03-31-2023 09:52-0400 Diastolic blood pressure 66 mm[Hg] Wolfgang Toscano MD Work Phone: [facility] 03-31-2023 09:52-0400 Heart rate 59 /min Wolfgang Toscano MD Work Phone: [facility] 03-31-2023 09:52-0400 SaO2% (BldA) [Mass fraction] 97 % Wolfgang Toscano MD Work Phone: [facility] 03-31-2023 09:52-0400 Systolic blood pressure 106 mm[Hg] Wolfgang Toscano MD Work Phone: [facility] 01-24-2023 14:15-0400 Body height 163 cm [place] BLANKET CUTTING MACHINE OPERATOR.WINDOWS SERVER SUPPORT TECHNICIAN Work Phone: [facility] 01-24-2023 14:15-0400 Body temperature 97.5 [degF] [place] Bolton BLANKET CUTTING MACHINE OPERATOR.WINDOWS SERVER SUPPORT TECHNICIAN Work Phone: [facility] 01-24-2023 14:15-0400 Body weight 64.41 kg Jenise Bolton BLANKET CUTTING MACHINE OPERATOR.WINDOWS SERVER SUPPORT TECHNICIAN Work Phone: [facility] 01-24-2023 14:15-0400 Diastolic blood pressure 70 mm[Hg] [place] Bolton BLANKET CUTTING MACHINE OPERATOR.WINDOWS SERVER SUPPORT TECHNICIAN Work Phone: [facility] 01-24-2023 14:15-0400 Heart rate 67 /min [place] BLANKET CUTTING MACHINE OPERATOR.WINDOWS SERVER SUPPORT TECHNICIAN Work Phone: [facility] 01-24-2023 14:15-0400 SaO2% (BldA) [Mass fraction] 99 % Jenise Bolton BLANKET CUTTING MACHINE OPERATOR.WINDOWS SERVER SUPPORT TECHNICIAN Work Phone: [facility] 01-24-2023 14:15-0400 Systolic blood pressure 114 mm[Hg] Jenise Bolton BLANKET CUTTING MACHINE OPERATOR.WINDOWS SERVER SUPPORT TECHNICIAN Work Phone: [facility] 08-09-2022 15:46-0500 Body height 163 cm Treatment Wstr Work Phone: [facility] 08-09-2022 14:16-0500 Body temperature 97.9 [degF] Treatment Wstr Work Phone: [facility] 08-09-2022 14:16-0500 Diastolic blood pressure 64 mm[Hg] Treatment Wstr Work Phone: [facility] 08-09-2022 14:16-0500 Heart rate 68 /min Treatment Wstr Work Phone: [facility] 08-09-2022 14:16-0500 Respiratory rate 16 /min Treatment Wstr Work Phone: [facility] 08-09-2022 14:16-0500 SaO2% (BldA) [Mass fraction] 100 % Treatment Wstr Work Phone: [facility] 08-09-2022 14:16-0500 Systolic blood pressure 109 mm[Hg] Treatment Wstr Work Phone: [facility] 07-07-2022 14:26-0500 Body temperature 97.81 [degF] Rena Lan MD Work Phone: [facility] 07-07-2022 14:26-0500 Body weight 62.6 kg Rena Lan MD Work Phone: [facility] 07-07-2022 14:26-0500 Diastolic blood pressure 63 mm[Hg] Rena Lan MD Work Phone: [facility] 07-07-2022 14:26-0500 Heart rate 74 /min Rena Lan MD Work Phone: [facility] 07-07-2022 14:26-0500 Respiratory rate 14 /min Rena Lan MD Work Phone: [facility] 07-07-2022 14:26-0500 SaO2% (BldA) [Mass fraction] 99 % Rena Lan MD Work Phone: [facility] 07-07-2022 14:26-0500 Systolic blood pressure 105 mm[Hg] Rena Lan MD Work Phone: [facility] 04-07-2022 10:56-0400 Body temperature 98.2 [degF] Jenise Bolton APRN.CNP Work Phone: [facility] 04-07-2022 10:56-0400 Body weight 64.18 kg Jenise Bolton BLANKET CUTTING MACHINE OPERATOR.WINDOWS SERVER SUPPORT TECHNICIAN Work Phone: [facility] 04-07-2022 10:56-0400 Diastolic blood pressure 64 mm[Hg] Jenise Bolton BLANKET CUTTING MACHINE OPERATOR.WINDOWS SERVER SUPPORT TECHNICIAN Work Phone: [facility] 04-07-2022 10:56-0400 Heart rate 70 /min Jenise Bolton BLANKET CUTTING MACHINE OPERATOR.WINDOWS SERVER SUPPORT TECHNICIAN Work Phone: [facility] 04-07-2022 10:56-0400 SaO2% (BldA) [Mass fraction] 98 % Jenise Bolton BLANKET CUTTING MACHINE OPERATOR.WINDOWS SERVER SUPPORT TECHNICIAN Work Phone: [facility] 04-07-2022 10:56-0400 Systolic blood pressure 105 mm[Hg] Jenise Bolton BLANKET CUTTING MACHINE OPERATOR.WINDOWS SERVER SUPPORT TECHNICIAN Work Phone: [facility] Encounters Encounter Date Encounter Type Care Provider Facility Start: 07-12-2023 End: 07-12-2023 [facility] Facility:[facility] Start: 07-11-2023 End: 07-11-2023 ambulatory Treatment Rm 9 Fabio [facility] Wstr Work Phone: Hematology/Oncology Procedures Date Procedure Procedure Detail Performing Clinician Start: 07-07-2023 Urnls dip stick/tabl et reagent auto microscopy Bulk Order Provider Start: 04-07-2023 Urnls dip stick/tabl et reagent auto microscopy Bulk Order Provider Start: 03-25-2023 Bone &/joint imaging whole body Jenise Bolton APRN.WINDOWS SERVER SUPPORT TECHNICIAN Work Phone: Start: 03-21-2023 Antibody screen RENA LAN Plan of Treatment Date Care Activity Detail Author Start: 07-08-2026 Diabetes Screening Diabetes Screening [facility] Start: 04-13-2026 Diabetes Screening Diabetes Screening [facility] Start: 04-07-2026 DIABETES SCREEN DIABETES SCREEN [facility] Start: 03-21-2026 DIABETES SCREEN DIABETES SCREEN [facility] Start: 01-24-2026 DIABETES SCREEN DIABETES SCREEN [facility] Start: 08-09-2025 DIABETES SCREEN DIABETES SCREEN [facility] Start: 07-07-2025 DIABETES SCREEN DIABETES SCREEN [facility] Start: 04-07-2025 DIABETES SCREEN DIABETES SCREEN [facility] Start: 02-07-2024 DIABETES SCREEN DIABETES SCREEN [facility] Start: 04-07-2023 End: 06-07-2023 aPTT in Platelet poor plasma by Coagulation assay ACTIVATED PTT Lab Routine Nephrolithiasis Expected: 04/07/2023, Expires: 06/07/2023 [facility] Work Phone: Payers Date Payer Category Payer Unknown [id number] 2018 Unknown [id number] Social History Date Type Detail Facility Start: 06-05-2019 Tobacco smoking status NHIS Never sm oked tobacco [facility] Start: 06-05-2019 Tobacco use and exposure Smoke less tobacco non-user [facility] Start: 07-15-2021 End: 07-11-2023 Alcohol intake Lifetime non-drinker (finding) [facility] Start: 06-05-2020 History SDOH Alcohol Frequency [address] [facility] Start: 1950 Sex Assigned At Not on file [facility] Start: 03-14-2022 End: 06-16-2022 Exposure to SARS-CoV-2 (event) Not sure [facility] Start: 06-05-2020 End: 04-07-2023 History of Social function [facility] Start: 06-05-2020 End: 04-07-2023 Alcohol Use Disorder Identification Test - Consumption [AUDIT-C] [facility] How often to you hav e a drink containing alcohol? Never [facility] Average Number of Drinks Not on file [facility] Medical Equipment Procedure Code Equipment Code Equipment Origin al Text Equipment Identifier Dates Stent Hydroglide Inlay Climax 7fr Taper Elem Green Polymer Phreecoat 24cm - [id number] Start: 10-30-2020 Stent Inlay Opti ma 6fr Taper Elem Green Polymer Phreecoat 24cm Ureteral - [id number] Start: 07-23-2019 Stent Inlay Opti ma 7fr Taper Elem Green Polymer Phreecoat 24cm Ureteral - [id number] Start: 12-26-2019 Stent Inlay Opti ma 7fr Taper Elem Green Polymer Phreecoat 24cm Ureteral - [id number] Start: 07-08-2020 Stent Inlay Opti ma 7fr Taper Elem Green Polymer Phreecoat 24cm Ureteral - [id number] Start: 02-11-2021 Stent Nicore Inl ay Climax 7fr Taper Elem Green Nitinol Polymer 24cm - [id number] Start: 07-15-2021 Stent Inlay Opti ma 7fr Taper Elem Green Polymer Phreecoat 22cm Ureteral - [id number] Start: 06-16-2022 Stent Inlay Opti ma 7fr Taper Elem Green Polymer Phreecoat 22cm Ureteral - [id number] Start: 04-13-2023 Clinical Notes 07-26-2019 to 07-12-2023 Troy Acevedo RN - 07/11/2023 1:56 PM Nai Ruiz MA - 07/07/2023 3:09 PM Dustin Epps MD - 07/07/2023 2:49 PM ESTTelemaye Nielsen - Sussy La RN - 04/19/2023 9:31 AM EDT Note Date & Type Note Facility 07-12-2023 Note HNO ID: [id number] Author: Emma Staples APRN.MOTORCYCLE RIDING INSTRUCTOR Service: ? Author Type: Nurse Orthodontic Technician Type: Anesthesia Procedure Notes Filed: 07/12/2023 5:27 PM Note Text: ANESTHESIOLOGY PROCEDURE NOTE Airway General Information Procedure Start Time/Medication Administration: 07/12/2023 5:11 PM Procedure End Time: 07/12/2023 5:12 PM Patient location during procedure: OR Timeout Performed Pre-procedure: timeout performed Consent Obtained: Yes Patient identity confirmed: arm band and patient sedated or unresponsive Staffing MOTORCYCLE RIDING INSTRUCTOR: Emma Staples APRN.MOTORCYCLE RIDING INSTRUCTOR Performed by: AGGIE Indications and Patient Condition Indications for airway management: anesthesia Preoxygenated: yes anesthesia circuit Patient position: sniffing Method: asleep Difficult mask ventilation: NA. Final Airway Details Final airway type: supraglottic airway Number of attempts at approach: 1 Final Supraglottic Airway: i-gel Size 4 Seal Adequate: yes Airway not difficult SIGNATURE: Emma Staples APRN.CRNA PATIENT NAME: Rosalba Ibrahim DATE: July 12, 2023 TIME: 5:26 PM CSN: [id number] [facility] 07-11-2023 Note HNO ID: [id number] Author: Troy Acevedo RN Service: ? Author Type: Registered Nurse Type: Progress Notes Filed: 07/11/2023 2:29 PM Note Text: Pt informed about kidney functions and reminded to drink more fluids at home. [facility] 07-11-2023 Note HNO ID: [id number] Author: Wolfgang Toscano MD Service: ? Author Type: Physician Type: Progress Notes Filed: 07/11/2023 3:40 PM Note Text: (Elements copied from my note dated March 31, 2023, have been reviewed and updated where appropriate, and all reflect current assessment and medical decision making from today's encounter, July 11, 2023) HISTORY OF PRESENT ILLNESS: Rosalba Ibrahim is a 72 [address] male Per Dr. Lan's previous note: H/o depression and prostate cancer (s/p prostatectomy in 2014 with recurrence metastatic disease in 2017) who presents with generalized weakness and fatigue since Jul 2018 which has rapidly increased over the last week. He additionally reports lower back pain and hip pain (L > R). 3 days ago, He had an episode of 10/10 LLE pain from his L hip which radiated to his L knee. Currently his pain is 2/10. He is also reporting weight loss of ~20 lb in the last several months. He still have bilateral shoulder pain, BLE weakness, and [place]. Normally, he has urinary incontinence but last week had two days of urinary retention which was followed by passing red clots in the urine. he has baseline mild constipation but he denies urinary or bowel incontinence. He has dark stools occasionally but he believes this is because he takes an OTC iron pill. As far as his prostate cancer, he states he had a prostatectomy in 2014 in [place], and he was told he has no prostate cancer left. He took chemotherapy pills for about 1 year sometime between 2015 and 2016. He was unaware if the cancer has spread to his bones. In ED, he was afebrile with tenderness around the lumbosacral region and a R testicular mass. Workup was significant for WBC 12.41, hgb 8.9, hct 29.0, plt 571, alk phos 419, FOBT negative, UA with only 3-5 RBC. CXR was significant for an incidental nodular density likely representing chronic change. CT brain was unremarkable. CT AP showed 2.5 cm ill-defined soft tissue in the pelvis which may correlate with residual/recurrent prostate cancer, diffuse osseous sclerosis involving the bony pelvis with lytic changes in the L acetabulum, enlarged iliac chain and RP LNs, and a soft tissue filling defect in the distal R ureter suspicious for underlying urothelial neoplasm resulting in upstream R hydroureteronephrosis. CT lumbar spine showed diffuse abnormal bone density in the sacrum and ilium. He had bilateral orchiectomy for the treatment of metastatic prostate cancer in August 2019. He also had a right ureteral stent placement for hydronephrosis since his last visit. Treatment history: LHRH and Casodex AND hydrocortisone (d/c February 19, 2020) Bilateral orchiectomy July 26, 2019 -Enzulutamide 120mg daily (07/2020- 05/2021) He was lost to follow-up since 2020. He stopped enzalutamide in the fall 2020 when medication ran out. He never had a problem with the medicine, cost was not an issue. Seen by Dr Lan fall 2021. Here for follow up, we reviewed his labs, scans. He feels ok, more tired. CLINICAL IMPRESSION: Prostate cancer, PSA rising, from 9-22 to 6-23 DT was brisk, now still >6 months Scans look ok RECOMMENDATION/PLAN: 1. Continue close observation 2. If PSA shows rise at DT < 6 months, consider adding back enzalutamide. Written and verbal health teaching given to patient, patient verbalizes understanding and agrees with treatment plan. PAST MEDICAL HISTORY Diagnosis Date Anemia Bone metastases 08/08/2019 Hydronephrosis Injury, other and unspecified, other specified sites, including multiple FRACTURED RIBS Prostate cancer (HCC) PAST SURGICAL HISTORY Procedure Laterality Date ORCHIECTOMY SIMPLE SCROTAL/INGUINAL APPROACH Bilateral 07/2019 Orchiectomy PAST SURGICAL HISTORY OF Right ankle PROSTATECTOMY;RADICAL RETROPUBIC 2014 FAMILY HISTORY Problem Relation Age of Onset Leukemia Father Leukemia Grandchild other (Bone cancer) Grandchild Heart Paternal Grandfather Social History Tobacco Use Smoking status: Never Smokeless tobacco: Never Vaping Use Vaping Use: Never used Substance Use Topics Alcohol use: Never Drug use: Never ALLERGIES: ALLERGIES No Known Allergies CURRENT OUTPATIENT MEDICATIONS: metoprolol succinate ER (TOPROL XL) 25 mg 24 hr tablet Take 1 tablet by mouth every afternoon. 1/2 tablet daily sulfamethoxazole-trimethoprim (BACTRIM DS) 800-160 mg per tablet Take 1 tablet by mouth two times a day for 5 days. traMADol (ULTRAM) 50 mg tablet Take 1 tablet by mouth every 8 hours as needed for pain tamsulosin (FLOMAX) 0.4 mg Take 1 capsule by mouth once daily. 30 minutes after the same meal each day. oxybutynin (DITROPAN) 5 mg tablet 1 tab by mouth every 8 hours as needed for bladder urgency-frequency related to spasm (Patient taking differently: Take 5 mg by mouth as needed. 1 tab by mouth every 8 hours as needed for bladder urgency-frequency related to spasm) FLUoxetine (PROZ (more content not included)... [facility] 07-11-2023 History of Presen t illness Narrative Pt informed about kidney functions and reminded to drink more fluids at home. documented in this encounter [facility] 07-07-2023 Note HNO ID: [id number] Author: Dustin Alcocer MD Service: ? Author Type: Physician Type: Progress Notes Filed: 07/07/2023 3:54 PM Note Text: [facility] MALE PATIENT - FOLLOWUP EXAMINATION PATIENT: Rosalba Ibrahim (72 year old) PCP: PREET IBRAHIM MD (Inactive) CHIEF COMPLAINT: followup hydronephrosis HISTORY OF PRESENT ILLNESS: Rosalba Ibrahim is a 72 year old male with hx of metastatic prostate cancer c/b right hydronephrosis managed with chronic indwelling JJ ureteral stent who presents in follow up He was seen for stent exchange on 03/02/2023 Notably, he is s/p PCNL with Dr. Stevenson on 04/13/2023 at which time stent was again exchanged. He now presents to discuss next stent exchange Interval hx: Patient states that about 2 weeks ago he began having burning pain with urination. Since then pain has escalated to constant 10/10 right flank pain which he states gets worse with urination. States that he began having gross hematuria today, has passed a few clots. He denies any fevers. Mild intermittent nausea. REVIEW OF SYSTEMS: CONSTITUTIONAL: no recent illnesses, normal energy levels, endorsing right abd and flank pain GASTROINTESTINAL: no constipation, no diarrhea, no bloody stool GENITOURINARY: see history of present illness Willian Giron RN ======= UROLOGY ATTENDING ATTESTATION: The patient was personally seen and evaluated. The nurse's history and ROS were reviewed. I repeated the significant and relevant portions of the examination and formulated the final plan for management. HISTORY: PAST MEDICAL HISTORY Diagnosis Date Anemia Bone metastases 08/08/2019 Hydronephrosis Injury, other and unspecified, other specified sites, including multiple FRACTURED RIBS Prostate cancer (HCC) PAST SURGICAL HISTORY Procedure Laterality Date ORCHIECTOMY SIMPLE SCROTAL/INGUINAL APPROACH Bilateral 07/2019 Orchiectomy PAST SURGICAL HISTORY OF Right ankle PROSTATECTOMY;RADICAL RETROPUBIC 2014 Social History Tobacco Use Smoking status: Never Smokeless tobacco: Never Vaping Use Vaping Use: Never used Substance Use Topics Alcohol use: Never Drug use: Never FAMILY HISTORY Problem Relation Age of Onset Leukemia Father Leukemia Grandchild other (Bone cancer) Grandchild Heart Paternal Grandfather MEDICATIONS: Current Outpatient Medications Medication Sig tamsulosin (FLOMAX) 0.4 mg Take 1 capsule by mouth once daily. 30 minutes after the same meal each day. oxybutynin (DITROPAN) 5 mg tablet 1 tab by mouth every 8 hours as needed for bladder urgency-frequency related to spasm FLUoxetine (PROZAC) 20 mg capsule Take 1 capsule by mouth once daily. No current facility-administered medications for this visit. PHYSICAL EXAMINATION: VITALS: There were no vitals taken for this visit. GENERAL: alert, no distress, normal affect EYES: no icterus, no discharge, conjugate gaze CARDIOVASCULAR: regular rate, regular rhythm, good radial pulse RESPIRATORY: normal effort, regular rate, no audible wheeze ABDOMEN: not obese, soft, non-tender, not-distended GENITOURINARY: endorses right flank pain 10/10 EXTREMITIES: warm, no dependent edema, no malformations SKIN: no abnormal bruising, no rashes, no cyanosis NEUROLOGIC: normal gait, good manual dexterity, no paralysis OFFICE DATA: URINALYSIS: pending OTHER DATA: Creatinine Date Value Ref Range Status 04/13/2023 1.29 (H) 0.73 - 1.22 mg/dL Final 04/07/2023 0.99 0.73 - 1.22 mg/dL Final 03/21/2023 1.08 0.73 - 1.22 mg/dL Final 01/24/2023 1.16 0.73 - 1.22 mg/dL Final PSA (ng/mL) Date Value 03/21/2023 0.68 01/24/2023 0.61 07/07/2022 0.22 04/07/2022 0.08 08/28/2020 0.14 06/05/2020 13.15 04/01/2020 6.93 02/19/2020 4.13 ASSESSMENT: Diagnosis: hydronephrosis, right flank pain - Acuity: Chronic - Severity: Moderate - Site and Laterality: right ureter - Primary of Secondary To: n/a - Associations: none VISIT DIAGNOSES: ASSESSMENT/PLAN: 1. Other hydronephrosis - ICD9: 591, ICD10: N13.39 (primary diagnosis) 2. Ureteral stent present - ICD9: V45.89, ICD10: Z96.0 3. Right flank pain - ICD9: 789.09, ICD10: R10.9 - URINE CULTURE - TRAMADOL 50 MG TABLET PLAN: - Urine culture - empiric bactrim - tramadol for pain - Plan OR for right ureteral stent exchange next Thursday 07/12 - Informed consent obtained today Dustin Alcocer MD Staff Department of Urology [facility] [place] [facility] Medical Decision Making: Problems: Moderate: 1+ chronic illnesses with change Risk: Moderate: Drug management High: High risk from testing/treatment Medical Decision Making Level: 4 - Moderate [facility] 07-07-2023 Nurse Note Pt. Needs refills rx on all meds today. documented in this encounter [facility] 07-07-2023 History of Presen t illness Narrative [facility] MALE PATIENT - FOLLOWUP EXAMINATION PATIENT: Rosalba Ibrahim (72 year old) PCP: PREET IBRAHIM MD (Inactive) CHIEF COMPLAINT: followup hydronephrosis HISTORY OF PRESENT ILLNESS: Rosalba Ibrahim is a 72 year old male with hx of metastatic prostate cancer c/b right hydronephrosis managed with chronic indwelling JJ ureteral stent who presents in follow up He was seen for stent exchange on 03/02/2023 Notably, he is s/p PCNL with Dr. Stevenson on 04/13/2023 at which time stent was again exchanged. He now presents to discuss next stent exchange Interval hx: Patient states that about 2 weeks ago he began having burning pain with urination. Since then pain has escalated to constant 10/10 right flank pain which he states gets worse with urination. States that he began having gross hematuria today, has passed a few clots. He denies any fevers. Mild intermittent nausea. REVIEW OF SYSTEMS: CONSTITUTIONAL: no recent illnesses, normal energy levels, endorsing right abd and flank pain GASTROINTESTINAL: no constipation, no diarrhea, no bloody stool GENITOURINARY: see history of present illness Willian Giron RN ======= UROLOGY ATTENDING ATTESTATION: The patient was personally seen and evaluated. The nurse's history and ROS were reviewed. I repeated the significant and relevant portions of the examination and formulated the final plan for management. HISTORY: PAST MEDICAL HISTORY Diagnosis Date Anemia Bone metastases 08/08/2019 Hydronephrosis Injury, other and unspecified, other specified sites, including multiple FRACTURED RIBS Prostate cancer (HCC) PAST SURGICAL HISTORY Procedure Laterality Date ORCHIECTOMY SIMPLE SCROTAL/INGUINAL APPROACH Bilateral 07/2019 Orchiectomy PAST SURGICAL HISTORY OF Right ankle PROSTATECTOMY;RADICAL RETROPUBIC 2014 Social History Tobacco Use Smoking status: Never Smokeless tobacco: Never Vaping Use Vaping Use: Never used Substance Use Topics Alcohol use: Never Drug use: Never FAMILY HISTORY Problem Relation Age of Onset Leukemia Father Leukemia Grandchild other (Bone cancer) Grandchild Heart Paternal Grandfather MEDICATIONS: Current Outpatient Medications Medication Sig tamsulosin (FLOMAX) 0.4 mg Take 1 capsule by mouth once daily. 30 minutes after the same meal each day. oxybutynin (DITROPAN) 5 mg tablet 1 tab by mouth every 8 hours as needed for bladder urgency-frequency related to spasm FLUoxetine (PROZAC) 20 mg capsule Take 1 capsule by mouth once daily. No current facility-administered medications for this visit. PHYSICAL EXAMINATION: VITALS: There were no vitals taken for this visit. GENERAL: alert, no distress, normal affect EYES: no icterus, no discharge, conjugate gaze CARDIOVASCULAR: regular rate, regular rhythm, good radial pulse RESPIRATORY: normal effort, regular rate, no audible wheeze ABDOMEN: not obese, soft, non-tender, not-distended GENITOURINARY: endorses right flank pain 05/10 EXTREMITIES: warm, no dependent edema, no malformations SKIN: no abnormal bruising, no rashes, no cyanosis NEUROLOGIC: normal gait, good manual dexterity, no paralysis OFFICE DATA: URINALYSIS: pending OTHER DATA: Creatinine Date Value Ref Range Status 04/13/2023 1.29 (H) 0.73 - 1.22 mg/dL Final 04/07/2023 0.99 0.73 - 1.22 mg/dL Final 03/21/2023 1.08 0.73 - 1.22 mg/dL Final 01/24/2023 1.16 0.73 - 1.22 mg/dL Final PSA (ng/mL) Date Value 03/21/2023 0.68 01/24/2023 0.61 07/07/2022 0.22 04/07/2022 0.08 08/28/2020 0.14 06/05/2020 13.15 04/01/2020 6.93 02/19/2020 4.13 ASSESSMENT: Diagnosis: hydronephrosis, right flank pain - Acuity: Chronic - Severity: Moderate - Site and Laterality: right ureter - Primary of Secondary To: n/a - Associations: none VISIT DIAGNOSES: ASSESSMENT/PLAN: 1. Other hydronephrosis - ICD9: 591, ICD10: N13.39 (primary diagnosis) 2. Ureteral stent present - ICD9: V45.89, ICD10: Z96.0 3. Right flank pain - ICD9: 789.09, ICD10: R10.9 - URINE CULTURE - TRAMADOL 50 MG TABLET PLAN: - Urine culture - empiric bactrim - tramadol for pain - Plan OR for right ureteral stent exchange next Thursday 07/12 - Informed consent obtained today Dustin Alcocer MD Staff Department of Urology [facility] [place] [facility] Medical Decision Making: Problems: Moderate: 1+ chronic illnesses with change Risk: Moderate: Drug management High: High risk from testing/treatment Medical Decision Making Level: 4 - Moderate documented in this encounter [facility] 07-07-2023 Note Patient Outreach (UR OLMN) ROSALBA IBRAHIM ([id number]) 1950 [facility] Date Time Provider Department 07/07/23 DUSTIN ALCOCER UROREVA During your visit today, we recorded the following information about you: Allergies As of Date: 07/07/2023 (No Known Allergies) Date Reviewed: 07/07/2023 Reviewed by: Nai Francisco MA - Fully Assessed Visit Diagnosis:Screening for genitourinary condition [Z13.89] Order(s):URINALYSIS, REFLEX MICROSCOPIC [OVG8831] Order #: [id number]. #:[id number] Prescriptions as of 07/11/2023 - sulfamethoxazole-trimethoprim (BACTRIM DS) 800-160 mg per tablet Take 1 tablet by mouth two times a day for 5 days. - traMADol (ULTRAM) 50 mg tablet Take 1 tablet by mouth every 8 hours as needed for pain - tamsulosin (FLOMAX) 0.4 mg Take 1 capsule by mouth once daily. 30 minutes after the same meal each day. - oxybutynin (DITROPAN) 5 mg tablet 1 tab by mouth every 8 hours as needed for bladder urgency-frequency related to spasm - FLUoxetine (PROZAC) 20 mg capsule Take 1 capsule by mouth once daily. Problem List As Of Date 07/07/2023 Noted Resolved Primary malignant neoplasm of prostate metastat*05/26/2019 Severe protein-calorie malnutrition (HCC) [E43] 05/28/2019 Anemia [D64.9] 05/30/2019 Hydronephrosis of right kidney [N13.30] 07/26/2019 07/29/2019 UTI (urinary tract infection) [N39.0] 07/26/2019 Sepsis due to other etiology (HCC) [A41.89] 07/26/2019 07/29/2019 History of tooth extraction [K08.409] 07/26/2019 Right upper quadrant abdominal pain [R10.11] 07/26/2019 07/29/2019 History of depression [Z86.59] 07/26/2019 Malignant neoplasm 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) [C7*08/08/2019 Encounter Status:Closed by EPIC, PRODUSER on 07/11/23 [facility] 05-14-2023 Note HNO ID: [id number] Author: Note, Interface Service: ? Author Type: ? Type: Progress Notes Filed: 05/14/2023 1:55 AM Note Text: Epic Scheduled Downtime: 05/14/2023 1:00:00 AM to 05/14/2023 1:28:00 AM [facility] 04-19-2023 Miscellaneous Notes Called patient to discuss the importance of having routine stent exchanges with Dr. Alcocer, as previously planned. PFA recently reached out to clear patient for scheduling and patient refused to patient for their visit. No follow up appointment has been made at this time. Reached Wilder on patients home phone, was advised that he takes messages for patient. Provided office number to Wilder for patient to return call. Sussy La RN April 19, 2023 9:35 AM documented in this encounter [facility] 04-14-2023 Note HNO ID: [id number] Author: Corine Molina MD Service: Urology Author Type: Resident Type: Progress Notes Filed: 04/14/2023 6:53 AM Note Text: [facility] UROLOGY PROGRESS NOTE Name: Rosalba Ibrahim Bed: [id number] Date: April 13, 2023 After Hours [facility] Urology Service Pager: [phone] ASSESSMENT Rosalba Ibrahim is a 72 year old male with history of Depression, metastatic prostate cancer c/b right [place] managed with R JJ stent c/b encrustation, now 1 Day Post-Op s/p R PCNL, Cystolitholapaxy, R stent removal and placement of a new JJ stent 04/[address] Stevenson INTERVAL/SUBJECTIVE -Doing well post op -Vital signs within normal limits, afebrile -Hgb 9.5>8.5 -Cr 1.29 (0.99) -Pain: Controlled -N/V: No - Maldonado clear UOP PLAN Neuro - Pain controlled CV - Monitor vitals Heme - Hb stable Ppx: SQH BID and SCDs for DVT ppx Resp - Encouraged IS, deep breathing sating well ID - No leukocytosis. afebrile. Racquel-op Abx Ancef 24 hrs GI - Colace, supp as needed. Regular Diet /Renal: Remove maldonado this AM, TOV Dispo/Teaching - Anticipate DC this AM Discussed with attending physician Dr Graham Purvis MD Urology PGY2 [facility] [place] For weekend or after hours issues [place] [phone] Objective Vital Signs BP 100/53 Pulse 70 Temp 36.8 ?C (98.2 ?F) (Oral) Resp 16 SpO2 96% There is no height or weight on file to calculate BMI. Input and Output Intake/Output Summary (Last 24 hours) at 04/14/2023 0651 Last data filed at 04/14/2023 0530 Gross per 24 hour Intake 2586.8 ml Output 1650 ml Net 936.8 ml Physical Exam General: Well-appearing, no acute distress Wound: Incision clean, dry, and intact : Maldonado catheter present and Urine clear Recent Labs 04/14/23 0106 04/13/23 1400 WBC 7.14 9.71 HB 8.5* 9.5* HCT 26.8* 30.0* PLT 345 353 NA -- 135* K -- 4.3 CHLOR -- 104 CO2 -- 19* BUN -- 24 CREAT -- 1.29* GLUC -- 137* Imaging Reviewed [facility] 04-13-2023 Note HNO ID: [id number] Author: Corine Molina MD Service: Urology Author Type: Resident Type: Progress Notes Filed: 04/13/2023 8:18 PM Note Text: [facility] UROLOGY PROGRESS NOTE Name: Rosalba Ibrahim Bed: [id number]/[id number] Date: April 13, 2023 After Hours [facility] Service Pager: [phone] ASSESSMENT Rosalba Ibrahim is a 72 year old male with history of Depression, metastatic prostate cancer c/b right [place] managed with R JJ stent c/b encrustation, now Day of Surgery s/p R PCNL, Cystolitholapaxy, R stent removal and placement of a new JJ stent 04/[address] Stevenson INTERVAL/SUBJECTIVE -Doing well post op -Vital signs within normal limits, afebrile -Hgb 9.5 (9.4) -Cr 1.29 (0.99) -Pain: Controlled -N/V: No - Maldonado with urine light pink PLAN Neuro - Pain controlled CV - Monitor vitals Heme - Hb stable Ppx: SQH BID and SCDs for DVT ppx Resp - Encouraged IS, deep breathing sating well ID - No leukocytosis. afebrile. Racquel-op Abx Ancef 24 hrs GI - Colace, supp as needed. Regular Diet /Renal: Keep Maldonado, monitor UOP Dispo/Teaching - Anticipate DC tomorrow Discussed with attending physician Dr Graham Purvis MD [facility] PGY2 [facility] [place] For weekend or after hours issues [place] [phone] Objective Vital Signs BP 130/62 Pulse 64 Temp 36.5 ?C (97.7 ?F) (Oral) Resp 24 SpO2 98% There is no height or weight on file to calculate BMI. Input and Output Intake/Output Summary (Last 24 hours) at 04/13/20232014 Last data filed at 04/13/2023 1929 Gross per 24 hour Intake 1426.8 ml Output 950 ml Net 476.8 ml Physical Exam General: Well-appearing, no acute distress Wound: Incision clean, dry, and intact : Maldonado catheter present and Urine light pink Recent Labs 04/13/23 1400 WBC 9.71 HB 9.5* HCT 30.0* PLT 353 NA 135* K 4.3 CHLOR 104 CO2 19* BUN 24 CREAT 1.29* GLUC 137* Imaging Reviewed [facility] 04-13-2023 Note HNO ID: [id number] Author: Ryan Wallace APRN.CRNA Service: ? 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 Indications and Patient Condition Indications for airway management: anesthesia and airway protection Preoxygenated: yes anesthesia circuit Patient position: sniffing Method: asleep Cricoid Pressure: No Manual In-Line Stabilization: No Difficult Mask: No Final Airway Details Final airway type: endotracheal airway Final Endotracheal Airway: ETT Cuffed: yes Successful intubation technique: direct laryngoscopy Endotracheal tube insertion site: oral Blade: Andres Blade size: #4 ETT size (mm): 7.5 Measured from: gums Measurement (cm): 22 Placement verified by: chest auscultation and capnometry Cormack-Lehane Classification: grade I - full view of glottis Number of attempts at approach: 1 Airway not difficult SIGNATURE: Ryan Wallace APRN.CRNA PATIENT NAME: Rosalba Ibrahim DATE: April 13, 2023 TIME: 12:17 PM CSN: [id number] [facility] 04-08-2023 Note HNO ID: [id number] Author: Mynor Mendez PA-C Service: ? Author Type: Physician Long [employer] Drier Type: Progress Notes Filed: 04/08/2023 4:04 PM Note Text: [facility] PRE-OP NOTE Rosalba Ibrahim is a 72 year old male. Pre-op Date: April 08, 2023 Date of Procedure: 04/13/23 Procedure/Surgery: PCNL Laterality: Right Diagnosis: Nephrolithiasis Primary Surgeon: MD Stevenson Anna There were no vitals taken for this visit. Pain Assessment: Are you currently having pain? No 0 on a scale of 0 to 10 Surgical Guide Book Status: Patient given book today. Allergies Reviewed: Yes Medications Reviewed: Yes Is patient currently on oral steroids?: No Has the patient had a UTI in the past month?: Yes. Antibiotic taken: Bactrim Does the patient have any artificial joints (last 2 years), metal parts, pacemakers or cardiac/ureteral stents in place?: Yes, R ureteral stent Does the patient have diabetes?: No Is the patient routinely taking anticoagulants?: No. Can the patient have an IV put in either arm?: Yes Urine Dip Complete?: Yes URINE CULTURE COMPLETE?: Yes Ostomy/Stoma Nurse appointment made/completed: N/A IMPACT/Medical Clearance: Cleared per IMPACT - N/A [facility] Clinic: Cleared per [facility] - N/A All testing on cureform has been scheduled: Yes Consent Signed: Yes. DOS Orders Placed and Signed: Yes. Pre-op HANDP Done by Physician Long Goods Drier: Yes. PATIENT INSTRUCTIONS FOR SURGERY 1.) DO NOT HAVE ANYTHING TO EAT OR DRINK AFTER MIDNIGHT THE DAY BEFORE SURGERY except for certain morning medications as instructed by the doctor. Candy, mints, gum, and smoking are NOT permitted. If the surgery is scheduled for the afternoon, you may have water during the morning of surgery if permitted by your surgeon. 2.) Medications to be taken on the morning of surgery with a few sips of water: Prozac 3.) Please bring all your prescribed inhalers (if you have any you normally take) to the hospital. 4.) Arrival time: Call for arrival. 5.) Prep given: No 6.) Lovenox instructions given: N/A 7.) Patient reminded that surgery time provided day before surgery is tentative based on potential changes with transplants. Recommendations: This patient is optimally prepared for surgery pending LABS. Mynor Mendez PA-C Electronically signed [facility] 04-08-2023 History of Presen t illness Narrative [facility] PRE-OP NOTE Rosalba Ibrahim is a 72 year old male. Pre-op Date: April 08, 2023 Date of Procedure: 04/13/23 Procedure/Surgery: PCNL Laterality: Right Diagnosis: Nephrolithiasis Primary Surgeon: MD Stevenson Anna There were no vitals taken for this visit. Pain Assessment: Are you currently having pain? No 0 on a scale of 0 to 10 Surgical Guide Book Status: Patient given book today. Allergies Reviewed: Yes Medications Reviewed: Yes Is patient currently on oral steroids?: No Has the patient had a UTI in the past month?: Yes. Antibiotic taken: Bactrim Does the patient have any artificial joints (last 2 years), metal parts, pacemakers or cardiac/ureteral stents in place?: Yes, R ureteral stent Does the patient have diabetes?: No Is the patient routinely taking anticoagulants?: No. Can the patient have an IV put in either arm?: Yes Urine Dip Complete?: Yes URINE CULTURE COMPLETE?: Yes Ostomy/Stoma Nurse appointment made/completed: N/A IMPACT/Medical Clearance: Cleared per IMPACT - N/A [facility] Clinic: Cleared per [facility] - N/A All testing on cureform has been scheduled: Yes Consent Signed: Yes. DOS Orders Placed and Signed: Yes. Pre-op H&P Done by Physician Long Goods Drier: Yes. PATIENT INSTRUCTIONS FOR SURGERY 1.) DO NOT HAVE ANYTHING TO EAT OR DRINK AFTER MIDNIGHT THE DAY BEFORE SURGERY except for certain morning medications as instructed by the doctor. Candy, mints, gum, and smoking are NOT permitted. If the surgery is scheduled for the afternoon, you may have water during the morning of surgery if permitted by your surgeon. 2.) Medications to be taken on the morning of surgery with a few sips of water: Prozac 3.) Please bring all your prescribed inhalers (if you have any you normally take) to the hospital. 4.) Arrival time: Call for arrival. 5.) Prep given: No 6.) Lovenox instructions given: N/A 7.) Patient reminded that surgery time provided day before surgery is tentative based on potential changes with transplants. Recommendations: This patient is optimally prepared for surgery pending LABS. Mynor Mendez PA-C documented in this encounter [facility] 04-07-2023 Note HNO ID: [id number] Author: Sina Stevenson MD Service: ? Author Type: Physician Type: Progress Notes Filed: 04/07/2023 2:13 PM Note Text: [facility] ESTABLISHED PATIENT REASON FOR VISIT: Follow up for Nephrolithiasis HPI: This is a 72 year old male with protein-calorie malnutrition, anemia, mPCa. Presenting with retained ureteral stent and large renal stone on the proximal end. Metastatic prostate cancer c/b right hydronephrosis managed with chronic indwelling JJ ureteral stent. He has has managed stent since 12/26/19 and has been lost to follow up several times. Has stent exchanged 06/16/22 and then returned for attempted stent exchange 03/02/[address] Alcocer. From his op note: An open ended yellow ureteral stent was then placed into the distal ureter next to the stent and retrograde contrast was injected. Only a small amount of contrast passed into the renal pelvis, but this showed curl of the stent within a dilated renal pelvis. A stent grasper was used to manipulate the stent, but even with gentle traction, the proximal curl remained curled. As such, we suspected proximal encrustation as well. At this time, we elected to abort the procedure. LABS: Creatinine Date Value Ref Range Status 03/21/2023 1.08 0.73 - 1.22 mg/dL Final 01/24/2023 1.16 0.73 - 1.22 mg/dL Final 08/09/2022 0.98 0.73 - 1.22 mg/dL Final 07/07/2022 0.99 0.73 - 1.22 mg/dL Final PSA (ng/mL) Date Value 03/21/2023 0.68 01/24/2023 0.61 07/07/2022 0.22 04/07/2022 0.08 08/28/2020 0.14 06/05/2020 13.15 (H) 04/01/2020 6.93 (H) 02/19/2020 4.13 (H) URINALYSIS: Specific [place], Ur Date Value Ref Range Status 03/21/2023 1.021 1.005 - 1.030 Final Glucose, Urine Date Value Ref Range Status 03/21/2023 Negative Trace, Negative Final Bilirubin, Urine Date Value Ref Range Status 03/21/2023 Negative Negative Final Ketones, Urine Date Value Ref Range Status 03/21/2023 Negative Trace, Negative Final Hemoglobin/Blood,Ur Date Value Ref Range Status 03/21/2023 3+ (A) Negative, Trace Final Protein, Urine Date Value Ref Range Status 03/21/2023 2+ (A) Trace, Negative Final Nitrites Date Value Ref Range Status 03/21/2023 Negative Negative Final WBC, Urine Date Value Ref Range Status 03/21/2023 >25 /HPF (A) 0-5 /HPF Final PATHOLOGY: None to review Urine Culture: 03/21/23: <10,000 Mixed micro 06/16/22: No growth IMAGING: Imaging Reviewed. Radiology report may be copied below for ease of reference. CT A/P 03/21/23: IMPRESSION: Right side moderate hydronephrosis. Double-J stent in place. Stone within the right renal pelvis. Urothelial enhancement on the right. Large gallstone. Bony metastatic disease is grossly stable. No evidence of developing mass or adenopathy ALLERGIES: ALLERGIES No Known Allergies MEDICATIONS: Current Outpatient Medications Medication Sig sulfamethoxazole-trimethoprim (BACTRIM DS) 800-160 mg per tablet Take 1 tablet by mouth twice daily for 3 days. oxybutynin (DITROPAN) 5 mg tablet 1 tab by mouth every 8 hours as needed for bladder urgency-frequency related to spasm FLUoxetine (PROZAC) 20 mg capsule Take 1 capsule by mouth once daily. No current facility-administered medications for this visit. HISTORIES PAST MEDICAL HISTORY Diagnosis Date Bone metastases 08/08/2019 Hydronephrosis Injury, other and unspecified, other specified sites, including multiple FRACTURED RIBS Prostate cancer (HCC) PAST SURGICAL HISTORY Procedure Laterality Date ORCHIECTOMY SIMPLE SCROTAL/INGUINAL APPROACH Bilateral 07/2019 Orchiectomy PAST SURGICAL HISTORY OF Right ankle PROSTATECTOMY;RADICAL RETROPUBIC 2014 Social History Tobacco Use Smoking status: Never Smokeless tobacco: Never Vaping Use Vaping Use: Never used Substance Use Topics Alcohol use: Never Drug use: Never FAMILY HISTORY Problem Relation Age of Onset Leukemia Father Leukemia Grandchild other (Bone cancer) Grandchild Heart Paternal Grandfather REVIEW OF SYSTEMS The patient denies flank pain, fever, shaking chills, urgency, frequency, dysuria, incontinence, nausea, vomiting, and pain at this time Notices that the urine flow has decreased over time. Intermittent gross hematuria - worse with activity. General: No weight loss, malaise or fevers., SEE HPI CV: no chest pain or palpitations Pulm: no shortness of breath or cough Genitourinary: see HPI The remainder of the ROS was reviewed and is negative. PHYSICAL EXAMINATION There were no vitals taken for this visit. There is no height or weight on file to calculate BMI. General: No acute distress Integumentary: No visible suspicious rashes or lesions. Gastrointestinal: Non-distended Neurologic: Normal gait. Back: No CVA tenderness to palpation/percussion. Genitourinary: MALE EXAM: Exam NOT Indicated PROBLEMS: 1. Kidney stone - ICD9: 592.0, I (more content not included)... [facility] 04-07-2023 History of Presen t illness Narrative [facility] ESTABLISHED PATIENT REASON FOR VISIT: Follow up for Nephrolithiasis HPI: This is a 72 year old male with protein-calorie malnutrition, anemia, mPCa. Presenting with retained ureteral stent and large renal stone on the proximal end. Metastatic prostate cancer c/b right hydronephrosis managed with chronic indwelling JJ ureteral stent. He has has managed stent since 12/26/19 and has been lost to follow up several times. Has stent exchanged 06/16/22 and then returned for attempted stent exchange 03/02/[address] Alcocer. From his op note: An open ended yellow ureteral stent was then placed into the distal ureter next to the stent and retrograde contrast was injected. Only a small amount of contrast passed into the renal pelvis, but this showed curl of the stent within a dilated renal pelvis. A stent grasper was used to manipulate the stent, but even with gentle traction, the proximal curl remained curled. As such, we suspected proximal encrustation as well. At this time, we elected to abort the procedure. LABS: Creatinine Date Value Ref Range Status 03/21/2023 1.08 0.73 - 1.22 mg/dL Final 01/24/2023 1.16 0.73 - 1.22 mg/dL Final 08/09/2022 0.98 0.73 - 1.22 mg/dL Final 07/07/2022 0.99 0.73 - 1.22 mg/dL Final PSA (ng/mL) Date Value 03/21/2023 0.68 01/24/2023 0.61 07/07/2022 0.22 04/07/2022 0.08 08/28/2020 0.14 06/05/2020 13.15 (H) 04/01/2020 6.93 (H) 02/19/2020 4.13 (H) URINALYSIS: Specific [place], Ur Date Value Ref Range Status 03/21/2023 1.021 1.005 - 1.030 Final Glucose, Urine Date Value Ref Range Status 03/21/2023 Negative Trace, Negative Final Bilirubin, Urine Date Value Ref Range Status 03/21/2023 Negative Negative Final Ketones, Urine Date Value Ref Range Status 03/21/2023 Negative Trace, Negative Final Hemoglobin/Blood,Ur Date Value Ref Range Status 03/21/2023 3+ (A) Negative, Trace Final Protein, Urine Date Value Ref Range Status 03/21/2023 2+ (A) Trace, Negative Final Nitrites Date Value Ref Range Status 03/21/2023 Negative Negative Final WBC, Urine Date Value Ref Range Status 03/21/2023 >25 /HPF (A) 0-5 /HPF Final PATHOLOGY: None to review Urine Culture: 03/21/23: <10,000 Mixed micro 06/16/22: No growth IMAGING: Imaging Reviewed. Radiology report may be copied below for ease of reference. CT A/P 03/21/23: IMPRESSION: Right side moderate hydronephrosis. Double-J stent in place. Stone within the right renal pelvis. Urothelial enhancement on the right. Large gallstone. Bony metastatic disease is grossly stable. No evidence of developing mass or adenopathy ALLERGIES: ALLERGIES No Known Allergies MEDICATIONS: Current Outpatient Medications Medication Sig sulfamethoxazole-trimethoprim (BACTRIM DS) 800-160 mg per tablet Take 1 tablet by mouth twice daily for 3 days. oxybutynin (DITROPAN) 5 mg tablet 1 tab by mouth every 8 hours as needed for bladder urgency-frequency related to spasm FLUoxetine (PROZAC) 20 mg capsule Take 1 capsule by mouth once daily. No current facility-administered medications for this visit. HISTORIES PAST MEDICAL HISTORY Diagnosis Date Bone metastases 08/08/2019 Hydronephrosis Injury, other and unspecified, other specified sites, including multiple FRACTURED RIBS Prostate cancer (HCC) PAST SURGICAL HISTORY Procedure Laterality Date ORCHIECTOMY SIMPLE SCROTAL/INGUINAL APPROACH Bilateral 07/2019 Orchiectomy PAST SURGICAL HISTORY OF Right ankle PROSTATECTOMY;RADICAL RETROPUBIC 2014 Social History Tobacco Use Smoking status: Never Smokeless tobacco: Never Vaping Use Vaping Use: Never used Substance Use Topics Alcohol use: Never Drug use: Never FAMILY HISTORY Problem Relation Age of Onset Leukemia Father Leukemia Grandchild other (Bone cancer) Grandchild Heart Paternal Grandfather REVIEW OF SYSTEMS The patient denies flank pain, fever, shaking chills, urgency, frequency, dysuria, incontinence, nausea, vomiting, and pain at this time Notices that the urine flow has decreased over time. Intermittent gross hematuria - worse with activity. General: No weight loss, malaise or fevers., SEE HPI CV: no chest pain or palpitations Pulm: no shortness of breath or cough Genitourinary: see HPI The remainder of the ROS was reviewed and is negative. PHYSICAL EXAMINATION There were no vitals taken for this visit. There is no height or weight on file to calculate BMI. General: No acute distress Integumentary: No visible suspicious rashes or lesions. Gastrointestinal: Non-distended Neurologic: Normal gait. Back: No CVA tenderness to palpation/percussion. Genitourinary: MALE EXAM: Exam NOT Indicated PROBLEMS: 1. Kidney stone - ICD9: 592.0, ICD10: N20.0 (primary diagnosis) 2. Retained ureteral stent - ICD9: V43.89, ICD10: Z96.0 3. Other hydronephrosis - ICD9: 591, ICD10: N13.39 72 year old male with protein-calorie malnutrition, anemia, mPCa with right ureteral obstructing. Presenting with retained ureteral stent and large renal stone on the proximal end. Discussed with the patient possible treatment options for kidney stones. Ureteroscopy: May need multiple procedures for stone clearance, prolonged stent placement, risk of infection and sepsis. Injury to the ureter, stricture formation,.Residual stone and fragments. PCNL: best chance of stone free from one procedure. Risks are : Bleeding, blood transfusion risk approximately 5%. If arterial injury may need angio-embolization by IR. Pneumothorax risk approximately 1%, may need chest tube placed in the OR or postoperatively. Injury to the bowel, adjacent structures. Need to hospitalization, additional procedure, 2nd look, tRobinsonbs He agrees to proceed with right PCNL and removal of retained ureteral stent. Can be a mini Scheduled for next week. Consent signed No lifting more than 10-20 lbs for 2 weeks. Labs and UCx ordered. He understands that he must have the stent exchanged on regular intervals Also discussed NT if he does not want a stent but he also isn't sure if he wants this. The patient decided to proceed with the above, and was given the opportunity to have all questions answered and appeared to be satisfied with our discussion. Sina Stevenson MD Staff Electronically signed Some elements of this note may be copied from previous versions, however, all data and information has been reviewed and verified and is accurate for today April 07, 2023 documented in this encounter [facility] 04-07-2023 Instructions Sina Stevenson MD - 04/07/2023 2:08 PM EDT Images from the original note were not included. Percutaneous Nephrolithotomy (PCNL) is the best treatment for large stones in the kidney. General anesthesia is needed to do a PCNL. PCNL involves making a half-inch incision (cut) in the back or side, just large enough to allow a rigid telescope (nephroscope) to be passed into the hollow center part of the kidney where the stone is located. Ultrasound lithotripsy is the most common technology utilized to fragment the stones. An instrument passes through the nephroscope breaks up the stone and suctions out the pieces. The ability to suction pieces makes PCNL the best treatment choice for large stones. The procedure is typically a ONE-day inpatient procedure. The PCNL procedure requires general anesthesia and takes approximately 3 hours. Patients are transferred to the carey after awakening in the recovery room. A ureteral stent is typically placed during the procedure to prevent post operative flank pain. You will return to the clinic after about 7 days for suture and stent removal. Alternatively, a tube can be left in the kidney to drain urine into a bag outside of the body. This will allow for drainage of urine and stop any bleeding. The tube is left in overnight or for a few days. Post operative pain is variable and oral medications along with antibiotics will be given prior to discharge. Post-operative pain usually disappears in two weeks. Patients can usually return to work after the back suture is removed. ---A ureteral stent is a temporary, small plastic tube that is placed in your ureter that helps drain urine from your kidney into your bladder by a urologist. A stent may be placed to help unblock your kidney if a stone or obstruction is present. Here is a video with more information on ureteral stents: [email or web address]://[email or web address].[email or web address] Video on PCNL: [email or web address] If you have any additional questions regarding this procedure, please reach out to our team. Warm regards, Your [facility] Kidney Stone Team documented in this encounter [facility] 04-07-2023 Note Patient Outreach (UR OLMN) ROSALBA IBRAHIM ([id number]) 1950 [facility] Date Time Provider Department 04/07/23 MYNOR MENDEZ During your visit today, we recorded the following information about you: Allergies As of Date: 04/07/2023 (No Known Allergies) Date Reviewed: 04/07/2023 Reviewed by: Sina Stevenson MD - Fully Assessed Visit Diagnosis:Screening for genitourinary condition [Z13.89] Order(s):URINALYSIS, REFLEX MICROSCOPIC [[id number]] Order #: [id number]. #:[id number] Prescriptions as of 04/11/2023 - oxybutynin (DITROPAN) 5 mg tablet 1 tab by mouth every 8 hours as needed for bladder urgency-frequency related to spasm - FLUoxetine (PROZAC) 20 mg capsule Take 1 capsule by mouth once daily. Problem List As Of Date 04/07/2023 Noted Resolved Primary malignant neoplasm of prostate metastat*05/26/2019 Severe protein-calorie malnutrition (HCC) [E43] 05/28/2019 Anemia [D64.9] 05/30/2019 Hydronephrosis of right kidney [N13.30] 07/26/2019 07/29/2019 UTI (urinary tract infection) [N39.0] 07/26/2019 Sepsis due to other etiology (HCC) [A41.89] 07/26/2019 07/29/2019 History of tooth extraction [K08.409] 07/26/2019 Right upper quadrant abdominal pain [R10.11] 07/26/2019 07/29/2019 History of depression [Z86.59] 07/26/2019 Malignant neoplasm 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) [C7*08/08/2019 Encounter Status:Closed by [employer], PRODUSER on 04/11/23 [facility] 04-07-2023 History and physical note UROLOGY SURGICAL H&P SERVICE DATE: 04/07/2023 SERVICE TIME: 1:33 PM REFERRING PROVIDER: No referring provider defined for this encounter. PCP: PREET IBRAHIM MD (Inactive) GENDER: Male SUBJECTIVE CHIEF COMPLAINT: Pre-op exam HISTORY OF PRESENT ILLNESS: Mr. Ibrahim is a 72 year old male who presents for preoperative exam prior to R PCNL with Dr. Stevenson for large kidney stone. FUNCTIONAL STATUS: Walk a block or two on level ground (2.75 METs) Do moderate work around the house such as vacuuming, sweeping floors, or carrying in groceries (3.50 METs) Do yardwork, such as raking leaves, weeding,or pushing a power mower (4.50 METs) Climb a flight of stairs or walk up a hill (5.50 METs) Participate in moderate recreational activities, such as golf, bowling, dancing, doubles tennis, or throwing a baseball or football (6.00 METs) PAST MEDICAL HISTORY Diagnosis Date Bone metastases 08/08/2019 Hydronephrosis Injury, other and unspecified, other specified sites, including multiple FRACTURED RIBS Prostate cancer (HCC) PAST SURGICAL HISTORY Procedure Laterality Date ORCHIECTOMY SIMPLE SCROTAL/INGUINAL APPROACH Bilateral 07/2019 Orchiectomy PAST SURGICAL HISTORY OF Right ankle PROSTATECTOMY;RADICAL RETROPUBIC 2014 FAMILY HISTORY Problem Relation Age of Onset Leukemia Father Leukemia Grandchild other (Bone cancer) Grandchild Heart Paternal Grandfather Social History Tobacco Use Smoking status: Never Smokeless tobacco: Never Vaping Use Vaping Use: Never used Substance Use Topics Alcohol use: Never Drug use: Never REVIEW OF SYSTEMS: General: General: Well developed, well nourished. No acute distress HEENT: Negative for sore throat, difficulty swallowing. Negative for frequent or significant headaches, changes in vision or hearing. Cardiovascular: No history of cardiovascular symptoms or problems. No history of angina, CHF, [place], cardiac surgery of stents. Respiratory: Negative for current cough, dyspnea. No hx of pneumonia in the past six weeks Gastrointestinal: No history of GERD, PUD, abd pain, difficulty swallowing, GI bleed. Renal: Negative for renal failure and No history of dialysis Musculoskeletal: Negative for joint pain or swelling, back pain or muscle pain. Skin: Negative for lesions, rash and itching. Psychological: No history of psychiatric symptoms or problems. Neurologic: No history of TIA's, stroke, SECTION REPAIRER tumor, impaired sensorium, hemiplegia or paraplegia No neurological symptoms or problems. Hematology/Oncology: + prostate malignancy metastatic to bone. Endocrine: No history of endocrinological symptoms or problems No history of DM; has not taken steroids w/in past 30 days. Negative for excessive sweating, thirst or hunger PHYSICAL EXAM: General Appearance/ Constitutional: Well developed, well nourished, and in no apparent distress Head and Neck normal, no jugular venous extension, no thyromegaly, and no palpable mass Eyes: Pupils are equally round and reactive to light. Extraocular movements are intact. Respiratory: Clear to auscultation & percussion Cardiovascular: Normal, Regular rate and rhythm, and No murmurs GI: Soft, Non-tender, No masses, hepatosplenomegaly, and No lymphadenopathy Extremities: Radial and pedal pulses +2, no edema, extremities WNL Back: Normal back and mobility Neurological: Normal cognition and motor skills. Skin: Color, texture, turgor normal. VITALS: There were no vitals taken for this visit. Temperature Max: @TMAXREFRESH(24)@ ALLERGIES: ALLERGIES No Known Allergies LABS: BUN (mg/dL) Date Value 03/21/2023 32 01/24/2023 32 08/09/2022 14 07/07/2022 20 04/07/2022 18 02/06/2021 15 10/27/2020 19 08/28/2020 20 07/04/2020 15 06/05/2020 16 Creatinine (mg/dL) Date Value 03/21/2023 1.08 01/24/2023 1.16 08/09/2022 0.98 07/07/2022 0.99 04/07/2022 0.88 02/06/2021 1.03 10/27/2020 1.07 08/28/2020 1.01 07/04/2020 0.89 06/05/2020 0.93 PSA (ng/mL) Date Value 03/21/2023 0.68 01/24/2023 0.61 07/07/2022 0.22 04/07/2022 0.08 08/28/2020 0.14 06/05/2020 13.15 04/01/2020 6.93 02/19/2020 4.13 12/13/2019 1.25 Glucose, Urine Date Value 03/21/2023 Negative 07/13/2021 Negative mg/dL Bilirubin, Urine (no units) Date Value 03/21/2023 Negative 07/13/2021 Negative Ketones, Urine (no units) Date Value 03/21/2023 Negative 07/13/2021 Negative Specific [place], Ur (no units) Date Value 03/21/2023 1.021 07/13/2021 1.013 Hemoglobin/Blood,Ur Date Value 03/21/2023 3+ (A) 07/13/2021 3+ (A) pH, Urine (no units) Date Value 03/21/2023 6.5 07/13/2021 6.5 Protein, Urine (no units) Date Value 03/21/2023 2+ (A) 07/13/2021 2+ (A) Nitrites (no units) Date Value 03/21/2023 Negative 07/13/2021 Negative WBC, Urine Date Value 03/21/2023 >25 /HPF (A) 07/13/2021 >25 /HPF (A) Color (no units) Date Value 03/21/2023 Dark Yellow (A) 07/13/2021 Yellow Clarity (no units) Date Value 03/21/2023 Cloudy (A) 07/13/2021 Cloudy (A) MEDICATIONS: (Not in a hospital admission) Current Outpatient Medications Medication Sig sulfamethoxazole-trimethoprim (BACTRIM DS) 800-160 mg per tablet Take 1 tablet by mouth twice daily for 3 days. oxybutynin (DITROPAN) 5 mg tablet 1 tab by mouth every 8 hours as needed for bladder urgency-frequency related to spasm FLUoxetine (PROZAC) 20 mg capsule Take 1 capsule by mouth once daily. No current facility-administered medications for this visit. DIAGNOSIS, ASSESSMENT AND PLAN There are no active hospital problems to display for this patient. Assessment & Plan: Proceed to surgery. SIGNATURE: Mynor Mendez PA-C PATIENT NAME: Rosalba Ibrahim DATE: April 07, 2023 TIME: 1:33 PM PAGER/CONTACT #: documented in this encounter [facility] 04-06-2023 Miscellaneous Notes Placed note in 03/31 encounter Please schedule as directed. Bella Glass LPN Self pay referral entered. Once cleared please schedule following appts 2 weeks after 04/13 lab -BMP tx - Q6MO ZOMETA/SELF PAY EXP ?* Patient scheduled for surgery 04/13/2023. -Reschedule BMP(S) and Zometa 2 weeks after ureteral stent change Bella Glass LPN Testing, labs, OV have been scheduled. Patient has Urol consult on 04/07. Waiting for appointment/surgery date for stent to schedule for the following from prev message. Reschedule BMP(S) and Zometa 2 weeks after ureteral stent change (not scheduled yet). Bella Glass LPN 1st attempt. Message left for patient to schedule testing. He should still move forward with recommended testing as documented in the phone note from 02/11. Cyndi Taylor LPN Patient called stating they were unable to get stent out and he will need surgery to remove it. Surgery not scheduled yet. He is asking if he should wait until stent is removed before having testing done - see 02/11 TE for tests. Looks like pt had the procedure on 03/02 1st attempt: LM When pt returns call please assist in scheduling labs as directed below. Placed new self pay referral for OV with [facility] (if needed) Patient missed surgical registration phone call, so not certain if the stent procedure will be happening. We will keep watching to see if procedure happens or gets rescheduled. Marcella Key PSS- please reschedule BMP(S) and Zometa the week of 03/14/2023. Bella Glass LPN Hold Zometa today. Reschedule BMP(S) and Zometa 2 weeks after ureteral stent change (not scheduled yet). Bella Glass LPN Pt scheduled for stent change on 03/02. Please advise on scheduling pt Spoke with Aubree in 's office. She stated she would reach out to 's Admin Aubree Mcdonald. There is also an encounter from January 27. Showing her reaching out . Gave her our nurse line number for 's admin to call our office and update on where their office is at in getting the pt scheduled. As of this note, patient still not scheduled w/ Dr. Alcocer. Marcella Key Called and spoke with 's office and they stated that would reach out to pt and get him scheduled. I reached out to the provider who changed his stent last time asking for a way to contact his schedulers via [employer] chat and he stated he would take care of it. Keep encounter open until scheduled with Dr. Alcocer then schedule labs and Zometa. Danika Hold Zometa today. Reschedule BMP(S) and Zometa 2 weeks after ureteral stent change (not scheduled yet). Bella Glass LPN documented in this encounter [facility] 03-31-2023 Miscellaneous Notes Spoke with our FC she is going to reach out to the pt and clarify with him. Patient needs to talk to financial counselor regarding insurance/religous self-pay. Whenever patient is scheduled please mail appointment reminder to address on file. I confirmed mailing address with Pt Return in about 3 months (around 06/30/2023). Check out comments: Follow up with me 3 months, psa 1 week prior Danika Sanchez documented in this encounter [facility] 03-31-2023 Note HNO ID: [id number] Author: Wolfgang Toscano MD Service: ? Author Type: Physician Type: Progress Notes Filed: 03/31/2023 4:09 PM Note Text: HISTORY OF PRESENT ILLNESS: Rosalba Ibrahim is a [address] Per Dr. Lan's previous note: H/o depression and prostate cancer (s/p prostatectomy in 2014 with recurrence metastatic disease in 2017) who presents with generalized weakness and fatigue since Jul 2018 which has rapidly increased over the last week. He additionally reports lower back pain and hip pain (L > R). 3 days ago, He had an episode of 10/10 LLE pain from his L hip which radiated to his L knee. Currently his pain is 2/10. He is also reporting weight loss of ~20 lb in the last several months. He still have bilateral shoulder pain, BLE weakness, and [place]. Normally, he has urinary incontinence but last week had two days of urinary retention which was followed by passing red clots in the urine. he has baseline mild constipation but he denies urinary or bowel incontinence. He has dark stools occasionally but he believes this is because he takes an OTC iron pill. As far as his prostate cancer, he states he had a prostatectomy in 2014 in [place], and he was told he has no prostate cancer left. He took chemotherapy pills for about 1 year sometime between 2015 and 2016. He was unaware if the cancer has spread to his bones. In ED, he was afebrile with tenderness around the lumbosacral region and a R testicular mass. Workup was significant for WBC 12.41, hgb 8.9, hct 29.0, plt 571, alk phos 419, FOBT negative, UA with only 3-5 RBC. CXR was significant for an incidental nodular density likely representing chronic change. CT brain was unremarkable. CT AP showed 2.5 cm ill-defined soft tissue in the pelvis which may correlate with residual/recurrent prostate cancer, diffuse osseous sclerosis involving the bony pelvis with lytic changes in the L acetabulum, enlarged iliac chain and RP LNs, and a soft tissue filling defect in the distal R ureter suspicious for underlying urothelial neoplasm resulting in upstream R hydroureteronephrosis. CT lumbar spine showed diffuse abnormal bone density in the sacrum and ilium. He had bilateral orchiectomy for the treatment of metastatic prostate cancer in August 2019. He also had a right ureteral stent placement for hydronephrosis since his last visit. Treatment history: LHRH and Casodex AND hydrocortisone (d/c February 19, 2020) Bilateral orchiectomy July 26, 2019 -Enzulutamide 120mg daily (07/2020- 05/2021) He was lost to follow-up since 2020. He stopped enzalutamide in the fall 2020 when medication ran out. He never had a problem with the medicine, cost was not an issue. Seen by Dr Lan fall 2021. Here for follow up, we reviewed his labs, scans. He feels ok, more tired. CLINICAL IMPRESSION: Prostate cancer, PSA rising, from 9-22 to 6-23 DT was brisk, now plateaued a bit Scans look ok RECOMMENDATION/PLAN: 1. Continue close observation 2. If PSA shows rise at DT < 6 months, consider adding back enzalutamide. 3. Watch axillary adenopathy, likely not related to prostate cancer. Written and verbal health teaching given to patient, patient verbalizes understanding and agrees with treatment plan. PAST MEDICAL HISTORY Diagnosis Date Bone metastases 08/08/2019 Hydronephrosis Injury, other and unspecified, other specified sites, including multiple FRACTURED RIBS Prostate cancer (HCC) PAST SURGICAL HISTORY Procedure Laterality Date ORCHIECTOMY SIMPLE SCROTAL/INGUINAL APPROACH Bilateral 07/2019 Orchiectomy PAST SURGICAL HISTORY OF Right ankle PROSTATECTOMY;RADICAL RETROPUBIC 2014 FAMILY HISTORY Problem Relation Age of Onset Leukemia Father Leukemia Grandchild other (Bone cancer) Grandchild Heart Paternal Grandfather Social History Tobacco Use Smoking status: Never Smokeless tobacco: Never Vaping Use Vaping Use: Never used Substance Use Topics Alcohol use: Never Drug use: Never ALLERGIES: ALLERGIES No Known Allergies CURRENT OUTPATIENT MEDICATIONS: oxybutynin (DITROPAN) 5 mg tablet 1 tab by mouth every 8 hours as needed for bladder urgency-frequency related to spasm FLUoxetine (PROZAC) 20 mg capsule Take 1 capsule by mouth once daily. REVIEW OF SYSTEMS: GENERAL: No fever, night sweats, weight loss or malaise. All other reviewed and negative other than HPI. PHYSICAL EXAMINATION: VITAL SIGNS: BP 106/66 Pulse 59 Temp 98.5 Wt 144 lb 8 oz (65.5kg) SpO2 97% GENERAL APPEARANCE: Well appearing, in no acute distress, alert and oriented x3, well-hydrated, well nourished. EXTREMITIES: Extremities normal. No deformities, edema, or skin discoloration. Good capillary refill. Right posterior axilla [address] palpable I spent a total of 45 minutes on the date of the service which included preparing to see the patient, [id number] patient care, completing clinical documentation, obtaining an (more content not included)... [facility] 03-31-2023 History of Presen t illness Narrative HISTORY OF PRESENT ILLNESS: Rosalba Ibrahim is a [address] Per Dr. Lan's previous note: H/o depression and prostate cancer (s/p prostatectomy in 2014 with recurrence metastatic disease in 2017) who presents with generalized weakness and fatigue since Jul 2018 which has rapidly increased over the last week. He additionally reports lower back pain and hip pain (L > R). 3 days ago, He had an episode of 10/10 LLE pain from his L hip which radiated to his L knee. Currently his pain is 2/10. He is also reporting weight loss of ~20 lb in the last several months. He still have bilateral shoulder pain, BLE weakness, and CAMARGO. Normally, he has urinary incontinence but last week had two days of urinary retention which was followed by passing red clots in the urine. he has baseline mild constipation but he denies urinary or bowel incontinence. He has dark stools occasionally but he believes this is because he takes an OTC iron pill. As far as his prostate cancer, he states he had a prostatectomy in 2015 in [place], and he was told he has no prostate cancer left. He took chemotherapy pills for about 1 year sometime between 2015 and 2016. He was unaware if the cancer has spread to his bones. In ED, he was afebrile with tenderness around the lumbosacral region and a R testicular mass. Workup was significant for WBC 12.41, hgb 8.9, hct 29.0, plt 571, alk phos 419, FOBT negative, UA with only 3-5 RBC. CXR was significant for an incidental nodular density likely representing chronic change. CT brain was unremarkable. CT AP showed 2.5 cm ill-defined soft tissue in the pelvis which may correlate with residual/recurrent prostate cancer, diffuse osseous sclerosis involving the bony pelvis with lytic changes in the L acetabulum, enlarged iliac chain and RP LNs, and a soft tissue filling defect in the distal R ureter suspicious for underlying urothelial neoplasm resulting in upstream R hydroureteronephrosis. CT lumbar spine showed diffuse abnormal bone density in the sacrum and ilium. He had bilateral orchiectomy for the treatment of metastatic prostate cancer in August 2019. He also had a right ureteral stent placement for hydronephrosis since his last visit. Treatment history: LHRH and Casodex & hydrocortisone (d/c February 19, 2020) Bilateral orchiectomy July 26, 2019 -Enzulutamide 120mg daily (07/2020- 05/2021) He was lost to follow-up since 2020. He stopped enzalutamide in the fall 2020 when medication ran out. He never had a problem with the medicine, cost was not an issue. Seen by Dr Lan fall 2021. Here for follow up, we reviewed his labs, scans. He feels ok, more tired. CLINICAL IMPRESSION: Prostate cancer, PSA rising, from 9-22 to 6-23 DT was brisk, now plateaued a bit Scans look ok RECOMMENDATION/PLAN: 1. Continue close observation 2. If PSA shows rise at DT < 6 months, consider adding back enzalutamide. 3. Watch axillary adenopathy, likely not related to prostate cancer. Written and verbal health teaching given to patient, patient verbalizes understanding and agrees with treatment plan. PAST MEDICAL HISTORY Diagnosis Date Bone metastases 08/08/2019 Hydronephrosis Injury, other and unspecified, other specified sites, including multiple FRACTURED RIBS Prostate cancer (HCC) PAST SURGICAL HISTORY Procedure Laterality Date ORCHIECTOMY SIMPLE SCROTAL/INGUINAL APPROACH Bilateral 07/2019 Orchiectomy PAST SURGICAL HISTORY OF Right ankle PROSTATECTOMY;RADICAL RETROPUBIC 2014 FAMILY HISTORY Problem Relation Age of Onset Leukemia Father Leukemia Grandchild other (Bone cancer) Grandchild Heart Paternal Grandfather Social History Tobacco Use Smoking status: Never Smokeless tobacco: Never Vaping Use Vaping Use: Never used Substance Use Topics Alcohol use: Never Drug use: Never ALLERGIES: ALLERGIES No Known Allergies CURRENT OUTPATIENT MEDICATIONS: oxybutynin (DITROPAN) 5 mg tablet 1 tab by mouth every 8 hours as needed for bladder urgency-frequency related to spasm FLUoxetine (PROZAC) 20 mg capsule Take 1 capsule by mouth once daily. REVIEW OF SYSTEMS: GENERAL: No fever, night sweats, weight loss or malaise. All other reviewed and negative other than HPI. PHYSICAL EXAMINATION: VITAL SIGNS: BP 106/66 Pulse 59 Temp 98.5 Wt 144 lb 8 oz (65.5kg) SpO2 97% GENERAL APPEARANCE: Well appearing, in no acute distress, alert and oriented x3, well-hydrated, well nourished. EXTREMITIES: Extremities normal. No deformities, edema, or skin discoloration. Good capillary refill. Right posterior axilla [address] palpable I spent a total of 45 minutes on the date of the service which included preparing to see the patient, [id number] patient care, completing clinical documentation, obtaining and/or reviewing separately obtained history, performing a medically appropriate examination, counseling and educating the patient/family/caregiver, ordering medications, tests, or procedures, independently interpreting results (not separately reported), and communicating results to the patient/family/caregiver. Electronically Signed: Wolfgang Toscano MD March 31, 2023 10:17 AM documented in this encounter [facility] 03-25-2023 Note HNO ID: [id number] Author: Bettie Lozano RT(R) Service: Nuclear Medicine Author Type: Technologist Type: Progress Notes Filed: 03/25/2023 11:37 AM Note Text: RADIOLOGY SERVICE PROGRESS NOTE SERVICE DATE: 03/25/2023 SERVICE TIME: 08:25 AM PATIENT IDENTITY VERIFICATION COMPLETED USING TWO (2) STANDARD IDENTIFIERS: Name and Date of confirmed by patient verbally FALL SCREENING: Has the patient had 2 falls in the last year or 1 fall with injury or currently using an Ambulatory Assistive Device (Walker, Cane, Wheelchair, Crutches, etc.)? No PATIENT GENDER DATA: .male ALLERGIES: Reviewed and unchanged MEDICATIONS REVIEWED: No PATIENT RELEVANT IMPLANT DATA REVIEWED: Not Applicable CREATININE: Creatinine Date Value Ref Range Status 03/21/2023 1.08 0.73 - 1.22 mg/dL Final 01/24/2023 1.16 0.73 - 1.22 mg/dL Final 08/09/2022 0.98 0.73 - 1.22 mg/dL Final Estimated Glomerular Filtration Rate Date Value Ref Range Status 03/21/2023 73 >=60 mL/min/1.73m? Final Comment: Estimated Glomerular Filtration Rate (eGFR) is calculated using the 2020 CKD-EPI creatinine equation. This equation utilizes serum creatinine, sex, and age as parameters. The creatinine assay has traceable calibration to isotope dilution-mass spectrometry. Refer to KDIGO guidelines for clinical interpretation. In patients with unstable renal function, e.g. those with acute kidney injury, the eGFR may not accurately reflect actual GFR. eGFR- Date Value Ref Range Status 02/06/2021 >60 Final P.O.C.T. RESULTS: N/A March 25, [address] PERFORMED: No IV SITE: Ambulatory: A peripheral IV was started in the Left hand with a Angio cath: 24 gauge. POST EXAM PIV STATUS: Discontinued PROCEDURE TYPE: NM INJECT: Whole Body Bone Scan. 19.9 mCi Tc99m MDP. No other medications given.. ADMINISTRATION TIME: 08:30 PATIENT DISCHARGED TO: Ambulatory patient, left [place] department area. A Diagnostic radioactive procedure has taken place, with no further precautions necessary other than routine body substance precautions. More information regarding radiation safety can be found using this link: [email or web address]%20Me [email or web address] SIGNATURE: RT Laura(R) PATIENT NAME: Rosalba Ibrahim DATE: March 25, 2023 TIME: 11:36 AM PAGER/CONTACT #: [facility] 03-25-2023 History of Presen t illness Narrative RADIOLOGY SERVICE PROGRESS NOTE SERVICE DATE: 03/25/2023 SERVICE TIME: 08:25 AM PATIENT IDENTITY VERIFICATION COMPLETED USING TWO (2) STANDARD IDENTIFIERS: Name and Date of confirmed by patient verbally FALL SCREENING: Has the patient had 2 falls in the last year or 1 fall with injury or currently using an Ambulatory Assistive Device (Walker, Cane, Wheelchair, Crutches, etc.)? No PATIENT GENDER DATA: .male ALLERGIES: Reviewed and unchanged MEDICATIONS REVIEWED: No PATIENT RELEVANT IMPLANT DATA REVIEWED: Not Applicable CREATININE: Creatinine Date Value Ref Range Status 03/21/2023 1.08 0.73 - 1.22 mg/dL Final 01/24/2023 1.16 0.73 - 1.22 mg/dL Final 08/09/2022 0.98 0.73 - 1.22 mg/dL Final Estimated Glomerular Filtration Rate Date Value Ref Range Status 03/21/2023 73 >=60 mL/min/1.73m Final Comment: Estimated Glomerular Filtration Rate (eGFR) is calculated using the 2020 CKD-EPI creatinine equation. This equation utilizes serum creatinine, sex, and age as parameters. The creatinine assay has traceable calibration to isotope dilution-mass spectrometry. Refer to KDIGO guidelines for clinical interpretation. In patients with unstable renal function, e.g. those with acute kidney injury, the eGFR may not accurately reflect actual GFR. eGFR- Date Value Ref Range Status 02/06/2021 >60 Final P.O.C.T. RESULTS: N/A March 25, [address] PERFORMED: No IV SITE: Ambulatory: A peripheral IV was started in the Left hand with a Angio cath: 24 gauge. POST EXAM PIV STATUS: Discontinued PROCEDURE TYPE: NM INJECT: Whole Body Bone Scan. 19.9 mCi Tc99m MDP. No other medications given.. ADMINISTRATION TIME: 08:30 PATIENT DISCHARGED TO: Ambulatory patient, left [place] department area. A Diagnostic radioactive procedure has taken place, with no further precautions necessary other than routine body substance precautions. More information regarding radiation safety can be found using this link: [email or web address]%[email or web address] uclear%[email or web address] df SIGNATURE: SHARLA Sanchez) PATIENT NAME: Rosalba Ibrahim DATE: March 25, 2023 TIME: 11:36 AM PAGER/CONTACT #: documented in this encounter [facility] 03-21-2023 Note HNO ID: [id number] Author: Angle Houston RT(R) Service: ? Author Type: Official Greeter Type: Progress Notes Filed: 03/21/2023 3:50 PM Note Text: Radiology Service Progress Note DATE OF SERVICE: March 21, 2023 TIME: 3:49 PM PATIENT IDENTITY VERIFICATION COMPLETED USING TWO (2) STANDARD IDENTIFIERS: Name and Date of confirmed by patient verbally. FALL SCREENING: Has the patient had 2 falls in the last year or 1 fall with injury or currently using an Ambulatory Assistive Device (Walker, Cane, Wheelchair, Crutches, etc.)? No PATIENT GENDER DATA: Male PATIENT RELEVANT IMPLANT DATA REVIEWED: Yes ALLERGIES: Reviewed and unchanged CONTRAST ALLERGY: NO. EXAM: CT -CONTRAST INDUCED NEPHROPATHY RISK FACTORS: Patient age > 60 years CREATININE: Creatinine Date Value Ref Range Status 03/21/2023 1.08 0.73 - 1.22 mg/dL Final 01/24/2023 1.16 0.73 - 1.22 mg/dL Final 08/09/2022 0.98 0.73 - 1.22 mg/dL Final Estimated Glomerular Filtration Rate Date Value Ref Range Status 03/21/2023 73 >=60 mL/min/1.73m? Final Comment: Estimated Glomerular Filtration Rate (eGFR) is calculated using the 2020 CKD-EPI creatinine equation. This equation utilizes serum creatinine, sex, and age as parameters. The creatinine assay has traceable calibration to isotope dilution-mass spectrometry. Refer to KDIGO guidelines for clinical interpretation. In patients with unstable renal function, e.g. those with acute kidney injury, the eGFR may not accurately reflect actual GFR. eGFR- Date Value Ref Range Status 02/06/2021 >60 Final P.O.C.T. RESULTS: POC done: Yes, See Lab Tab March 21, 2023 TREATMENT: N/A PERIPHERAL IV DATA: Ambulatory: A peripheral IV was started in the Left antecubital site with a Angio cath: 22 gauge. RADIOLOGY DEPARTMENT: CT; Exam(s) Completed: Chest Abdomen Pelvis SIGNATURE: RT Mary(R) PATIENT NAME: Rosalba Ibrahim DATE: March 21, 2023 TIME: 3:49 PM [facility] 03-21-2023 History of Presen t illness Narrative Radiology Service Progress Note DATE OF SERVICE: March 21, 2023 TIME: 3:49 PM PATIENT IDENTITY VERIFICATION COMPLETED USING TWO (2) STANDARD IDENTIFIERS: Name and Date of confirmed by patient verbally. FALL SCREENING: Has the patient had 2 falls in the last year or 1 fall with injury or currently using an Ambulatory Assistive Device (Walker, Cane, Wheelchair, Crutches, etc.)? No PATIENT GENDER DATA: Male PATIENT RELEVANT IMPLANT DATA REVIEWED: Yes ALLERGIES: Reviewed and unchanged CONTRAST ALLERGY: NO. EXAM: CT -CONTRAST INDUCED NEPHROPATHY RISK FACTORS: Patient age > 60 years CREATININE: Creatinine Date Value Ref Range Status 03/21/2023 1.08 0.73 - 1.22 mg/dL Final 01/24/2023 1.16 0.73 - 1.22 mg/dL Final 08/09/2022 0.98 0.73 - 1.22 mg/dL Final Estimated Glomerular Filtration Rate Date Value Ref Range Status 03/21/2023 73 >=60 mL/min/1.73m Final Comment: Estimated Glomerular Filtration Rate (eGFR) is calculated using the 2020 CKD-EPI creatinine equation. This equation utilizes serum creatinine, sex, and age as parameters. The creatinine assay has traceable calibration to isotope dilution-mass spectrometry. Refer to KDIGO guidelines for clinical interpretation. In patients with unstable renal function, e.g. those with acute kidney injury, the eGFR may not accurately reflect actual GFR. eGFR- Date Value Ref Range Status 02/06/2021 >60 Final P.O.C.T. RESULTS: POC done: Yes, See Lab Tab March 21, 2023 TREATMENT: N/A PERIPHERAL IV DATA: Ambulatory: A peripheral IV was started in the Left antecubital site with a Angio cath: 22 gauge. RADIOLOGY DEPARTMENT: CT; Exam(s) Completed: Chest Abdomen Pelvis SIGNATURE: RT Mary(R) PATIENT NAME: Rosalba Ibrahim DATE: March 21, 2023 TIME: 3:49 PM documented in this encounter [facility] 03-15-2023 Miscellaneous Notes Patient called and scheduled appointments. States he has one number, updated. 2nd attempt: Spoke to the person who answered(unnamed). Stated this number was no longer the way to contact pt. Will remove number and send letter to pt to contact office. When pt contacts office please get new contact number for pt and emergency contacts As well as scheduling Follow Up OV/LABS with [facility] as directed below. 1ST ATTEMPT: LM Letter sent to pts. Home recommending that pt. have updated imaging. Please schedule bone scan/CT chest/abd/pelvis then follow up with Dr. Toscano with CBC/CMP/PSA. And to please contact our office for scheduling. Sarah Beth Edward LPN Left message on given phone number to have pt. Contact our office. Sarah Beth Edward LPN Please inform pt. that I reviewed his labs with Dr. Tsai. Dr. Tsai is recommending that pt. have updated imaging. Please schedule bone scan/CT chest/abd/pelvis then follow up with Dr. Toscano with CBC/CMP/PSA. Thank you. Jenise Bolton APRN.ANGELINA documented in this encounter [facility] 03-01-2023 Miscellaneous Notes Attempted to call Mr. Ibrahim. A gentleman answered and said it was a wrong number and hung up. The surgery schedulers were unable to reach him either. Sirisha Mccarthy RN, BSN Triage Nurse Department of Urology [facility] documented in this encounter [facility] 02-02-[address] Alcocer, Can we schedule the stent change for Mr. Ibrahim? Thank you, Aubree Good afternoon! This patient needs a follow up with Dr. Alcocer for a possible stent removal. Can you all please assist in scheduling. The patient would like the appointment to be scheduled and a reminder to be put in the mail, no need for a phone call. Thanks! Danika documented in this encounter [facility] 01-24-2023 Note HNO ID: [id number] Author: Jenise Bolton APRN.ANGELINA Service: ? Author Type: Nurse Practitioner Type: Progress Notes Filed: 01/26/2023 12:50 PM Note Text: Chief Complaint Patient presents with: Established Patient HPI: Rosalba Ibrahim is a 72 year old male who presents here today for follow up prostate cancer/eval for zometa today. Per Dr. Lan's previous note: H/o depression and prostate cancer (s/p prostatectomy in 2014 with recurrence metastatic disease in 2017) who presents with generalized weakness and fatigue since Jul 2018 which has rapidly increased over the last week. He additionally reports lower back pain and hip pain (L > R). 3 days ago, He had an episode of 10/10 LLE pain from his L hip which radiated to his L knee. Currently his pain is 2/10. He is also reporting weight loss of ~20 lb in the last several months. He still have bilateral shoulder pain, BLE weakness, and CAMARGO. Normally, he has urinary incontinence but last week had two days of urinary retention which was followed by passing red clots in the urine. he has baseline mild constipation but he denies urinary or bowel incontinence. He has dark stools occasionally but he believes this is because he takes an OTC iron pill. As far as his prostate cancer, he states he had a prostatectomy in 2015 in [place], and he was told he has no prostate cancer left. He took chemotherapy pills for about 1 year sometime between 2015 and 2016. He was unaware if the cancer has spread to his bones. In ED, he was afebrile with tenderness around the lumbosacral region and a R testicular mass. Workup was significant for WBC 12.41, hgb 8.9, hct 29.0, plt 571, alk phos 419, FOBT negative, UA with only 3-5 RBC. CXR was significant for an incidental nodular density likely representing chronic change. CT brain was unremarkable. CT AP showed 2.5 cm ill-defined soft tissue in the pelvis which may correlate with residual/recurrent prostate cancer, diffuse osseous sclerosis involving the bony pelvis with lytic changes in the L acetabulum, enlarged iliac chain and RP LNs, and a soft tissue filling defect in the distal R ureter suspicious for underlying urothelial neoplasm resulting in upstream R hydroureteronephrosis. CT lumbar spine showed diffuse abnormal bone density in the sacrum and ilium. He had bilateral orchiectomy for the treatment of metastatic prostate cancer in August 2019. He also had a right ureteral stent placement for hydronephrosis since his last visit. Treatment history: LHRH and Casodex AND hydrocortisone (d/c February 19, 2020) Bilateral orchiectomy July 26, 2019 -Enzulutamide 120mg daily (07/2020- 05/2021) He was lost to follow-up since 2020. He stopped enzalutamide in the fall 2020 when medication ran out. Seen fall 2021. No new concerns today. Appetite: Too good. Energy level: Good. Denies fevers. Resp:denies cough or sob Cardiac:denies chest pain/palpitations GI:denies abd pain, n/v, moving bowels regularly :denies dysuria/hematuria Extrem:denies pain currently, h/o arthritis Neuro:denies symptoms of neuropathy Skin:denies rashes Heme:denies bleeding The ROS is otherwise negative. Past medical history, appointments, medications, allergies reviewed. No changes. EXAM: BP 114/70 Pulse 67 Temp 36.4 ?C (97.5 ?F) Ht 163 cm (5' 4.17 ) Wt 64.4 kg (142 lb) SpO2 99% BMI 24.24 kg/m? APPEARANCE Well appearing, alert, in no acute distress, well-hydrated HEART RRR with normal S1 and S2, no murmurs LUNG clear to auscultation LYMPH NODES No cervical lymphadenopathy, No supraclavicular lymphadenopathy, and No axillary lymphadenopathy. ABDOMEN bowel sounds normoactive, soft, non-tender EXTREMITIES No edema NEURO Awake, alert and oriented x 3, Normal gait, and No involuntary motions. SKIN Skin color, texture, turgor normal, no suspicious rashes or lesions LABS: Component Latest Ref Rng AND Units 04/07/2022 07/07/2022 01/24/2023 WBC 3.70 - 11.00 k/uL 8.01 7.45 10.17 RBC 4.20 - 6.00 m/uL 3.56 (L) 3.62 (L) 3.55 (L) Hemoglobin 13.0 - 17.0 g/dL 10.4 (L) 10.5 (L) 9.6 (L) Hematocrit 39.0 - 51.0 % 32.6 (L) 33.6 (L) 29.9 (L) MCV 80.0 - 100.0 fL 91.6 92.8 84.2 MCH 26.0 - 34.0 pg 29.2 29.0 27.0 MCHC 30.5 - 36.0 g/dL 31.9 31.3 32.1 RDW-CV 11.5 - 15.0 % 17.8 (H) 16.9 (H) 17.8 (H) Platelet Count 150 - 400 k/uL 362 333 373 MPV 9.0 - 12.7 fL 8.9 (L) 8.9 (L) 8.4 (L) Neut% % 72.9 71.8 82.0 Abs Neut (ANC) 1.45 - 7.50 k/uL 5.84 5.35 8.34 (H) Lymph% % 13.5 11.5 9.2 Abs Lymph 1.00 - 4.00 k/uL 1.08 0.86 (L) 0.94 (L) [place]% % 6.6 7.8 5.6 Abs [place] <0.87 k/uL 0.53 0.58 0.57 Eosin% % 5.9 8.1 2.1 Abs Eosin <0.46 k/uL 0.47 (H) 0.60 (H) 0.21 Baso% % 0.7 0.4 0.4 Abs Baso <0.11 k/uL 0.06 0.03 0.04 Immature Gran % % 0.4 0.4 0.7 IMMATURE GRANS (ABS) <0.10 k/uL 0.03 0.03 0.07 NRBC /100 WBC 0.0 0.0 0.0 Absolute nRBC <0.01 k/uL <0.01 <0.01 <0.01 DTYPE Auto Auto Auto CMP/PSA: Pending (more content not included)... [facility] 01-24-2023 History of Presen t illness Narrative Chief Complaint Patient presents with: Established Patient HPI: Rosalba Ibrahim is a 72 year old male who presents here today for follow up prostate cancer/eval for zometa today. Per Dr. Lan's previous note: H/o depression and prostate cancer (s/p prostatectomy in 2014 with recurrence metastatic disease in 2017) who presents with generalized weakness and fatigue since Jul 2018 which has rapidly increased over the last week. He additionally reports lower back pain and hip pain (L > R). 3 days ago, He had an episode of 10/10 LLE pain from his L hip which radiated to his L knee. Currently his pain is 2/10. He is also reporting weight loss of ~20 lb in the last several months. He still have bilateral shoulder pain, BLE weakness, and CAMARGO. Normally, he has urinary incontinence but last week had two days of urinary retention which was followed by passing red clots in the urine. he has baseline mild constipation but he denies urinary or bowel incontinence. He has dark stools occasionally but he believes this is because he takes an OTC iron pill. As far as his prostate cancer, he states he had a prostatectomy in 2015 in [place], and he was told he has no prostate cancer left. He took chemotherapy pills for about 1 year sometime between 2015 and 2016. He was unaware if the cancer has spread to his bones. In ED, he was afebrile with tenderness around the lumbosacral region and a R testicular mass. Workup was significant for WBC 12.41, hgb 8.9, hct 29.0, plt 571, alk phos 419, FOBT negative, UA with only 3-5 RBC. CXR was significant for an incidental nodular density likely representing chronic change. CT brain was unremarkable. CT AP showed 2.5 cm ill-defined soft tissue in the pelvis which may correlate with residual/recurrent prostate cancer, diffuse osseous sclerosis involving the bony pelvis with lytic changes in the L acetabulum, enlarged iliac chain and RP LNs, and a soft tissue filling defect in the distal R ureter suspicious for underlying urothelial neoplasm resulting in upstream R hydroureteronephrosis. CT lumbar spine showed diffuse abnormal bone density in the sacrum and ilium. He had bilateral orchiectomy for the treatment of metastatic prostate cancer in August 2019. He also had a right ureteral stent placement for hydronephrosis since his last visit. Treatment history: LHRH and Casodex & hydrocortisone (d/c February 19, 2020) Bilateral orchiectomy July 26, 2019 -Enzulutamide 120mg daily (07/2020- 05/2021) He was lost to follow-up since 2020. He stopped enzalutamide in the fall 2020 when medication ran out. Seen fall 2021. No new concerns today. Appetite: Too good. Energy level: Good. Denies fevers. Resp:denies cough or sob Cardiac:denies chest pain/palpitations GI:denies abd pain, n/v, moving bowels regularly :denies dysuria/hematuria Extrem:denies pain currently, h/o arthritis Neuro:denies symptoms of neuropathy Skin:denies rashes Heme:denies bleeding The ROS is otherwise negative. Past medical history, appointments, medications, allergies reviewed. No changes. EXAM: BP 114/70 Pulse 67 Temp 36.4 C (97.5 F) Ht 163 cm (5' 4.17 ) Wt 64.4 kg (142 lb) SpO2 99% BMI 24.24 kg/m APPEARANCE Well appearing, alert, in no acute distress, well-hydrated HEART RRR with normal S1 and S2, no murmurs LUNG clear to auscultation LYMPH NODES No cervical lymphadenopathy, No supraclavicular lymphadenopathy, and No axillary lymphadenopathy. ABDOMEN bowel sounds normoactive, soft, non-tender EXTREMITIES No edema NEURO Awake, alert and oriented x 3, Normal gait, and No involuntary motions. SKIN Skin color, texture, turgor normal, no suspicious rashes or lesions LABS: Component Latest Ref Rng & Units 04/07/2022 07/07/2022 01/24/2023 WBC 3.70 - 11.00 k/uL 8.01 7.45 10.17 RBC 4.20 - 6.00 m/uL 3.56 (L) 3.62 (L) 3.55 (L) Hemoglobin 13.0 - 17.0 g/dL 10.4 (L) 10.5 (L) 9.6 (L) Hematocrit 39.0 - 51.0 % 32.6 (L) 33.6 (L) 29.9 (L) MCV 80.0 - 100.0 fL 91.6 92.8 84.2 MCH 26.0 - 34.0 pg 29.2 29.0 27.0 MCHC 30.5 - 36.0 g/dL 31.9 31.3 32.1 RDW-CV 11.5 - 15.0 % 17.8 (H) 16.9 (H) 17.8 (H) Platelet Count 150 - 400 k/uL 362 333 373 MPV 9.0 - 12.7 fL 8.9 (L) 8.9 (L) 8.4 (L) Neut% % 72.9 71.8 82.0 Abs Neut (ANC) 1.45 - 7.50 k/uL 5.84 5.35 8.34 (H) Lymph% % 13.5 11.5 9.2 Abs Lymph 1.00 - 4.00 k/uL 1.08 0.86 (L) 0.94 (L) [place]% % 6.6 7.8 5.6 Abs [place] <0.87 k/uL 0.53 0.58 0.57 Eosin% % 5.9 8.1 2.1 Abs Eosin <0.46 k/uL 0.47 (H) 0.60 (H) 0.21 Baso% % 0.7 0.4 0.4 Abs Baso <0.11 k/uL 0.06 0.03 0.04 Immature Gran % % 0.4 0.4 0.7 IMMATURE GRANS (ABS) <0.10 k/uL 0.03 0.03 0.07 NRBC /100 WBC 0.0 0.0 0.0 Absolute nRBC <0.01 k/uL <0.01 <0.01 <0.01 DTYPE Auto Auto Auto CMP/PSA: Pending ASSESSMENT/PLAN: 1. Malignant neoplasm of prostate (HCC) - ICD9: 185, ICD10: C61 (primary diagnosis) 2. 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) - ICD9: 185, 198.5, ICD10: C61, C79.[address] Lan's previous note 07/07/22: Metastatic prostate cancer (castrate sensitive disease) with extensive bone metastasis. -His PSA level has came down even after he stopped enzalutamide -Sclerotic bone lesions on imaging. No other evidence of metastatic disease. Plan: - Resume Zometa every 6 months - Repeat CBC, CMP, PSA and OV in 6 months - Restart Enzulutamide if his PSA increases in the future for progression of bone metastases - Follow-up with Dr. Alcocer for removal ureteral stent in 6 months - No concerning findings on exam. - Tolerated enzullutamide well previously. - Current holding enzulutamide pending PSA-will restart if PSA increases. - Reviewed CBC with pt. - CMP/PSA pending. - Monitor PSA. - PSA every 3 months. - Needs follow up with Dr. Alcocer at [facility] for poss. stent removal. - Proceed with zometa pending CMP today and continue every 6 months with BMP. - Follow up with Dr. Seals in 6 months with CBC/CMP/PSA. - Pt. aware to call office with any questions/concerns. The patient indicates understanding of these issues and agrees with the plan. All documentation from previous visit of 07/07/22-Dr. Lan was copied and pasted, documentation has been reviewed and edited as necessary for today's visit. Jenise Bolton APRN.WINDOWS SERVER SUPPORT TECHNICIAN documented in this encounter [facility] 07-30-2022 Miscellaneous Notes Zometa scheduled 6MO OV Referral for [place] is approved and will need scheduled when pt is in for treatment Zometa referral approved 1st attempt: Called and spoke with Wilder. Wilder took the message and said he would have Rosalba Ibrahim call back. When pt returns call please Schedule pat for 1 HR treatment using approved [place] referral. Notes should read : Q6MO ZOMETA/SELF PAY EXP 10/05/22* Referral placed for 6MO Ov pending approval. Once approved pt will need labs and OV scheduled as well. Thank You! Still pending. Email sent to [facility] / [facility] PSS Cc'd. Marcella Key Still pending on 07/13 AVS 07/07/2022 ( waiting for referral for zometa to be authorized [employer] self pay) Return in about 6 months (around 01/05/2023). Resume Zometa 4 mg IV every 6 months (Next week) - patient assistance CBC, CMP, PSA OV in 6 months documented in this encounter [facility] 07-07-2022 History of Presen t illness Narrative PATIENT NAME: Rosalba Ibrahim. CLINIC NO: [id number]. ATTENDING PHYSICIAN: Rena Lan MD. DATE OF SERVICE: 07/07/2022 DIAGNOSIS: Metastatic prostate cancer with extensive skeletal metastasis; - status post bilateral orchiectomy; 2) Anemia of chronic disease HPI: This is a 71 year old male with a PMH of depression and prostate cancer (s/p prostatectomy in 2014 with recurrence metastatic disease in 2016) who presents with generalized weakness and fatigue since Jul 2018 which has rapidly increased over the last week. He additionally reports lower back pain and hip pain (L > R). 3 days ago, He had an episode of 10/10 LLE pain from his L hip which radiated to his L knee. Currently his pain is 2/10. He is also reporting weight loss of ~20 lb in the last several months. He still have bilateral shoulder pain, BLE weakness, and CAMARGO. Normally, he has urinary incontinence but last week had two days of urinary retention which was followed by passing red clots in the urine. he has baseline mild constipation but he denies urinary or bowel incontinence. He has dark stools occasionally but he believes this is because he takes an OTC iron pill. As far as his prostate cancer, he states he had a prostatectomy in 2014 in [place], and he was told he has no prostate cancer left. He took chemotherapy pills for about 1 year sometime between 2015 and 2016. He was unaware if the cancer has spread to his bones. In ED, he was afebrile with tenderness around the lumbosacral region and a R testicular mass. Workup was significant for WBC 12.41, hgb 8.9, hct 29.0, plt 571, alk phos 419, FOBT negative, UA with only 3-5 RBC. CXR was significant for an incidental nodular density likely representing chronic change. CT brain was unremarkable. CT AP showed 2.5 cm ill-defined soft tissue in the pelvis which may correlate with residual/recurrent prostate cancer, diffuse osseous sclerosis involving the bony pelvis with lytic changes in the L acetabulum, enlarged iliac chain and RP LNs, and a soft tissue filling defect in the distal R ureter suspicious for underlying urothelial neoplasm resulting in upstream R hydroureteronephrosis. CT lumbar spine showed diffuse abnormal bone density in the sacrum and ilium. He had bilateral orchiectomy for the treatment of metastatic prostate cancer in August 2019. He also had a right ureteral stent placement for hydronephrosis since his last visit. Treatment history: LHRH and Casodex & hydrocortisone (d/c February 19, 2020) Bilateral orchiectomy July 26, 2019 -Enzulutamide 120mg daily (07/2020- 05/2021) Interim history: He was lost to follow-up since 2020. He stopped enzalutamide in the fall 2020 when medication ran out. He denies hot flashes or gynecomastia. He has no back pain and hip pain also improved since last visit. He has mild fatigue from anemia, but no chest pain, cough or shortness of breath. His weight and appetite have improved. Patient has no difficulty with urination, flank pain or hematuria. His stent was changed by urology last month. In May he was admitted to the hospital for pneumonia and CT scan of chest abdomen pelvis showed sclerotic bone lesion but no other evidence of metastatic disease. He also has no jaw pain, he stopped Zometa over a year ago. All medications & allergies updated and reviewed by me. REVIEW OF SYSTEMS: CONSTITUTIONAL: No fevers, chills, nightsweats, unintended weight loss HEENT: Denies frequent or severe heaches, nasal congestion/sinus symptoms, problematic allergy problems. EYES: No diplopia or blurry vision. CARDIOVASCULAR: No chest pain, dyspnea, palpitations, orthopnea, PND, ankle edema. PULM: No dyspnea, unexplained cough. GI: No dysphagia/odynophagia, problematic reflux, constipation, diarrhea, changes in stool habits, hematochezia, melena. : No new urinary complaints, including dysuria, gross hematuria or pyuria. NEURO: No new balance problems, peripheral weakness/paresthesias or numbness of concern. MUSC-SKEL: No new joint pain, swelling, or erythema. PSY: No concerns regarding depression, anxiety or panic. INTEGUMENTARY: No new skin changes (rash, new or changing mole, new growth) PHYSICAL EXAMINATION: Elderly thin Jehov[employer] gentleman in no acute distress, alert and orientated x3 Performance status 90% BP 105/63 Pulse 74 Temp 97.8 Resp 14 Wt 138 lb (62.6kg) SpO2 99% HEENT: Head is normocephalic, atraumatic. Sclerae white, conjunctivae pink. PEERL. EOMs are intact. Oropharynx is benign. LYMPHATICS: There is no palpable adenopathy in the neck, supraclavicular region, axillae, or groin. LUNGS: Lungs are clear to percussion and auscultation. HEART: Heart is normal without murmurs, gallops, or rubs. ABDOMEN: Soft and nontender without organomegaly. No masses can be palpated. BACK Lordosis. Loss of height no tenderness or palpable deformity. EXTREMITIES: Are no edema Genital exam: Bilateral orchiectomy; . NEUROLOGIC: Exam is physiologic LABORATORY DATA: Component Latest Ref Rng & Units 07/07/2022 WBC 3.70 - 11.00 k/uL 7.45 RBC 4.20 - 6.00 m/uL 3.62 (L) Hemoglobin 13.0 - 17.0 g/dL 10.5 (L) Hematocrit 39.0 - 51.0 % 33.6 (L) MCV 80.0 - 100.0 fL 92.8 MCH 26.0 - 34.0 pg 29.0 MCHC 30.5 - 36.0 g/dL 31.3 RDW-CV 11.5 - 15.0 % 16.9 (H) Platelet Count 150 - 400 k/uL 333 MPV 9.0 - 12.7 fL 8.9 (L) Neut% % 71.8 Abs Neut (ANC) 1.45 - 7.50 k/uL 5.35 Lymph% % 11.5 Abs Lymph 1.00 - 4.00 k/uL 0.86 (L) [place]% % 7.8 Abs [place] <0.87 k/uL 0.58 Eosin% % 8.1 Abs Eosin <0.46 k/uL 0.60 (H) Baso% % 0.4 Abs Baso <0.11 k/uL 0.03 Immature Gran % % 0.4 IMMATURE GRANS (ABS) <0.10 k/uL 0.03 NRBC /100 WBC 0.0 Absolute nRBC <0.01 k/uL <0.01 DTYPE Auto Component Latest Ref Rng & Units 07/07/2022 Protein, Total 6.3 - 8.0 g/dL 7.6 Albumin 3.9 - 4.9 g/dL 3.5 (L) Calcium 8.5 - 10.2 mg/dL 8.9 Bilirubin, Total 0.2 - 1.3 mg/dL 0.2 Alkaline Phosphatase 38 - 113 U/L 72 AST 14 - 40 U/L 12 (L) ALT 10 - 54 U/L 7 (L) Glucose 74 - 99 mg/dL 104 (H) BUN 9 - 24 mg/dL 20 Creatinine 0.73 - 1.22 mg/dL 0.99 Sodium 136 - 144 mmol/L 135 (L) Potassium 3.7 - 5.1 mmol/L 4.5 Chloride 97 - 105 mmol/L 101 CO2 22 - 30 mmol/L 23 Anion Gap 9 - 18 mmol/L 11 eGFR >=60 mL/min/1.73m 82 LD 135 - 225 U/L 178 Component Latest Ref Rng & Units 08/28/2020 04/07/2022 PSA <2.60 ng/mL 0.14 0.08 ASSESSMENT/PLAN: 71-year-old gentleman with 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 -His PSA level has came down even after he stopped enzalutamide -Sclerotic bone lesions on imaging. No other evidence of metastatic disease. Plan: - Resume Zometa every 6 months - Repeat CBC, CMP, PSA and OV in 6 months - Restart Enzulutamide if his PSA increases in the future for progression of bone metastases - Follow-up with Dr. Alcocer for removal ureteral stent in 6 months 2) anemia of chronic disease secondary to metastatic prostate cancer; stable and asymptomatic. Plan: -Continue to monitor CBC -Continue multivitamins and vitamin D supplement Portions of this documentation were copied and pasted from previous office visit notes in order to provide a cohesive continuity of the history. The note has been reviewed and edited and updated as necessary. Rena Lan MD Cc: Dr. Ryan Alcocer documented in this encounter [facility] 06-15-2022 History of Presen t illness Narrative s documented in this encounter [facility] 06-03-2022 History of Presen t illness Narrative [facility] MALE PATIENT - HISTORY AND PHYSICAL EXAMINATION PATIENT: Rosalba Ibrahim (71 year old) PCP: Glenn Ibrahim CHIEF COMPLAINT: follow up HISTORY OF PRESENT ILLNESS: Rosalba J Ibrahim is a 71 year old male with hx of metastatic prostate cancer c/b right hydronephrosis managed with chronic indwelling JJ ureteral stent who presents for evaluation. He is s/p cystoscopy and right ureteral stent exchange on 07/15/2021. He was lost to follow up. Seen by Hem/Onc last month whom he follows with for prostate cancer. He was instructed to follow up with Dr. Alcocer for stent management. Hospitalized last month locally with pneumonia. He states prior to this hospitalization he was having dysuria and clot hematuria. This resolved after he was treated with antibiotics for pneumonia. Finished PO antibiotics earlier this week. No bothersome urinary symptoms at presents. No flank pain. URINARY: CURRENT URINARY STATUS: - INDWELLING CATHETER: No - CURRENT INTERMITTENT CATHETERIZATION: No - GROSS HEMATURIA: No; see HPI - URINARY TRACT INFECTION: No REVIEW OF SYSTEMS GENERAL:No weight loss, malaise or fevers., SEE HPI GENITOURINARY: No history of dysuria, frequency or incontinence; see HPI The remainder of the ROS was negative. HISTORY: PAST MEDICAL HISTORY Diagnosis Date Bone metastases (HCC) 08/08/2019 Hydronephrosis Injury, other and unspecified, other specified sites, including multiple FRACTURED RIBS Prostate cancer (HCC) PAST SURGICAL HISTORY Procedure Laterality Date ORCHIECTOMY SIMPLE SCROTAL/INGUINAL APPROACH Bilateral 07/2019 Orchiectomy PAST SURGICAL HISTORY OF Right ankle PROSTATECTOMY;RADICAL RETROPUBIC 2014 Social History Tobacco Use Smoking status: Never Smokeless tobacco: Never Vaping Use Vaping Use: Never used Substance Use Topics Alcohol use: Never Drug use: Never FAMILY HISTORY Problem Relation Age of Onset Leukemia Father Leukemia Grandchild other (Bone cancer) Grandchild Heart Paternal Grandfather MEDICATIONS: Current Outpatient Medications Medication Sig enzalutamide 40 mg Take 4 capsules by mouth once daily. FLUoxetine (PROZAC) 20 mg capsule Take 1 capsule by mouth once daily. No current facility-administered medications for this visit. PHYSICAL EXAMINATION: VITALS: There were no vitals taken for this visit. GENERAL: alert, no distress, normal affect EYES: no icterus, no discharge, conjugate gaze CARDIOVASCULAR: regular rate, regular rhythm, good radial pulse RESPIRATORY: normal effort, regular rate, no audible wheeze ABDOMEN: non obese, soft, non-tender, non-distended GENITOURINARY: no flank tenderness EXTREMITIES: warm, no dependent edema, no malformations SKIN: no abnormal bruising, no rashes, no cyanosis NEUROLOGIC: normal gait, good manual dexterity, no paralysis Clotilde White APRN.WINDOWS SERVER SUPPORT TECHNICIAN ======= UROLOGY ATTENDING ATTESTATION: The patient was personally seen and evaluated. The BARREL DEDENTING MACHINE OPERATOR's history, physical examination, assessment, and plan of management were reviewed. I repeated the significant and relevant portions of the examination and formulated the final plan for management. OFFICE DATA: URINALYSIS: 2+ Hgb, 1+ protein, nitrite neg, 250 LE, >25 WBC, >25 RBC OTHER DATA: Creatinine Date Value Ref Range Status 04/07/2022 0.88 0.73 - 1.22 mg/dL Final 02/06/2021 1.03 0.73 - 1.22 mg/dL Final 10/27/2020 1.07 0.73 - 1.22 mg/dL Final 08/28/2020 1.01 0.73 - 1.22 mg/dL Final PSA (ng/mL) Date Value 04/07/2022 0.08 08/28/2020 0.14 06/05/2020 13.15 04/01/2020 6.93 02/19/2020 4.13 ASSESSMENT: Diagnosis: metastatic prostate cancer, right hydronephrosis - Acuity: Chronic - Severity: Severe - Site and Laterality: multiple sites - Primary of Secondary To: n/a - Associations: none VISIT DIAGNOSES: ASSESSMENT/PLAN: 1. Hydronephrosis, unspecified hydronephrosis type - ICD9: 591, ICD10: N13.30 (primary diagnosis) - URINE CULTURE 2. Prostate cancer 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) - ICD9: 185, 198.5, ICD10: C61, C79.51 PLAN: To OR for cysto, right stent exchange. Plan OR 06/16 Try to obtain outside CT from [facility] Urine culture Dustin Alcocer MD Associate Staff Department of Urology [facility] [place] [facility] Medical Decision Making: Problems: Low: Stable chronic illness Risk: High: High risk from testing/treatment Medical Decision Making Level: 3 - Low documented in this encounter [facility] 05-07-2022 Miscellaneous Notes Patient called and scheduled w/ Dr. Alcocer and Dr. Lan. Marcella Key Unable to reach by phone letter sent to patient. Per 04/08/22 Phone Note, on 04/20/22 - spoke with neighbor (home number is neighbor's number). Neighbor states they are no longer transporting patient, but would give them message to the patient to call us back to schedule and update the contact phone number. When patient calls, please schedule with Dr. Alcocer at [facility] as well as what is needed listed below. Marcella Key Contacted phone number on pts. Registration, the gentleman stated they do not transport or take care of Rosalba anymore. Has no idea of any other numbers to contact pt..Information mailed to pt. Xtandi also sent to wrong pharmacy. Old order removed, new order placed with correct pharmacy. Sarah Beth Edward LPN Self-pay referral entered. Patient will be contacted to be scheduled with Dr. Lan in 3 months per request below once approved. Document and close once scheduled and notified. Discussed case with Dr. Tsai. Pt. to restart Xtandi. Rx sent. OV with Dr. Lan in 3 months with CBC/CMP/PSA. He needs dental clearance and vit d level checked to start zometa monthly. Thank you. Jenise Bolton APRN.WINDOWS SERVER SUPPORT TECHNICIAN documented in this encounter [facility] 04-22-2022 Miscellaneous Notes See 04/13/22 Phone Note. (Combined this note with that one.) Marcella Key 2nd attempt - spoke with neighbor (home number is neighbor's number). Neighbor states they are no longer transporting patient, but would give them message to the patient to call us back to schedule and update the contact phone number. Marcella Key LM for patient to return call. When patient returns call, please schedule patient with a follow up with Dr. Alcocer in [facility] using the authorized referral. Once scheduled, document and close this note. Marcella Key documented in this encounter [facility] 04-07-2022 History of Presen t illness Narrative Chief Complaint Patient presents with: Established Patient HPI: Rosalba Ibrahim is a 71 year old male who presents here today for follow up prostate cancer. Per Dr. Lan's previous note: H/o depression and prostate cancer (s/p prostatectomy in 2015 with recurrence metastatic disease in 2017) who presents with generalized weakness and fatigue since Jul 2018 which has rapidly increased over the last week. He additionally reports lower back pain and hip pain (L > R). 3 days ago, He had an episode of 10/10 LLE pain from his L hip which radiated to his L knee. Currently his pain is 2/10. He is also reporting weight loss of ~20 lb in the last several months. He still have bilateral shoulder pain, BLE weakness, and CAMARGO. Normally, he has urinary incontinence but last week had two days of urinary retention which was followed by passing red clots in the urine. he has baseline mild constipation but he denies urinary or bowel incontinence. He has dark stools occasionally but he believes this is because he takes an OTC iron pill. As far as his prostate cancer, he states he had a prostatectomy in 2015 in [place], and he was told he has no prostate cancer left. He took chemotherapy pills for about 1 year sometime between 2015 and 2016. He was unaware if the cancer has spread to his bones. In ED, he was afebrile with tenderness around the lumbosacral region and a R testicular mass. Workup was significant for WBC 12.41, hgb 8.9, hct 29.0, plt 571, alk phos 419, FOBT negative, UA with only 3-5 RBC. CXR was significant for an incidental nodular density likely representing chronic change. CT brain was unremarkable. CT AP showed 2.5 cm ill-defined soft tissue in the pelvis which may correlate with residual/recurrent prostate cancer, diffuse osseous sclerosis involving the bony pelvis with lytic changes in the L acetabulum, enlarged iliac chain and RP LNs, and a soft tissue filling defect in the distal R ureter suspicious for underlying urothelial neoplasm resulting in upstream R hydroureteronephrosis. CT lumbar spine showed diffuse abnormal bone density in the sacrum and ilium. He had bilateral orchiectomy for the treatment of metastatic prostate cancer in August 2019. He also had a right ureteral stent placement for hydronephrosis since his last visit. Treatment history: LHRH and Casodex & hydrocortisone (d/c February 19, 2020) Bilateral orchiectomy July 26, 2019 Current treatment: Enzulutamide 120mg daily Pt. last seen by Dr. Lan 2020. Pt. stopped taking xtandi in 2020-he thinks. I have a stent. I haven't seen anyone about that. Appetite: Too good. Energy level: I could have a little more of that. I guess you could say fair. Denies fevers. Resp:denies cough or sob Cardiac:denies chest pain/palpitations GI:denies abd pain, n/v, moving bowels regularly :denies dysuria/hematuria Extrem:denies pain Neuro:denies symptoms of neuropathy Skin:denies rashes Heme:denies bleeding The ROS is otherwise negative. Past medical history, appointments, medications, allergies reviewed. No changes. EXAM: BP 105/64 Pulse 70 Temp 36.8 C (98.2 F) Wt 64.2 kg (141 lb 8 oz) SpO2 98% BMI 24.29 kg/m APPEARANCE Well appearing, alert, in no acute distress, well-hydrated, well nourished. HEART RRR with normal S1 and S2, no murmurs LUNG clear to auscultation LYMPH NODES No cervical lymphadenopathy, No supraclavicular lymphadenopathy, and No axillary lymphadenopathy. ABDOMEN bowel sounds normoactive, soft, non-tender, non-distended, without organomegaly or palpable masses, no tenderness to palpation EXTREMITIES No edema NEURO Awake, alert and oriented x 3, Normal gait, and No involuntary motions. SKIN Skin color, texture, turgor normal, no suspicious rashes or lesions LABS: Component Latest Ref Rng & Units 08/28/2020 10/27/2020 02/06/2021 04/07/2022 WBC 3.70 - 11.00 k/uL 5.45 6.24 5.61 8.01 RBC 4.20 - 6.00 m/uL 3.50 (L) 3.77 (L) 3.34 (L) 3.56 (L) Hemoglobin 13.0 - 17.0 g/dL 11.1 (L) 11.9 (L) 11.3 (L) 10.4 (L) Hematocrit 39.0 - 51.0 % 33.4 (L) 38.1 (L) 33.8 (L) 32.6 (L) MCV 80.0 - 100.0 fL 95.4 101.1 (H) 101.2 (H) 91.6 MCH 26.0 - 34.0 pg 31.7 31.6 33.8 29.2 MCHC 30.5 - 36.0 g/dL 33.2 31.2 33.4 31.9 RDW-CV 11.5 - 15.0 % 17.4 (H) 14.6 13.2 17.8 (H) Platelet Count 150 - 400 k/uL 380 363 357 362 MPV 9.0 - 12.7 fL 8.6 (L) 9.4 9.3 8.9 (L) Neut% % 53.9 60.3 60.7 72.9 Abs Neut (ANC) 1.45 - 7.50 k/uL 2.92 3.75 3.39 5.84 Lymph% % 23.7 22.9 21.0 13.5 Abs Lymph 1.00 - 4.00 k/uL 1.29 1.43 1.18 1.08 [place]% % 10.1 8.7 9.6 6.6 Abs [place] <0.87 k/uL 0.55 0.54 0.54 0.53 Eosin% % 11.7 7.5 8.0 5.9 Abs Eosin <0.46 k/uL 0.64 (H) 0.47 (H) 0.45 0.47 (H) Baso% % 0.6 0.6 0.7 0.7 Abs Baso <0.11 k/uL 0.03 0.04 0.04 0.06 Immature Gran % % 0.4 IMMATURE GRANS (ABS) <0.10 k/uL 0.03 NRBC /100 WBC 0.0 Absolute nRBC <0.01 k/uL <0.01 <0.01 <0.01 <0.01 DTYPE Auto Nucleated Reds 0 /100 WBC 0.0 0.0 0.0 Diff Type Auto Diff Auto Diff Auto Diff CMP/PSA/LD: Pending RADIOLOGY: Bone scan 04/01/22: IMPRESSION: RELATIVELY STABLE BONE SCAN APPEARANCE SINCE 09/11/2020, WITH SCINTIGRAPHIC EVIDENCE FOR OSSEOUS METASTATIC DISEASE. DEGENERATIVE CHANGES, NOTED. ASSESSMENT/PLAN: 1. Malignant neoplasm of prostate (HCC) - ICD9: 185, ICD10: C61 (primary diagnosis) 2. Bone metastases (HCC) - ICD9: 198.5, ICD10: C79.51 - No concerning findings on exam. - Pt. last seen 2020. He is unsure when he stopped casodex/xtandi. - Reviewed bone scan/CBC with pt. - CMP/PSA/LD pending. - Needs appt. with Dr. Alcocer-Urology @ [facility]-stent follow up. - Follow up pending labs/discuss plan with Dr. Tsai. - Pt. aware to call office with any questions/concerns. The patient indicates understanding of these issues and agrees with the plan. All documentation from previous visit of 08/28/20-Dr. Lan was copied and pasted, documentation has been reviewed and edited as necessary for today's visit. Jenise Bolton APRN.CNP documented in this encounter [facility] 04-01-2022 History of Presen t illness Narrative RADIOLOGY SERVICE PROGRESS NOTE SERVICE DATE: 04/01/2022 SERVICE TIME: 07:35 AM PATIENT IDENTITY VERIFICATION COMPLETED USING TWO (2) STANDARD IDENTIFIERS: Name and Date of confirmed by patient verbally FALL SCREENING: Has the patient had 2 falls in the last year or 1 fall with injury or currently using an Ambulatory Assistive Device (Walker, Cane, Wheelchair, Crutches, etc.)? No PATIENT GENDER DATA: .male ALLERGIES: Reviewed and unchanged MEDICATIONS REVIEWED: No PATIENT RELEVANT IMPLANT DATA REVIEWED: Not Applicable CREATININE: Creatinine Date Value Ref Range Status 02/06/2021 1.03 0.73 - 1.22 mg/dL Final 10/27/2020 1.07 0.73 - 1.22 mg/dL Final 08/28/2020 1.01 0.73 - 1.22 mg/dL Final eGFR-All Other Races Date Value Ref Range Status 02/06/2021 >60 . Final Comment: eGFR (Estimated GFR) Units of measure: mL/min/1.73 meters squared eGFR is derived from the reexpressed MDRD Study equation using the following parameters: serum creatinine, age, gender and race. The creatinine assay has been calibrated to be traceable to IDMS. An eGFR <60 mL/min/1.73m2 for >3 months is consistent with chronic kidney disease. Refer to KDOQI guidelines for clinical interpretation. In patients with unstable renal function, e.g. those with acute kidney injury, the eGFR may not accurately reflect actual GFR. eGFR- Date Value Ref Range Status 02/06/2021 >60 Final P.O.C.T. RESULTS: N/A April 01, [address] PERFORMED: No IV SITE: Ambulatory: NM only - direct IV injection in the Left antecubital site POST EXAM PIV STATUS: Discontinued PROCEDURE TYPE: NM INJECT: Whole Body Bone Scan. 22.1 mCi Tc99m MDP. No other medications given.. ADMINISTRATION TIME: 07:38 PATIENT DISCHARGED TO: Ambulatory patient, left NM department area. A Diagnostic radioactive procedure has taken place, with no further precautions necessary other than routine body substance precautions. More information regarding radiation safety can be found using this link: [email or web address] SIGNATURE: ANKITA Sanchez PATIENT NAME: Rosalba Ibrahim DATE: April 01, 2022 TIME: 07:40 AM PAGER/CONTACT #: documented in this encounter [facility] 03-25-2022 Miscellaneous Notes PT is scheduled. Images from the original note were not included. PER RX RESPONSE ENCOUNTER You Just now (2:33 PM) AT Referrals Approved 1st attempt: When PT calls back please assist in scheduling NM BONE WHOLE BODY/ OV with RIKY and Labs. DEPT: [facility] NOTE: C61 (ICD-10-CM) - Malignant neoplasm of prostate (HCC) C79.51 (ICD-10-CM) - Bone metastases (HCC) SCHEDULE LAB VISIT 30 MINS PRIOR TO OV/ SCHEDULE OV AT LEAST TWO DAYS AFTER NM BONE SCAN DEPT: [facility] APT: EST SIMPLE PROVIDER: LABS EARLY/ OV/ NM BONE (DATE OF SCAN)* NOTE: C61 (ICD-10-CM) - Malignant neoplasm of prostate (HCC) C79.51 (ICD-10-CM) - Bone metastases (HCC) Once done. Please document and done encounter. Thank you! Note Marcella Key 21 hours ago (4:51 PM) SB Patient is [employer] self-pay and needs to be financially cleared prior to scheduling. Self-pay referrals submitted. Marcella Key Note Sarah Beth Edward LPN routed conversation to [facility] 23 hours ago (3:11 PM) Rena Lan MD routed conversation to Sarah Beth Edward LPN; [facility] Pool Yesterday (2:27 PM) Rena Lan MD Yesterday (2:27 PM) Yes, he should have his labs. PSA and bone scan for follow-up visit next week? Rena Lan MD Note Sarah Beth Edward LPN routed conversation to Rena Lan MD Yesterday (2:13 PM) Sarah Beth Edward LPN Yesterday (2:13 PM) PD Dr. Lan did you want this pt. Scheduled for F/U Sarah Beth Edward LPN Note Rena Lan MD routed conversation to Mouna Randolph RN Yesterday (9:15 AM) Rena Lan MD Yesterday (9:15 AM) Patient's request for medication is as follows Requested Prescriptions Signed Prescriptions Disp Refills FLUoxetine (PROZAC) 20 mg capsule 90 capsule 1 Sig: Take 1 capsule by mouth once daily. Authorizing Provider: RENA LAN Order entered - please phone pharmacy and notify patient. Rena Lan MD Note documented in this encounter [facility] documented as of this encounter (statuses as of 03/25/2022) [facility]12-26-2019 History of Past illness Narrative* Problem Noted Date Resolved Date Hydronephrosis of right kidney 07/26/2019 1 Last Assessment & Plan: Concern for dislodged right ureteral stent c/b concern for urosepsis. HDS on exam today. -maldonado placed by urology team. Primary aware of sicu admission. -vancomycin and zosyn -FU admission labs -FU UCx, BCx x 1 Sepsis due to other etiology 07/26/2019 Overview: Concern for urosepsis. -NPO -labs, including Bcx and Urine cx -abx, zosyn Right upper quadrant abdominal pain 07/26/2019 07/29/2019 Last Assessment & Plan: -RUQ US to evaluate gallbladder as per urology's request documented as of this encounter (statuses as of 04/02/2022) [facility]12-[facility]-2019 History of Past illness Narrative* Problem Noted Date Resolved Date Hydronephrosis of right kidney 07/26/2019 1 Last Assessment & Plan: Concern for dislodged right ureteral stent c/b concern for urosepsis. HDS on exam today. -maldonado placed by urology team. Primary aware of sicu admission. -vancomycin and zosyn -FU admission labs -FU UCx, BCx x 1 Sepsis due to other etiology 07/26/2019 Overview: Concern for urosepsis. -NPO -labs, including Bcx and Urine cx -abx, zosyn Right upper quadrant abdominal pain 07/26/2019 07/29/2019 Last Assessment & Plan: -RUQ US to evaluate gallbladder as per urology's request documented as of this encounter (statuses as of 04/02/2022) [facility]12-[facility] History of Past illness Narrative* Problem Noted Date Resolved Date Hydronephrosis of right kidney 07/26/2019 1 Last Assessment & Plan: Concern for dislodged right ureteral stent c/b concern for urosepsis. HDS on exam today. -maldonado placed by urology team. Primary aware of sicu admission. -vancomycin and zosyn -FU admission labs -FU UCx, BCx x 1 Sepsis due to other etiology 07/26/2019 Overview: Concern for urosepsis. -NPO -labs, including Bcx and Urine cx -abx, zosyn Right upper quadrant abdominal pain 07/26/2019 07/29/2019 Last Assessment & Plan: -RUQ US to evaluate gallbladder as per urology's request documented as of this encounter (statuses as of 04/07/2022) [facility]12-[facility] History of Past illness Narrative* Problem Noted Date Resolved Date Hydronephrosis of right kidney 07/26/2019 1 Last Assessment & Plan: Concern for dislodged right ureteral stent c/b concern for urosepsis. HDS on exam today. -maldonado placed by urology team. Primary aware of sicu admission. -vancomycin and zosyn -FU admission labs -FU UCx, BCx x 1 Sepsis due to other etiology 07/26/2019 Overview: Concern for urosepsis. -NPO -labs, including Bcx and Urine cx -abx, zosyn Right upper quadrant abdominal pain 07/26/2019 07/29/2019 Last Assessment & Plan: -RUQ US to evaluate gallbladder as per urology's request documented as of this encounter (statuses as of 04/22/2022) [facility]12[facility] History of Past illness Narrative* Problem Noted Date Resolved Date Hydronephrosis of right kidney 07/26/2019 1 Last Assessment & Plan: Concern for dislodged right ureteral stent c/b concern for urosepsis. HDS on exam today. -maldonado placed by urology team. Primary aware of sicu admission. -vancomycin and zosyn -FU admission labs -FU UCx, BCx x 1 Sepsis due to other etiology 07/26/2019 Overview: Concern for urosepsis. -NPO -labs, including Bcx and Urine cx -abx, zosyn Right upper quadrant abdominal pain 07/26/2019 07/29/2019 Last Assessment & Plan: -RUQ US to evaluate gallbladder as per urology's request documented as of this encounter (statuses as of 05/07/2022) [facility]12[facility] History of Past illness Narrative* Problem Noted Date Resolved Date Hydronephrosis of right kidney 07/26/2019 1 Last Assessment & Plan: Concern for dislodged right ureteral stent c/b concern for urosepsis. HDS on exam today. -maldonado placed by urology team. Primary aware of sicu admission. -vancomycin and zosyn -FU admission labs -FU UCx, BCx x 1 Sepsis due to other etiology 07/26/2019 Overview: Concern for urosepsis. -NPO -labs, including Bcx and Urine cx -abx, zosyn Right upper quadrant abdominal pain 07/26/2019 07/29/2019 Last Assessment & Plan: -RUQ US to evaluate gallbladder as per urology's request documented as of this encounter (statuses as of 06/07/2022) [facility]12[facility] History of Past illness Narrative* Problem Noted Date Resolved Date Hydronephrosis of right kidney 07/26/2019 1 Last Assessment & Plan: Concern for dislodged right ureteral stent c/b concern for urosepsis. HDS on exam today. -maldonado placed by urology team. Primary aware of sicu admission. -vancomycin and zosyn -FU admission labs -FU UCx, BCx x 1 Sepsis due to other etiology 07/26/2019 Overview: Concern for urosepsis. -NPO -labs, including Bcx and Urine cx -abx, zosyn Right upper quadrant abdominal pain 07/26/2019 07/29/2019 Last Assessment & Plan: -RUQ US to evaluate gallbladder as per urology's request documented as of this encounter (statuses as of 06/15/2022) [facility]12[facility] History of Past illness Narrative* Problem Noted Date Resolved Date Hydronephrosis of right kidney 07/26/2019 1 Last Assessment & Plan: Concern for dislodged right ureteral stent c/b concern for urosepsis. HDS on exam today. -maldonado placed by urology team. Primary aware of sicu admission. -vancomycin and zosyn -FU admission labs -FU UCx, BCx x 1 Sepsis due to other etiology 07/26/2019 Overview: Concern for urosepsis. -NPO -labs, including Bcx and Urine cx -abx, zosyn Right upper quadrant abdominal pain 07/26/2019 07/29/2019 Last Assessment & Plan: -RUQ US to evaluate gallbladder as per urology's request documented as of this encounter (statuses as of 06/15/2022) [facility]12-[facility] History of Past illness Narrative* Problem Noted Date Resolved Date Hydronephrosis of right kidney 07/26/2019 1 Last Assessment & Plan: Concern for dislodged right ureteral stent c/b concern for urosepsis. HDS on exam today. -maldonado placed by urology team. Primary aware of sicu admission. -vancomycin and zosyn -FU admission labs -FU UCx, BCx x 1 Sepsis due to other etiology 07/26/2019 Overview: Concern for urosepsis. -NPO -labs, including Bcx and Urine cx -abx, zosyn Right upper quadrant abdominal pain 07/26/2019 07/29/2019 Last Assessment & Plan: -RUQ US to evaluate gallbladder as per urology's request documented as of this encounter (statuses as of 06/16/2022) [facility]12-[facility] History of Past illness Narrative* Problem Noted Date Resolved Date Hydronephrosis of right kidney 07/26/2019 1 Last Assessment & Plan: Concern for dislodged right ureteral stent c/b concern for urosepsis. HDS on exam today. -maldonado placed by urology team. Primary aware of sicu admission. -vancomycin and zosyn -FU admission labs -FU UCx, BCx x 1 Sepsis due to other etiology 07/26/2019 Overview: Concern for urosepsis. -NPO -labs, including Bcx and Urine cx -abx, zosyn Right upper quadrant abdominal pain 07/26/2019 07/29/2019 Last Assessment & Plan: -RUQ US to evaluate gallbladder as per urology's request documented as of this encounter (statuses as of 07/08/2022) [facility]12-[facility] History of Past illness Narrative* Problem Noted Date Resolved Date Hydronephrosis of right kidney 07/26/2019 1 Last Assessment & Plan: Concern for dislodged right ureteral stent c/b concern for urosepsis. HDS on exam today. -maldonado placed by urology team. Primary aware of sicu admission. -vancomycin and zosyn -FU admission labs -FU UCx, BCx x 1 Sepsis due to other etiology 07/26/2019 Overview: Concern for urosepsis. -NPO -labs, including Bcx and Urine cx -abx, zosyn Right upper quadrant abdominal pain 07/26/2019 07/29/2019 Last Assessment & Plan: -RUQ US to evaluate gallbladder as per urology's request documented as of this encounter (statuses as of 08/10/2022) [facility]12[facility] History of Past illness Narrative* Problem Noted Date Resolved Date Hydronephrosis of right kidney 07/26/2019 1 Last Assessment & Plan: Concern for dislodged right ureteral stent c/b concern for urosepsis. HDS on exam today. -maldonado placed by urology team. Primary aware of sicu admission. -vancomycin and zosyn -FU admission labs -FU UCx, BCx x 1 Sepsis due to other etiology 07/26/2019 Overview: Concern for urosepsis. -NPO -labs, including Bcx and Urine cx -abx, zosyn Right upper quadrant abdominal pain 07/26/2019 07/29/2019 Last Assessment & Plan: -RUQ US to evaluate gallbladder as per urology's request documented as of this encounter (statuses as of 08/17/2022) [facility]12[facility] History of Past illness Narrative* Problem Noted Date Resolved Date Hydronephrosis of right kidney 07/26/2019 1 Last Assessment & Plan: Concern for dislodged right ureteral stent c/b concern for urosepsis. HDS on exam today. -maldonado placed by urology team. Primary aware of sicu admission. -vancomycin and zosyn -FU admission labs -FU UCx, BCx x 1 Sepsis due to other etiology 07/26/2019 Overview: Concern for urosepsis. -NPO -labs, including Bcx and Urine cx -abx, zosyn Right upper quadrant abdominal pain 07/26/2019 07/29/2019 Last Assessment & Plan: -RUQ US to evaluate gallbladder as per urology's request documented as of this encounter (statuses as of 01/24/2023) [facility]12-[facility] History of Past illness Narrative* Problem Noted Date Resolved Date Hydronephrosis of right kidney 07/26/2019 1 Last Assessment & Plan: Concern for dislodged right ureteral stent c/b concern for urosepsis. HDS on exam today. -maldonado placed by urology team. Primary aware of sicu admission. -vancomycin and zosyn -FU admission labs -FU UCx, BCx x 1 Sepsis due to other etiology 07/26/2019 Overview: Concern for urosepsis. -NPO -labs, including Bcx and Urine cx -abx, zosyn Right upper quadrant abdominal pain 07/26/2019 07/29/2019 Last Assessment & Plan: -RUQ US to evaluate gallbladder as per urology's request documented as of this encounter (statuses as of 01/26/2023) [facility]12[facility] History of Past illness Narrative* Problem Noted Date Resolved Date Hydronephrosis of right kidney 07/26/2019 1 Last Assessment & Plan: Concern for dislodged right ureteral stent c/b concern for urosepsis. HDS on exam today. -maldonado placed by urology team. Primary aware of sicu admission. -vancomycin and zosyn -FU admission labs -FU UCx, BCx x 1 Sepsis due to other etiology 07/26/2019 Overview: Concern for urosepsis. -NPO -labs, including Bcx and Urine cx -abx, zosyn Right upper quadrant abdominal pain 07/26/2019 07/29/2019 Last Assessment & Plan: -RUQ US to evaluate gallbladder as per urology's request documented as of this encounter (statuses as of 02/03/2023) [facility]12[facility] History of Past illness Narrative* Problem Noted Date Diagnosed Date Resolved Date Hydronephrosis of right kidney 07/26/2019 07/29/2019 Last Assessment & Plan: Concern for dislodged right ureteral stent c/b concern for urosepsis. HDS on exam today. -maldonado placed by urology team. Primary aware of sicu admission. -vancomycin and zosyn -FU admission labs -FU UCx, BCx x 1 Sepsis due to other etiology 07/26/2019 07/29/2019 Overview: Concern for urosepsis. -NPO -labs, including Bcx and Urine cx -abx, zosyn Right upper quadrant abdominal pain 07/26/2019 07/29/2019 Last Assessment & Plan: -RUQ US to evaluate gallbladder as per urology's request documented as of this encounter (statuses as of 02/11/2023) [facility] History of Past illness Narrative* Problem Noted Date Diagnosed Date Resolved Date Hydronephrosis of right kidney 07/26/2019 07/29/2019 Last Assessment & Plan: Concern for dislodged right ureteral stent c/b concern for urosepsis. HDS on exam today. -maldonado placed by urology team. Primary aware of sicu admission. -vancomycin and zosyn -FU admission labs -FU UCx, BCx x 1 Sepsis due to other etiology 07/26/2019 07/29/2019 Overview: Concern for urosepsis. -NPO -labs, including Bcx and Urine cx -abx, zosyn Right upper quadrant abdominal pain 07/26/2019 07/29/2019 Last Assessment & Plan: -RUQ US to evaluate gallbladder as per urology's request documented as of this encounter (statuses as of 03/02/2023) [facility]12[facility] History of Past illness Narrative* Problem Noted Date Diagnosed Date Resolved Date Hydronephrosis of right kidney 07/26/2019 07/29/2019 Last Assessment & Plan: Concern for dislodged right ureteral stent c/b concern for urosepsis. HDS on exam today. -maldonado placed by urology team. Primary aware of sicu admission. -vancomycin and zosyn -FU admission labs -FU UCx, BCx x 1 Sepsis due to other etiology 07/26/2019 07/29/2019 Overview: Concern for urosepsis. -NPO -labs, including Bcx and Urine cx -abx, zosyn Right upper quadrant abdominal pain 07/26/2019 07/29/2019 Last Assessment & Plan: -RUQ US to evaluate gallbladder as per urology's request documented as of this encounter (statuses as of 03/04/2023) [facility]12[facility] History of Past illness Narrative* Problem Noted Date Diagnosed Date Resolved Date Hydronephrosis of right kidney 07/26/2019 07/29/2019 Last Assessment & Plan: Concern for dislodged right ureteral stent c/b concern for urosepsis. HDS on exam today. -maldonado placed by urology team. Primary aware of sicu admission. -vancomycin and zosyn -FU admission labs -FU UCx, BCx x 1 Sepsis due to other etiology 07/26/2019 07/29/2019 Overview: Concern for urosepsis. -NPO -labs, including Bcx and Urine cx -abx, zosyn Right upper quadrant abdominal pain 07/26/2019 07/29/2019 Last Assessment & Plan: -RUQ US to evaluate gallbladder as per urology's request documented as of this encounter (statuses as of 03/15/2023) [facility]12[facility] History of Past illness Narrative* Problem Noted Date Diagnosed Date Resolved Date Hydronephrosis of right kidney 07/26/2019 07/29/2019 Last Assessment & Plan: Concern for dislodged right ureteral stent c/b concern for urosepsis. HDS on exam today. -maldonado placed by urology team. Primary aware of sicu admission. -vancomycin and zosyn -FU admission labs -FU UCx, BCx x 1 Sepsis due to other etiology 07/26/2019 07/29/2019 Overview: Concern for urosepsis. -NPO -labs, including Bcx and Urine cx -abx, zosyn Right upper quadrant abdominal pain 07/26/2019 07/29/2019 Last Assessment & Plan: -RUQ US to evaluate gallbladder as per urology's request documented as of this encounter (statuses as of 03/21/2023) [facility]12[facility] History of Past illness Narrative* Problem Noted Date Diagnosed Date Resolved Date Hydronephrosis of right kidney 07/26/2019 07/29/2019 Last Assessment & Plan: Concern for dislodged right ureteral stent c/b concern for urosepsis. HDS on exam today. -maldonado placed by urology team. Primary aware of sicu admission. -vancomycin and zosyn -FU admission labs -FU UCx, BCx x 1 Sepsis due to other etiology 07/26/2019 07/29/2019 Overview: Concern for urosepsis. -NPO -labs, including Bcx and Urine cx -abx, zosyn Right upper quadrant abdominal pain 07/26/2019 07/29/2019 Last Assessment & Plan: -RUQ US to evaluate gallbladder as per urology's request documented as of this encounter (statuses as of 03/31/2023) [facility]12[facility] History of Past illness Narrative* Problem Noted Date Diagnosed Date Resolved Date Hydronephrosis of right kidney 07/26/2019 07/29/2019 Last Assessment & Plan: Concern for dislodged right ureteral stent c/b concern for urosepsis. HDS on exam today. -maldonado placed by urology team. Primary aware of sicu admission. -vancomycin and zosyn -FU admission labs -FU UCx, BCx x 1 Sepsis due to other etiology 07/26/2019 07/29/2019 Overview: Concern for urosepsis. -NPO -labs, including Bcx and Urine cx -abx, zosyn Right upper quadrant abdominal pain 07/26/2019 07/29/2019 Last Assessment & Plan: -RUQ US to evaluate gallbladder as per urology's request documented as of this encounter (statuses as of 04/01/2023) [facility] History of Past illness Narrative* Problem Noted Date Diagnosed Date Resolved Date Hydronephrosis of right kidney 07/26/2019 07/29/2019 Last Assessment & Plan: Concern for dislodged right ureteral stent c/b concern for urosepsis. HDS on exam today. -maldonado placed by urology team. Primary aware of sicu admission. -vancomycin and zosyn -FU admission labs -FU UCx, BCx x 1 Sepsis due to other etiology 07/26/2019 07/29/2019 Overview: Concern for urosepsis. -NPO -labs, including Bcx and Urine cx -abx, zosyn Right upper quadrant abdominal pain 07/26/2019 07/29/2019 Last Assessment & Plan: -RUQ US to evaluate gallbladder as per urology's request documented as of this encounter (statuses as of 04/06/2023) [facility] History of Past illness Narrative* Problem Noted Date Diagnosed Date Resolved Date Hydronephrosis of right kidney 07/26/2019 07/29/2019 Last Assessment & Plan: Concern for dislodged right ureteral stent c/b concern for urosepsis. HDS on exam today. -maldonado placed by urology team. Primary aware of sicu admission. -vancomycin and zosyn -FU admission labs -FU UCx, BCx x 1 Sepsis due to other etiology 07/26/2019 07/29/2019 Overview: Concern for urosepsis. -NPO -labs, including Bcx and Urine cx -abx, zosyn Right upper quadrant abdominal pain 07/26/2019 07/29/2019 Last Assessment & Plan: -RUQ US to evaluate gallbladder as per urology's request documented as of this encounter (statuses as of 04/07/2023) [facility] History of Past illness Narrative* Problem Noted Date Diagnosed Date Resolved Date Hydronephrosis of right kidney 07/26/2019 07/29/2019 Last Assessment & Plan: Concern for dislodged right ureteral stent c/b concern for urosepsis. HDS on exam today. -maldonado placed by urology team. Primary aware of sicu admission. -vancomycin and zosyn -FU admission labs -FU UCx, BCx x 1 Sepsis due to other etiology 07/26/2019 07/29/2019 Overview: Concern for urosepsis. -NPO -labs, including Bcx and Urine cx -abx, zosyn Right upper quadrant abdominal pain 07/26/2019 07/29/2019 Last Assessment & Plan: -RUQ US to evaluate gallbladder as per urology's request documented as of this encounter (statuses as of 04/07/2023) [facility] History of Past illness Narrative* Problem Noted Date Diagnosed Date Resolved Date Hydronephrosis of right kidney 07/26/2019 07/29/2019 Last Assessment & Plan: Concern for dislodged right ureteral stent c/b concern for urosepsis. HDS on exam today. -maldonado placed by urology team. Primary aware of sicu admission. -vancomycin and zosyn -FU admission labs -FU UCx, BCx x 1 Sepsis due to other etiology 07/26/2019 07/29/2019 Overview: Concern for urosepsis. -NPO -labs, including Bcx and Urine cx -abx, zosyn Right upper quadrant abdominal pain 07/26/2019 07/29/2019 Last Assessment & Plan: -RUQ US to evaluate gallbladder as per urology's request documented as of this encounter (statuses as of 04/09/2023) [facility] History of Past illness Narrative* Problem Noted Date Diagnosed Date Resolved Date Hydronephrosis of right kidney 07/26/2019 07/29/2019 Last Assessment & Plan: Concern for dislodged right ureteral stent c/b concern for urosepsis. HDS on exam today. -maldonado placed by urology team. Primary aware of sicu admission. -vancomycin and zosyn -FU admission labs -FU UCx, BCx x 1 Sepsis due to other etiology 07/26/2019 07/29/2019 Overview: Concern for urosepsis. -NPO -labs, including Bcx and Urine cx -abx, zosyn Right upper quadrant abdominal pain 07/26/2019 07/29/2019 Last Assessment & Plan: -RUQ US to evaluate gallbladder as per urology's request documented as of this encounter (statuses as of 04/11/2023) [facility] History of Past illness Narrative* Problem Noted Date Diagnosed Date Resolved Date Hydronephrosis of right kidney 07/26/2019 07/29/2019 Last Assessment & Plan: Concern for dislodged right ureteral stent c/b concern for urosepsis. HDS on exam today. -maldonado placed by urology team. Primary aware of sicu admission. -vancomycin and zosyn -FU admission labs -FU UCx, BCx x 1 Sepsis due to other etiology 07/26/2019 07/29/2019 Overview: Concern for urosepsis. -NPO -labs, including Bcx and Urine cx -abx, zosyn Right upper quadrant abdominal pain 07/26/2019 07/29/2019 Last Assessment & Plan: -RUQ US to evaluate gallbladder as per urology's request documented as of this encounter (statuses as of 04/19/2023) [facility]12-26-2019 History of Past illness Narrative* Problem Noted Date Diagnosed Date Resolved Date Hydronephrosis of right kidney 07/26/2019 07/29/2019 Last Assessment & Plan: Concern for dislodged right ureteral stent c/b concern for urosepsis. HDS on exam today. -maldonado placed by urology team. Primary aware of sicu admission. -vancomycin and zosyn -FU admission labs -FU UCx, BCx x 1 Sepsis due to other etiology 07/26/2019 07/29/2019 Overview: Concern for urosepsis. -NPO -labs, including Bcx and Urine cx -abx, zosyn Right upper quadrant abdominal pain 07/26/2019 07/29/2019 Last Assessment & Plan: -RUQ US to evaluate gallbladder as per urology's request documented as of this encounter (statuses as of 06/05/2023) [facility]12-26-2019 History of Past illness Narrative* Problem Noted Date Diagnosed Date Resolved Date Hydronephrosis of right kidney 07/26/2019 07/29/2019 Last Assessment & Plan: Concern for dislodged right ureteral stent c/b concern for urosepsis. HDS on exam today. -maldonado placed by urology team. Primary aware of sicu admission. -vancomycin and zosyn -FU admission labs -FU UCx, BCx x 1 Sepsis due to other etiology 07/26/2019 07/29/2019 Overview: Concern for urosepsis. -NPO -labs, including Bcx and Urine cx -abx, zosyn Right upper quadrant abdominal pain 07/26/2019 07/29/2019 Last Assessment & Plan: -RUQ US to evaluate gallbladder as per urology's request documented as of this encounter (statuses as of 06/05/2023) [facility]12-26-2019 History of Past illness Narrative* Problem Noted Date Diagnosed Date Resolved Date Hydronephrosis of right kidney 07/26/2019 07/29/2019 Last Assessment & Plan: Concern for dislodged right ureteral stent c/b concern for urosepsis. HDS on exam today. -maldonado placed by urology team. Primary aware of sicu admission. -vancomycin and zosyn -FU admission labs -FU UCx, BCx x 1 Sepsis due to other etiology 07/26/2019 07/29/2019 Overview: Concern for urosepsis. -NPO -labs, including Bcx and Urine cx -abx, zosyn Right upper quadrant abdominal pain 07/26/2019 07/29/2019 Last Assessment & Plan: -RUQ US to evaluate gallbladder as per urology's request documented as of this encounter (statuses as of 06/05/2023) [facility]12-26-2019 History of Past illness Narrative* Problem Noted Date Diagnosed Date Resolved Date Hydronephrosis of right kidney 07/26/2019 07/29/2019 Last Assessment & Plan: Concern for dislodged right ureteral stent c/b concern for urosepsis. HDS on exam today. -maldonado placed by urology team. Primary aware of sicu admission. -vancomycin and zosyn -FU admission labs -FU UCx, BCx x 1 Sepsis due to other etiology 07/26/2019 07/29/2019 Overview: Concern for urosepsis. -NPO -labs, including Bcx and Urine cx -abx, zosyn Right upper quadrant abdominal pain 07/26/2019 07/29/2019 Last Assessment & Plan: -RUQ US to evaluate gallbladder as per urology's request documented as of this encounter (statuses as of 07/08/2023) [facility]12-26-2019 History of Past illness Narrative* Problem Noted Date Diagnosed Date Resolved Date Hydronephrosis of right kidney 07/26/2019 07/29/2019 Last Assessment & Plan: Concern for dislodged right ureteral stent c/b concern for urosepsis. HDS on exam today. -maldonado placed by urology team. Primary aware of sicu admission. -vancomycin and zosyn -FU admission labs -FU UCx, BCx x 1 Sepsis due to other etiology 07/26/2019 07/29/2019 Overview: Concern for urosepsis. -NPO -labs, including Bcx and Urine cx -abx, zosyn Right upper quadrant abdominal pain 07/26/2019 07/29/2019 Last Assessment & Plan: -RUQ US to evaluate gallbladder as per urology's request documented as of this encounter (statuses as of 07/08/2023) [facility]12-26-2019 History of Past illness Narrative* Problem Noted Date Diagnosed Date Resolved Date Hydronephrosis of right kidney 07/26/2019 07/29/2019 Last Assessment & Plan: Concern for dislodged right ureteral stent c/b concern for urosepsis. HDS on exam today. -maldonado placed by urology team. Primary aware of sicu admission. -vancomycin and zosyn -FU admission labs -FU UCx, BCx x 1 Sepsis due to other etiology 07/26/2019 07/29/2019 Overview: Concern for urosepsis. -NPO -labs, including Bcx and Urine cx -abx, zosyn Right upper quadrant abdominal pain 07/26/2019 07/29/2019 Last Assessment & Plan: -RUQ US to evaluate gallbladder as per urology's request documented as of this encounter (statuses as of 07/11/2023) [facility]12-26-2019 History of Past illness Narrative* Problem Noted Date Diagnosed Date Resolved Date Hydronephrosis of right kidney 07/26/2019 07/29/2019 Last Assessment & Plan: Concern for dislodged right ureteral stent c/b concern for urosepsis. HDS on exam today. -maldonado placed by urology team. Primary aware of sicu admission. -vancomycin and zosyn -FU admission labs -FU UCx, BCx x 1 Sepsis due to other etiology 07/26/2019 07/29/2019 Overview: Concern for urosepsis. -NPO -labs, including Bcx and Urine cx -abx, zosyn Right upper quadrant abdominal pain 07/26/2019 07/29/2019 Last Assessment & Plan: -RUQ US to evaluate gallbladder as per urology's request documented as of this encounter (statuses as of 07/12/2023) 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 Bone metastases (HCC) Secondary malignant neoplasm of bone and bone marrow [facility] Diagnosis Screening for genitourinary condition Screening for other and unspecified genitourinary condition [facility] Diagnosis Other hydronephrosis- Primary [facility] Diagnosis Hydronephrosis, unspecified hydronephrosis type- Primary Prostate cancer 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) [facility] Diagnosis 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 Bone metastases (HCC) Secondary malignant neoplasm of bone and bone marrow [facility] Diagnosis Bone metastases (HCC)- Primary 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) [facility] Diagnosis Malignant neoplasm 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)- Primary 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) [facility] Diagnosis Malignant neoplasm of prostate (HCC)- Primary Malignant neoplasm of prostate 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) [facility] Diagnosis Other hydronephrosis- Primary [facility] Diagnosis Calculus of other lower urinary tract location- Primary [facility] Diagnosis 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 Malignant neoplasm 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) Secondary malignant neoplasm of bone and bone marrow [facility] Diagnosis Nephrolithiasis- Primary Calculus of kidney 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) Malignant neoplasm 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) Secondary malignant neoplasm of bone and bone marrow Nephrolithiasis Calculus of kidney [facility] 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 Axillary adenopathy Enlargement of lymph nodes Nephrolithiasis Calculus of kidney [facility] Diagnosis Kidney stone- Primary Calculus of kidney Retained ureteral stent Other organ or tissue replaced by other means Other hydronephrosis Severe protein-calorie malnutrition (HCC) Other severe protein-calorie malnutrition Nephrolithiasis Calculus of kidney [facility] Diagnosis Preop examination- Primary Preoperative examination, unspecified Nephrolithiasis Calculus of kidney Nephrolithiasis Calculus of kidney [facility] Diagnosis Screening for genitourinary condition Screening for other and unspecified genitourinary condition Nephrolithiasis Calculus of kidney [facility] Diagnosis 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) Malignant neoplasm 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) Secondary malignant neoplasm of bone and bone marrow [facility] Diagnosis 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) Malignant neoplasm 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) Secondary malignant neoplasm of bone and bone marrow [facility] Diagnosis Other hydronephrosis- Primary Ureteral stent present Right flank pain Abdominal pain, unspecified site [facility] Diagnosis Other hydronephrosis- Primary [facility] Diagnosis Screening for genitourinary condition Screening for other and unspecified genitourinary condition Other hydronephrosis [facility] Diagnosis Malignant neoplasm 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)- Primary 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) documented in this encounter [facility] for referral (narrative)* Diagnostic Procedure Only (Routine) - Closed Specialty Diagnoses / Procedures Referred By Contac t Referred To Contact MOLECULAR & FUNCTIONAL IMAGING Diagnoses Malignant neoplasm of prostate (HCC) Bone metastases (HCC) Procedures NM BONE WHOLE BODY BONE &/JOINT IMAGING WHOLE BODY Rena Lan MD [address] [place] [address] Molecular & Functional Imaging [address] [place] [address] Referral ID Status Reason Start Date Expiration Date V isits Requested Visits Authorized [id number] Closed Auto-Generated Referral Financial Clearance Required - Self Pay Patient Cleared - [facility] [place] 03/22/2022 04/21/2023 1 1 [facility] for referral (narrative)* Diagnostic Procedure Only (Routine) - Closed Specialty Diagnoses / Procedures Referred By Contac t Referred To Contact MOLECULAR & FUNCTIONAL IMAGING Diagnoses 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) Malignant neoplasm 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) Procedures NM BONE WHOLE BODY BONE &/JOINT IMAGING WHOLE BODY Jenise Bolton APRN.WINDOWS SERVER SUPPORT TECHNICIAN [address] [place] [address] Molecular & Functional Imaging [address] [place], [place] [id number] Referral ID Status Reason Start Date Expiration Date V isits Requested Visits Authorized [id number] Closed Financial Clearance Required - OON Payor Patient Cleared - [facility] [place] 02/11/2023 03/12/2024 1 1 [facility] for visit Narrative* Diagnostic Procedure Only (Routine) - Closed Specialty Diagnoses / Procedures Referred By Contac t Referred To Contact MOLECULAR & FUNCTIONAL IMAGING Diagnoses Malignant neoplasm of prostate (HCC) Bone metastases (HCC) Procedures NM BONE WHOLE BODY BONE &/JOINT IMAGING WHOLE BODY Rena Lan MD [address] [facility] [place] [address] Molecular & Functional Imaging [address] [place] [address] Referral ID Status Reason Start Date Expiration Date V isits Requested Visits Authorized [id number] Closed Auto-Generated Referral Financial Clearance Required - Self Pay Patient Cleared - [facility] [place] 03/22/2022 04/21/2023 1 1 [facility] for visit Narrative* Diagnostic Procedure Only (Routine) - Closed Specialty Diagnoses / Procedures Referred By Contac t Referred To Contact MOLECULAR & FUNCTIONAL IMAGING Diagnoses 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 Summary Purpose Family History No Family History Records FoundNo Family History Records FoundNo Family History Records FoundNo Family History Records Found Advance Directives No Advanced Directives Records FoundLatest Code Status on File Code Status Date Activated Date Inactivated Comments Full Code 05/26/2019 3:32 AM 05/30/2019 6:27 PM Full Code Order Discussed With: Patient Latest Code Status on File Code Status Date Activated Date Inactivated Comments Full Code 05/26/2019 3:32 AM 05/30/2019 6:27 PM Latest Code Status on File Code Status Date Activated Date Inactivated Comments Full Code 05/26/2019 3:32 AM 05/30/2019 6:27 PM Question Answer Comments Full Code Order Discussed With: Patient Latest Code Status on File Code Status Date Activated Date Inactivated Comments Full Code 05/26/2019 3:32 AM 05/30/2019 6:27 PM Question Answer Comments Full Code Order Discussed With: Patient Latest Code Status on File Code Status Date Activated Date Inactivated Comments Full Code 05/26/2019 3:32 AM 05/30/2019 6:27 PM Question Answer Comments Full Code Order Discussed With: Patient Latest Code Status on File Code Status Date Activated Date Inactivated Comments Full Code 05/26/2019 3:32 AM 05/30/2019 6:27 PM Question Answer Comments Full Code Order Discussed With: Patient Medications Administered Section Inactive Administered Medications - up to 3 most recent administrations Medication Order MAR Action Action Date Dose Rate Site acetaminophen 650 mg tab(s) (TYLENOL) 650 mg, ORAL, ONCE, 1 dose, On Tue08/09/22 at 1600, Give 30 minutes before infusion. No more than 4000 mg of acetaminophen should be given per day (FROM ALL SOURCES), If ordered PRN for pain, patient/guardian may elect to receive this medication for higher pain levels INSTEAD of the opioid, if preferred: N/A Given 08/09/2022 3:53 PM EST 650 mg zoledronic he-xdyswpfy-5.9NaCl 4 mg iv piggyback 100 mL (ZOMETA) 4 mg, INTRAVENOUS, Administer over 15 Minutes, ONCE, 1 dose, On Tue08/09/22 at 1600, Hazardous Potential Reproductive Risk Drug: Use appropriate PPE. New Bag/Syringe/Bottle 08/09/2022 3:53 PM EST 4 mg Inactive Administered Medications - up to 3 most recent administrations Medication Order MAR Action Action Date Dose Rate Site zoledronic ow-bqsxndoh-6.9NaCl 4 mg iv piggyback 100 mL (ZOMETA) 4 mg, INTRAVENOUS, Administer over 15 Minutes, ONCE, 1 dose, On Tue07/11/23 at 1400, Hazardous Potential Reproductive Risk Drug: Use appropriate PPE. 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) Malignant neoplasm 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) Procedures CT CHEST W IVCON DIAGNOSTIC COMPUTED TOMOGRAPHY THORAX W/CONTRAST Jenise Bolton APRN.WINDOWS SERVER SUPPORT TECHNICIAN [address] [place] [address] Ct Imaging Referral ID Status Reason Start Date Expiration Date Visits Requested Visits Authorized [id number] Authorized Financial Clearance Required - OON Payor Patient Cleared - [facility] 02/11/2023 03/12/2024 1 1 [facility]ty Diagnoses / [facility] Diagnoses 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) Malignant neoplasm 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) Procedures CT ABD/PEL W IVCON CT ABD & PELVIS W/CONTRAST Jenise Bolton APRN.WINDOWS SERVER SUPPORT TECHNICIAN [address] [place] [address] Ct Imaging Referral ID Status Reason Start Date Expiration Date Visits Requested Visits Authorized [id number] Authorized Financial Clearance Required - OON Payor Patient Cleared - [facility] 02/11/2023 03/12/2024 1 1 [facility]ty Diagnoses / [facility] MOLE[facility]ULAR & FUNCTIONAL IMAGING Diagnoses 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) Malignant neoplasm 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) Procedures NM BONE WHOLE BODY BONE &/JOINT IMAGING WHOLE BODY Jenise Bolton APRN.WINDOWS SERVER SUPPORT TECHNICIAN [address] [place] [address] Molecular & Functional Imaging [address] [place] [address] Referral ID Status Reason Start Date Expiration Date Visits Requested Visits Authorized [id number] Authorized Financial Clearance Required - OON Payor Patient Cleared - [facility] [place] 02/11/2023 03/12/2024 1 1 Specialty Diagnoses / Procedures Referred By Contac t Referred To Contact CT IMAGING Diagnoses 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) Malignant neoplasm 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) Procedures CT CHEST W IVCON DIAGNOSTIC COMPUTED TOMOGRAPHY THORAX W/CONTRAST Jenise Bolton APRN.WINDOWS SERVER SUPPORT TECHNICIAN [address] [place] [address] [place] [address] Referral ID Status Reason Start Date Expiration Date V isits Requested Visits Authorized [id number] Closed Financial Clearance Required - OON Payor Patient Cleared - [facility] [place] 02/11/2023 03/12/2024 1 1 Specialty Diagnoses / Procedures Referred By Contac t Referred To Contact CT IMAGING Diagnoses 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) Malignant neoplasm 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) Procedures CT ABD/PEL W IVCON CT ABD & PELVIS W/CONTRAST Jenise Bolton, ONILE.WINDOWS SERVER SUPPORT TECHNICIAN [address] [place] [address] [place] [address] Referral ID Status Reason Start Date Expiration Date V isits Requested Visits Authorized [id number] Closed Financial Clearance Required - OON Payor Patient Cleared - [facility] [place] 02/11/2023 03/12/2024 1 1 Additional Source Comments (unrecognized sect ion and content) No Status Records FoundNo Status Records FoundNo Status Records FoundNo Status Records Found INFORMATION SOURCE (unrecogn ized section and content) DATE CREATED AUTHOR AUTHOR'S ORGANIZ ATION 08/02/2019 [facility] DATE CREATED AUTHOR AUTHOR'S ORGANIZ ATION 04/05/2023 [facility] DATE CREATED AUTHOR AUTHOR'S ORGANIZ ATION 07/29/2023 [facility] Source Comments (unrecognize d section and content) In the event this informatio n is protected by the Federal Confidentiality of Alcohol and Drug Abuse Patient Records regulations: The Federal rules restrict any use of the information to criminally investigate or prosecute any alcohol or drug abuse patient.[facility] the event this information is protected by the Federal Confidentiality of Alcohol and Drug Abuse Patient Records regulations: The Federal rules restrict any use of the information to criminally investigate or prosecute any alcohol or drug abuse patient.[facility] the event this information is protected by the Federal Confidentiality of Alcohol and Drug Abuse Patient Records regulations: The Federal rules restrict any use of the information to criminally investigate or prosecute any alcohol or drug abuse patient.[facility] the event this information is protected by the Federal Confidentiality of Alcohol and Drug Abuse Patient Records regulations: The Federal rules restrict any use of the information to criminally investigate or prosecute any alcohol or drug abuse patient.[facility] the event this information is protected by the Federal Confidentiality of Alcohol and Drug Abuse Patient Records regulations: The Federal rules restrict any use of the information to criminally investigate or prosecute any alcohol or drug abuse patient.[facility] the event this information is protected by the Federal Confidentiality of Alcohol and Drug Abuse Patient Records regulations: The Federal rules restrict any use of the information to criminally investigate or prosecute any alcohol or drug abuse patient.[facility] the event this information is protected by the Federal Confidentiality of Alcohol and Drug Abuse Patient Records regulations: The Federal rules restrict any use of the information to criminally investigate or prosecute any alcohol or drug abuse patient.[facility] the event this information is protected by the Federal Confidentiality of Alcohol and Drug Abuse Patient Records regulations: The Federal rules restrict any use of the information to criminally investigate or prosecute any alcohol or drug abuse patient.[facility] the event this information is protected by the Federal Confidentiality of Alcohol and Drug Abuse Patient Records regulations: The Federal rules restrict any use of the information to criminally investigate or prosecute any alcohol or drug abuse patient.[facility] the event this information is protected by the Federal Confidentiality of Alcohol and Drug Abuse Patient Records regulations: The Federal rules restrict any use of the information to criminally investigate or prosecute any alcohol or drug abuse patient.[facility] the event this information is protected by the Federal Confidentiality of Alcohol and Drug Abuse Patient Records regulations: The Federal rules restrict any use of the information to criminally investigate or prosecute any alcohol or drug abuse patient.[facility] the event this information is protected by the Federal Confidentiality of Alcohol and Drug Abuse Patient Records regulations: The Federal rules restrict any use of the information to criminally investigate or prosecute any alcohol or drug abuse patient.[facility] the event this information is protected by the Federal Confidentiality of Alcohol and Drug Abuse Patient Records regulations: The Federal rules restrict any use of the information to criminally investigate or prosecute any alcohol or drug abuse patient.[facility] the event this information is protected by the Federal Confidentiality of Alcohol and Drug Abuse Patient Records regulations: The Federal rules restrict any use of the information to criminally investigate or prosecute any alcohol or drug abuse patient.[facility] HospitalIn the event this information is protected by the Federal Confidentiality of Alcohol and Drug Abuse Patient Records regulations: The Federal rules restrict any use of the information to criminally investigate or prosecute any alcohol or drug abuse patient.[facility] HospitalIn the event this information is protected by the Federal Confidentiality of Alcohol and Drug Abuse Patient Records regulations: The Federal rules restrict any use of the information to criminally investigate or prosecute any alcohol or drug abuse patient.[facility] HospitalIn the event this information is protected by the Federal Confidentiality of Alcohol and Drug Abuse Patient Records regulations: The Federal rules restrict any use of the information to criminally investigate or prosecute any alcohol or drug abuse patient.[facility] HospitalIn the event this information is protected by the Federal Confidentiality of Alcohol and Drug Abuse Patient Records regulations: The Federal rules restrict any use of the information to criminally investigate or prosecute any alcohol or drug abuse patient.[facility] HospitalIn the event this information is protected by the Federal Confidentiality of Alcohol and Drug Abuse Patient Records regulations: The Federal rules restrict any use of the information to criminally investigate or prosecute any alcohol or drug abuse patient.[facility] HospitalIn the event this information is protected by the Federal Confidentiality of Alcohol and Drug Abuse Patient Records regulations: The Federal rules restrict any use of the information to criminally investigate or prosecute any alcohol or drug abuse patient.[facility] HospitalIn the event this information is protected by the Federal Confidentiality of Alcohol and Drug Abuse Patient Records regulations: The Federal rules restrict any use of the information to criminally investigate or prosecute any alcohol or drug abuse patient.[facility] HospitalIn the event this information is protected by the Federal Confidentiality of Alcohol and Drug Abuse Patient Records regulations: The Federal rules restrict any use of the information to criminally investigate or prosecute any alcohol or drug abuse patient.[facility] HospitalIn the event this information is protected by the Federal Confidentiality of Alcohol and Drug Abuse Patient Records regulations: The Federal rules restrict any use of the information to criminally investigate or prosecute any alcohol or drug abuse patient.[facility] HospitalIn the event this information is protected by the Federal Confidentiality of Alcohol and Drug Abuse Patient Records regulations: The Federal rules restrict any use of the information to criminally investigate or prosecute any alcohol or drug abuse patient.[facility] HospitalIn the event this information is protected by the Federal Confidentiality of Alcohol and Drug Abuse Patient Records regulations: The Federal rules restrict any use of the information to criminally investigate or prosecute any alcohol or drug abuse patient.[facility] HospitalIn the event this information is protected by the Federal Confidentiality of Alcohol and Drug Abuse Patient Records regulations: The Federal rules restrict any use of the information to criminally investigate or prosecute any alcohol or drug abuse patient.[facility] HospitalIn the event this information is protected by the Federal Confidentiality of Alcohol and Drug Abuse Patient Records regulations: The Federal rules restrict any use of the information to criminally investigate or prosecute any alcohol or drug abuse patient.[facility] HospitalIn the event this information is protected by the Federal Confidentiality of Alcohol and Drug Abuse Patient Records regulations: The Federal rules restrict any use of the information to criminally investigate or prosecute any alcohol or drug abuse patient.[facility] HospitalIn the event this information is protected by the Federal Confidentiality of Alcohol and Drug Abuse Patient Records regulations: The Federal rules restrict any use of the information to criminally investigate or prosecute any alcohol or drug abuse patient.[facility] HospitalIn the event this information is protected by the Federal Confidentiality of Alcohol and Drug Abuse Patient Records regulations: The Federal rules restrict any use of the information to criminally investigate or prosecute any alcohol or drug abuse patient.[facility] HospitalIn the event this information is protected by the Federal Confidentiality of Alcohol and Drug Abuse Patient Records regulations: The Federal rules restrict any use of the information to criminally investigate or prosecute any alcohol or drug abuse patient.[facility] HospitalIn the event this information is protected by the Federal Confidentiality of Alcohol and Drug Abuse Patient Records regulations: The Federal rules restrict any use of the information to criminally investigate or prosecute any alcohol or drug abuse patient.[facility] HospitalIn the event this information is protected by the Federal Confidentiality of Alcohol and Drug Abuse Patient Records regulations: The Federal rules restrict any use of the information to criminally investigate or prosecute any alcohol or drug abuse patient.[facility] HospitalIn the event this information is protected by the Federal Confidentiality of Alcohol and Drug Abuse Patient Records regulations: The Federal rules restrict any use of the information to criminally investigate or prosecute any alcohol or drug abuse patient.[facility] HospitalIn the event this information is protected by the Federal Confidentiality of Alcohol and Drug Abuse Patient Records regulations: The Federal rules restrict any use of the information to criminally investigate or prosecute any alcohol or drug abuse patient.[facility] HospitalIn the event this information is protected by the Federal Confidentiality of Alcohol and Drug Abuse Patient Records regulations: The Federal rules restrict any use of the information to criminally investigate or prosecute any alcohol or drug abuse patient.[facility] HospitalIn the event this information is protected by the Federal Confidentiality of Alcohol and Drug Abuse Patient Records regulations: The Federal rules restrict any use of the information to criminally investigate or prosecute any alcohol or drug abuse patient.[facility] Reason for Visit (unrecogniz ed section and content) Specialty Diagnoses / Procedures Referred By Contsalima rivas Referred To Contact HEMATOLOGY/ONCOLOGY Diagnoses Malignant neoplasm 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) 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) Anemia Procedures CONSULT TEST TREAT Rena Lan MD [address] [facility] [place] [address] [place] [address] [place] [address] Referral ID Status Reason Start Date Expiration Date V isits Requested Visits Authorized [id number] Closed Financial Clearance Required - Self Pay Patient Cleared - [facility] 03/07/2023 06/05/2023 1 1 Specialty Diagnoses / Procedures Referred By Contac t Referred To Contact Diagnoses 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) Bone metastases Procedures Rena Car MD [address] [place] [address] [facility] [address] [place] [address] Referral ID Status Reason Start Date Expiration Date Visits Requested Visits Authorized [id number] Authorized Financial Clearance Required - Self Pay Patient Cleared - [facility] [place] 07/07/2022 10/05/2022 6 6 Reason Comments Appointment Reason Comments Radiology NM Specialty Diagnoses / Procedures [facility] Referred To Contact MOLECULAR & FUNCTIONAL IMAGING Diagnoses Malignant neoplasm of prostate (HCC) Bone metastases (HCC) Procedures NM BONE WHOLE BODY BONE &/JOINT IMAGING WHOLE BODY Rena Lan MD [address] [place] [address] Molecular & Functional Imaging [address] [place] [address] Referral ID Status Reason Start Date Expiration Date V isits Requested Visits Authorized [id number] Closed Auto-Generated Referral Financial Clearance Required - Self Pay Patient Cleared [facility] 03/22/2022 04/21/2023 1 1 Specialty Diagnoses / Procedures [facility] Referred To Contact HEMATOLOGY/ONCOLOGY Diagnoses C61 (ICD-10-CM) - Malignant neoplasm of prostate (HCC) C79.51 (ICD-10-CM) - Bone metastases (HCC) Procedures EST SIMPLE OFFICE VISIT, POST BONE SCAN/LABS Rena Lan MD [address] [place] [address] [facility] [address] [place] [address] Referral ID Status Reason Start Date Expiration Date V isits Requested Visits Authorized [id number] Closed Financial Clearance Required - Self Pay Patient Cleared - [facility] [place] 03/22/2022 06/20/2022 1 1 Reason Comments Future Appointment Reason Onset Date Comments Refill Request 05/07/2022 Reason Comments Follow Up Specialty Diagnoses / Procedures Referred By Contac t Referred To Contact UROLOGY Diagnoses prostate cancer/hydronephrosis Procedures follow up office visit Romaine Tsai DO [address] [place] [address] [address] [place] [address] Referral ID Status Reason Start Date Expiration Date V isits Requested Visits Authorized [id number] Closed Financial Clearance Required - Self Pay Patient Cleared - [facility] [place] 04/07/2022 07/06/2022 1 1 Reason Comments Established Patient 3 month follow up Specialty Diagnoses / Procedures Referred By Contac t Referred To Contact HEMATOLOGY/ONCOLOGY Diagnoses Prostate Ca Bone Mets Procedures CBC/CMP/PSA/OV-DUE JULY 2022 Jenise Bolton APRN.WINDOWS SERVER SUPPORT TECHNICIAN [address] [place] [address] Rena Lan MD [address] [place] [address] Referral ID Status Reason Start Date Expiration Date V isits Requested Visits Authorized [id number] Closed Financial Clearance Required - Self Pay Patient Cleared [facility] 04/13/2022 07/12/2022 1 1 Reason Comments Zometa Specialty Diagnoses / Procedures Referred By Contac t Referred To Contact HEMATOLOGY/ONCOLOGY Diagnoses 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) Anemia Bone metastases (HCC) Procedures OFFICE VISIT, EST PT., LEVEL 2 TC OV Due December 2022 Rena Lan MD [address] [place] [address] [facility] [address] [place] [address] Referral ID Status Reason Start Date Expiration Date V isits Requested Visits Authorized [id number] Closed Financial Clearance Required - Self Pay Patient Cleared - [facility] [place] 07/22/2022 02/25/2023 1 1 Reason Comments Appointment Referral Request Reason Comments Non-Chemotherapy Treatment Specialty Diagnoses / Procedures Referred By Contac t Referred To Contact HEMATOLOGY/ONCOLOGY Diagnoses 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) Anemia Bone metastases (HCC) Procedures OFFICE VISIT, EST PT., LEVEL 2 TC OV Due December 2022 Rena Lan MD [address] [place] [address] Fabio [facility] [address] [place] [address] 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 Reason Comments further testing Reason Comments AVS 03/31/2023 Reason Comments Results Appointment Reason Comments Kidney Stones Specialty Diagnoses / Procedures Referred By Contac t Referred To Contact UROLOGY Diagnoses Retained ureteral stent Prostate cancer (HCC) Procedures OFFICE VISIT, EST PT., LEVEL 2 TC Dustin Alcocer MD [address] [place] [address] [address] [place] [address] Referral ID Status Reason Start Date Expiration Date V isits Requested Visits Authorized [id number] Closed Financial Clearance Required - Self Pay Patient Cleared - [facility] 03/08/2023 09/04/2023 1 1 Reason Comments Pre-Op Exam Specialty Diagnoses / Procedures Referred By Contac t Referred To Contact MOLECULAR & FUNCTIONAL IMAGING Diagnoses 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) Malignant neoplasm 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) Procedures NM BONE WHOLE BODY BONE &/JOINT IMAGING WHOLE BODY Jenise Bolton APRN.WINDOWS SERVER SUPPORT TECHNICIAN [address] [place] [address] Molecular & Functional Imaging [address] [place] [address] Referral ID Status Reason Start Date Expiration Date V isits Requested Visits Authorized [id number] Closed Financial Clearance Required - OON Payor Patient Cleared - [facility] 02/11/2023 03/12/2024 [address] Specialty Diagnoses / Procedures Referred By Contac t Referred To Contact CT IMAGING Diagnoses 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) Malignant neoplasm 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) Procedures CT ABD/PEL W IVCON CT ABD & PELVIS W/CONTRAST Jenise Bolton APRN.WINDOWS SERVER SUPPORT TECHNICIAN [address] [place] [address] [place] [address] Referral ID Status Reason Start Date Expiration Date V isits Requested Visits Authorized [id number] Closed Financial Clearance Required - OON Payor Patient Cleared - [facility] [place] 02/11/2023 03/12/2024 1 1 Specialty Diagnoses / Procedures Referred By Contac t Referred To Contact [facility] Diagnoses Retained ureteral stent Malignant neoplasm of prostate Procedures REFERRAL TO [facility] FINANCIAL COUNSELOR Dustin Alcocer MD [address] [place] [address] [address] Referral ID Status Reason Start Date Expiration Date V isits Requested Visits Authorized [id number] Closed Financial Clearance Required - Self Pay Patient Cleared - [facility] [place] 04/15/2023 07/14/2023 1 1 Specialty Diagnoses / Procedures Referred By Contac t Referred To Contact HEMATOLOGY/ONCOLOGY Diagnoses 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) Procedures zometa and bmp Self Fabio [facility] [address] [place] [address] Referral ID Status Reason Start Date Expiration Date V isits Requested Visits Authorized [id number] Closed Financial Clearance Required - Self Pay Patient Cleared - [facility] [place] 03/24/2023 06/22/2023 1 1 Care Teams (unrecognized sec tion and content) Follow Up Clerk Relationship Specialty Start Date End Date Ryan Sandoval [address] [place] [address] PCP - General Family Practice 06/19/19 Mouna Randolph RN Specialty Box Blank Machine Operator Oncology 04/25/20 Follow Up Clerk Relationship Specialty Start Date End Date Ryan Sandoval [address] [place] [address] PCP - General Family Practice 06/19/19 Mouna Randolph RN Specialty Box Blank Machine Operator Oncology 04/25/20 Follow Up Clerk Relationship Specialty Start Date End Date Ryan Sandoval [address] [place] [address] PCP - General Family Practice 06/19/19 Mouna Randolph RN Specialty Box Blank Machine Operator Oncology 04/25/20 Follow Up Clerk Relationship Specialty Start Date End Date Ryan Sandoval [address] [place] [address] PCP - General Family Medicine 06/19/19 Mouna Randolph RN Specialty Box Blank Machine Operator Oncology 04/25/20 Follow Up Clerk Relationship Specialty Start Date End Date Ryan Sandoval [address] [place] [address] PCP - General Family Medicine 06/19/19 Mouna Randolph RN Specialty Box Blank Machine Operator Oncology 04/25/20 Follow Up Clerk Relationship Specialty Start Date End Date [place] [address] PCP - General 06/03/22 Mouna Randolph RN Specialty Box Blank Machine Operator Oncology 04/25/20 Follow Up Clerk Relationship Specialty Start Date End Date Glenn Ibrahim [address] [place] [address] PCP - General 06/03/22 Mouna Randolph RN Specialty Box Blank Machine Operator Oncology 04/25/20 Follow Up Clerk Relationship Specialty Start Date End Date Glenn Ibrahim [address] [place] [address] PCP - General 06/03/22 Mouna Randolph RN Specialty Box Blank Machine Operator Oncology 04/25/20 Follow Up Clerk Relationship Specialty Start Date End Date Glenn Ibrahim [address] [place] [address] PCP - General 06/03/22 Mouna Randolph RN Specialty Box Blank Machine Operator Oncology 04/25/20 Follow Up Clerk Relationship Specialty Start Date End Date Glenn Ibrahim [address] [place] [address] PCP - General 06/03/22 Mouna Randolph RN Specialty Box Blank Machine Operator Oncology 04/25/20 Follow Up Clerk Relationship Specialty Start Date End Date Glenn Ibrahim [address] [place] [address] PCP - General 06/03/22 Mouna Randolph RN Specialty Box Blank Machine Operator Oncology 04/25/20 Rena Lan MD [address] [place] [address] Hematology/Oncology 07/22/22 Follow Up Clerk Relationship Specialty Start Date End Date Glenn [place] [address] PCP - General 06/03/22 Mouna Randolph RN Specialty Box Blank Machine Operator Oncology 04/25/20 Rena Lan MD [address] [place] [address] Hematology/Oncology 07/22/22 Follow Up Clerk Relationship Specialty Start Date End Date Glenn [place] [address] PCP - General 06/03/22 Mouna Randolph RN Specialty Box Blank Machine Operator Oncology 04/25/20 Rena Lan MD [id number] [place] [address] Hematology/Oncology 07/22/22 Follow Up Clerk Relationship Specialty Start Date End Date Glenn [place] [address] PCP - General 06/03/22 Mouna Randolph RN Specialty Box Blank Machine Operator Oncology 04/25/20 Rena Lan MD [address] [place] [address] Hematology/Oncology 07/22/22 Follow Up Clerk Relationship Specialty Start Date End Date Glenn [place] [address] PCP - General 06/03/22 Mouna Randolph RN Specialty Box Blank Machine Operator Oncology 04/25/20 Rena Lan MD [address] [place] [address] Hematology/Oncology 07/22/22 Follow Up Clerk Relationship Specialty Start Date End Date Glenn [place] [address] PCP - General 06/03/22 Mouna Randolph RN Specialty Box Blank Machine Operator Oncology 04/25/20 Rena Lan MD [address] [place], [place] [address] Hematology/Oncology 07/22/22 Follow Up Clerk Relationship Specialty Start Date End Date [place], [place] [address]41 PCP - General 06/03/22 Mouna Randolph RN Specialty Box Blank Machine Operator Oncology 04/25/20 Rena Lan MD [address] [place], [place] [address] Hematology/Oncology 07/22/22 Follow Up Clerk Relationship Specialty [place] [address] PCP - General 06/03/22 Mouna Randolph RN Specialty Box Blank Machine Operator Oncology 04/25/20 Rena Lan MD [address] [place], [place] 9758[address] Hematology/Oncology 07/22/22 Follow Up Clerk Relationship Specialty Start [place] [address] PCP - General 06/03/22 Mouna Randolph RN Specialty Box Blank Machine Operator Oncology 04/25/20 Rena Lan MD [address] [place] [address] Hematology/Oncology 07/22/22 [place] [address] [place] [address] Hematology/Oncology 03/07/23 Follow Up Clerk Relationship Specialty Start Date End Date Glenn [place], [place] [address] PCP - General 06/03/22 Mouna Randolph RN Specialty Box Blank Machine Operator Oncology 04/25/20 Rena Lan MD [address] [place] [address] [place], [place] [address] Hematology/Oncology 07/22/22 [place] [address] [facility] [place] [address] Hematology/Oncology 03/07/23 Follow Up Clerk Relationship Specialty [place] [address] [place] [address] PCP - General 06/03/22 Mouna Randolph RN Specialty Box Blank Machine Operator Oncology 04/25/20 Rena Lan MD [address] [place] [address] Hematology/Oncology 07/22/22 [place] [address] [place] [address] Hematology/Oncology 03/07/23 Follow Up Clerk Relationship Specialty Start Date End Date Glenn Ibrahim MD [address] [place] [address] PCP - General 06/03/22 Mouna Randolph RN Specialty Box Blank Machine Operator Oncology 04/25/20 Rena Lan MD [address] [place] [address] Hematology/Oncology 07/22/22 [place] [address] [place] [address] Hematology/Oncology 03/07/23 Follow Up Clerk Relationship Specialty Start Date End Date Glenn Ibrahim MD [address] [place] [address] PCP - General 06/03/22 Mouna Randolph, RN Specialty Box Blank Machine Operator Oncology 04/25/20 03/31/23 Rena Lan MD [address] [place] [address] Hematology/Oncology 07/22/22 03/31/23 [place] [address] [place] [address] Hematology/Oncology 03/07/23 03/31/23 Wolfgang Toscano MD [address] [place] [address] Hematology/Oncology 04/01/23 Follow Up Clerk Relationship Specialty Start Date End Date Glenn Ibrahim MD [address] [place] [address] PCP - General 06/03/22 Wolfgang Toscano MD [address] [place] [address] Hematology/Oncology 04/01/23 Follow Up Clerk Relationship Specialty Start Date End Date Glenn Ibrahim MD [address] [place] [address] PCP - General 06/03/22 Wolfgang Toscano MD [address] [place] [address] Hematology/Oncology 04/01/23 Follow Up Clerk Relationship Specialty Start Date End Date Glenn Ibrahim MD [address] [place] [address] PCP - General 06/03/22 Wolfgang Toscano MD [address] [place] [address] Hematology/Oncology 04/01/23 Follow Up Clerk Relationship Specialty Start Date End Date Glenn Ibrahim MD [address] [place], [place] [address] PCP - General 06/03/22 Mouna Randolph RN Specialty Box Blank Machine Operator Oncology 04/25/20 03/31/23 Rena Lan MD [address] [place], [place] [address]4831 Hematology/Oncology 07/22/22 03/31/23 [place] [address] [place], [place] [id number] Hematology/Oncology 03/07/23 03/31/23 Follow Up Clerk Relationship Specialty Start Date End Date Glenn Ibrahim MD [address] [place], [place] [address] PCP - General 06/03/22 Mouna Randolph RN Specialty Box Blank Machine Operator Oncology 04/25/20 03/31/23 Rena Lan MD [address] [place], [place] 400831 Hematology/Oncology 07/22/22 03/31/23 [place] [address] [place] [address] Hematology/Oncology 03/07/23 03/31/23 Follow Up Clerk Relationship Specialty Start Date End Date Glenn Ibrahim MD [address] [place], [place] [address]191 PCP - General 06/03/22 Mouna Randolph RN Specialty Box Blank Machine Operator Oncology 04/25/20 03/31/23 Rena Lan MD [address] [place] [address] Hematology/Oncology 07/22/22 03/31/23 [place] [address] [facility] [place] [address] Hematology/Oncology 03/07/23 03/31/23 Follow Up Clerk Relationship Specialty Start Date End Date Glenn Ibrahim MD [address] [place], [place] [address]101 PCP - General 06/03/22 Wolfgang Toscano MD [address] [place], [place] [address] Hematology/Oncology 04/01/23 Follow Up Clerk Relationship Specialty Start Date End Date Glenn Ibrahim MD [address] [place], [place] [address]181 PCP - General 06/03/22 Wolfgang Toscano MD [address] [place], [place] [address] Hematology/Oncology 04/01/23 FOR RECORDS PERTAINING TO PATIENTS WHO ARE OR HAVE BEEN ENROLLED IN A CHEMICAL DEPENDENCY/SUBSTANCEABUSE PROGRAM, SOME INFORMATION MAY BE OMITTED. This clinical summary was aggregated from multiple sources. Caution should be exercised in using it in the provision of clinical care. This summary normalizes information from multiple sources, and as a consequence, information in this document may materially change the coding, format and clinical context of patient data. In addition, data may be omitted in some cases. CLINICAL DECISIONS SHOULD BE BASED ON THE PRIMARY CLINICAL RECORDS. [facility] [email or web address] [phone] no warranty or guarantee [id number] the accuracy [phone] completeness of information in this [id number]
== END 2023-10-12 20:09 | disposition home or self-care (01) ==
PROVIDERS: Emergency Provider Emergency Medicine; PCP Nurse Practitioner Family; Visit Provider Emergency Medicine
DX: N39.0 Urinary tract infection, site not specified (principal); R31.9 Hematuria, unspecified; F41.9 Anxiety disorder, unspecified; Z96.0 Presence of urogenital implants; Z85.46 Personal history of malignant neoplasm of prostate; Z85.830 Personal history of malignant neoplasm of bone; Z79.899 Other long term (current) drug therapy
CPT/HCPCS: 74176; 80048; 81001; 85025; 87086; 96360; 96361; 99283; J7030; A4216

== ENCOUNTER 2024-06-10 16:30 | Observation (INO) | payer SELFPAY ==
[2024-06-10] VITALS (10 sets, daily range): BP systolic 91–115; BP diastolic 58–85; PULSE 69–75; RESP 16–25; TEMP 36.1–36.8; O2SAT 91–99; BMI 25.7; BMI 24.7
[2024-06-10 17:23] LABS: Absolute Lymphocyte Count 1.04 X10^3/uL (0.83-4.51); Absolute Neutrophil Count 8.5 X10^3/uL (2.0-7.7); Basophil# 0.03 X10^3/uL; Basophil% 0.3 % (0-1); Eosinophils% 1.9 % (0-5); Hematocrit 29.7 % (40-54); Hemoglobin 9.5 g/dL (13.0-16.5); Lymphocyte # 1.04 X10^3/ul (0.83-4.51); Lymphocyte % 9.7 % (19-41); Mean Corpuscular Hgb 26.5 pg (27.0-32.0); Mean Corpuscular Volume 82.7 fL (80-94); Mean Platelet Vol. 9.9 fl (6.2-12.0); Monocyte# 0.93 X10^3/uL; Monocyte% 8.7 % (0-10); NRBC Flagged by Analyzer 0 % (0-5); Neutrophil # 8.51 X10^3/uL (2.7-7.7); POSITIVE MORPHOLOGY YES; Platelet Count 362 K/mm3 (150-450); RBC Distribution Width CV 20.1 % (11.6-14.6); RBC Distribution Width SD 59.7 fl (35.1-43.9); Red Blood Count 3.59 M/mm3 (4.6-6.2); White Blood Count 10.8 K/mm3 (4.4-11.0)
[2024-06-10 17:33] LABS: Differential Indicated SCAN CRITERIA MET
[2024-06-10 17:54] LABS: Anion Gap 6 (5-15); BUN 27 mg/dL (7-18); BUN/Creat Ratio 22.9 RATIO (10-20); Calcium,Total 9.7 mg/dL (8.5-10.1); Chloride 107 mmol/L (98-107); Creatinine, Serum 1.18 mg/dL (0.70-1.30); EST Glomerular Filtration Rate 64 mL/min (>60); Est Glom Filt Rate - Afr Amer 78 mL/min (>60); Estimated Creatinine Clearance 47.38 ml/min; Glucose 136 mg/dL (74-106); Potassium 4.6 mmol/L (3.5-5.1); Sodium Level 135 mmol/L (136-145); Troponin-I HS (w/2H Reflex) 4 pg/mL (3.0-78.0)
[2024-06-10 18:07] LABS: Anisocytosis 1+; Platelet Morphology LARGE
[2024-06-10 18:18] LABS: D-Dimer Quantitative (DVT/PE) 6.48 FEU/ug/m (0.27-0.49)
[2024-06-10 19:18] LABS: Reflex Troponin-HS? (from REC) Y
[2024-06-10 20:32] LABS: Troponin-I HS 21 pg/mL (3.0-78.0)
[2024-06-10] MEDS: Morphine 4 MG/ML Syringe IV (21:22)
[2024-06-10] MEDS: Famotidine 20 MG Tablet PO (22:49)
[2024-06-10] MEDS: Enoxaparin 80 MG/0.8 ML Syringe 70 MG SC (22:49)
[2024-06-10] MEDS: 0.9% Normal Saline (1000mL) 1,000 ML 70 ML IV (22:49)
[2024-06-10 23:26] LABS: Troponin-I HS 36 pg/mL (3.0-78.0)
[2024-06-11 03:24] VITALS: BP 96/53; PULSE 76; RESP 18; TEMP 36.6; O2SAT 96
[2024-06-11 05:33] VITALS: BMI 24.7
[2024-06-11 06:03] LABS: Absolute Lymphocyte Count 0.94 X10^3/uL (0.83-4.51); Absolute Neutrophil Count 5.6 X10^3/uL (2.0-7.7); Basophil# 0.02 X10^3/uL; Basophil% 0.3 % (0-1); Eosinophil# 0.36 X10^3/uL; Eosinophils% 4.8 % (0-5); Hematocrit 27.6 % (40-54); Hemoglobin 8.4 g/dL (13.0-16.5); Lymphocyte # 0.94 X10^3/ul (0.83-4.51); Lymphocyte % 12.6 % (19-41); Mean Corp Hgb Conc 30.4 g/dL (32-36); Mean Corpuscular Hgb 25.5 pg (27.0-32.0); Mean Corpuscular Volume 83.9 fL (80-94); Mean Platelet Vol. 8.8 fl (6.2-12.0); Monocyte# 0.49 X10^3/uL; Monocyte% 6.6 % (0-10); NRBC Flagged by Analyzer 0 % (0-5); Neutrophil # 5.61 X10^3/uL (2.7-7.7); Neutrophil % 75.3 % (47-70); Platelet Count 339 K/mm3 (150-450); RBC Distribution Width SD 60.7 fl (35.1-43.9); Red Blood Count 3.29 M/mm3 (4.6-6.2); White Blood Count 7.5 K/mm3 (4.4-11.0)
[2024-06-11 06:35] LABS: ALB/GLOB Ratio 0.5 RATIO (0.9-2.4); AST(SGOT) 13 U/L (15-37); Alanine Aminotransfer ALT/SGPT 11 U/L (16-61); Albumin, Serum 2.3 g/dL (3.2-5.0); Alkaline Phosphatase 78 U/L (45-117); Anion Gap 7 (5-15); BUN 22 mg/dL (7-18); Calcium,Total 8.6 mg/dL (8.5-10.1); Chloride 109 mmol/L (98-107); Cholesterol 175 mg/dL (200); EST Glomerular Filtration Rate 70 mL/min (>60); Est Glom Filt Rate - Afr Amer 84 mL/min (>60); Estimated Creatinine Clearance 50.83 ml/min; Globulin 4.6 g/dL (2.2-4.2); Glucose 105 mg/dL (74-106); High Density Lipoprotein 50 mg/dL; Potassium 4.1 mmol/L (3.5-5.1); Protein, Total 6.9 g/dL (6.4-8.2); Sodium Level 137 mmol/L (136-145); Triglycerides 64 mg/dL; Very Low Density Lipoprotein 13 mg/dL (5-40)
[2024-06-11 07:20] VITALS: O2SAT 94
[2024-06-11 07:55] VITALS: BP 107/51; PULSE 73; RESP 16; TEMP 36.6; O2SAT 94
[2024-06-11 11:38] VITALS: BP 113/66; PULSE 73; RESP 16; TEMP 36.6; O2SAT 97
[2024-06-11 11:41] VITALS: BP 113/66; PULSE 73
[2024-06-11] MEDS: Famotidine 20 MG Tablet PO (11:41)
[2024-06-11] MEDS: FLUoxetine 20 MG Capsule PO (11:41)
[2024-06-11] MEDS: Metoprolol(XL)Succ 25 MG Tablet 12.5 MG PO (11:41)
[2024-06-11] MEDS: Enoxaparin 80 MG/0.8 ML Syringe 70 MG SC (11:42)
[2024-06-11] MEDS: Aspirin E.C. 81 MG Tablet PO (11:43)
[2024-06-11 14:02] LABS: Ferritin 65 ng/mL (26-388); Iron 13 ug/dL (65-175); Iron Binding Capacity,Total 284 ug/dL (250-450); PERCENT IRON SATURATION 4.6 % (15.0-55.0)
[2024-06-11 14:55] VITALS: BP 101/56; PULSE 71; RESP 16; TEMP 36.8; O2SAT 93
[2024-06-11] MEDS: Enoxaparin 40 MG/0.4 ML Syringe SC (15:11)
== END 2024-06-11 14:49 | disposition home or self-care (01) ==
LOC: ED 20:53 → PCU 22:02
PROVIDERS: Admitting Provider Internal Medicine; Emergency Provider Emergency Medicine; PCP Nurse Practitioner Family; Visit Provider Internal Medicine
DX: R07.89 Other chest pain (principal); I82.462 Acute embolism and thrombosis of left calf muscular vein; I10 Essential (primary) hypertension; D64.9 Anemia, unspecified; R79.89 Other specified abnormal findings of blood chemistry; R06.02 Shortness of breath; R11.2 Nausea with vomiting, unspecified; E86.0 Dehydration; I25.2 Old myocardial infarction; K21.9 Gastro-esophageal reflux disease without esophagitis; M19.90 Unspecified osteoarthritis, unspecified site; Z79.899 Other long term (current) drug therapy; F41.9 Anxiety disorder, unspecified
CPT/HCPCS: 36415; 71045; 71275; 78452; 80048; 80053; 80061; 82728; 83540; 83550; 83735; 84100; 84443; 84484; 85025; 85379; 93005; 93017; 93306; 93970; 94668; 96372; 96374; 99221; 99285; A9500; J7030; Q9967; A4216; G0378; J2785